=== PATIENT | female | born 1945 | race African-American/Black ===

== ENCOUNTER → 2024-11-23 12:04 | Outpatient (REF) | payer OTHER, SELFPAY | LOC: RAD 12:04 | PROVIDERS: ATTENDING PHYSICIAN Obstetrics & Gynecology Gynecologic Oncology; FAMILY PHYSICIAN Family Medicine | DX: R19.04 Left lower quadrant abdominal swelling, mass and lump (principal); R19.09 Other intra-abdominal and pelvic swelling, mass and lump; N82.3 Fistula of vagina to large intestine; Z12.9 Encounter for screening for malignant neoplasm, site unspecified | CPT/HCPCS: 71260; 74177; Q9967 ==

== ENCOUNTER 2024-12-02 06:05 | Inpatient (IN) | payer OTHER, SELFPAY ==
[2024-11-22 13:56] LABS: Hematocrit 28.9 % (37.0-47.0); Hemoglobin 9.1 g/dL (12.0-16.0); Mean Corp Hgb Conc. 31.5 g/dL (33.0-37.0); Mean Corpuscular Volume 86.0 fL (81.0-99.0); Platelet Count 355 10^3/uL (130-400); Red Cell Dist. Width 15.9 % (11.5-14.5)
[2024-11-22 13:58] LABS: INR 1.10; PT 14.5 Sec (11.4-14.6)
[2024-11-22 13:59] LABS: APTT 30.7 Sec (23.4-35.0)
[2024-11-22 14:11] LABS: ALT (SGPT) 24 U/L (0-35); AST (SGOT) 34 U/L (14-36); Albumin 3.8 g/dl (3.5-5.0); Alkaline Phosphatase 100 U/L (38-126); Blood Urea Nitrogen 36 mg/dl (7-17); Calcium 9.4 mg/dl (8.4-10.2); Carbon Dioxide 28 mmol/L (22-30); Chloride 101 mmol/L (98-107); Glucose 107 mg/dl (70-99); Potassium 5.0 mmol/L (3.5-5.1); Sodium 138 mmol/L (135-145); Total Protein 7.5 g/dl (6.3-8.2); eGFR 35.01
[2024-11-22 14:19] VITALS: BMI 26.1
[2024-11-22 14:43] LABS: Glycohemoglobin (HgbA1c) 6.3 % (4.0-5.6)
--- NOTE | 2024-11-23 13:38 | PTCARENOTE ---
Patients 11/22 Creat 1.5; GFR 35.01- Honey @ Dr. Salmeron office and Alley @ Dr. Tovar office notifed
[2024-12-02] VITALS (15 sets, daily range): BP systolic 116–164; BP diastolic 62–99; BMI 26.1
[2024-12-02 06:48] LABS: Glucose - Point of Care 186 mg/dl (70-99)
[2024-12-02] MEDS: HEPARIN 5000 UNITS SC (06:50)
[2024-12-02] MEDS: TYLENOL 1000 MG PO (06:50)
[2024-12-02] MEDS: NORMOSOL-R/PLASMALYTE-A 1000 IV (06:50)
[2024-12-02 09:20] LABS: B.E. - POC 1.2 mmol/L; Glucose - POC 137 mg/dl (70-99); HCO3 - POC 26 mmol/L (21-28); Hematocrit - POC 29 % PCV (37-47); Hemodilution- POC Yes; Hemoglobin Calculated - POC 9.8; Ionized Calcium - POC 1.13 mmol/L (1.15-1.33); Lactate - POC 0.70 mmol/L (0.36-0.75); O2 Saturation %Calculated-POC 99.8 % (94-98); PCO2 - POC 40 mmHg (35-48); PO2 - POC 211 mmHg (83-108); Potassium - POC 3.9 mmol/L (3.5-5.1); Sodium - POC 139 mmol/L (136-145); Specimen Type - POC Arterial; pH - POC 7.42 (7.35-7.45)
[2024-12-02 11:48] LABS: B.E. - POC -0.1 mmol/L; Glucose - POC 162 mg/dl (70-99); HCO3 - POC 25 mmol/L (21-28); Hematocrit - POC 27 % PCV (37-47); Hemodilution- POC Yes; Hemoglobin Calculated - POC 9.3; Ionized Calcium - POC 1.11 mmol/L (1.15-1.33); Lactate - POC 0.79 mmol/L (0.36-0.75); O2 Saturation %Calculated-POC 99.6 % (94-98); PCO2 - POC 41 mmHg (35-48); PO2 - POC 188 mmHg (83-108); Potassium - POC 4.1 mmol/L (3.5-5.1); Sodium - POC 138 mmol/L (136-145); Specimen Type - POC Arterial; pH - POC 7.39 (7.35-7.45)
[2024-12-02 14:44] LABS: B.E. - POC -1.3 mmol/L; Glucose - POC 172 mg/dl (70-99); HCO3 - POC 24 mmol/L (21-28); Hematocrit - POC 26 % PCV (37-47); Hemodilution- POC Yes; Hemoglobin Calculated - POC 8.8; Ionized Calcium - POC 1.05 mmol/L (1.15-1.33); Lactate - POC 1.02 mmol/L (0.36-0.75); O2 Saturation %Calculated-POC 99.7 % (94-98); PCO2 - POC 44 mmHg (35-48); PO2 - POC 203 mmHg (83-108); Potassium - POC 4.3 mmol/L (3.5-5.1); Sodium - POC 135 mmol/L (136-145); Specimen Type - POC Arterial; pH - POC 7.35 (7.35-7.45)
--- NOTE | 2024-12-02 15:06 | W.IMMPOSTOP ---
Surgical Immed Post Op Note
-
Primary Surgeon: Allen Cristobal MD
Film Archivist-Onc: Jesus Torres MD
Urologist: Roscoe Vazquez MD
Assistants: KURTIS Simon and STORM Roblero
Pre-op Diagnosis: Colovaginal fistula
Post-op Diagnosis: Same
Procedure Performed: Cystocscopy with insertion of bilateral ureteral stents, robotic low anterior resection with takedown of splenic flexure and
intracorporeal anastomosis, flexible sigmoidoscopy and robotic repair of vagina and bilateral oophorectomoy
Anesthesia Type: GET
Specimen / Cultures: Sigmoid colon (suture is proximal); bilateral ovaries
Estimated Blood Loss: 40cc
Complications: None
Operative Findings: Small absesss in the left hemipelvis with a colovaginal fistula
28mm EEA
Normal leak test
Omental pedicle between the colorectal anastomosis (7cm from anal verge)
19 Chandu drain in the pelvis
Patient's daughter updated.
--- NOTE | 2024-12-02 15:22 | CON.HOSP ---
Family Physician
-
Family Physician: Felipe Temple
Chief Complaint
-
Medicine consult for postop medical care
History of Present Illness
HPI: 78-year-old female, past medical history of hypertension, CKD stage III, CAD, presented for routine colorectal resection for pelvic abscess/colovaginal fistula from diverticulitis.
Medicine is consulted for postop medical management.
Patient seen in PACU, still drowsy/sedated from anesthesia.
Medical History
Past Medical History
Past Medical History: Reports Other
Additional Past Medical History:
hypertension,
CKD stage III,
CAD
Past Surgical History: Reports Other
Additional Past Surgical History:
12/02/2024 colorectal resection for pelvic abscess/colovaginal fistula from diverticulitis
Social History
Unable to obtain full social history at this time due to: Other (Sedated currently)
Family History
Family History: Reviewed & Not Pertinent
Allergies / Home Medications
Allergies reflects when Allergies were last updated in [facility].
Home Medications with original date entered in [facility]
Allergy/Medication List:
Allergies
Allergy/AdvReac Type Severity Reaction Status Date / Time
fluticasone (From Flovent Allergy Anaphylaxis Verified 12/02/24 06:22
HFA)
oxycodone (From Percocet) Allergy Vomiting Verified 12/02/24 06:22
tramadol Allergy Vomiting Verified 12/02/24 06:22
Home Medications
Centrum 1 dose PO DAILY 11/25/24
Fruit Vitamin 1 dose PO DAILY 11/25/24
Vege Vitamin 1 dose PO DAILY 11/25/24
acetaminophen 500 mg tablet 1,000 mg PO QID PRN pain 11/25/24
albuterol sulfate 90 mcg/actuation aerosol inhaler 1 puff inhalation DAILY PRN sob 11/25/24
allopurinol 100 mg tablet 100 mg PO DAILY 11/25/24
aspirin 81 mg tablet 81 mg PO DAILY 11/25/24
atorvastatin 80 mg tablet 80 mg PO DAILY 11/25/24
azelastine 137 mcg (0.1 %) nasal spray 2 spray intranasal BID 11/25/24
calcium 1 dose PO DAILY 11/25/24
calcium carbonate (Calcium 500) 500 mg PO DAILY PRN indigestion 11/25/24
carvedilol 12.5 mg tablet 12.5 mg PO BID 11/25/24
cetirizine 5 mg tablet 5 mg PO DAILY 11/25/24
duloxetine 30 mg capsule,delayed release 30 mg PO DAILY 11/25/24
ezetimibe 10 mg tablet 10 mg PO DAILY 11/25/24
fluticasone furoate 200 mcg-vilanterol 25 mcg/dose inhalation powder (Breo Ellipta) 1 inh inhalation DAILY PRN congestion 11/25/24
fluticasone propionate 50 mcg/actuation nasal spray,suspension 1 spray intranasal BID 11/25/24
furosemide 20 mg tablet 20 mg PO DAILY 11/25/24
gabapentin 300 mg capsule 300 mg PO BID 11/25/24
hydrocodone 5 mg-acetaminophen 325 mg tablet 1 tab PO HS PRN pain 11/25/24
memantine 7 mg capsule sprinkle,extended release 24hr (Namenda XR) 7 mg PO DAILY 11/25/24
omeprazole 40 mg capsule,delayed release 40 mg PO DAILY 11/25/24
pantoprazole 20 mg tablet,delayed release 20 mg PO HS 11/25/24
metronidazole 500 mg tablet 500 mg PO DIRECTED 11/30/24
neomycin 500 mg tablet 1,000 mg PO DIRECTED 11/30/24
peg 3350-electrolytes 236 gram-22.74 gram-6.74 gram-5.86 gram solution (Golytely) 236 ml PO DIRECTED 11/30/24
Review of Systems
-
Unable to obtain full review of systems at this time due to: Other (Sedated currently)
Physical Exam
Vital Signs
Vital Signs
Temp Pulse Resp BP Pulse Ox
37.6 C 91 18 116/62 97
12/02/24 06:33 12/02/24 06:33 12/02/24 06:33 12/02/24 06:33 12/02/24 06:33
Physical Exam
General: Well Developed, Well Nourished and Comfortable
HEENT: Normocephalic, Moist Mucous Membranes and Atraumatic
Respiratory: Clear and Non Labored Respirations; Negative Accessory Resp Muscle Use
Cardiac: S1/S2 and Regular Rhythm; Negative Murmur or Rub
GI: Soft, Non Tender, Non Distended, Normal Bowel Sounds and Other (Abdominal drain)
Rectal: Deferred by Provider
Musculoskeletal: No Clubbing, No Cyanosis and No Edema
Skin: Negative Rash
Neuro: Sedated
Laboratory Results
-
Laboratory Results
11/22/24 12:46
11/22/24 12:46
PT 14.5 Sec (11.4-14.6) 11/22/24 12:46
INR 1.10 11/22/24 12:46
APTT 30.7 Sec (23.4-35.0) 11/22/24 12:46
Total Bilirubin 0.5 mg/dl (0.2-1.3) 11/22/24 12:46
AST 34 U/L (14-36) 11/22/24 12:46
ALT 24 U/L (0-35) 11/22/24 12:46
Alkaline Phosphatase 100 U/L (38-126) 11/22/24 12:46
Data Reviewed
-
Lab Data: Labs Reviewed
Old Records: Reviewed
Impression / Plan
-
HPI: 78-year-old female, past medical history of hypertension, CKD stage III, CAD, presented for routine colorectal resection for pelvic abscess/colovaginal fistula from diverticulitis.
Medicine is consulted for postop medical management.
Patient seen in PACU, still drowsy/sedated from anesthesia.
A/P:
# Colorectal resection for pelvic abscess/colovaginal fistula from diverticulitis.
post op care per CRS
Continue ertapenem
Monitor abdominal drain
DVT ppx with SCD tonight, then per CRS
IV Protonix in place of prior to admission p.o. kimi-op
# hypertension
# CAD
Cont CHRISTMAS TREE [employer]OWER Coreg with holding parameter
Continue CHRISTMAS TREE GROWER aspirin, atorvastatin
# CKD stage III
last SCr from 10/2025 at 1.5
Monitor SCr post op
DVT ppx: per CRS, use SCD for now
FC
[2024-12-02 15:31] LABS: Glucose - Point of Care 203 mg/dl (70-99)
[2024-12-02 15:51] LABS: Hematocrit 26.7 % (37.0-47.0); Hemoglobin 8.4 g/dL (12.0-16.0); Mean Corp Hgb Conc. 31.5 g/dL (33.0-37.0); Mean Corpuscular Volume 87.3 fL (81.0-99.0); Nucleated Red Blood Cells % 0 %; Platelet Count 350 10^3/uL (130-400); Red Cell Dist. Width 17.7 % (11.5-14.5)
[2024-12-02 16:06] LABS: Blood Urea Nitrogen 27 mg/dl (7-17); Calcium 7.9 mg/dl (8.4-10.2); Carbon Dioxide 29 mmol/L (22-30); Chloride 98 mmol/L (98-107); Estimated Creatinine Clearance 27 ml/min; Glucose 183 mg/dl (70-99); Potassium 4.8 mmol/L (3.5-5.1); Sodium 134 mmol/L (135-145); eGFR 38.03
[2024-12-02] MEDS: NOVOLOG vial 1 UNITS SC (16:25)
--- NOTE | 2024-12-02 16:33 | OR.RPT ---
Operative Report
Operative Report
Date of procedure: December 02, 2024
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
Postoperative diagnosis the same
Surgeon:Jesus Torres
Procedure:
Robotic assisted laparoscopic closure of rectovaginal fistula defect
Robotic assisted laparoscopic bilateral salpingo-oophorectomy
Complications: None
Estimated blood loss: 10 cc
Procedure in detail: This patient is brought to the operating room today by Dr. Allen Cristobal for right sigmoid resection reanastomosis as well as resection of pelvic abscess. He performed robotic assisted low anterior resection with resection
of the abscess and the communication to the vagina was severed, according to his description there was a hole in the vagina. At this point I came in the operating room and note that the colorectal anastomosis had already been performed. I examined
the pelvis and noted bilateral ovaries are still intact and in place and specially the left ovary appears to be partially involved with the pelvic abscess that had been port removed. I placed a speculum in the vagina and did not note any obvious
evidence of large defect present. I examined the pelvis via the robotic approach and note that there is thinning of the left vaginal apex. I suspect the communication was microscopic through this area. We placed a rectal sizer in the vagina, to
delineate the outline of the left vaginal apex. I used a V-Loc suture to essentially reinforce the vaginal tissue in this area and a running 2 layer closure fashion. Once this was completed we insufflated air in the vagina and filled the pelvis
with fluid and there was no evidence of bubbles noted as a result of dissection.
There were bilateral ureteral stents in place. Each infundibulopelvic ligament was isolated and elevated there were sealed and divided I followed the IP ligament to the left ovary which was adherent to the pelvis sidewall as well as round ligament
and removed both of these together. I sealed and divided using the vessel sealer the remainder of the adhesions. Similarly on the right side the ovary appeared to be atrophic and might have been involved with the abscess, the ovary was more or
less adherent to the pelvic sidewall again. I carefully dissected the ovary off the pelvic sidewall while visualizing the course of the ureter and the stents that were in it. The ovary was from filmy tissues to the pelvis and it was
removed and each of the right and left ovaries were submitted separately to pathology. We irrigated the pelvis there was no injury or disruption of the colorectal anastomosis I turned the case over to Dr. Cristobal for a completion of the procedure.
Counts of laps instruments and needle was correct x 2. I was present and scrubbed for entire procedure as dictated above
--- NOTE | 2024-12-02 16:46 | PTCARENOTE ---
Right radial A-line D/C'ed, +radial pulse,-hematoma, pressure drsg applied.
[2024-12-02] MEDS: SUBLIMAZE 25 MCG IV (17:18)
[2024-12-02 18:00] LABS: Glucose - Point of Care 167 mg/dl (70-99)
[2024-12-02] MEDS: TYLENOL PO (18:19)
[2024-12-02] MEDS: D5LR 1000 IV (18:20)
--- NOTE | 2024-12-02 18:23 | PTCARENOTE ---
Patient admitted from pacu post repair of recto vaginal fistula with bilateral salpingectomy and urinary stents.The patient is drowsy but arousable.She denied having any pain.Vital signs are stable except b/p was 164/99.All 4 laparoscopic sites are
open to air without drainage.The briceno has only a small amount of urine in which I was told by the pacu nurse the doctors are aware of.Patient in a bed with the call linn in place.Will continue to monitor urine output and vital signs.
[2024-12-02] MEDS: COREG 12.5 MG PO (20:10)
[2024-12-02] MEDS: NEURONTIN 300 MG PO (20:10)
[2024-12-02] MEDS: TYLENOL 650 MG PO (20:11)
[2024-12-02] MEDS: NSS (PRESERVATIVE FREE) IV (21:17)
[2024-12-02] MEDS: PROTONIX IV IV (21:17)
[2024-12-02 21:37] LABS: Glucose - Point of Care 196 mg/dl (70-99)
--- NOTE | 2024-12-02 23:55 | PTCARENOTE ---
pt rec'vd 19:00, pt has right abd J-P drain that had 80cc of monica blood and j-p site drsg were changed had mod amount of drainage. Passed on report from on going nurse PACU aware of bleeding on dressingsof j-p site.
[2024-12-03] VITALS (10 sets, daily range): BP systolic 109–153; BP diastolic 59–86; PULSE 87; O2SAT 99; BMI 27.1; BMI 28.1
[2024-12-03] MEDS: DILAUDID 0.5 MG IV ×3 (00:11→19:02)
[2024-12-03] MEDS: TYLENOL 650 MG PO ×6 (00:11→19:27)
[2024-12-03] MEDS: D5LR 1000 IV ×2 (03:37→22:01)
[2024-12-03 06:47] LABS: Hematocrit 23.6 % (37.0-47.0); Hemoglobin 7.5 g/dL (12.0-16.0); Mean Corp Hgb Conc. 31.8 g/dL (33.0-37.0); Mean Corpuscular Volume 86.4 fL (81.0-99.0); Nucleated Red Blood Cells % 0 %; Platelet Count 347 10^3/uL (130-400); Red Cell Dist. Width 17.6 % (11.5-14.5)
[2024-12-03 07:12] LABS: Blood Urea Nitrogen 26 mg/dl (7-17); Calcium 8.1 mg/dl (8.4-10.2); Carbon Dioxide 28 mmol/L (22-30); Chloride 100 mmol/L (98-107); Estimated Creatinine Clearance 32 ml/min; Glucose 156 mg/dl (70-99); Potassium 4.8 mmol/L (3.5-5.1); Sodium 135 mmol/L (135-145); eGFR 41.57
[2024-12-03 08:31] LABS: Glucose - Point of Care 166 mg/dl (70-99)
[2024-12-03] MEDS: CYMBALTA DELAYED RELEASE 30 MG PO (08:36)
[2024-12-03] MEDS: LIPITOR 80 MG PO (08:38)
[2024-12-03] MEDS: COREG 12.5 MG PO ×2 (08:40→19:28)
[2024-12-03] MEDS: INVANZ 60 MG IV (08:40)
[2024-12-03] MEDS: NAMENDA 5 MG PO ×2 (08:41→19:27)
[2024-12-03] MEDS: LOW STRENGTH ASPIRIN 81 MG PO (08:41)
[2024-12-03] MEDS: NSS (PRESERVATIVE FREE) 10 ML IV (08:42)
[2024-12-03] MEDS: PROTONIX IV 40 MG IV (08:42)
[2024-12-03] MEDS: ZETIA 10 MG PO (08:42)
[2024-12-03] MEDS: NEURONTIN 300 MG PO ×2 (08:42→19:27)
[2024-12-03] MEDS: ZYRTEC 5 MG PO (08:43)
[2024-12-03] MEDS: ZYLOPRIM 100 MG PO (08:43)
--- NOTE | 2024-12-03 09:43 | CM ---
CM following re: discharge planning.
Reviewed pt's chart, met with pt.
Pt is an 78 year old female, admitted with primary dx of Sigmoid diverticulitis with rectovaginal fistula and chronic pelvic abscess, POD#1 s/p Robotic assisted laparoscopic closure of rectovaginal fistula defect. Robotic assisted laparoscopic
bilateral salpingo-oophorectomy.
Pt reports she lives with daughter 2SH, 8 steps to enter, has 5 supportive children. Pt reports she ambulates with a walker, has a wheelchair, shower chair, known to [facility] and was at [facility] in the past. pt reports that [facility] located just 2 blocks from her house and pt requested if she needs SNF level of care at discharge she prefers [facility].
PT and OT will evaluate the pt to determine a level of care at discharge.
PCP: Archana desouza
Pharmacy: [facility]
D/C plan: [facility] if recommended by PT/OT vs [facility]
CM will follow with discharge plan updates as hospitalization progresses
--- NOTE | 2024-12-03 09:47 | W.PN.CRS1 ---
Today's Communication / Plan
-
Will keep on clears for now.
Ureteral stents removed at bedside. Will keep Ang in until postoperative day 3.
Recheck hemoglobin this afternoon, may need to transfuse blood for acute postoperative blood loss anemia in the setting of chronic anemia.
Antibiotics x 3 days
Out of bed and ambulate as able.
Assessment/Plan
-
This is an 78-year-old female postoperative day 1 from a cystoscopy with insertion of bilateral ureteral stents, robotic low anterior resection with takedown of the splenic flexure and intracorporeal anastomosis, flexible sigmoidoscopy and robotic
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
Will keep on clears for now.
Ureteral stents removed at bedside. Will keep Ang in until postoperative day 3.
Recheck hemoglobin this afternoon, may need to transfuse blood for acute postoperative blood loss anemia in the setting of chronic anemia.
Antibiotics x 3 days
Out of bed and ambulate as able.
Subjective Data
Procedure
12/02/2024 cystoscopy with bilateral ureteral stents, robotic LAR with takedown of splenic flexure and intracorporeal anastomosis, drainage of an intra-abdominal abscess, flexible sigmoidoscopy, robotic repair for vaginal fistula with bilateral
oophorectomy
Subjective Data
Date of Service: December 03, 2024
Interval Events:
No acute events overnight. Slept okay. Pain Controlled. Denies Nausea/Vomiting, -bowel function. Hemoglobin drifting down
Objective Data
-
Vital Signs
Temp Pulse Resp BP Pulse Ox
97.8 F 96 16 132/82 99
12/03/24 07:20 12/03/24 08:40 12/03/24 07:20 12/03/24 08:40 12/03/24 07:20
Intake & Output
12/02/24 12/03/24 12/04/24
06:59 06:59 06:59
Intake Total 1300 / 1300
Output Total 870 / 870 40 / 40
Balance 430 / 430 -40 / -40
Intake:
Oral fluids 120 / 120
IV fluids (Total) 1180 / 1180
Amount instilled into Urinary 0 / 0
Drain (Total)
Ureteral stent 0 / 0
Output:
Drain Output (Total) 220 / 220 40 / 40
Right Tyrone-Noriega 220 / 220 40 / 40
Urinary Drain Output (Total) 100 / 100
Right Ureteral stent 50 / 50
Ureteral stent 50 / 50
Urine, Ang 550 / 550
Lab Results
12/03/24 05:49
Physical Exam
-
General: No Acute Distress
Abdomen: Soft, Distended, Tender and No Guarding
Incision: Clear, Dry, Intact
Data Reviewed
-
Total Time Spent with Patient (in minutes): 20
--- NOTE | 2024-12-03 10:00 | PTCARENOTE ---
Pt's creatinine is 1.3; Dr. Blanco instructed to hold Furosemide this am.
--- NOTE | 2024-12-03 12:03 | W.PN.HOSP.TC ---
Today's Communication/Plan
-
see A/P
Assessment / Plan
Assessment / Plan
HPI: 78-year-old female, past medical history of hypertension, CKD stage III, CAD, presented for routine colorectal resection for pelvic abscess/colovaginal fistula from diverticulitis.
Medicine is consulted for postop medical management.
Patient seen in PACU, still drowsy/sedated from anesthesia.
A/P:
# s/p Colorectal resection for pelvic abscess/colovaginal fistula from diverticulitis.
post op care per CRS
Continue ertapenem x3 days
Started clears per CRS
Ureteral stents removed at bedside by CRS. Keep Ang in until postoperative day 3.
Monitor abdominal drain
DVT ppx with SCD
IV Protonix in place of prior to admission PO
# Acute blood loss anemia post op
Recheck hemoglobin this afternoon,
agree with blood transfusion if Hgb remains low
consent obtained
# hypertension
# CAD
Cont EXCELLENCE COACH Coreg with holding parameter
Continue EXCELLENCE COACH aspirin, atorvastatin
# CKD stage III
SCr today 1.3
last SCr from 10/2025 at 1.5
Monitor SCr post op
DVT ppx: per CRS, use SCD for now
FC
DW daughters and granddaughter at bedside
Anticipated Discharge: 24 - 48 hours
Subjective/Interval History
-
Date of Service: December 03, 2024
Objective Data
-
Labs:
Laboratory Results
12/03/24 12/03/24
05:49 14:00
WBC 15.7 H
Hgb 7.5 L Pending
Hct 23.6 L Pending
Plt Count 347
Sodium 135
Potassium 4.8
Chloride 100
Carbon Dioxide 28
BUN 26 H
Creatinine 1.3 H
Glucose 156 H
Calcium 8.1 L
Vital Signs:
Vital Signs
Temp Pulse Resp BP Pulse Ox
37.0 C 87 18 115/61 97
12/03/24 11:35 12/03/24 11:35 12/03/24 11:35 12/03/24 11:35 12/03/24 11:35
I&O
12/02/24 12/03/24 12/04/24
06:59 06:59 06:59
Intake Total 1300 / 1300 60 / 60
Output Total 870 / 870 430 / 430
Balance 430 / 430 -370 / -370
Review of Systems
-
All other systems: Reviewed and negative
Constitutional: Reports No Symptoms
Physical Exam
-
General: Well Developed, Well Nourished, No Apparent Distress, Comfortable and Conversant; Negative Respiratory Distress
HEENT: Normocephalic, Atraumatic, Nose Appears Normal and Ears Appear Normal; Negative Oxygen
Respiratory: Clear to Auscultation and Non Labored Respirations; Negative Accessory Resp Muscle Use
Cardiac: Regular Rhythm and S1/S2
GI: Soft, Nontender, Nondistended, Normal Bowel Sounds and Other (abdominal drain )
Skin: Warm and Dry
Neuro: Awake, Alert, Oriented and AO x 3
Psych: Calm and Intact Judgement/Insight
Data Reviewed
-
Labs: Labs Reviewed by me
[2024-12-03 12:38] LABS: Glucose - Point of Care 223 mg/dl (70-99)
[2024-12-03] MEDS: NOVOLOG FLEXPEN-LOW RESISTANCE 2 UNITS SC (13:37)
[2024-12-03 14:14] LABS: Hematocrit 22.3 % (37.0-47.0); Hemoglobin 7.2 g/dL (12.0-16.0)
[2024-12-03] MEDS: NOVOLOG FLEXPEN-LOW RESISTANCE SC (16:50)
[2024-12-03 17:01] LABS: Glucose - Point of Care 133 mg/dl (70-99)
--- NOTE | 2024-12-03 18:39 | W.PN.GYNONC ---
Today's Communication
-
N?A
Impression / Plan
-
Postop day 1 status post robotic assisted low anterior resection with reanastomosis and excision of diverticulitis abscess, suture repair of colovaginal fistula, bilateral oophorectomy
She has chronic anemia and postop hemoglobin appears to be settling at 7.2 late afternoon now 24 hours postop, she is receiving 1 unit of blood transfusion
Diet will be advanced as per colorectal surgery recommendations
I reviewed the findings with the patient, she seems satisfied with the outcome and appreciative of the team's effort
Continue GI and DVT prophylaxis
Subjective / Interval History
-
POD1
Patient was seen and evaluated, procedures performed reviewed including unplanned bilateral oophorectomy
She has some abdominal soreness but overall looks well, tolerating clear liquids
She has been up and about with a walker
Objective Data
-
Lab Results:
12/03/24 14:05
12/03/24 05:49
Physical Exam
Vital Signs / I&O
Vitals
Temp Pulse Resp BP Pulse Ox
99.1 F 96 16 123/70 98
12/03/24 17:10 12/03/24 17:10 12/03/24 17:10 12/03/24 17:10 12/03/24 17:10
I&O
12/01/24 12/02/24 12/03/24 12/04/24
06:59 06:59 06:59 06:59
Intake Total 1300 / 1300 800 / 800
Output Total 870 / 870 490 / 490
Balance 430 / 430 310 / 310
Physical Exam
General: No Apparent Distress
Respiratory: Clear and Non Labored Respirations
Cardiac: S1/S2 and Regular Rhythm
GI: Soft, Non Tender and Non Distended
Neuro: Awake and Alert
Psych: Calm
--- NOTE | 2024-12-03 19:12 | PTCARENOTE ---
1 unit of PRBCs infused without incident. Start time 16:55, end time 19:09. Vital signs stable (see electronic documentation in [facility])
[2024-12-03 22:53] LABS: Glucose - Point of Care 115 mg/dl (70-99)
[2024-12-04] MEDS: DILAUDID 0.5 MG IV ×2 (00:24→09:10)
[2024-12-04] MEDS: TYLENOL 650 MG PO ×7 (00:39→23:52)
[2024-12-04 06:23] LABS: Hematocrit 23.4 % (37.0-47.0); Hemoglobin 7.5 g/dL (12.0-16.0); Mean Corp Hgb Conc. 32.1 g/dL (33.0-37.0); Mean Corpuscular Volume 86.0 fL (81.0-99.0); Platelet Count 260 10^3/uL (130-400); Red Cell Dist. Width 18.1 % (11.5-14.5)
[2024-12-04 06:39] LABS: Blood Urea Nitrogen 23 mg/dl (7-17); Calcium 8.0 mg/dl (8.4-10.2); Carbon Dioxide 31 mmol/L (22-30); Chloride 101 mmol/L (98-107); Estimated Creatinine Clearance 36 ml/min; Glucose 108 mg/dl (70-99); Potassium 4.9 mmol/L (3.5-5.1); Sodium 133 mmol/L (135-145); eGFR 45.76
[2024-12-04 07:25] VITALS: BP 136/79
[2024-12-04 08:16] LABS: Glucose - Point of Care 120 mg/dl (70-99)
[2024-12-04] MEDS: ZETIA 10 MG PO (08:48)
[2024-12-04] MEDS: CYMBALTA DELAYED RELEASE 30 MG PO (08:48)
[2024-12-04] MEDS: ZYRTEC 5 MG PO (08:49)
[2024-12-04] MEDS: LOW STRENGTH ASPIRIN 81 MG PO (08:49)
[2024-12-04] MEDS: LIPITOR 80 MG PO (08:49)
[2024-12-04] MEDS: COREG 12.5 MG PO ×2 (08:49→19:44)
[2024-12-04] MEDS: ZYLOPRIM 100 MG PO (08:50)
[2024-12-04] MEDS: NEURONTIN 300 MG PO ×2 (08:52→19:40)
[2024-12-04] MEDS: NAMENDA 5 MG PO ×2 (08:52→19:40)
[2024-12-04] MEDS: INVANZ 60 MG IV (08:53)
[2024-12-04] MEDS: NOVOLOG FLEXPEN-LOW RESISTANCE SC ×3 (08:53→17:04)
[2024-12-04] MEDS: NSS (PRESERVATIVE FREE) 10 ML IV (08:54)
[2024-12-04] MEDS: PROTONIX IV 40 MG IV (08:54)
--- NOTE | 2024-12-04 10:20 | W.PN.HOSP.TC ---
Today's Communication/Plan
-
see A/P
Assessment / Plan
Assessment / Plan
HPI: 78-year-old female, past medical history of hypertension, CKD stage III, CAD, presented for routine colorectal resection for pelvic abscess/colovaginal fistula from diverticulitis.
Medicine is consulted for postop medical management.
Patient seen in PACU, still drowsy/sedated from anesthesia.
A/P:
# s/p Colorectal resection for pelvic abscess/colovaginal fistula from diverticulitis.
post op care per CRS
Continue ertapenem x3 days
Started clears per CRS
Ureteral stents removed at bedside by CRS. Keep Ang in until postoperative day 3.
Monitor abdominal drain
DVT ppx with SCD
IV Protonix in place of prior to admission PO
# Acute blood loss anemia post op
transfuse second unit PRBC today 12/04
Monitor Hgb
# hypertension
# CAD
Cont CUSHION MAKER Coreg with holding parameter
Continue CUSHION MAKER aspirin, atorvastatin
# CKD stage III
SCr today 1.2
Monitor SCr post op
DVT ppx: per CRS, use SCD for now
FC
DW CRS team about pt's abd pain concern, her need for second unit PRBC. CRS team informed that they will cont to monitor, no current concern for intra-abd bleed, no CT scan for now.
total time 51 min
Anticipated Discharge: > 48 hours
Subjective/Interval History
-
Date of Service: December 04, 2024
Objective Data
-
Labs:
Laboratory Results
12/04/24
05:44
WBC 10.5
Hgb 7.5 L
Hct 23.4 L
Plt Count 260 D
Sodium 133 L
Potassium 4.9
Chloride 101
Carbon Dioxide 31 H
BUN 23 H
Creatinine 1.2 H
Glucose 108 H
Calcium 8.0 L
Vital Signs:
Vital Signs
Temp Pulse Resp BP Pulse Ox
37.0 C 88 16 136/79 98
12/04/24 07:25 12/04/24 08:49 12/04/24 07:25 12/04/24 08:49 12/04/24 07:25
I&O
12/03/24 12/04/24 12/05/24
06:59 06:59 06:59
Intake Total 1300 / 1300 2009 540 / 540
Output Total 870 / 870 1595 / 1595 505 / 505
Balance 430 / 430 415 / 415 35 / 35
Review of Systems
-
All other systems: Reviewed and negative
Abdomen/GI: Reports Abdominal Pain (diffuse but worse at lower quadrants)
Physical Exam
-
General: Well Developed, Well Nourished, No Apparent Distress and Conversant; Negative Respiratory Distress
HEENT: Normocephalic, Atraumatic, Nose Appears Normal and Ears Appear Normal; Negative Oxygen
Respiratory: Clear to Auscultation and Non Labored Respirations; Negative Accessory Resp Muscle Use
Cardiac: Regular Rhythm and S1/S2
GI: Soft, Tender (diffuse) and Other (R abdominal drain )
Skin: Warm and Dry
Neuro: Awake, Alert, Oriented and AO x 3
Psych: Calm and Intact Judgement/Insight
Data Reviewed
-
Labs: Labs Reviewed by me
--- NOTE | 2024-12-04 10:47 | W.PN.GS2 ---
Today's Communication / Plan
-
clear liquids
transfuse one unit of prbcs
Assessment / Plan
-
78 yo female presenting for management of colovesical fistula now POD #2 Cystocscopy with insertion of bilateral ureteral stents, robotic low anterior resection with takedown of splenic flexure with intracorporeal anastomosis, flexible sigmoidoscopy
and robotic repair of vagina and bilateral oophorectomy
AFVSS, now weaned off O2
Acute blood loss anemia present in setting of chronic anemia
S/P one unit of bloody yesterday without significant rise in h/h today
TANK with light SSF, no bloody stools. Do not suspect significant active bleeding
Passing flatus/loose stool but also belching with mild distention
Both stents have been removed
Plan
Continue Clear liquids
C/W TANK, follow character/quantity of outputs
Transfuse an additional unit of PRBC's
Labs in AM
C/W IVF until good PO intake, lasix is currently on hold
Appreciate medicine team following for medical management
OOB ambulate as able
C/W briceno
Hold chemical VTE ppx until h/h stable, SCDs while in bed
Subjective Data
-
Date of Service: December 04, 2024
Pt seen and examined at bedside with Dr. Blanco. Continues with abdominal discomfort, but does admit it is slightly better than yesterday. Denies n/v. Tolerating clears. Belching. Passing some flatus and a small loose stool. voiding.
Objective Data
-
Intake and Output
12/03/24 12/04/24 12/05/24
06:59 06:59 06:59
Intake Total 1300 / 1300 2009 540 / 540
Output Total 870 / 870 1595 / 1595 505 / 505
Balance 430 / 430 415 / 415 35 / 35
Intake:
Oral fluids 120 / 120 240 / 240 480 / 480
IV fluids (Total) 1180 / 1180 1460 / 1460
IV piggybacks 60 / 60 60 / 60
Amount instilled into Urinary 0 / 0
Drain (Total)
Ureteral stent 0 / 0
Blood Product Amount Infused ( 250 / 250
mL)
Packed Rbc Leukoreduced Unit 250 / 250
[id number]
Output:
Drain Output (Total) 220 / 220 270 / 270 80 / 80
Right Tyrone-Noriega 220 / 220 270 / 270 80 / 80
Urinary Drain Output (Total) 100 / 100
Right Ureteral stent 50 / 50
Ureteral stent 50 / 50
Urine, Briceno 550 / 550 1325 / 1325 425 / 425
Vital Signs
Temp Pulse Resp BP Pulse Ox
98.6 F 88 16 136/79 98
12/04/24 07:25 12/04/24 08:49 12/04/24 07:25 12/04/24 08:49 12/04/24 07:25
Lab Results
12/04/24 05:44
12/04/24 05:44
Calcium 8.0 mg/dl (8.4-10.2) L 12/04/24 05:44
Total Bilirubin 0.5 mg/dl (0.2-1.3) 11/22/24 12:46
AST 34 U/L (14-36) 11/22/24 12:46
ALT 24 U/L (0-35) 11/22/24 12:46
Alkaline Phosphatase 100 U/L (38-126) 11/22/24 12:46
Total Protein 7.5 g/dl (6.3-8.2) 11/22/24 12:46
Albumin 3.8 g/dl (3.5-5.0) 11/22/24 12:46
Physical Exam
-
NAD
ABD soft, mildly distended, expected tenderness
TANK with light SSF
Patient has a briceno catheter: No
Patient has a central line: No
[2024-12-04 11:46] VITALS: BP 136/79
[2024-12-04 11:56] LABS: Glucose - Point of Care 108 mg/dl (70-99)
[2024-12-04 12:03] VITALS: BP 119/67
[2024-12-04 14:07] VITALS: BP 121/71
--- NOTE | 2024-12-04 14:10 | PTCARENOTE ---
1 unit PRBC infused without incident, started @11:48, ended @14:07; VSS.
[2024-12-04 15:25] VITALS: BP 125/74
[2024-12-04] MEDS: D5LR 1000 IV (16:43)
[2024-12-04 16:57] LABS: Glucose - Point of Care 103 mg/dl (70-99)
[2024-12-04 21:58] LABS: Glucose - Point of Care 120 mg/dl (70-99)
[2024-12-04] MEDS: ROXICODONE 5 MG PO (22:13)
[2024-12-04 23:28] VITALS: BP 142/83
[2024-12-05] MEDS: DILAUDID 0.5 MG IV ×3 (01:30→17:31)
[2024-12-05] MEDS: TYLENOL 650 MG PO ×5 (04:37→19:57)
[2024-12-05 06:48] LABS: Hematocrit 28.8 % (37.0-47.0); Hemoglobin 9.5 g/dL (12.0-16.0); Mean Corp Hgb Conc. 33.0 g/dL (33.0-37.0); Mean Corpuscular Volume 86.5 fL (81.0-99.0); Platelet Count 284 10^3/uL (130-400); Red Cell Dist. Width 17.2 % (11.5-14.5)
[2024-12-05 06:57] LABS: Blood Urea Nitrogen 19 mg/dl (7-17); Calcium 8.4 mg/dl (8.4-10.2); Carbon Dioxide 31 mmol/L (22-30); Chloride 102 mmol/L (98-107); Estimated Creatinine Clearance 36 ml/min; Glucose 103 mg/dl (70-99); Magnesium 1.8 mg/dl (1.6-2.3); Potassium 5.1 mmol/L (3.5-5.1); Sodium 135 mmol/L (135-145); eGFR 45.76
[2024-12-05 07:20] VITALS: BP 148/85
[2024-12-05 08:25] LABS: Glucose - Point of Care 100 mg/dl (70-99)
[2024-12-05] MEDS: NOVOLOG FLEXPEN-LOW RESISTANCE SC ×3 (08:44→17:15)
[2024-12-05] MEDS: ZYRTEC 5 MG PO (08:46)
[2024-12-05] MEDS: LIPITOR 80 MG PO (08:46)
[2024-12-05] MEDS: ZETIA 10 MG PO (08:46)
[2024-12-05] MEDS: COREG 12.5 MG PO ×2 (08:47→19:57)
[2024-12-05] MEDS: ZYLOPRIM 100 MG PO (08:47)
[2024-12-05] MEDS: CYMBALTA DELAYED RELEASE 30 MG PO (08:47)
[2024-12-05] MEDS: NAMENDA 5 MG PO ×2 (08:47→19:57)
[2024-12-05] MEDS: LOW STRENGTH ASPIRIN 81 MG PO (08:47)
[2024-12-05] MEDS: NEURONTIN 300 MG PO ×2 (08:47→19:57)
[2024-12-05] MEDS: NSS (PRESERVATIVE FREE) 10 ML IV (08:48)
[2024-12-05] MEDS: PROTONIX IV 40 MG IV (08:48)
[2024-12-05] MEDS: INVANZ 60 MG IV (08:49)
[2024-12-05 10:34] VITALS: BMI 28.1
[2024-12-05 10:35] VITALS: BMI 28.1
--- NOTE | 2024-12-05 11:22 | W.PN.CRS1 ---
Today's Communication / Plan
-
dc briceno
fulls
recheck h/h at noon
Assessment/Plan
-
This is an 78-year-old female postoperative day 3 from a cystoscopy with insertion of bilateral ureteral stents, robotic low anterior resection with takedown of the splenic flexure and intracorporeal anastomosis, flexible sigmoidoscopy and robotic
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
-Advance to fulls
-DC briceno
- OOB as tolerated
- TEDS/SCDS in place. Will recheck h/h at noon and if stable, start lovenox.
-Antibiotics x 3 days
-OR pathology pending
-Maintain TANK drain until DC
-Appreciate hospitalist
Subjective Data
Procedure
12/02/2024 cystoscopy with bilateral ureteral stents, robotic LAR with takedown of splenic flexure and intracorporeal anastomosis, drainage of an intra-abdominal abscess, flexible sigmoidoscopy, robotic repair for vaginal fistula with bilateral
oophorectomy
Subjective Data
Date of Service: December 05, 2024
Patient states she has no nausea or vomiting. She has flatus. She is not that hungry. Pain is controlled.
Objective Data
-
Vital Signs
Temp Pulse Resp BP Pulse Ox
98.3 F 82 18 148/85 100
12/05/24 07:20 12/05/24 08:47 12/05/24 07:20 12/05/24 08:47 12/05/24 07:20
Intake & Output
12/04/24 12/05/24 12/06/24
06:59 06:59 06:59
Intake Total 2009 1690 / 1690
Output Total 1595 / 1595 2665 / 2665 785 / 785
Balance 415 / 415 -975 / -975 -785 / -785
Intake:
Oral fluids 240 / 240 720 / 720
IV fluids (Total) 1460 / 1460 660 / 660
IV piggybacks 60 / 60 60 / 60
Blood Product Amount Infused ( 250 / 250 250 / 250
mL)
Packed Rbc Leukoreduced Unit 250 / 250
[id number]
Packed Rbc Leukoreduced Unit 250 / 250
[id number]
Output:
Drain Output (Total) 270 / 270 440 / 440 85 / 85
Right [place] 270 / 270 440 / 440 85 / 85
Urine, Briceno 1325 / 1325 2225 / 2225 700 / 700
Lab Results
12/05/24 05:44
12/05/24 05:44
Physical Exam
-
General: No Acute Distress and AOx3
Abdomen: Soft, Non Distended, Non Tender and Other (TANK serosanginous)
Skin: Warm and Dry
--- NOTE | 2024-12-05 11:36 | W.PN.HOSP.TC ---
Today's Communication/Plan
-
see A/P
Assessment / Plan
Assessment / Plan
HPI: 78-year-old female, past medical history of hypertension, CKD stage III, CAD, presented for routine colorectal resection for pelvic abscess/colovaginal fistula from diverticulitis.
Medicine is consulted for postop medical management.
Patient seen in PACU, still drowsy/sedated from anesthesia.
A/P:
# s/p Colorectal resection for pelvic abscess/colovaginal fistula from diverticulitis.
post op care per CRS
s/p ertapenem x3 days
Ureteral stents removed at bedside by CRS. Keep Ang in until postoperative day 3.
Diet advanced to full liquid per CRS
Monitor abdominal drain
DVT ppx with SCD
IV Protonix in place of prior to admission PO
# Acute blood loss anemia post op
s/p 2 units PRBC transfusion
Monitor Hgb
Hgb today at 9.5
# hypertension
# CAD
Cont EMERGENCY DEPARTMENT MANAGER Coreg with holding parameter
Continue EMERGENCY DEPARTMENT MANAGER aspirin, atorvastatin
# CKD stage III
SCr today 1.2
Monitor SCr post op
DVT ppx: per CRS, use SCD for now
FC
Anticipated Discharge: 24 - 48 hours
Subjective/Interval History
-
Date of Service: December 05, 2024
Objective Data
-
Labs:
Laboratory Results
12/05/24 12/05/24
05:44 12:00
WBC 9.9
Hgb 9.5 L D Pending
Hct 28.8 L Pending
Plt Count 284
Sodium 135
Potassium 5.1
Chloride 102
Carbon Dioxide 31 H
BUN 19 H
Creatinine 1.2 H
Glucose 103 H
Calcium 8.4
Vital Signs:
Vital Signs
Temp Pulse Resp BP Pulse Ox
36.8 C 82 18 148/85 100
12/05/24 07:20 12/05/24 08:47 12/05/24 07:20 12/05/24 08:47 12/05/24 07:20
I&O
12/04/24 12/05/24 12/06/24
06:59 06:59 06:59
Intake Total 2009 1690 / 1690
Output Total 1595 / 1595 2665 / 2665 785 / 785
Balance 415 / 415 -975 / -975 -785 / -785
Review of Systems
-
All other systems: Reviewed and negative
Abdomen/GI: Reports Abdominal Pain (intermittent, improved )
Physical Exam
-
General: Well Developed, Well Nourished, No Apparent Distress and Conversant; Negative Respiratory Distress
HEENT: Normocephalic, Atraumatic, Nose Appears Normal and Ears Appear Normal; Negative Oxygen
Respiratory: Clear to Auscultation and Non Labored Respirations; Negative Accessory Resp Muscle Use
Cardiac: Regular Rhythm and S1/S2
GI: Soft, Tender (diffuse) and Other (R abdominal drain )
Skin: Warm and Dry
Neuro: Awake, Alert, Oriented and AO x 3
Psych: Calm and Intact Judgement/Insight
Data Reviewed
-
Labs: Labs Reviewed by me
[2024-12-05 12:08] LABS: Hematocrit 30.1 % (37.0-47.0); Hemoglobin 9.7 g/dL (12.0-16.0)
[2024-12-05 12:24] LABS: Glucose - Point of Care 106 mg/dl (70-99)
[2024-12-05 13:41] VITALS: BP 115/68; PULSE 87; O2SAT 99
--- NOTE | 2024-12-05 13:59 | CM ---
M following re: discharge planning.
Reviewed pt's chart, met with pt.
Pt lives with daughter 2SH, 8 steps to enter, has 5 supportive children. Pt reports she ambulates with a walker, has a wheelchair, shower chair, known to [facility] and was at [facility] in the past.
PT and OT evaluations noted - home PT/OT recommended. Pt is aware, expressed her agreement and pt requested [facility].
A referral to [facility] made.
D/C plan: home with [facility]AUD[facility] and family support. Son in law to transport at discharge.
CM will follow with discharge plan updates as hospitalization progresses
[2024-12-05 15:15] VITALS: BP 138/74
[2024-12-05 17:02] LABS: Glucose - Point of Care 87 mg/dl (70-99)
[2024-12-05] MEDS: LOVENOX 40 MG SC (17:32)
[2024-12-05 21:39] LABS: Glucose - Point of Care 110 mg/dl (70-99)
[2024-12-05 23:14] VITALS: BP 136/81
[2024-12-06] MEDS: TYLENOL 650 MG PO ×4 (00:18→12:10)
[2024-12-06] MEDS: DILAUDID 0.5 MG IV (01:09)
[2024-12-06 05:11] VITALS: BMI 28.1
[2024-12-06 06:44] LABS: Hematocrit 30.2 % (37.0-47.0); Hemoglobin 10.0 g/dL (12.0-16.0); Mean Corp Hgb Conc. 33.1 g/dL (33.0-37.0); Mean Corpuscular Volume 87.5 fL (81.0-99.0); Nucleated Red Blood Cells % 0 %; Platelet Count 317 10^3/uL (130-400); Red Cell Dist. Width 17.1 % (11.5-14.5)
[2024-12-06 07:30] VITALS: BP 117/69
[2024-12-06 08:02] LABS: Glucose - Point of Care 90 mg/dl (70-99)
[2024-12-06 08:04] LABS: Blood Urea Nitrogen 18 mg/dl (7-17); Calcium 8.3 mg/dl (8.4-10.2); Carbon Dioxide 30 mmol/L (22-30); Chloride 102 mmol/L (98-107); Estimated Creatinine Clearance 39 ml/min; Glucose 88 mg/dl (70-99); Potassium 4.9 mmol/L (3.5-5.1); Sodium 135 mmol/L (135-145); eGFR 50.80
--- NOTE | 2024-12-06 08:29 | W.PN.CRS1 ---
Today's Communication / Plan
-
low residue
anticipate d/c as soon as tomorrow
Assessment/Plan
-
This is an 78-year-old female POD#4 from a cystoscopy with insertion of bilateral ureteral stents, robotic low anterior resection with takedown of the splenic flexure and intracorporeal anastomosis, flexible sigmoidoscopy and robotic repair of a
colovaginal fistula with bilateral oophorectomy
WBC: 9.0, Hgb 10.0 (9.7), Creatinine 1.1 (1.2)
vitals normal
- Advance to low residue
- Voiding post briceno removal
- OOB as tolerated. PT/OT ordered.
- TEDS/SCDS in place. On lovenox.
- Antibiotics x 3 days
- OR pathology pending
- Maintain TANK drain until DC
- Appreciate hospitalist
- Dispo: home with VN, likely tomorrow
Subjective Data
Procedure
12/02/2024 cystoscopy with bilateral ureteral stents, robotic LAR with takedown of splenic flexure and intracorporeal anastomosis, drainage of an intra-abdominal abscess, flexible sigmoidoscopy, robotic repair for vaginal fistula with bilateral
oophorectomy
Subjective Data
Date of Service: December 06, 2024
Patient states she is feeling well. She has some pain but it is controlled. Denies nausea or vomiting. Passing flatus. No bowel movements yet.
Objective Data
-
Vital Signs
Temp Pulse Resp BP Pulse Ox
98.4 F 79 18 117/69 96
12/06/24 07:30 12/06/24 07:30 12/06/24 07:30 12/06/24 07:30 12/06/24 07:30
Intake & Output
12/05/24 12/06/24 12/07/24
06:59 06:59 06:59
Intake Total 1690 / 1690 960 / 960
Output Total 2665 / 2665 1515 / 1515
Balance -975 / -975 -555 / -555
Intake:
Oral fluids 720 / 720 960 / 960
IV fluids (Total) 660 / 660 0 / 0
IV piggybacks 60 / 60 0 / 0
Blood Product Amount Infused ( 250 / 250
mL)
Packed Rbc Leukoreduced Unit 250 / 250
[id number]
Output:
Drain Output (Total) 440 / 440 315 / 315
Right [place] 440 / 440 315 / 315
Urine, Briceno 2225 / 2225 700 / 700
Urine, Voided 500 / 500
Other:
Number of approximated MODERATE 3
amounts of urine
Lab Results
12/06/24 05:39
12/06/24 05:39
Physical Exam
-
General: No Acute Distress and AOx3
Abdomen: Soft, Non Distended, Non Tender and Other (TANK drain serosanguinous )
[2024-12-06] MEDS: ZYRTEC 5 MG PO (08:56)
[2024-12-06] MEDS: COREG 12.5 MG PO ×2 (08:56→20:46)
[2024-12-06] MEDS: ZETIA 10 MG PO (09:03)
[2024-12-06] MEDS: LIPITOR 80 MG PO (09:03)
[2024-12-06] MEDS: NAMENDA 5 MG PO ×2 (09:03→20:45)
[2024-12-06] MEDS: NEURONTIN 300 MG PO ×2 (09:03→20:46)
[2024-12-06] MEDS: ZYLOPRIM 100 MG PO (09:03)
[2024-12-06] MEDS: CYMBALTA DELAYED RELEASE 30 MG PO (09:03)
[2024-12-06] MEDS: ROXICODONE 5 MG PO (09:04)
[2024-12-06] MEDS: NOVOLOG FLEXPEN-LOW RESISTANCE SC ×3 (09:04→17:31)
[2024-12-06] MEDS: LOW STRENGTH ASPIRIN 81 MG PO (09:04)
[2024-12-06] MEDS: NSS (PRESERVATIVE FREE) 10 ML IV (09:05)
[2024-12-06] MEDS: PROTONIX IV 40 MG IV (09:05)
--- NOTE | 2024-12-06 10:36 | W.PN.GYNONC ---
Today's Communication
-
Discharge planning in progress
Advancing diet to low residue
Impression / Plan
-
Postop day 4 status post robotic assisted low anterior resection with reanastomosis and excision of diverticulitis abscess, suture repair of colovaginal fistula, bilateral oophorectomy
C: 9.0, Hgb 10.0 (9.7), Creatinine 1.1 (1.2)
vitals normal
Diet will be advanced as per colorectal surgery recommendations, now to low residue
I reviewed the findings with the patient, she seems satisfied with the outcome and appreciative of the team's effort
Continue GI and DVT prophylaxis
- OR pathology pending
- Maintain TANK drain until DC
- Appreciate hospitalist
- Dispo: home with VN, likely tomorrow
Subjective / Interval History
-
POD#4 from a cystoscopy with insertion of bilateral ureteral stents, robotic low anterior resection with takedown of the splenic flexure and intracorporeal anastomosis, flexible sigmoidoscopy and robotic repair of a colovaginal fistula with
bilateral oophorectomy
She has been tolerating her diet well, she is definitely passing flatus
She felt passage of some liquid stool this a.m. while sitting in chair, did not have too much control over it
She is still complaining of some abdominal discomfort
Objective Data
-
Lab Results:
12/06/24 05:39
12/06/24 05:39
Physical Exam
Vital Signs / I&O
Vitals
Temp Pulse Resp BP Pulse Ox
98.4 F 96 18 157/90 96
12/06/24 07:30 12/06/24 08:56 12/06/24 07:30 12/06/24 08:56 12/06/24 07:30
I&O
12/04/24 12/05/24 12/06/24 12/07/24
06:59 06:59 06:59 06:59
Intake Total 2009 1690 / 1690 960 / 960 240 / 240
Output Total 1595 / 1595 2665 / 2665 1515 / 1515 50 / 50
Balance 415 / 415 -975 / -975 -555 / -555 190 / 190
Physical Exam
General: No Apparent Distress and Comfortable
Respiratory: Clear
Cardiac: S1/S2 and Regular Rhythm
GI: Soft, Non Tender and Non Distended
--- NOTE | 2024-12-06 11:41 | W.PN.HOSP.TC ---
Today's Communication/Plan
-
see A/P
Assessment / Plan
Assessment / Plan
HPI: 78-year-old female, past medical history of hypertension, CKD stage III, CAD, presented for routine colorectal resection for pelvic abscess/colovaginal fistula from diverticulitis.
Medicine is consulted for postop medical management.
Patient seen in PACU, still drowsy/sedated from anesthesia.
A/P:
# s/p Colorectal resection for pelvic abscess/colovaginal fistula from diverticulitis.
post op care per CRS
s/p ertapenem x3 days
Ureteral stents removed at bedside by CRS. Keep Ang in until postoperative day 3.
Diet advanced to low residue today 12/06 per CRS
Monitor abdominal pain and abdominal drain outpt
DVT ppx with SCD
IV Protonix in place of prior to admission PO
# Acute blood loss anemia post op
s/p 2 units PRBC transfusion
Monitor Hgb
Hgb today at 10.0
# hypertension
# CAD
Cont ENTERPRISE ENGINEER Coreg with holding parameter
Continue ENTERPRISE ENGINEER aspirin, atorvastatin
# CKD stage III
SCr today 1.2
Monitor SCr post op
DVT ppx: per CRS, use SCD for now
FC
DW RN
Anticipated Discharge: 24 - 48 hours
Subjective/Interval History
-
Date of Service: December 06, 2024
Objective Data
-
Labs:
Laboratory Results
12/06/24
05:39
WBC 9.0
Hgb 10.0 L
Hct 30.2 L
Plt Count 317
Sodium 135
Potassium 4.9
Chloride 102
Carbon Dioxide 30
BUN 18 H
Creatinine 1.1 H
Glucose 88
Calcium 8.3 L
Vital Signs:
Vital Signs
Temp Pulse Resp BP Pulse Ox
36.9 C 96 18 157/90 96
12/06/24 07:30 12/06/24 08:56 12/06/24 07:30 12/06/24 08:56 12/06/24 07:30
I&O
12/05/24 12/06/24 12/07/24
06:59 06:59 06:59
Intake Total 1690 / 1690 960 / 960 240 / 240
Output Total 2665 / 2665 1515 / 1515 50 / 50
Balance -975 / -975 -555 / -555 190 / 190
Review of Systems
-
All other systems: Reviewed and negative
Abdomen/GI: Reports Abdominal Pain (when moving around )
Physical Exam
-
General: Well Developed, Well Nourished, No Apparent Distress and Conversant; Negative Respiratory Distress
HEENT: Normocephalic, Atraumatic, Nose Appears Normal and Ears Appear Normal; Negative Oxygen
Respiratory: Clear to Auscultation and Non Labored Respirations; Negative Accessory Resp Muscle Use
Cardiac: Regular Rhythm and S1/S2
GI: Soft, Tender (diffuse) and Other (R abdominal drain )
Skin: Warm and Dry
Neuro: Awake, Alert, Oriented and AO x 3
Psych: Calm and Intact Judgement/Insight
Data Reviewed
-
Labs: Labs Reviewed by me
[2024-12-06 12:43] LABS: Glucose - Point of Care 107 mg/dl (70-99)
[2024-12-06] MEDS: ROXICODONE 10 MG PO ×2 (14:12→20:44)
[2024-12-06 15:30] VITALS: BP 136/71
--- NOTE | 2024-12-06 15:31 | CM ---
Patient seen at bedside on . Patient with no new concerns at this time and plan remains home with [facility]. CM will continue to follow for discharge planning needs.
Plan; home with [facility]
[2024-12-06 16:45] VITALS: BP 127/73; PULSE 84; O2SAT 100
[2024-12-06 17:16] LABS: Glucose - Point of Care 119 mg/dl (70-99)
[2024-12-06] MEDS: LOVENOX 40 MG SC (17:32)
--- NOTE | 2024-12-06 20:42 | PTCARENOTE ---
D/t pt order for oxycodone I clarified with pt regarding allergy listed as oxycodone (from percocet), pt denies any allergy to oxycodone, states she vomited with percocet. denies any itchy, hives, swelling, sob
[2024-12-06 20:56] LABS: Glucose - Point of Care 122 mg/dl (70-99)
[2024-12-06 23:00] VITALS: BP 157/86
[2024-12-06 23:37] VITALS: BP 157/86
[2024-12-07 06:00] VITALS: BMI 28.0
[2024-12-07] MEDS: ROXICODONE 5 MG PO (06:13)
[2024-12-07 06:34] VITALS: BP 155/83
--- NOTE | 2024-12-07 06:40 | PTCARENOTE ---
pt c/o chest pain over lt chest. POST TRONIC MACHINE OPERATOR notified, VS stable see chart, EKG done, POST TRONIC MACHINE OPERATOR ordering troponin.
[2024-12-07 06:50] LABS: Blood Urea Nitrogen 18 mg/dl (7-17); Calcium 8.5 mg/dl (8.4-10.2); Carbon Dioxide 30 mmol/L (22-30); Chloride 101 mmol/L (98-107); Estimated Creatinine Clearance 39 ml/min; Glucose 115 mg/dl (70-99); Potassium 4.4 mmol/L (3.5-5.1); Sodium 136 mmol/L (135-145); eGFR 50.80
[2024-12-07 07:17] LABS: Hematocrit 34.3 % (37.0-47.0); Hemoglobin 11.1 g/dL (12.0-16.0); Mean Corp Hgb Conc. 32.4 g/dL (33.0-37.0); Mean Corpuscular Volume 87.5 fL (81.0-99.0); Nucleated Red Blood Cells % 0 %; Platelet Count 373 10^3/uL (130-400); Red Cell Dist. Width 17.3 % (11.5-14.5)
[2024-12-07 07:29] LABS: Troponin I 0.026 ng/ml
--- NOTE | 2024-12-07 07:41 | W.PN.CRS1 ---
Today's Communication / Plan
-
clears
ivfs
Assessment/Plan
-
This is an 78-year-old female POD#5 from a cystoscopy with insertion of bilateral ureteral stents, robotic low anterior resection with takedown of the splenic flexure and intracorporeal anastomosis, flexible sigmoidoscopy and robotic repair of a
colovaginal fistula with bilateral oophorectomy
WBC: 9.1, Hgb 11.1 (10.0), Creatinine 1.1 (1.1)
vitals normal
trops: 0.026
- Back down to clears. Add IVFs.
- Voiding post briceno removal
- OOB as tolerated. PT/OT ordered.
- TEDS/SCDS in place. On lovenox.
- Antibiotics x 3 days
- OR pathology pending
- Maintain TANK drain until DC
- Appreciate hospitalist
- Holding dispo for now
Subjective Data
Procedure
12/02/2024 cystoscopy with bilateral ureteral stents, robotic LAR with takedown of splenic flexure and intracorporeal anastomosis, drainage of an intra-abdominal abscess, flexible sigmoidoscopy, robotic repair for vaginal fistula with bilateral
oophorectomy
Subjective Data
Date of Service: December 07, 2024
Patient states she had some chest pain last night (radiating from belly pain). No nausea or vomiting. Having a lot of flatus. She is also having some belching.
Objective Data
-
Vital Signs
Temp Pulse Resp BP Pulse Ox
99.3 F 106 20 155/83 98
12/07/24 06:34 12/07/24 06:34 12/07/24 06:34 12/07/24 06:34 12/07/24 06:34
Intake & Output
12/06/24 12/07/24 12/08/24
06:59 06:59 06:59
Intake Total 960 / 960 240 / 240
Output Total 1515 / 1515 270 / 270
Balance -555 / -555 -30 / -30
Intake:
Oral fluids 960 / 960 240 / 240
IV fluids (Total) 0 / 0
IV piggybacks 0 / 0
Output:
Drain Output (Total) 315 / 315 270 / 270
Right [place] 315 / 315 270 / 270
Urine, Briceno 700 / 700
Urine, Voided 500 / 500
Other:
Number of approximated SMALL 1
amounts of urine
Number of approximated MODERATE 3 3
amounts of urine
Lab Results
12/07/24 05:38
12/07/24 05:38
Physical Exam
-
General: No Acute Distress and AOx3
Abdomen: Soft, Non Distended and Tender (mild)
Skin: Warm and Dry
[2024-12-07] MEDS: MAALOX 30 ML PO (07:43)
[2024-12-07] MEDS: PEPCID 20 MG IV (07:43)
[2024-12-07] MEDS: NAMENDA 5 MG PO ×2 (07:45→20:30)
[2024-12-07] MEDS: ZYLOPRIM 100 MG PO (07:46)
[2024-12-07] MEDS: PROTONIX 40 MG PO (07:46)
[2024-12-07] MEDS: COREG 12.5 MG PO ×2 (07:46→20:30)
[2024-12-07] MEDS: ZETIA 10 MG PO (07:46)
[2024-12-07] MEDS: ZYRTEC 5 MG PO (07:46)
[2024-12-07] MEDS: LIPITOR 80 MG PO (07:46)
[2024-12-07] MEDS: NORMOSOL-R/PLASMALYTE-A 1000 IV ×2 (07:47→20:28)
[2024-12-07] MEDS: CYMBALTA DELAYED RELEASE 30 MG PO (07:47)
[2024-12-07] MEDS: NEURONTIN 300 MG PO ×2 (07:47→20:29)
[2024-12-07] MEDS: LOW STRENGTH ASPIRIN 81 MG PO (07:47)
[2024-12-07 08:57] LABS: Glucose - Point of Care 124 mg/dl (70-99)
[2024-12-07] MEDS: NOVOLOG FLEXPEN-LOW RESISTANCE SC ×3 (08:58→17:52)
--- NOTE | 2024-12-07 11:45 | W.PN.HOSP.TC ---
Today's Communication/Plan
-
follow on clears and IVF
Assessment / Plan
Assessment / Plan
pt is an 78 year old female
s/p Colorectal resection for pelvic abscess/colovaginal fistula from diverticulitis--apprec colorectal and other consultants--s/p 3 days of ertapenem--diet was advanced but now back to clears with IVF--briceno out POD 3
Acute blood loss anemia post op--s/p 2 units PRBC transfusion --HGB 11.1
Essential hypertension/CAD--Cont PURCHASING DIRECTOR Coreg with holding parameter--Continue PURCHASING DIRECTOR aspirin, atorvastatin
CKD stage III--SCr today 1.1
DVT proph-- per CRS, use SCD for now
code status--FULL CODE
Anticipated Discharge: 24 - 48 hours
Subjective/Interval History
-
Date of Service: December 07, 2024
pt was having abdominal pain--downgraded to clears
Objective Data
-
Labs:
Laboratory Results
12/07/24
05:38
WBC 9.1
Hgb 11.1 L
Hct 34.3 L
Plt Count 373
Sodium 136
Potassium 4.4
Chloride 101
Carbon Dioxide 30
BUN 18 H
Creatinine 1.1 H
Glucose 115 H
Calcium 8.5
Vital Signs:
max temp for 24 hours
12/07/24
06:34
Temp 99.3 F
Vital Signs
Temp Pulse Resp BP Pulse Ox
99.3 F 105 20 158/94 98
12/07/24 06:34 12/07/24 07:46 12/07/24 06:34 12/07/24 07:46 12/07/24 06:34
I&O
12/06/24 12/07/24 12/08/24
06:59 06:59 06:59
Intake Total 960 / 960 240 / 240
Output Total 1515 / 1515 270 / 270 70 / 70
Balance -555 / -555 -30 / -30 -70 / -70
Review of Systems
-
All other systems: Reviewed and negative
Abdomen/GI: Reports Abdominal Pain
Physical Exam
-
General: Well Developed, Well Nourished and No Apparent Distress
HEENT: Normocephalic and Atraumatic
Respiratory: Clear to Auscultation; Negative Wheezes or Rhonchi
Cardiac: Regular Rhythm, S1/S2 and Murmur (? diastolic)
GI: Soft, Nontender, Nondistended and Normal Bowel Sounds
Musculoskeletal: No Clubbing, No Cyanosis and No Edema
Skin: Warm
Neuro: Awake
Psych: Calm
--- NOTE | 2024-12-07 11:47 | CM ---
Addendum entered by Caitie Umanzor 12/07/24 12:04:
updated [facility] liaison about patient discharge plan.
Original Note:
Patient seen at bedside on [address] with physician. Patient states she still plans for discharge home with [facility] to follow. Patient asked physician to call her daughter [phone] when able. Plan is to call patient daughter with physician
when possible. CM will continue to follow for discharge planning needs.
Plan; home with [facility] when medically appropriate.
[2024-12-07 12:35] VITALS: BP 123/84; PULSE 94; O2SAT 96
[2024-12-07 12:49] LABS: Glucose - Point of Care 124 mg/dl (70-99)
--- NOTE | 2024-12-07 14:44 | W.PN.UPDATE ---
Update Note
Progress Note Update
I spoke with the patient, her nurse, and Dr. Siegel. The patient has an ileus on the CT scan. Will keep n.p.o. for now as well as IV fluids. No need for NG tube at this point unless she continues to vomit. Discussed with the patient via phone.
[2024-12-07 15:31] VITALS: BP 137/78
[2024-12-07 17:37] LABS: Glucose - Point of Care 114 mg/dl (70-99)
[2024-12-07] MEDS: LOVENOX 40 MG SC (17:52)
[2024-12-07] MEDS: ROXICODONE 10 MG PO (20:32)
[2024-12-07 21:56] LABS: Glucose - Point of Care 114 mg/dl (70-99)
[2024-12-07 23:12] VITALS: BP 141/87
[2024-12-08] VITALS (11 sets, daily range): BP systolic 108–143; BP diastolic 46–89; BMI 28.3; BMI 29.7
[2024-12-08 07:40] LABS: Glucose - Point of Care 88 mg/dl (70-99)
[2024-12-08 08:02] LABS: Hematocrit 31.5 % (37.0-47.0); Hemoglobin 10.3 g/dL (12.0-16.0); Mean Corp Hgb Conc. 32.7 g/dL (33.0-37.0); Mean Corpuscular Volume 84.7 fL (81.0-99.0); Nucleated Red Blood Cells % 0 %; Platelet Count 209 10^3/uL (130-400); Red Cell Dist. Width 16.9 % (11.5-14.5)
[2024-12-08 08:21] LABS: Blood Urea Nitrogen 15 mg/dl (7-17); Calcium 8.1 mg/dl (8.4-10.2); Carbon Dioxide 25 mmol/L (22-30); Chloride 102 mmol/L (98-107); Estimated Creatinine Clearance 48 ml/min; Glucose 90 mg/dl (70-99); Magnesium 1.8 mg/dl (1.6-2.3); Potassium 4.7 mmol/L (3.5-5.1); Sodium 133 mmol/L (135-145); eGFR > 60.00
[2024-12-08] MEDS: ZETIA 10 MG PO (09:04)
[2024-12-08] MEDS: ZYLOPRIM 100 MG PO (09:04)
[2024-12-08] MEDS: CYMBALTA DELAYED RELEASE 30 MG PO (09:04)
[2024-12-08] MEDS: NAMENDA 5 MG PO (09:04)
[2024-12-08] MEDS: COREG 12.5 MG PO (09:05)
[2024-12-08] MEDS: PROTONIX 40 MG PO (09:05)
[2024-12-08] MEDS: NEURONTIN 300 MG PO (09:05)
[2024-12-08] MEDS: LIPITOR 80 MG PO (09:05)
[2024-12-08] MEDS: ZYRTEC 5 MG PO (09:05)
[2024-12-08] MEDS: LOW STRENGTH ASPIRIN 81 MG PO (09:05)
[2024-12-08] MEDS: NOVOLOG FLEXPEN-LOW RESISTANCE SC ×3 (09:06→20:09)
[2024-12-08] MEDS: OMNIPAQUE 50 ML PO (09:44)
--- NOTE | 2024-12-08 12:02 | W.PN.CRS1 ---
Today's Communication / Plan
-
CT abdomen and pelvis
N.p.o.
Assessment/Plan
-
This is an 78-year-old female POD#6 from a cystoscopy with insertion of bilateral ureteral stents, robotic low anterior resection with takedown of the splenic flexure and intracorporeal anastomosis, flexible sigmoidoscopy and robotic repair of a
colovaginal fistula with bilateral oophorectomy
WBC: 13.6 (9.1), Hgb 10.3 (11.1) (10.0), Creatinine 0.9 (1.1)
vitals normal. tmax 99.1
trops: 0.026
-Given persistent pain and rising WBC, will perform a CT abdomen and pelvis with p.o., IV, and rectal contrast. Remain n.p.o. until scan.
- Voiding post briceno removal
- OOB as tolerated. PT/OT ordered.
- TEDS/SCDS in place. On lovenox.
-Antibiotics have completed.
- OR pathology pending
- Maintain TANK drain until DC
- Appreciate hospitalist
- Holding dispo for now
Subjective Data
Procedure
12/02/2024 cystoscopy with bilateral ureteral stents, robotic LAR with takedown of splenic flexure and intracorporeal anastomosis, drainage of an intra-abdominal abscess, flexible sigmoidoscopy, robotic repair for vaginal fistula with bilateral
oophorectomy
Subjective Data
Date of Service: December 08, 2024
Patient states that she is still having some left-sided pain. She has been tolerating clear liquids. Having some bowel function.
Objective Data
-
Vital Signs
Temp Pulse Resp BP Pulse Ox
98.3 F 84 16 121/59 97
12/08/24 07:30 12/08/24 07:30 12/08/24 07:30 12/08/24 07:30 12/08/24 07:30
Intake & Output
12/07/24 12/08/24 12/09/24
06:59 06:59 06:59
Intake Total 240 / 240 960 / 960
Output Total 270 / 270 150 / 150
Balance -30 / -30 810 / 810
Intake:
Oral fluids 240 / 240
IV fluids (Total) 960 / 960
Output:
Drain Output (Total) 270 / 270 150 / 150
Right [place] 270 / 270 150 / 150
Other:
Number of approximated SMALL 1
amounts of urine
Number of approximated MODERATE 3 2
amounts of urine
Number of approximated LARGE 2
amounts of urine
Lab Results
12/08/24 07:23
12/08/24 07:23
Physical Exam
-
General: No Acute Distress and AOx3
Abdomen: Soft, Non Distended, Tender (Left-sided) and Other (TANK drain serosanguineous)
Skin: Warm and Dry
Incision: Clear, Dry, Intact
[2024-12-08 13:09] LABS: Glucose - Point of Care 80 mg/dl (70-99)
--- NOTE | 2024-12-08 13:51 | CM ---
Patient was seen at bedside with physician on . Patient s/p CT scan per physicians, awaiting report. CM will continue to follow for discharge planning needs.
Plan; [facility] for follow up pending medical treatment plan
--- NOTE | 2024-12-08 15:00 | WOUNDNOTE ---
[facility] RN NOTE: Patient visited for bilateral stoma siting and will be going to surgery this afternoon. Patient could not move or sit at a 90 degree angle due to pain and abdomen was distended. Assessed patient at 45 degree angle and was marked above
midline bilaterally as this area appeared to have less creases and folds. Explained to patient rationale for stoma marking and that Surgeon will make final determination of stoma placement if one is needed. TT Martha OGLESBY with update.
[2024-12-08] MEDS: NORMOSOL-R/PLASMALYTE-A 1000 IV ×2 (15:03→23:31)
--- NOTE | 2024-12-08 15:03 | W.PN.UPDATE ---
Update Note
Progress Note Update
CT scan reviewed recently with Dr. Vidal. Shows some possible extravasation of rectal contrast at pelvic anastomosis suspicious for anastomotic leak. On bedside exam she is fairly tender in the suprapubic region. Given these findings combined
with her new leukocytosis, recommend trip to OR for ex lap, possible repair of anastomosis, possible stoma creation. I discussed this with the patient at the bedside and later her daughter on the phone. Risks and benefits discussed. Risks covered
include but not limited to bleeding, infection, ongoing leak or infection, injury to nearby structures, hernia, and anesthetic risks. She agrees to proceed.
--- NOTE | 2024-12-08 15:20 | W.PN.HOSP.TC ---
Today's Communication/Plan
-
back to OR
Assessment / Plan
Assessment / Plan
pt is an 78 year old female
s/p Colorectal resection for pelvic abscess/colovaginal fistula from diverticulitis--apprec colorectal and other consultants--s/p 3 days of ertapenem--diet was advanced but now back to clears with IVF, WBC rising, CT scan today concern for
anastomotic leak--to OR per CRS
Acute blood loss anemia post op--s/p 2 units PRBC transfusion --HGB 11.1
Essential hypertension/CAD--Cont SANITATION ENGINEER Coreg with holding parameter--Continue SANITATION ENGINEER aspirin, atorvastatin--with new surgery...may need to transition meds to IV
CKD stage III--SCr today 1.1
DVT proph-- per CRS, use SCD for now
code status--FULL CODE
Anticipated Discharge: > 48 hours
Subjective/Interval History
-
Date of Service: December 08, 2024
pt still with some abdominal pain--WBC trending up
Objective Data
-
Labs:
Laboratory Results
12/08/24
07:23
WBC 13.6 H
Hgb 10.3 L
Hct 31.5 L
Plt Count 209 D
Sodium 133 L
Potassium 4.7
Chloride 102
Carbon Dioxide 25
BUN 15
Creatinine 0.9
Glucose 90
Calcium 8.1 L
Vital Signs:
max temp for 24 hours
12/07/24
06:34
Temp 99.3 F
Vital Signs
Temp Pulse Resp BP Pulse Ox
98.3 F 84 16 121/59 97
12/08/24 07:30 12/08/24 07:30 12/08/24 07:30 12/08/24 07:30 12/08/24 07:30
I&O
12/07/24 12/08/24 12/09/24
06:59 06:59 06:59
Intake Total 240 / 240 960 / 960
Output Total 270 / 270 150 / 150
Balance -30 / -30 810 / 810
Review of Systems
-
All other systems: Reviewed and negative
Physical Exam
-
General: Well Developed, Well Nourished and No Apparent Distress
HEENT: Normocephalic and Atraumatic
Respiratory: Clear to Auscultation; Negative Wheezes or Rhonchi
Cardiac: Regular Rhythm, S1/S2 and Murmur
GI: Soft, Nondistended, Normal Bowel Sounds and Tender (lower abdomen without guarding or rebound)
Musculoskeletal: No Clubbing, No Cyanosis and No Edema
[2024-12-08] MEDS: INVANZ 60 MG IV (16:46)
--- NOTE | 2024-12-08 19:19 | W.IMMPOSTOP ---
Addendum entered and electronically signed by George Cruz MD 12/08/24 19:51:
Patient's daughter, Leonarda, updated via phone conversation.
Original Note:
Surgical Immed Post Op Note
-
Primary Surgeon: Rosa Maria Cruz MD
Assisting Surgeon: VANNESA Tam
Pre-op Diagnosis: pelvic anastomotic leak
Post-op Diagnosis: same
Procedure Performed: 1) exploratory laparotomy 2) loop ileostomy creation 3) flexible sigmoidoscopy
Anesthesia Type: general plus local
Specimen / Cultures: pelvic fluid cultures
Estimated Blood Loss: 30 cc
Complications: no immediate
Operative Findings: 1) mildly murky pelvic fluid sent for culture 2) unable to identify the leak on flexible sigmoidoscopy--no air bubbles with insufflation; I did mobilize small bowel out of pelvis but did not attempt to 'dig out' anastomosis due
to it's distal location and for fear of injuring the area further
Left old R sided Chandu in place in pelvis. Additional L sided #19 Chandu placed into pelvis.
NGT confirmed in stomach intraoperatively.
Foely in bladder.
Patient kept intubated by anesthesia. Will send to ICU.
Started antibiotics which will continue.
--- NOTE | 2024-12-08 19:45 | PTCARENOTE ---
Patient received s/p op to ICU bed 3363. Patient is intubated on ventilator. Anesthesiologist at bedside with prn medications. Sedation orders requested and received from Ebenezer RAZA. See fee clerk charted on worklist flowsheet. Justina right radial
leveled and zeroed as needed. Correlates with cuff pressure. #7ETT 22 cm at the lip on the left. Vent settings verified. Moderate thick clear oral secretions, small thick white secretions via ETT. Oral care rendered. Right nare NGT 59cm at lip,
placed to LIS. Placement confirmed via auscultation. PCXR ordered and completed. ETT and NGT placement confirmed. Midline abdominal incision with aquacel dressing with moderate amount of sanguinous drainage. TANK drains right and left lower quadrants
to bulb suction with moderate amount of serosanguinous drainage. Ang catheter patent draining clear yellow urine. SCDs in place BLEs. Patient reaches for ETT when awake. Bilateral soft wrist restraints applied. Bed in low and locked position. Call
linn in reach. Granddaughter Jessica at bedside, updated primary contacts Leonarda and Ubaldo by speaker phone with patient clinical status. Labs and ABG drawn per order. Repositioned every 2 hours.
[2024-12-08] MEDS: DIPRIVAN 100 IV (19:55)
[2024-12-08] MEDS: LOVENOX SC (20:00)
[2024-12-08] MEDS: NAMENDA PO (20:15)
[2024-12-08] MEDS: COREG PO (20:15)
[2024-12-08] MEDS: NEURONTIN PO (20:15)
--- NOTE | 2024-12-08 20:22 | W.PN.UPDATE ---
Addendum entered and electronically signed by Mariia Navarro MD 12/08/24 20:43:
Patient seen in conjunction with RADIO INTERFERENCE EXPERT. I agree with the findings on the history and physical. I concur with the assessment and plan.
Briefly, this is a 78-year-old female with past medical history significant for COPD/asthma, hypertension, hyperlipidemia, GERD, who is being followed by medicine and is postop day 0 status post exploratory laparotomy with loop ileostomy creation
today, extensive procedure for a colovesicular fistula and currently on antibiotics. Postoperatively patient is stable but that has been maintained on ventilator and anesthesia for stability with plan to slowly wean over the next 12 to 24 hours
Patient appears stable on the vent satting 100% on vent settings of 12 500 40 5. She is off pressors. She is maintained on propofol for sedation.
Currently her blood pressure was 130/70 with a pulse of 78. She is satting 94%. Respiratory�12.
Exam shows well-appearing 78-year-old who looks appropriate age. Intubated and sedated. Abdomen postoperative but appears benign. She has clear lungs and no edema. Cardiac auscultation was unremarkable without any rales rubs or gallops.
Reviewed labs from earlier, reviewed operative notes and postop recommendations.
I agree with the RADIO INTERFERENCE EXPERT note as stated below
Patient maintained as n.p.o. for now, status post NG tube which is confirmed to be in the stomach.
Continue antibiotics, continue urinary bladder
- Supportive measures with pain control antiemetics, maintenance fluids
� Continue current vent settings, stable, as needed nebs, continue Breo, wean as tolerated
- dvt ppx with lovenox sq
- full code
- Market Investigator consult
Original Note:
Update Note
Progress Note Update
Physical exam
Patient currently intubated sedated with IV diprivan
- O2 saturation 100%
-S1-S2 no murmur gallop or rub
- Lungs CTA bilaterally
- Abdomen soft, loop ileostomy creation
- Ang draining clear yellow in color
- Skin no visible rash
- No peripheral edema
Upgrade to ICU hospitalist admit
Patient status post flex sig exploratory lap loop ileostomy creation
-NGT confirmed in stomach intraoperatively.
-Ang in bladder.
-Patient kept intubated by anesthesia.
-Started antibiotics which will continue Invanz
- N.p.o. stop p.o. meds
- Sedated with IV diprivan
-IV Dilaudid for pain, Phenergan, Zofran for nausea
- Current vent settings 12, 500, PEEP 5, 100%
-BP stable 137/89
-IV Tylenol if needed
- Monitor CBC, CMP
Operative Findings: 1) mildly murky pelvic fluid sent for culture 2) unable to identify the leak on flexible sigmoidoscopy--no air bubbles with insufflation;
I did mobilize small bowel out of pelvis but did not attempt to 'dig out' anastomosis due to it's distal location and for fear of injuring the area further
2. Left old R sided Chandu in place in pelvis. Additional L sided #19 Chandu placed into pelvis.
#Chronic asthma no acute exacerbation
- Continue albuterol and Breo Ellipta equivalent via ventilator
[2024-12-08] MEDS: OFIRMEV 100 IV (20:40)
[2024-12-08 21:10] LABS: B.E. -0.1 mmol/L; HCO3 22.0 mmol/L (21-28); O2 Saturation % 99.0 % (94-98); PCO2 27 mmHg (32-35); PO2 189 mmHg (83-108)
[2024-12-08 21:23] LABS: INR 3.34; PT 34.2 Sec (11.4-14.6)
[2024-12-08 21:23] LABS: Hematocrit 28.5 % (37.0-47.0); Hemoglobin 9.5 g/dL (12.0-16.0); Mean Corp Hgb Conc. 33.3 g/dL (33.0-37.0); Mean Corpuscular Volume 84.1 fL (81.0-99.0); Nucleated Red Blood Cells % 0 %; Platelet Count 312 10^3/uL (130-400); Red Cell Dist. Width 17.0 % (11.5-14.5)
[2024-12-08 21:24] LABS: APTT 63.9 Sec (23.4-35.0)
[2024-12-08 21:34] LABS: Blood Urea Nitrogen 14 mg/dl (7-17); Calcium 7.4 mg/dl (8.4-10.2); Carbon Dioxide 22 mmol/L (22-30); Chloride 100 mmol/L (98-107); Estimated Creatinine Clearance 44 ml/min; Glucose 96 mg/dl (70-99); Magnesium 1.8 mg/dl (1.6-2.3); Potassium 4.3 mmol/L (3.5-5.1); Sodium 129 mmol/L (135-145); Triglycerides 111 mg/dl (10-149); eGFR 56.95
[2024-12-08] MEDS: TORADOL 10 MG IV (21:44)
[2024-12-08 23:53] LABS: Glucose - Point of Care 82 mg/dl (70-99)
[2024-12-09] VITALS (26 sets, daily range): BP systolic 90–138; BP diastolic 48–89; BMI 29.5
--- NOTE | 2024-12-09 | PTCARENOTE ---
BBS with scattered coarseness, clears with suctioning. Abdominal dressing reinforced with ABD pad. UO fair. Ebenezer RAZA notified UO 20cc/hr. New orders received for NS 250cc bolus, given. Patient agitated with cares, emotional support and
encouragement given. BP stable via A line. TANK drains emptied. No other change in patient's physical assessment.
[2024-12-09] MEDS: NSS 250 IV ×3 (00:10→14:44)
[2024-12-09] MEDS: OFIRMEV 100 IV ×3 (02:33→14:24)
[2024-12-09] MEDS: SUBLIMAZE 50 MCG IV ×4 (02:58→09:18)
[2024-12-09] MEDS: TORADOL 10 MG IV (03:43)
--- NOTE | 2024-12-09 04:00 | PTCARENOTE ---
Addendum entered by Jessica Horner RN 12/09/24 05:58:
Fentanyl bolus given once for patient acknowledgement of pain. Given once before cares for patient comfort.
Original Note:
Complete cares given, CHG cloth bath. Partial linen change. Noted that patient has developed bleeding via ileostomy with moderate to large clot noted in bag. Midline abdominal incision is also oozing, clot noted, again reinforced with ABD pads.
Ang care. Oral care. Ebenezer RAZA notified of visualized bleeding. New orders received. Coags drawn with am labs via A line. Noted that UO has again slowed. Ebenezer RAZA notified.
[2024-12-09 04:47] LABS: Hematocrit 26.4 % (37.0-47.0); Hemoglobin 8.8 g/dL (12.0-16.0); Mean Corp Hgb Conc. 33.3 g/dL (33.0-37.0); Mean Corpuscular Volume 83.8 fL (81.0-99.0); Nucleated Red Blood Cells % 0.1 %; Platelet Count 304 10^3/uL (130-400); Red Cell Dist. Width 17.0 % (11.5-14.5)
[2024-12-09 04:57] LABS: INR 1.43; PT 18.0 Sec (11.4-14.6)
[2024-12-09 04:58] LABS: APTT 37.2 Sec (23.4-35.0)
--- NOTE | 2024-12-09 05:11 | PTCARENOTE ---
CBC reviewed. Ebenezer updated. New orders received for IVF bolus due to low UO. Given.
[2024-12-09] MEDS: DIPRIVAN 100 IV (05:14)
[2024-12-09 06:07] LABS: Blood Urea Nitrogen 19 mg/dl (7-17); Calcium 7.4 mg/dl (8.4-10.2); Carbon Dioxide 22 mmol/L (22-30); Chloride 100 mmol/L (98-107); Estimated Creatinine Clearance 36 ml/min; Glucose 96 mg/dl (70-99); Magnesium 1.8 mg/dl (1.6-2.3); Potassium 4.3 mmol/L (3.5-5.1); Sodium 131 mmol/L (135-145); eGFR 45.76
[2024-12-09] MEDS: NAMENDA PO ×2 (07:23→20:33)
[2024-12-09] MEDS: ZYLOPRIM PO (07:23)
--- NOTE | 2024-12-09 07:29 | PTCARENOTE ---
Report given verbally to oncoming shift, Maria Teresa Aldridge RN. Bedside rounds completed. Questions answered. Colorectal surgeon Dr Cruz and MENDEL Calix notified this am of Borderline UO and oozing from Midline incision and ileostomy site with clot,
updated with patient clinical status. Acknowledged by MENDEL Calix. Maria Teresa Aldridge aware.
[2024-12-09] MEDS: PROTONIX IV 40 MG IV ×2 (07:54→20:33)
[2024-12-09] MEDS: NOVOLOG FLEXPEN-LOW RESISTANCE SC (07:58)
--- NOTE | 2024-12-09 08:08 | PTCARENOTE ---
received patient from global sales executive. patient is intubated and sedated. on propofol with fent bolus. She has a number 7 ETT AC 12/450/5/40% saturating 100%. Patient is sinus rhythm on monitor with right radial felipe. all connections secured and
zero'ed at phlebostatic axis. Patient is NPO, right nare NGT to LIWS, brown drainage noted. PAtient has new ileostomy site, some blood noted in bag, bilateral carlos a TANK drains, serosanguineous. Patient has briceno catheter draining yellow urine.
Normosol infusing at 100ml/hr. Reviewed patient's orders, assessment as charted. daughter Leonarda, at bedside, updated on plan of care
--- NOTE | 2024-12-09 08:23 | W.PN.ANS.POP ---
Anesthesia Post Operative
- Anesthesia Post Op Note
Vital Signs Stable-See Nursing Note: Yes
Airway Patent: Yes (remains intubated)
Adequate Pain Control: Yes
Change in Mental Status: No (remains sedated on propofol gtt)
Current Postoperative Nausea & Vomiting: No
Anesthesia Complications: No
General Anesthetic Recall: No
Unplanned Admission: No
Post Op Hydration Adequate: Yes
--- NOTE | 2024-12-09 08:28 | CON.INTV ---
Consultation
Consultation Request
Date/Time Consultation Requested: 12/09/2024 - 115
Date/Time Consultation Performed: 12/09/2024 - 821
Requesting Provider: Dr. Case
Performing Provider: Dr. Jacob
Reason for Consultation: post-op management/intubated
Medical History
-
Chief Complaint: Elective low anterior resection
History of Present Illness:
78-year-old F with PMHx of colovaginal fistula, HTN, HLD, GERD, CAD and CKD who presented with elective low anterior resection. She is known to the Colorectal surgery team with last visit on 10/13/[address] Cristobal. Given her colovaginal fistula
and left-sided hydronephrosis with increased risk of infection/sepsis, she agreed to surgery. On 12/02/2024 she underwent bilateral ureteral stent insertion, robotic assisted low anterior resection with takedown of splenic flexure with intracorporeal
anastamosis, flex-sigmoidoscopy, and robotic repair of vaginal fistula and bilateral oopherectomy. She was managed on the floor on ABx. Her ureteral stents were then removed. She required 1 unit PRBC on 12/03 + 12/04. Her diet was advanced, however
she developed worsening leukocytosis beginning 12/08, and CT abd/pelvis on 12/08 showed s/p LAR with small focus of contrast in posterior pelvis/presacral space suspicious for a postoperative anastamotic leak. She was brought back to the OR on 12/08
for an ex-lap with loop ileostomy creation and flex-sigmoidoscopy. She remained intubated and was TRX to ICU for further care. Bench Worker service consulted for additional management/recommendations.
Patient was seen and evaluated this morning. Heart rate 84, BP 137/59 via A-line, 133/60 via NIBP, and saturating 100%. Currently intubated and on a CPAP trial on 08/01 at 40% with PIP 11 cmH2O, VTe 324mL and breathing at 19 breaths/min. She is
awake, alert, following commands. Able to lift head off off pillow. Daughter, Leonarda, at bedside and all questions were answered.
PMHx: Sigmoid diverticulitis with colovaginal fistula, HLD, HTN, GERD, CKD stage 3, CAD
PSHx: Diverticular abscess drainage, spinal stumulator, hysterectomy, coronary stent, cholecystectomy, cataract
Past Medical History
Past Medical History: Other (Above as per HPI)
Past Surgical History: Other (Above as per HPI)
Social History
Tobacco: Former Smoker
Alcohol: None
Drug: None
Family History
Family History: Hypertension (Mother) and Other (Father: stroke)
Allergies / Home Medications
Allergies
Allergy/AdvReac Type Severity Reaction Status Date / Time
fluticasone (From Flovent Allergy Anaphylaxis Verified 12/02/24 06:22
HFA)
oxycodone (From Percocet) Allergy Vomiting Verified 12/02/24 06:22
tramadol Allergy Vomiting Verified 12/02/24 06:22
Home Medications
�Medication �Instructions �Recorded �Confirmed �Last Taken �Type
Centrum 1 dose PO DAILY Supplement 11/25/24 12/02/24 1 Week Ago History
~11/25/24
Fruit Vitamin 1 dose PO DAILY Supplement 11/25/24 12/02/24 1 Week Ago History
~11/25/24
Vege Vitamin 1 dose PO DAILY Supplement 11/25/24 12/02/24 1 Week Ago History
~11/25/24
acetaminophen 500 mg tablet 1,000 mg PO QID PRN pain 11/25/24 12/02/24 Unknown History
albuterol sulfate 90 mcg/actuation 1 puff inhalation DAILY PRN sob 11/25/24 12/02/24 2 Days Ago History
aerosol inhaler ~11/30/24
allopurinol 100 mg tablet 100 mg PO DAILY Gout 11/25/24 12/02/24 12/02/24 04:35 History
aspirin 81 mg tablet 81 mg PO DAILY Blood Clot 11/25/24 12/02/24 12/02/24 04:35 History
Prevention/Tx
atorvastatin 80 mg tablet 80 mg PO DAILY High Cholesterol 11/25/24 12/02/24 12/02/24 04:35 History
azelastine 137 mcg (0.1 %) nasal 2 spray intranasal BID Congestion 11/25/24 12/02/24 Unknown History
spray
calcium 1 dose PO DAILY Supplement 11/25/24 12/02/24 1 Week Ago History
~11/25/24
calcium carbonate (Calcium 500) 500 mg PO DAILY PRN indigestion 11/25/24 12/02/24 1 Week Ago History
~11/25/24
carvedilol 12.5 mg tablet 12.5 mg PO BID Blood Pressure 11/25/24 12/02/24 12/02/24 04:35 History
cetirizine 5 mg tablet 5 mg PO DAILY Allergies 11/25/24 12/02/24 1 Week Ago History
~11/25/24
duloxetine 30 mg capsule,delayed 30 mg PO DAILY Mental 11/25/24 12/02/24 12/02/24 04:35 History
release Health/Anxiety
ezetimibe 10 mg tablet 10 mg PO DAILY High Cholesterol 11/25/24 12/02/24 12/02/24 04:35 History
fluticasone furoate 200 1 inh inhalation DAILY PRN 11/25/24 12/02/24 3 Months Ago History
mcg-vilanterol 25 mcg/dose congestion ~09/01/24
inhalation powder (Breo Ellipta)
fluticasone propionate 50 1 spray intranasal BID Allergies 11/25/24 12/02/24 12/01/24 History
mcg/actuation nasal
spray,suspension
furosemide 20 mg tablet 20 mg PO DAILY Fluid 11/25/24 12/02/24 12/02/24 04:35 History
Retention/Swelling
gabapentin 300 mg capsule 300 mg PO BID Pain 11/25/24 12/02/24 12/02/24 04:35 History
hydrocodone 5 mg-acetaminophen 325 1 tab PO HS PRN pain 11/25/24 12/02/24 2 Weeks Ago History
mg tablet ~11/18/24
memantine 7 mg capsule 7 mg PO DAILY Neurological 11/25/24 12/02/24 12/02/24 04:35 History
sprinkle,extended release 24hr Condition
(Namenda XR)
omeprazole 40 mg capsule,delayed 40 mg PO DAILY Gastrointestinal 11/25/24 12/02/24 12/02/24 04:35 History
release Issue
pantoprazole 20 mg tablet,delayed 20 mg PO HS Gastrointestinal Issue 11/25/24 12/02/24 12/01/24 22:00 History
release
metronidazole 500 mg tablet 500 mg PO DIRECTED Pre-op PPX 11/30/24 12/02/24 12/01/24 22:00 History
neomycin 500 mg tablet 1,000 mg PO DIRECTED Pre-op PPX 11/30/24 12/02/24 12/01/24 22:00 History
peg 3350-electrolytes 236 236 ml PO DIRECTED Pre-op prep 11/30/24 12/02/24 12/01/24 21:30 History
gram-22.74 gram-6.74 gram-5.86
gram solution (Golytely)
Review of Systems
-
Unable to Obtain full review of systems at this time due to: Patient Intubation
Vitals / Labs / Diagnostic Testing
Vital Signs
Temp Pulse Resp BP Pulse Ox
97.9 F 83 15 133/68 100
12/09/24 11:41 12/09/24 11:30 12/09/24 11:30 12/09/24 11:00 12/09/24 11:17
Lab Data
12/09/24 04:25
Laboratory Results
12/08/24 12/08/24 12/09/24
21:05 21:06 04:25
PT 34.2 H 18.0 H
INR 3.34 1.43
APTT 63.9 H 37.2 H
pH 7.52 H
pCO2 27 L
pO2 189 H
HCO3 22.0
O2 Delivery Level
12/09/24
11:26
PT
INR
APTT
pH 7.37
pCO2 39 H
pO2 179 H
HCO3 22.5
O2 Delivery Level
Microbiology
12/08/24 17:39 Abdomen Gram Stain - Preliminary
Diagnostic Testing:
Physical Exam
-
HEENT: Normocephalic, Anicteric and Other (ETT in place)
Cardiovascular: S1/S2 and Peripheral Edema (negative)
Respiratory: Wheeze (negative), Rales (negative), Rhonchi (negative), Non-Labored Respirations and Other (Mechanical breath sounds heard bilaterally)
GI: Soft, Non Distended, Tender (midline), Other (ileostomy in LLQ) and Other (hypoactive bowel sounds)
Neurology: Awake, Alert, Tremors (negative) and Other (following comamands)
Skin: Warm, Dry and Other (midline bandage with oozing dark blood around prior surgical site with gauze soaked with blood and clots seen)
General: Respiratory Distress (negative), Comfortable, Fever (negative) and Chills (negative)
Assessment
-
Assessment: 78-year-old F with PMHx of colovaginal fistula, HTN, HLD, GERD, CAD and CKD who presented with elective low anterior resection. She is known to the Colorectal surgery team with last visit on 10/13/[address] Cristobal. Given her
colovaginal fistula and left-sided hydronephrosis with increased risk of infection/sepsis, she agreed to surgery. On 12/02/2024 she underwent bilateral ureteral stent insertion, robotic assisted low anterior resection with takedown of splenic flexure
with intracorporeal anastamosis, flex-sigmoidoscopy, and robotic repair of vaginal fistula and bilateral oopherectomy. She was managed on the floor on ABx. Her ureteral stents were then removed. She required 1 unit PRBC on 12/03 + 12/04. Her diet was
advanced, however she developed worsening leukocytosis beginning 12/08, and CT abd/pelvis on 12/08 showed s/p LAR with small focus of contrast in posterior pelvis/presacral space suspicious for a postoperative anastamotic leak. She was brought back
to the OR on 12/08 for an ex-lap with loop ileostomy creation and flex-sigmoidoscopy. She remained intubated and was TRX to ICU for further care. Bench Worker service consulted for additional management/recommendations.
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
Impression:
#Pelvic anastomotic leak s/p ex lap with loop ileostomy creation + flexible sigmoidoscopy (POD #1)
#Postoperative mechanical ventilation
#Colovaginal fistula with left ureteral obstruction s/p cystoscopy with bilateral ureteral stent insertion, robotic assisted low anterior resection with takedown of splenic flexure with intracorporeal anastamosis, flexible sigmoidoscopy and robotic
repair of vaginal fistula and bilateral oopherectomy (OR date: 12/02/2024)
#Leukocytosis
#Hyponatremia
#CKD (baseline Cr: 1.1-1.2)
#Chronic anemia
Plan:
- Post-operative management per surgery
- Keep NGT to LCWS
- Continue IVF given she is NPO; defer starting diet to surgery
- Pain control
- Follow up pathology from OR on 12/02/2024
- Continue Invanz (started 12/03/2024)
- Continue with mechanical ventilation with daily SAT/SBT if clinically appropriate --> plan to extubate today
- Maintain plateau pressure <30 and titrate FiO2 + PEEP to keep SpO2 >90-94%
- Continue aspiration precautions; keep HOB >30-45�
- prn nebulized bronchodilators - not currently bronchospastic
- Oropharyngeal + deep ETT suctioning with subglottic as needed
- Daily CXR + blood gas
- Daily vent adjustments as needed based on blood gas and SaO2
- Low level of sedation with goal RASS as 0 to -2
- Maintain MAP>65
- Replete electrolytes with K>4, Mg>2
- Maintain euglycemia with goal BG 140-180; A1C: 6.3 (11/22/2024)
- Trend H/H and transfuse if needed to keep Hb>7g/dL; keep plt>20k, unless there is concern for bleeding then keep plt>50k
- Once extubated, then encourage incentive spirometer use 10x per hour for at least 4 hrs a day
- DVT ppx - hold off on chemical ppx as she had post op bleeding that required TXA this AM
(Patient was seen and evaluated on 12/09/2024) Critical care statement: A total of 40 minutes of critical care time was provided for this patient today. This includes management of unstable vital signs, evaluation of the patient at bedside, reviewing
the patient's pertinent medical records including radiographs, microbiology, laboratory evaluations, and discussion with primary team, consultants, pharmacy, nutrition, physical therapy, case management, charge nurse, critical care nursing, and
respiratory therapy.
--- NOTE | 2024-12-09 09:01 | PTCARENOTE ---
midline incision with slow continuous ooze. Dr. Rivas and Martha Calix at bedside, packing applied, pressure applied, will place 4x4 and tape. TXA ordered and will recheck hgb at 1200.
--- NOTE | 2024-12-09 09:06 | CM ---
Patient seen at bedside in ICU. Physicians working with patient, Patient daughter Leonarda here and updated by physicians. Patient daughter confirmed plan per patient that she wants to go home with [facility] and stated she understood patient may need
further supports depending upon her medical status closer to discharge. Patient daughter also states that supports her mother's wishes. CM will continue to follow for discharge planning needs.
Plan; home with [facility] vs SNF pending medical treatment plan
[2024-12-09] MEDS: TRANEXAMIC ACID 100 IV ×2 (09:25→18:22)
[2024-12-09] MEDS: DILAUDID 0.5 MG IV ×2 (10:45→20:45)
--- NOTE | 2024-12-09 11:06 | W.PN.HOSP.TC ---
Today's Communication/Plan
-
care as per CRS
IVF
replete calcium
Assessment / Plan
Assessment / Plan
pt is an 78 year old female
s/p Colorectal resection for pelvic abscess/colovaginal fistula from diverticulitis--apprec colorectal and other consultants--s/p 3 days of ertapenem--cont IVF, WBC rising, CT scan today concern for anastomotic leak--s/p OR with ostomy formation per
CRS--holding on nutrition/TPN for now per CRS
shock--likely septic post op--with VDRF--remains intubated--await pharmacy customer care specialist input--off pressors--possible SBT to extubation
hyponatremia--likely due to sepsis/infection/IVF
hypocalcemia--replete
Acute blood loss anemia post op--s/p 2 units PRBC transfusion --HGB 11.1--getting TXA since sjin site oozing--follow HGB--may need transfusion
Essential hypertension/CAD--Cont VEHICLE RETURN ASSOCIATE Coreg with holding parameter--Continue VEHICLE RETURN ASSOCIATE aspirin, atorvastatin--with new surgery...may need to transition meds to IV
MANINDER now on CKD stage III-creat bumped from 0.9 on 12/08/24 to 1.2 on 12/09/24
DVT proph-- per CRS, use SCD for now
code status--FULL CODE
Anticipated Discharge: > 48 hours
Subjective/Interval History
-
Date of Service: December 09, 2024
pt intubated
Objective Data
-
Labs:
Laboratory Results
12/09/24 12/09/24 12/09/24
04: 12:00 14:00
WBC 14.0 H
Hgb 8.8 L Cancelled Pending
Hct 26.4 L Cancelled Pending
Plt Count 304
PT 18.0 H
INR 1.43
APTT 37.2 H
Sodium 131 L
Potassium 4.3
Chloride 100
Carbon Dioxide 22
BUN 19 H
Creatinine 1.2 H
Glucose 96
Calcium 7.4 L
Vital Signs:
max temp for 24 hours
12/08/24
15:15
Temp 98.6 F
Vital Signs
Temp Pulse Resp BP Pulse Ox
97.6 F 77 30 128/87 10
12/09/24 08:32 12/09/24 10:53 12/09/24 10:44 12/09/24 10:00 12/09/24 10:53
I&O
12/08/24 12/09/24 12/10/24
06:59 06:59 06:59
Intake Total 960 / 960 2195 / 2303.6 434.4 / 434.4
Output Total 150 / 150 1196 / 1196 90 / 90
Balance 810 / 810 999 / 1107.6 344.4 / 344.4
Review of Systems
-
Unable to obtain full review of systems at this time due to: Patient Intubation
Physical Exam
-
General: Well Developed, Well Nourished, No Apparent Distress and Intubated
HEENT: Normocephalic and Atraumatic
Respiratory: Clear to Auscultation; Negative Wheezes, Rales or Rhonchi
Cardiac: Regular Rhythm and S1/S2; Negative Murmur
GI: Soft, Nontender, Nondistended, Ostomy and Other (drains--skin site oozing)
Musculoskeletal: No Clubbing, No Cyanosis and No Edema
Neuro: Awake
[2024-12-09 11:37] LABS: B.E. -2.5 mmol/L; HCO3 22.5 mmol/L (21-28); O2 Saturation % 100.0 % (94-98); PCO2 39 mmHg (32-35); PO2 179 mmHg (83-108)
[2024-12-09] MEDS: NORMOSOL-R/PLASMALYTE-A IV (11:38)
[2024-12-09] MEDS: CALCIUM GLUCONATE 280 MG IV (11:39)
[2024-12-09 13:20] LABS: Glucose - Point of Care 101 mg/dl (70-99)
--- NOTE | 2024-12-09 13:20 | PTCARENOTE ---
patient dressing saturated. notified colorectal surgery. redressed midline incision with pressure dressing, sent repeat Hgb.
[2024-12-09 14:00] LABS: Hematocrit 26.7 % (37.0-47.0); Hemoglobin 8.9 g/dL (12.0-16.0)
[2024-12-09] MEDS: NSS 1000 IV ×2 (14:24→22:25)
--- NOTE | 2024-12-09 14:29 | W.PN.CRS1 ---
Today's Communication / Plan
-
1 g TXA
extubate per primary team
recheck h/h later
Assessment/Plan
-
POD#7 from a cystoscopy with insertion of bilateral ureteral stents, robotic low anterior resection with takedown of the splenic flexure and intracorporeal anastomosis, flexible sigmoidoscopy and robotic repair of a colovaginal fistula with
bilateral oophorectomy
POD#1 1) exploratory laparotomy 2) loop ileostomy creation 3) flexible sigmoidoscopy
WBC: 14.0 (13.6), Hgb 8.9 (8.8, 9.4)
liquid stool: 226ml, drain: 390ml, NGT: 250ml, briceno: 420ml
levophed gtt
afebrile
-Extubate per primary team
-Given oozing, 1g TXA ordered. Asked nurse to reinforce dressing. Recheck h/h later today.
-Wound RN for ileostomy care
-Daughter updated at bedside
-Holding Toradol and Lovenox given oozing.
- OOB as tolerated when extubated. PT/OT ordered.
- TEDS/SCDS in place for DVT prophylaxis.
- Maintain Invanz IV daily
- OR pathology pending
- Maintain TANK drains until DC
- Appreciate hospitalist/school adjustment counselor
- Holding dispo for now
-Maintain NPO with NGT. No TPN yet.
Subjective Data
Procedure
12/02/2024 cystoscopy with bilateral ureteral stents, robotic LAR with takedown of splenic flexure and intracorporeal anastomosis, drainage of an intra-abdominal abscess, flexible sigmoidoscopy, robotic repair for vaginal fistula with bilateral
oophorectomy
12/08/2024- 1) exploratory laparotomy 2) loop ileostomy creation 3) flexible sigmoidoscopy
Subjective Data
Date of Service: December 09, 2024
Patient is intubated and remains sedated. No acute signs of distress.
Objective Data
-
Vital Signs
Temp Pulse Resp BP Pulse Ox
97.9 F 84 18 138/71 100
12/09/24 11:41 12/09/24 12:00 12/09/24 12:00 12/09/24 12:00 12/09/24 12:07
Intake & Output
12/08/24 12/09/24 12/10/24
06:59 06:59 06:59
Intake Total 960 / 960 2195 / 2303.6 634.4 / 634.4
Output Total 150 / 150 1196 / 1196 90 / 90
Balance 810 / 810 999 / 1107.6 544.4 / 544.4
Intake:
Oral fluids 480 / 480
IV fluids (Total) 960 / 960 925 / 1033.6 634.4 / 634.4
Normosol-R/Plasmalyte-A 1,000 925 / 1025 400 / 400
ml @ 100 mls/hr IV .Q10H ISAURA Rx
#:[id number]
Nss 1,000 ml @ 100 mls/hr IV . 200 / 200
Q10H ISAURA Rx#:[id number]
Prop 34.4 / 34.4
IV piggybacks 700 / 700
Amount instilled into GI Tube ( 90 /
Total)
[place] Sump 90 /
Output:
Liquid stool amount 226 / 226
Ileostomy 225 / 225
Rectum 1 / 1
Drain Output (Total) 150 / 150 300 / 300 90 / 90
Left Abdomen [place] 160 / 160 70 / 70
Right [place] 150 / 150 140 / 140 20 / 20
Gastrointestinal tube output ( 250 / 250
Total)
[place] Sump 250 / 250
Urine, Briceno 420 / 420
Other:
Number of approximated MODERATE 2 2
amounts of urine
Number of approximated LARGE 2
amounts of urine
Number of unmeasured liquid
stools
Rectum 1
Lab Results
12/09/24 13:54
12/09/24 04:25
Physical Exam
-
General: No Acute Distress
Abdomen: Soft, Non Distended, Non Tender and Other ([address], serosanguineous[address] ileostomy warm and pink with clot noted in Ileostomy.)
Skin: Warm and Dry
Incision: Other (Bleeding on the upper aspect. Some silvana removed due to large clots. Pressure held for about 15 minutes. Surgicel silvana placed in 3 oozing wound sites. Bleeding subsided.)
--- NOTE | 2024-12-09 14:38 | PTCARENOTE ---
Patient has only had 150ml out of urine. spoke with dr. landaverde, IV bolus ordered.
--- NOTE | 2024-12-09 16:45 | PTCARENOTE ---
third pressure dressing applied to midline incision. called colorectal surgery. Nataliia Nagy at bedside, evaluated dressing. pressure gauze and tape applied, additional dose of TXA administered.
[2024-12-09] MEDS: INVANZ 60 MG IV (17:15)
--- NOTE | 2024-12-09 17:27 | WOUNDNOTE ---
[facility] RN NOTE: Patient with new loop ostomy created on 12/08. Received TT this morning for pouch change due to bleeding at midline. Pouch changed with one piece appliance. Small amount of bloody drainage noted from colostomy site, aware and
was at bedside during assessment. Assisted RN Barb with pressure dressings to midline. Returned end of day to assess pouch. Pouch was not adhering due to bleeding. This time pouch changed with Convatec Esteem one piece pouch, and pouch was
positioned away from midline. Family at bedside and many appropriate questions were asked and answered. Daughter given Lisbeth booklet of information. Will follow up with patient for teaching and pouch change next week. Three one piece pouches
were left at bedside.
[2024-12-09 18:15] LABS: Glucose - Point of Care 105 mg/dl (70-99)
--- NOTE | 2024-12-09 19:00 | PTCARENOTE ---
Assumed care. Patient received lying in bed, awake, alert and oriented watching TV. She is without apparent signs of distress. See freight engineer charted on worklist flowsheet. She states her abdominal discomfort is 3/10 and is tolerable. Midline
abdominal incision is currently CDI. Right LQ ileostomy site with pink stoma budded, appliance intact with small amount of sanguinous drainage. TANK drain right lower abdomen with old sanguinous drainage to bulb suction. TANK drain left lower abdomen
with serosanguinous drainage to bulb suction. No bowel sounds audible in the lower quadrants. Very hypoactive bowel sounds in upper quadrants. NGT via right nare at 59cm to LIS with dark bile green drainage. S1S2 regular with positive murmur. SR
with 1st degree AVB on CM. BBS with UL clear, bilateral bases diminished with fine crackles in the left base. Positive pulses, no edema. BLE with knee high teds and SCDs in place. Right wrist radial [place] intact, leveled and zeroed as needed. Good
wave form, good square wave. IV sites right arm x 2 WDL. Ang catheter patent draining clear yellow urine, fair UO. Bed in low and locked position, bed alarm on, call linn within reach.
[2024-12-09] MEDS: NSS (PRESERVATIVE FREE) 10 ML IV (20:33)
[2024-12-09 20:49] LABS: Hematocrit 25.1 % (37.0-47.0); Hemoglobin 8.4 g/dL (12.0-16.0)
[2024-12-09 20:58] LABS: APTT 33.0 Sec (23.4-35.0); INR 1.29; PT 16.4 Sec (11.4-14.6)
[2024-12-09 23:15] LABS: Glucose - Point of Care 82 mg/dl (70-99)
--- NOTE | 2024-12-09 23:15 | PTCARENOTE ---
Large amount of serosanguinous drainage noted on midline abdominal dressing. Dressing removed. Most of midline incision with georges is approximated aside from surgicel packing noted on upper and lower incision. Small to moderate clot noted upper
incision. Dry sterile 4x4 gauze applied and covered with ABD dressing. Ileostomy appliance currently in place. Afebrile. Abdominal discomfort persists but is tolerable for now. No other change in physical assessment. Repositioned. Watching TV.
[2024-12-10] VITALS (13 sets, daily range): BP systolic 109–128; BP diastolic 58–72
[2024-12-10] MEDS: DILAUDID 0.5 MG IV ×6 (00:46→23:40)
--- NOTE | 2024-12-10 02:00 | PTCARENOTE ---
UO is poor, 30cc/hr over the last 2 hours. Ebenezer RAZA made aware, no new orders.
--- NOTE | 2024-12-10 04:00 | PTCARENOTE ---
Patient states that she has not slept well that she has been dozing off and on intermittently t/o night. VSS. No change on CM. Am labs drawn via Justina. BBS clear UL, diminished bilateral bases with fine crackles. No bleeding noted from midline
abdominal dressing. Rest of physical assessment unchanged.
[2024-12-10 04:39] LABS: Hematocrit 25.3 % (37.0-47.0); Hemoglobin 8.2 g/dL (12.0-16.0); Mean Corp Hgb Conc. 32.4 g/dL (33.0-37.0); Mean Corpuscular Volume 85.8 fL (81.0-99.0); Nucleated Red Blood Cells % 0.1 %; Platelet Count 358 10^3/uL (130-400); Red Cell Dist. Width 17.2 % (11.5-14.5)
[2024-12-10 05:00] LABS: Blood Urea Nitrogen 32 mg/dl (7-17); Calcium 7.8 mg/dl (8.4-10.2); Carbon Dioxide 23 mmol/L (22-30); Chloride 103 mmol/L (98-107); Estimated Creatinine Clearance 26 ml/min; Glucose 86 mg/dl (70-99); Magnesium 2.0 mg/dl (1.6-2.3); Potassium 4.7 mmol/L (3.5-5.1); Sodium 132 mmol/L (135-145); eGFR 30.13
--- NOTE | 2024-12-10 05:00 | PTCARENOTE ---
Patient continues to have very poor UO. Last 2 hours approx 15cc/hr. Ebenezer GODWINN notified. New orders received for 250cc NS bolus, given. CR bumped up to 1.7, Ebenezer GODWINN aware.
[2024-12-10] MEDS: NSS 250 IV (05:20)
--- NOTE | 2024-12-10 07:11 | PTCARENOTE ---
Report given verbally to oncoming shift, Ruben ALVARADO. Bedside rounds complete. Questions answered.
[2024-12-10 07:46] LABS: Glucose - Point of Care 96 mg/dl (70-99)
[2024-12-10] MEDS: PROTONIX IV 40 MG IV ×2 (07:49→19:14)
[2024-12-10] MEDS: ZYLOPRIM PO (07:49)
[2024-12-10] MEDS: NAMENDA PO (07:49)
[2024-12-10] MEDS: NSS (PRESERVATIVE FREE) 10 ML IV ×2 (07:49→19:14)
--- NOTE | 2024-12-10 08:00 | PTCARENOTE ---
Received report and assumed care at 0700. Nursing assessment and as documented. Patient Ox3, on RA sats 100%, NSR with PVC on monitor rates 70-80's, ileostomy in place with small amounts of dark/black liquid in bag, stoma budded, small-moderate
amount of blood/oozing at JANENE site. R TANK and L TANK drain in place. Ang catheter in place draining clear yellow urine, diminished urine output. R radial A line in place, zeroed and WNL. R hand PIV and R AC PIV patent and in place. NSS infusing at
100ml/hr via R AC PIV. Repositioned for comfort, VSS, call linn within reach, care ongoing. Update given to daughter via phone.
--- NOTE | 2024-12-10 08:10 | W.PN.HOSP.TC ---
Today's Communication/Plan
-
consider renal consult
consider blood transfusion
cont Invanz
cont supportive care
Assessment / Plan
Assessment / Plan
pt is an 78 year old female
s/p Colorectal resection for pelvic abscess/colovaginal fistula from diverticulitis--apprec colorectal and other consultants--s/p 3 days of ertapenem but was restarted after needing OR on 12/08/24 for anastomotic leak s/p OR with ostomy
formation--cont IVF--holding on nutrition/TPN for now per CRS
shock--likely septic post op--with VDRF--was intubated, extubated 12/09/24--[facility] sugar sampler input--off pressors
MANINDER on CKD stage 3--creat bumped to 1.7 from 1.2, 1.0--consider renal consult--will defer to primary service
hyponatremia--likely due to sepsis/infection/IVF--follow--again consider renal consult
hypocalcemia--replete
Acute blood loss anemia post op--s/p 2 units PRBC transfusion 12/04/24 --HGB drifting down to 8.2---s/p TXA since skin site oozing--follow HGB--may need another transfusion, will defer to primary service
Essential hypertension/CAD--Cont INVESTIGATION OFFICER Coreg with holding parameter--Continue INVESTIGATION OFFICER aspirin, atorvastatin--with new surgery...may need to transition meds to IV
DVT proph-- per CRS, use SCD for now
code status--FULL CODE
Anticipated Discharge: > 48 hours
Subjective/Interval History
-
Date of Service: December 10, 2024
pt extubated and doing well--some mild abdominal pain
Objective Data
-
Labs:
Laboratory Results
12/09/24 12/10/24
20:40 04:12
WBC 13.5 H
Hgb 8.4 L 8.2 L
Hct 25.1 L 25.3 L
Plt Count 358
PT 16.4 H
INR 1.29
APTT 33.0
Sodium 132 L
Potassium 4.7
Chloride 103
Carbon Dioxide 23
BUN 32 H
Creatinine 1.7 H
Glucose 86
Calcium 7.8 L
Vital Signs:
max temp for 24 hours
12/09/24
19:50
Temp 97.9 F
Vital Signs
Temp Pulse Resp BP Pulse Ox
97.7 F 81 15 109/58 100
12/10/24 07:25 12/10/24 07:00 12/10/24 07:00 12/10/24 04:00 12/10/24 07:58
I&O
12/09/24 12/10/24 12/11/24
06:59 06:59 06:59
Intake Total 2195 / 2303.6 2954.4 / 3054.4 200 / 200
Output Total 1196 / 1196 1270 / 1300 30 / 30
Balance 999 / 1107.6 1684.4 / 1754.4 170 / 170
Review of Systems
-
All other systems: Reviewed and negative
Physical Exam
-
General: Well Developed, Well Nourished and No Apparent Distress
HEENT: Normocephalic, Atraumatic and Other (NGT in place)
Respiratory: Clear to Auscultation; Negative Wheezes or Rhonchi
Cardiac: Regular Rhythm, S1/S2 and Murmur
GI: Soft, Nontender, Nondistended and Normal Bowel Sounds
Musculoskeletal: No Clubbing, No Cyanosis and No Edema
Skin: Warm
Neuro: Awake
Psych: Calm
--- NOTE | 2024-12-10 08:12 | W.PN.INTV ---
Addendum entered and electronically signed by Kyree Jacob MD 12/11/24 10:03:
Patient's post transfusion (of 1 U PRBC) Hb was 9.4, showing appropriate rise of Hb from 8.2. I instructed to the nighttime ICU DAIRY FARMWORKER to downgrade the patient. Poultry Raiser service will now sign off. Please call back with any questions or concerns.
Original Note:
Today's Communication / Plan
Recommendations
Pain control
NPO
IVF
Monitor postoperative site bleeding
Trend H&H s/p 1 unit PRBC transfusion this morning
Keep NGT to LIWS
Monitor NGT output
If Hb is stable after 1 unit PRBC transfusion, then patient will be downgraded to telemetry. This was reviewed with surgery who agrees. Once downgraded then Poultry Raiser/Pulmonary service will sign off. Please call back with any questions or
concerns.
Assessment
-
Assessment: 78-year-old F with PMHx of colovaginal fistula, HTN, HLD, GERD, CAD and CKD who presented with elective low anterior resection. She is known to the Colorectal surgery team with last visit on 10/13/[address] Cristobal. Given her
colovaginal fistula and left-sided hydronephrosis with increased risk of infection/sepsis, she agreed to surgery. On 12/02/2024 she underwent bilateral ureteral stent insertion, robotic assisted low anterior resection with takedown of splenic flexure
with intracorporeal anastamosis, flex-sigmoidoscopy, and robotic repair of vaginal fistula and bilateral oopherectomy. She was managed on the floor on ABx. Her ureteral stents were then removed. She required 1 unit PRBC on 12/03 + 12/04. Her diet was
advanced, however she developed worsening leukocytosis beginning 12/08, and CT abd/pelvis on 12/08 showed s/p LAR with small focus of contrast in posterior pelvis/presacral space suspicious for a postoperative anastamotic leak. She was brought back
to the OR on 12/08 for an ex-lap with loop ileostomy creation and flex-sigmoidoscopy. She remained intubated and was TRX to ICU for further care. Poultry Raiser service consulted for additional management/recommendations.
Chronic conditions INTERCEPTOR OPERATOR: Sigmoid diverticulitis with colovaginal fistula, HLD, HTN, GERD, CKD stage 3, CAD
Impression:
#Pelvic anastomotic leak s/p ex lap with loop ileostomy creation + flexible sigmoidoscopy (POD #2)
#Postoperative mechanical ventilation --> extubated on 12/09
#Acute post-operative anemia in setting of chronic anemia
#Colovaginal fistula with left ureteral obstruction s/p cystoscopy with bilateral ureteral stent insertion, robotic assisted low anterior resection with takedown of splenic flexure with intracorporeal anastamosis, flexible sigmoidoscopy and robotic
repair of vaginal fistula and bilateral oopherectomy (OR date: 12/02/2024)
#Leukocytosis
#Hyponatremia
#CKD (baseline Cr: 1.1-1.2)
Plan:
- Post-operative management per surgery
- Keep NGT to LIWS
- Continue IVF given she is NPO; defer starting diet to surgery
- Pain control
- Follow up pathology from OR on 12/02/2024
- Continue Invanz (started 12/03/2024)
- Pt extubated on 12/09 and is currently breathing comfortably on room air, saturating 100
- Keep SpO2 >90-94%
- Continue aspiration precautions; keep HOB >30-45�
- prn nebulized bronchodilators - not currently bronchospastic
- Maintain MAP>65
- Replete electrolytes with K>4, Mg>2
- Maintain euglycemia with goal BG 140-180; A1C: 6.3 (11/22/2024)
- Trend H/H and transfuse if needed to keep Hb>7-8g/dL; keep plt>50k
- Encourage incentive spirometer use 10x per hour for at least 4 hrs a day
- DVT ppx - hold off on chemical ppx as she had post op bleeding that required TXA yesterday AM, and general surgery opened up the incision today and put on silver nitrate which should also stop the bleeding
If Hb is stable after 1 unit PRBC transfusion, then patient will be downgraded to telemetry. This was reviewed with surgery who agrees. Once downgraded then Poultry Raiser/Pulmonary service will sign off. Please call back with any questions or
concerns.
Total time spent today was 57 minutes for this encounter. Time includes reviewing laboratory test/imaging results, reviewing pertinent medical records, obtaining and reviewing medical history, performing an appropriate exam, ordering medications,
tests and procedures. Time also includes documentation of this encounter, coordinating patient care and communicating with other healthcare professionals. Total time does not include separately billed tests performed on this date of service.
Subjective Dataa
Subjective Data
Date of Service:
Date of Service: December 10, 2024
Chief Complaint: Poultry Raiser Follow Up
Subjective:
Patient seen and evaluated today bedside. Resting in bed no acute distress, NGT on low intermittent wall suction. She currently denies SOB, chest pain, fevers or chills, although she does have abdominal discomfort. Current heart rate 81, BP via
A-line 142/65, BP via NIBP: 121/72 and saturating 100% on room air. Hb this morning is 8.2 from 8.4 yesterday evening � 1 unit PRBC being transfused by surgery.
Review of Systems
General: Other (Negative unless mentioned above)
Objective Data
Data Reviewed
Vital Signs / I&O / Oxygen:
Vital Signs
Temp Pulse Resp BP Pulse Ox
97.7 F 81 18 119/67 100
12/10/24 07:25 12/10/24 09:00 12/10/24 09:00 12/10/24 08:04 12/10/24 09:00
Intake and Output
12/09/24 12/10/24 12/11/24
06:59 06:59 06:59
Intake Total 2195 / 2303.6 2954.4 / 3054.4 200 / 200
Output Total 1196 / 1196 1270 / 1300 30
Balance 999 / 1107.6 1684.4 / 1754.4 170 / 170
SaO2 [A/C] 100
SaO2 100
Nasal Cannula flow liters per 2
minute
Physical Exam
General: Respiratory Distress (negative), Comfortable, Pain (mid-abdominal near surgical site), Chills (negative) and Sweats (negative)
HEENT: Normocephalic and Anicteric
Cardiovascular: S1-S2, Murmur (MARTIN heard across anterior precordium, grade III/) and Peripheral Edema (negative)
Respiratory: Wheeze (negative), Crackles (negative), Rhonchi (negative) and Non-Labored Respirations
GI: Soft, Non Distended, Tender (Periumbilical) and Other (hypoactive bowel sounds)
Neurology: Awake, Alert, Oriented and Tremors (negative)
Skin: Warm, Dry and Other (Midline bandage with dried blood seen on gauze)
Labs/Micro/Reports
Lab Data
12/10/24 04:12
12/10/24 04:12
Laboratory Results
12/09/24 12/09/24
11:26 20:40
PT 16.4 H
INR 1.29
APTT 33.0
pH 7.37
pCO2 39 H
pO2 179 H
HCO3 22.5
O2 Delivery Level
Microbiology
12/08/24 17:39 Abdomen Anaerobic Culture - Preliminary
Culture pending. Anaerobic cultures are examined after 3
days incubation. Additional information to follow.
12/08/24 17:39 Abdomen Wound Culture - Preliminary
No growth
12/08/24 17:39 Abdomen Gram Stain - Preliminary
[2024-12-10] MEDS: NSS 1000 IV ×2 (09:12→19:13)
[2024-12-10] MEDS: SILVER NITRATE APPLICATOR 3 EACH TOPICAL (10:24)
--- NOTE | 2024-12-10 10:30 | W.PN.GS2 ---
Today's Communication / Plan
-
`
Assessment / Plan
-
Assessment: 78-year-old female POD #8 status post RAL LAR and repair of colovaginal fistula with bilateral oophorectomy
POD #2 status post takeback laparotomy, creation of loop ileostomy
AFVSS
Off pressors
Skin oozing evaluated. Hector removed. Silver nitrate topically applied to skin edges.
Hemoglobin 8.2 from acute blood loss anemia secondary to surgery and skin bleeding/ooze
Mild bump in creatinine from baseline
Plan: continue NG tube decompression and bowel rest
Maintain IV fluids and monitor I/O's
1 unit transfusion PRBCs
Monitor incision site for oozing/bleeding but optimistic silver nitrate has improved control
Hospitalist assistance with care appreciated
Any of the patient's or her daughter's questions were confirmed to be addressed
Subjective Data
-
Date of Service: December 10, 2024
Patient seen and examined.
Daughter on speaker phone during evaluation. Nursing at bedside.
Overall patient does not offer any specific complaints or concerns.
States her postoperative pain is controlled
No nausea or vomiting
Objective Data
-
Intake and Output
12/09/24 12/10/24 12/11/24
06:59 06:59 06:59
Intake Total 2195 / 2303.6 2954.4 / 3054.4 400 / 400
Output Total 1196 / 1196 1270 / 1300 185 / 185
Balance 999 / 1107.6 1684.4 / 1754.4 215 / 215
Intake:
Oral fluids 480 / 480
IV fluids (Total) 925 / 1033.6 2294.4 / 2394.4 400 / 400
Normosol-R/Plasmalyte-A 1,000 925 / 1025 400 / 400
ml @ 100 mls/hr IV .Q10H [facility] Rx
#:[id number]
Nss 1,000 ml @ 100 mls/hr IV . 1860 / 1960 400 / 400
Q10H [place]A Rx#:[id number]
Prop 34.4 / 34.4
IV piggybacks 700 / 700 600 / 600
Amount instilled into GI Tube ( 90 / 90 60 / 60
Total)
[place] Sump 90 / 90 60 / 60
Output:
Liquid stool amount 226 / 226
Ileostomy 225 / 225
Rectum 1 / 1
Drain Output (Total) 300 / 300 300 / 300 30 / 30
Left Abdomen [place] 160 / 160 210 / 210 20 / 20
Right [place] 140 / 140 90 / 90 10 / 10
Gastrointestinal tube output ( 250 / 250 300 / 300
Total)
[place] Sump 250 / 250 300 / 300
Urine, Ang 420 / 420 670 / 700 155 / 155
Other:
Number of approximated MODERATE 2
amounts of urine
Number of unmeasured liquid
stools
Rectum 1 1
Vital Signs
Temp Pulse Resp BP Pulse Ox
97.7 F 81 18 119/67 100
12/10/24 07:25 12/10/24 09:00 12/10/24 09:00 12/10/24 08:04 12/10/24 09:00
Lab Results
12/10/24 04:12
12/10/24 04:12
Calcium 7.8 mg/dl (8.4-10.2) L 12/10/24 04:12
Magnesium 2.0 mg/dl (1.6-2.3) 12/10/24 04:12
Total Bilirubin 0.5 mg/dl (0.2-1.3) 11/22/24 12:46
AST 34 U/L (14-36) 11/22/24 12:46
ALT 24 U/L (0-35) 11/22/24 12:46
Alkaline Phosphatase 100 U/L (38-126) 11/22/24 12:46
Total Protein 7.5 g/dl (6.3-8.2) 11/22/24 12:46
Albumin 3.8 g/dl (3.5-5.0) 11/22/24 12:46
Physical Exam
-
NAD AAO x 3
ABD: soft, nondistended, mild incisional tenderness
Midline incision dressing still with some clot/blood.
Right sided ostomy mucosa pink with mild edema. Some output starting
[2024-12-10 11:54] LABS: Glucose - Point of Care 86 mg/dl (70-99)
--- NOTE | 2024-12-10 12:00 | PTCARENOTE ---
Dr. Hinds at bedside, removed georges from JANENE and applied silver nitrate to oozing part of incision, applied 4x4 with tape and ABD pad. 1 unit PRBC ordered, type and screen sent. Daughter updated via speakerphone with doctor. Patient with small
loose/liquid brown BM per rectum, hygiene care provided. VSS, call linn within reach, care ongoing.
[2024-12-10] MEDS: DILAUDID 0.25 MG IV ×2 (14:06→18:19)
[2024-12-10] MEDS: OFIRMEV 100 IV ×2 (15:38→23:40)
--- NOTE | 2024-12-10 15:40 | PTCARENOTE ---
Report given to RN.
[2024-12-10] MEDS: INVANZ 60 MG IV (15:42)
[2024-12-10] MEDS: DEXTROSE 50% SYRINGE 12.5 GRAMS IV (18:19)
[2024-12-10 18:22] LABS: Glucose - Point of Care 63 mg/dl (70-99)
[2024-12-10] MEDS: NSS IV (18:23)
[2024-12-10] MEDS: D5/0.9% SODIUM CHLORIDE 1000 IV (18:27)
[2024-12-10 18:53] LABS: Glucose - Point of Care 109 mg/dl (70-99)
--- NOTE | 2024-12-10 19:10 | PTCARENOTE ---
Assumed care. Patient received lying in bed, awake, alert and oriented watching TV. She is without apparent signs of distress. See manager assessment charted on worklist flowsheet. She c/o abdominal discomfort without relief from pain med given approx
one hour ago. Ebenezer RAZA notified and new orders received for one time dose of 0.5mg Dilaudid. Midline abdominal incision is currently CDI. Right LQ ileostomy site with pink stoma budded with bumper, appliance intact with small amount of old
sanguinous drainage. TANK drain right lower abdomen with old sanguinous drainage to bulb suction. TANK drain left lower abdomen with serosanguinous drainage to bulb suction. No bowel sounds audible in the lower quadrants. Very hypoactive bowel sounds in
upper quadrants. NGT via right nare at 59cm to LIS with minimal drainage. S1S2 regular with positive murmur. SR on CM. BBS with UL clear, bilateral bases diminished with fine crackles. Positive pulses, Mild generalized anasarca, trace pedal edema.
BLE with SCDs in place. Right wrist radial [place] intact, leveled and zeroed as needed. Good wave form, good square wave. IV sites right arm x 2 WDL. Ang catheter patent draining clear yellow urine, fair UO. Bed in low and locked position, bed
alarm on, call linn within reach.
--- NOTE | 2024-12-10 19:15 | PTCARENOTE ---
Patient received at 15:00 in bed. VSS at 18:00 blood sugar 63; patient asymptomatic. Dextrose 12.5 adm
[2024-12-10 20:25] LABS: Hematocrit 28.5 % (37.0-47.0); Hemoglobin 9.4 g/dL (12.0-16.0); Mean Corp Hgb Conc. 33.0 g/dL (33.0-37.0); Mean Corpuscular Volume 86.9 fL (81.0-99.0); Platelet Count 371 10^3/uL (130-400); Red Cell Dist. Width 16.8 % (11.5-14.5)
--- NOTE | 2024-12-10 20:43 | PTCARENOTE ---
Vitals pulled from [id number]. Unable to verify VS from [id number].
--- NOTE | 2024-12-10 23:45 | PTCARENOTE ---
Medicated with Dilaudid and IV Tylenol for pain. Patient states that she has not slept in 2 nights. Complete cares given, CHG cloth bath, briceno care with CHG wipes. Full upper dentures brushed and soaked, mouthwash rinse. Complete linen change.
Abdominal dressing with moderate serous and scant sanguinous drainage noted. Abdominal and TANK drain sites DSD changed. Ileostomy appliance emptied. Afebrile. Blood sugar 89. Positioned for comfort. Room darkened for sleep, door closed. Instructed to
call with any needs. No change noted in physical assessment.
[2024-12-10 23:58] LABS: Glucose - Point of Care 86 mg/dl (70-99)
[2024-12-11] VITALS (7 sets, daily range): BP systolic 132–167; BP diastolic 75–98; O2SAT 97; BMI 30.5
[2024-12-11] MEDS: NSS 1000 IV (04:01)
[2024-12-11] MEDS: DILAUDID 0.5 MG IV ×5 (04:04→19:40)
[2024-12-11 04:37] LABS: Hematocrit 29.7 % (37.0-47.0); Hemoglobin 9.7 g/dL (12.0-16.0); Mean Corp Hgb Conc. 32.7 g/dL (33.0-37.0); Mean Corpuscular Volume 86.6 fL (81.0-99.0); Platelet Count 374 10^3/uL (130-400); Red Cell Dist. Width 17.1 % (11.5-14.5)
[2024-12-11 04:58] LABS: Blood Urea Nitrogen 34 mg/dl (7-17); Calcium 7.8 mg/dl (8.4-10.2); Carbon Dioxide 21 mmol/L (22-30); Chloride 108 mmol/L (98-107); Estimated Creatinine Clearance 29 ml/min; Glucose 89 mg/dl (70-99); Magnesium 2.1 mg/dl (1.6-2.3); Potassium 4.4 mmol/L (3.5-5.1); Sodium 135 mmol/L (135-145); eGFR 35.01
--- NOTE | 2024-12-11 07:50 | W.PN.HOSP.TC ---
Today's Communication/Plan
-
transfer to [address] [place] [address]
d/c briceno
PT/OT
Assessment / Plan
Assessment / Plan
pt is an 78 year old female
s/p Colorectal resection for pelvic abscess/colovaginal fistula from diverticulitis--apprec colorectal and other consultants--s/p 3 days of ertapenem but was restarted after needing OR on 12/08/24 for anastomotic leak s/p OR with ostomy
formation--cont IVF including D5 as sugars drop at night--holding on nutrition/TPN for now per CRS
shock--likely septic post op--with VDRF--was intubated, extubated 12/09/24--apprec complaint inspector input--off pressors
MANINDER on CKD stage 3--creat bumped to 1.7 from 1.2, 1.0, down to 1.5 12/11/24--hold on renal consult for now as improving
hyponatremia--likely due to sepsis/infection/IVF--follow--improving
hypocalcemia--replete
Acute blood loss anemia post op--s/p 2 units PRBC transfusion 12/04/24 --HGB drifting down to 8.2---s/p TXA since skin site oozing--follow HGB--did receive 1 unit pRBC 12/10 so 3 units total to date
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
DVT proph-- per CRS, use SCD for now
code status--FULL CODE
agree with moving pt to [address] [place] [address]
Anticipated Discharge: > 48 hours
Subjective/Interval History
-
Date of Service: December 11, 2024
pt states that she can't sleep--says hasn't for 2 days
Objective Data
-
Labs:
Laboratory Results
12/10/24 12/11/24
18:16 04:14
WBC 12.2 H 11.7 H
Hgb 9.4 L 9.7 L
Hct 28.5 L 29.7 L
Plt Count 371 374
Sodium 135
Potassium 4.4
Chloride 108 H
Carbon Dioxide 21 L
BUN 34 H
Creatinine 1.5 H
Glucose 89
Calcium 7.8 L
Vital Signs:
max temp for 24 hours
12/11/24
04:00
Temp 98.3 F
Vital Signs
Temp Pulse Resp BP Pulse Ox
97.3 F 87 15 127/71 100
12/11/24 07:08 12/11/24 04:30 12/11/24 04:30 12/10/24 20:00 12/11/24 04:30
I&O
12/10/24 12/11/24 12/12/24
06:59 06:59 06:59
Intake Total 2954.4 / 3054.4 3620 / 3620
Output Total 1270 / 1300 1515 / 1515
Balance 1684.4 / 1754.4 2105 / 2105
Review of Systems
-
All other systems: Reviewed and negative
Abdomen/GI: Reports Abdominal Pain (sore)
Physical Exam
-
General: Well Developed, Well Nourished and No Apparent Distress
HEENT: Normocephalic, Atraumatic and Other (NGT)
Respiratory: Clear to Auscultation; Negative Wheezes or Rhonchi
Cardiac: Regular Rhythm, S1/S2 and Murmur
GI: Soft, Nontender, Nondistended, Normal Bowel Sounds, Ostomy and Other (drain)
Genito-urinary: Briceno
Musculoskeletal: No Clubbing, No Cyanosis and No Edema
Skin: Warm
Neuro: Awake
Psych: Calm
[2024-12-11] MEDS: OFIRMEV 100 IV (08:51)
[2024-12-11] MEDS: D5/0.9% SODIUM CHLORIDE 1000 IV ×2 (09:06→23:28)
[2024-12-11] MEDS: NSS (PRESERVATIVE FREE) 10 ML IV ×2 (09:09→19:39)
[2024-12-11] MEDS: PROTONIX IV 40 MG IV ×2 (09:09→19:39)
--- NOTE | 2024-12-11 09:48 | PTCARENOTE ---
0700 assumed care. Patient in bed sleeping
08:30 patient woke up with severe abdominal pain 10/10 pain scale level, through abdomen. throat pain. RT Ileostomy small dark brown liquid drainage, RT J/P bloody drainage, Left J/P serosanguineous drainage; NG in place draining dark brown
Indwelling Ang clear yellow urine
--- NOTE | 2024-12-11 11:11 | W.PN.GS2 ---
Addendum entered and electronically signed by Ebenezer Hinds MD 12/11/24 11:34:
Patient seen and examined. Daughter at bedside. Discussed with nursing.
Patient had an acute bout of abdominal pain this a.m. that was fairly severe but has since improved
No nausea, no vomiting
Diverting loop ileostomy with liquid stool and air; NG tube output is diminishing
AFVSS
ABD: Soft, not significantly distended. Midline incision without any bleeding. Mild tenderness but no rebound rigidity or guarding. Right sided loop ileostomy some edema, active liquid stool and air in appliance.
Right sided TANK feculent appearing fluid in bulb
Left-sided TANK serous
WBC improved to 11.7.
A/P: 78-year-old female POD #3 status post takeback laparotomy creation of diverting loop ileostomy
NG tube removed; clear liquids
Continue IV fluids for adequate hydration as just starting to resume p.o. intake
Invanz
Maintain JPs and follow outputs
Okay to downgrade to telemetry
Given the pelvis anastomosis with leak at this point recommend maintain Briceno catheter as high risk for retention until TANK outputs clearing and patient more mobile
Original Note:
Today's Communication / Plan
-
d/c ngt, start clear liquids
tx to tele
Assessment / Plan
-
Assessment: 78-year-old female POD #8 status post RAL LAR and repair of colovaginal fistula with bilateral oophorectomy
POD #2 status post takeback laparotomy, creation of loop ileostomy
AFVSS
No further oozing from skin at incision s/p silver nitrate application
H/H stable s/p one unit of blood
Leukocytosis improving
Renal function improving
Hyponatremia resolved
Stoma productive of stool/minimal NGT outputs
Plan:
D/C NGT
IVF @100ml/hr
Trial of clear liquids
c/w invanz
c/w briceno
c/w TANK
Continue abx
transfer to /tele
hospitalist assistance with care appreciated
Any of the patient's or her daughter's questions were addressed
Subjective Data
-
Date of Service: December 11, 2024
Pt seen and examined at bedside with Dr. Hinds. Denies n/v. Passing some flatus now. Woke up with severe abdominal pain but improved now s/p analgesics. C/O dry mouth
Objective Data
-
Intake and Output
12/10/24 12/11/24 12/12/24
06:59 06:59 06:59
Intake Total 2954.4 / 3054.4 3620 / 3790 780 / 780
Output Total 1270 / 1300 1515 / 1590 310 / 310
Balance 1684.4 / 1754.4 2105 / 2200 470 / 470
Intake:
IV fluids (Total) 2294.4 / 2394.4 3310 / 3480 680 / 680
D5/0.9% Sodium Chloride 1,000 720 / 780 240 / 240
ml @ 60 mls/hr IV .[id number] ISAURA
Rx#:[id number]
Normosol-R/Plasmalyte-A 1,000 400 / 400
ml @ 100 mls/hr IV .Q10H ISAURA Rx
#:[id number]
Nss 1,000 ml @ 110 mls/hr IV . 1860 / 1960 2590 / 2700 440 / 440
Q9H6M ISAURA Rx#:[id number]
Prop 34.4 / 34.4
IV piggybacks 600 / 600 100 / 100
Amount instilled into GI Tube ( 60 / 60 60 / 60
Total)
[place] Sump 60 / 60 60 / 60
Blood Product Amount Infused ( 250 / 250
mL)
Packed Rbc Leukoreduced Unit 250 / 250
[id number]
Output:
Liquid stool amount 75 / 75
Ileostomy 75 / 75
Drain Output (Total) 300 / 300 305 / 305 60 / 60
Left Abdomen Tyrone-Noriega 210 / 210 230 / 230 60 / 60
Right [place]-Noriega 90 / 90 75 / 75 0 / 0
Gastrointestinal tube output ( 300 / 300 130 / 130 100 / 100
Total)
[place] Sump 300 / 300 130 / 130 100 / 100
Urine, Briceno 670 / 700 1005 / 1080 150 / 150
Other:
Number of unmeasured liquid
stools
Rectum 1 1
Vital Signs
Temp Pulse Resp BP Pulse Ox
97.3 F 87 23 127/71 100
12/11/24 07:08 12/11/24 09:00 12/11/24 09:00 12/10/24 20:00 12/11/24 08:30
Lab Results
12/11/24 04:14
12/11/24 04:14
Calcium 7.8 mg/dl (8.4-10.2) L 12/11/24 04:14
Magnesium 2.1 mg/dl (1.6-2.3) 12/11/24 04:14
Total Bilirubin 0.5 mg/dl (0.2-1.3) 11/22/24 12:46
AST 34 U/L (14-36) 11/22/24 12:46
ALT 24 U/L (0-35) 11/22/24 12:46
Alkaline Phosphatase 100 U/L (38-126) 11/22/24 12:46
Total Protein 7.5 g/dl (6.3-8.2) 11/22/24 12:46
Albumin 3.8 g/dl (3.5-5.0) 11/22/24 12:46
Physical Exam
-
NAD AAO x 3
ABD: soft, nondistended, mild incisional tenderness
Midline incision without further bleeding, georges intact
Lower right TANK drain with dk outputs, left upper TANK with light SSF
Right sided ostomy mucosa pink with mild edema. Liquid stool/flatus in appliance
Patient has a briceno catheter: Yes
[2024-12-11 12:27] LABS: Glucose - Point of Care 72 mg/dl (70-99)
[2024-12-11] MEDS: TYLENOL 650 MG PO ×4 (12:47→23:37)
--- NOTE | 2024-12-11 15:39 | PTCARENOTE ---
15:00 Transfer to room 2101 via bed, daughter at a bedside
pt AAO x 3;
Normal Sinus Rhythm 63. BP via left upper arm : SBP 130's
Lungs clear through, 95% on RA No SOB
Abdomen pain 6 out 10 pain scale level; Right TANK scan amount of sanguinous ; RT TANK serosanguineous drainage 130 cc; RT Ileostomy draining dark output. Lower Right abdominal incision : stables every other one, in between packed, covered by ABD.
Ang draining clear yellow urine. per surgery recommendations , Ang was not removed.
Peripheral lines: Rt hand and Rt AC.
[2024-12-11] MEDS: INVANZ 60 MG IV (16:35)
[2024-12-11 17:53] LABS: Glucose - Point of Care 93 mg/dl (70-99)
[2024-12-11 23:33] LABS: Glucose - Point of Care 112 mg/dl (70-99)
[2024-12-12] VITALS (8 sets, daily range): BP systolic 159–177; BP diastolic 78–103; BMI 31.4
[2024-12-12 02:51] LABS: Glucose - Point of Care 101 mg/dl (70-99)
--- NOTE | 2024-12-12 02:51 | W.PN.UPDATE ---
Update Note
Progress Note Update
~ 3 am Patient with c/o chest pain, rates at 6 out of 10. States it feels like pressure, points to left side, upper/middle chest area. Denies palpitations, SOB, lightheadedness, nausea. Patient states it may be indigestion, she is frequently burping.
Vital signs: 166/97, HR 100, 96% on room air, resp 18, afebrile 97.8. Blood glucose 101.
Obtained EKG, preliminary read shows Sinus tachycardia, left axis deviation, anterior infarct, age undetermined, HR 102.
Ordered CBC, BMP, Troponin, Mag. Labs significant for WBC elevated 17.4, Iv antibiotic coverage w/Ertapenem. Patient afebrile.
Patient given Dilaudid 0.5 mg IV, Zofran 4 mg IV and Simethicone 80 mg PO x 1.
~ 6 am Reported that patient states chest pressure is gone and her abdominal pain is better.
[2024-12-12] MEDS: DILAUDID 0.5 MG IV ×4 (03:04→21:57)
[2024-12-12] MEDS: ZOFRAN 4 MG IV (03:04)
[2024-12-12] MEDS: MYLICON 80 MG PO (03:18)
--- NOTE | 2024-12-12 03:51 | PTCARENOTE ---
12/12 At 0245 patient complained of chest pain/pressure. CONCESSION SUPERVISOR notified. EKG and vital signs obtained. CONCESSION SUPERVISOR evaluated patient. New orders noted. Meds given as documented. Pt reports relief of chest pain. Assessment ongoing.
[2024-12-12 03:52] LABS: Hematocrit 33.8 % (37.0-47.0); Hemoglobin 11.1 g/dL (12.0-16.0); Mean Corp Hgb Conc. 32.8 g/dL (33.0-37.0); Mean Corpuscular Volume 88.0 fL (81.0-99.0); Platelet Count 385 10^3/uL (130-400); Red Cell Dist. Width 17.0 % (11.5-14.5)
--- NOTE | 2024-12-12 03:55 | PTCARENOTE ---
Pt's ileostomy leaked out of seal - appliance/left and right TANK drain sponges and midline incisions all redressed.
[2024-12-12 04:12] LABS: ALT (SGPT) 14 U/L (0-35); AST (SGOT) 22 U/L (14-36); Albumin 2.3 g/dl (3.5-5.0); Alkaline Phosphatase 76 U/L (38-126); Blood Urea Nitrogen 22 mg/dl (7-17); Calcium 7.8 mg/dl (8.4-10.2); Carbon Dioxide 23 mmol/L (22-30); Chloride 110 mmol/L (98-107); Estimated Creatinine Clearance 40 ml/min; Glucose 113 mg/dl (70-99); Magnesium 1.9 mg/dl (1.6-2.3); Potassium 4.2 mmol/L (3.5-5.1); Sodium 135 mmol/L (135-145); Total Protein 4.9 g/dl (6.3-8.2); eGFR 50.80
[2024-12-12 04:25] LABS: Troponin I 0.034 ng/ml
[2024-12-12] MEDS: DILAUDID 0.25 MG IV (04:50)
[2024-12-12] MEDS: TYLENOL PO (05:00)
[2024-12-12 06:27] LABS: Glucose - Point of Care 115 mg/dl (70-99)
[2024-12-12] MEDS: NSS (PRESERVATIVE FREE) 10 ML IV ×2 (07:59→19:29)
[2024-12-12] MEDS: TYLENOL 650 MG PO ×4 (07:59→19:29)
[2024-12-12] MEDS: PROTONIX IV 40 MG IV ×2 (07:59→19:28)
[2024-12-12 08:27] LABS: Hematocrit 35.7 % (37.0-47.0); Hemoglobin 11.7 g/dL (12.0-16.0); Mean Corp Hgb Conc. 32.8 g/dL (33.0-37.0); Mean Corpuscular Volume 88.4 fL (81.0-99.0); Nucleated Red Blood Cells % 0.1 %; Platelet Count 374 10^3/uL (130-400); Red Cell Dist. Width 17.2 % (11.5-14.5)
[2024-12-12] MEDS: SYMBICORT 160/4.5 MCG INHALER 2 PUFF INH (08:31)
[2024-12-12 08:40] LABS: Blood Urea Nitrogen 21 mg/dl (7-17); Calcium 7.9 mg/dl (8.4-10.2); Carbon Dioxide 23 mmol/L (22-30); Chloride 109 mmol/L (98-107); Estimated Creatinine Clearance 41 ml/min; Glucose 118 mg/dl (70-99); Potassium 4.1 mmol/L (3.5-5.1); Sodium 136 mmol/L (135-145); eGFR 50.80
--- NOTE | 2024-12-12 09:16 | W.PN.CRS1 ---
Today's Communication / Plan
-
CT chest, abdomen, pelvis
N.p.o.
Assessment/Plan
-
POD#10 from a cystoscopy with insertion of bilateral ureteral stents, robotic low anterior resection with takedown of the splenic flexure and intracorporeal anastomosis, flexible sigmoidoscopy and robotic repair of a colovaginal fistula with
bilateral oophorectomy
POD#4 1) exploratory laparotomy 2) loop ileostomy creation 3) flexible sigmoidoscopy
WBC: 17.4 (11.7), hemoglobin 11.1 (9.7), creatinine 1.1 (1.5)
liquid stool: 315 ml, drain x 2: 495 ml, briceno: 1400 mL
HR: 99-102
afebrile
- Due to abdominal pain as well as increase in WBC, will order CT chest abdomen and pelvis
- Remain n.p.o. until CAT scan has been completed
-Wound RN for ileostomy care
-Daughter updated at bedside
-Holding Toradol and Lovenox given oozing.
- OOB as tolerated when extubated. PT/OT ordered.
- TEDS/SCDS in place for DVT prophylaxis.
- Maintain Invanz IV daily
- OR pathology pending
- Maintain TANK drains until DC
- Appreciate hospitalist
- Holding dispo for now
-Daily dressing changes
Subjective Data
Procedure
12/02/2024 cystoscopy with bilateral ureteral stents, robotic LAR with takedown of splenic flexure and intracorporeal anastomosis, drainage of an intra-abdominal abscess, flexible sigmoidoscopy, robotic repair for vaginal fistula with bilateral
oophorectomy
12/08/2024- 1) exploratory laparotomy 2) loop ileostomy creation 3) flexible sigmoidoscopy
Subjective Data
Date of Service: December 12, 2024
Patient states she is a lot of abdominal pain. Around 3 AM she had chest pain that felt like her acid reflux. She had an EKG and troponins drawn which were not indicative of WI. She has not slept much overnight and her daughter at bedside says
she has been waxing and waning in pain. Her NG tube was removed over the weekend. She feels intermittently nauseous but she attributes this to the acid reflux.
Objective Data
-
Vital Signs
Temp Pulse Resp BP Pulse Ox
98.2 F 102 16 166/96 96
12/12/24 07:20 12/12/24 08:35 12/12/24 08:35 12/12/24 07:20 12/12/24 07:20
Intake & Output
12/11/24 12/12/24 12/13/24
06:59 06:59 06:59
Intake Total 3620 / 3790 2940 / 2940
Output Total 1515 / 1590 1105 / 1105 1280 / 1280
Balance 2105 / 2200 1835 / 1835 -1280 / -1280
Intake:
Oral fluids 240 / 240
IV fluids (Total) 3310 / 3480 2600 / 2600
D5/0.9% Sodium Chloride 1,000 720 / 780 300 / 300
ml @ 100 mls/hr IV .Q10H ISAURA Rx
#:[id number]
Nss 1,000 ml @ 110 mls/hr IV . 2590 / 2700 550 / 550
Q9H6M ISAURA Rx#:[id number]
IV piggybacks 100 / 100
Amount instilled into GI Tube ( 60 / 60
Total)
[place] Sump 60 / 60
Blood Product Amount Infused ( 250 / 250
mL)
Packed Rbc Leukoreduced Unit 250 / 250
[id number]
Output:
Liquid stool amount 75 / 75 60 / 60 255 / 255
Ileostomy 75 / 75 60 / 60 255 / 255
Drain Output (Total) 305 / 305 345 / 345 150 / 150
Left Abdomen Tyrone-Noriega 230 / 230 335 / 335 80 / 80
Right Tyrone-Noriega 75 / 75 10 70 / 70
Gastrointestinal tube output ( 130 / 130 100 / 100
Total)
[place] Sump 130 / 130 100 / 100
Urine, Briceno 1005 / 1080 600 / 600 875 / 875
Other:
Number of unmeasured liquid
stools
Rectum 1
Lab Results
12/12/24 08:19
12/12/24 08:19
Physical Exam
-
General: No Acute Distress and AOx3
Abdomen: Soft, Non Distended, Tender (Around midline incision) and Other (Colostomy warm and pink. Some thin output. Right drain is bloody, left drain is serosanguineous.)
Wound: Other (Wound opened up anteriorly by removing several georges. Packed with gauze. Some oozing but no active bleeding. Hull midline to posterior area.)
[2024-12-12] MEDS: OMNIPAQUE 50 ML PO (09:49)
[2024-12-12] MEDS: D5/0.9% SODIUM CHLORIDE 1000 IV (09:50)
--- NOTE | 2024-12-12 11:22 | CM ---
CM following re: discharge planning.
Reviewed pt's chart met with pt. Pt's daughter Leonarda at bedside and spoke to pt's daughter Janey over the phone to update on discharge plan progress.
PT and OT evaluations noted = SNF level of care recommended.
Both pt and her daughters are aware, expressed their agreement. A list of SNFs in [facility] provided to pt and her daughters. Following SNFs preferred: [facility], [facility], [facility], [facility] and
[facility]. A referral to above SNFs made. Awaiting for determination.
D/C plan: preferred SNF.
CM will follow to assist pt with discharge to a preferred SNF.
--- NOTE | 2024-12-12 11:33 | W.PN.HOSP.TC ---
Today's Communication/Plan
-
see A/P
Assessment / Plan
Assessment / Plan
A/P:
# s/p Colorectal resection for pelvic abscess/colovaginal fistula from diverticulitis
repeat OR 12/08/24 for anastomotic leak, s/p ostomy formation
back on clears and ADAT per CRS
cont IVF with DW5 NSS
Resumed Ertapenem
Monitor WBC
For repeat CT AP today 12/12
# Acute blood loss anemia post op
s/p 3 units PRBC transfusion so far
s/p TXA since skin site oozing
follow Hgb
# Likely septic shock post op
was intubated, extubated 12/09/24
off pressors
apprec overhead distribution engineer input
# MANINDER on CKD stage 3
Cr increased to 1.7 from 1.2, today down to 1.1
Cont IVF
Monitor SCr
With improved SCr, no need for renal consult at this point
# Hyponatremia, resolved
# Hypocalcemia
monitor
# Essential hypertension/CAD
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
Continue HIGH SCHOOL AUTO REPAIR TEACHER aspirin, atorvastatin
DVT proph, per CRS, use SCD for now
code status, FULL CODE
DW daughter at bedside
Anticipated Discharge: > 48 hours
Subjective/Interval History
-
Date of Service: December 12, 2024
Objective Data
-
Labs:
Laboratory Results
12/12/24 12/12/24
03:28 08:19
WBC 17.4 H 17.3 H
Hgb 11.1 L 11.7 L
Hct 33.8 L 35.7 L
Plt Count 385 374
Sodium 135 136
Potassium 4.2 4.1
Chloride 110 H 109 H
Carbon Dioxide 23 23
BUN 22 H 21 H
Creatinine 1.1 H 1.1 H
Glucose 113 H 118 H
Calcium 7.8 L 7.9 L
Total Bilirubin 0.6
AST 22
ALT 14
Alkaline Phosphatase 76
Vital Signs:
Vital Signs
Temp Pulse Resp BP Pulse Ox
36.8 C 102 16 166/96 96
12/12/24 07:20 12/12/24 08:35 12/12/24 08:35 12/12/24 07:20 12/12/24 07:56
I&O
12/11/24 12/12/24 12/13/24
06:59 06:59 06:59
Intake Total 3620 / 3790 2940 / 2940
Output Total 1515 / 1590 1105 / 1105 1280 / 1280
Balance 2105 / 2200 1835 / 1835 -1280 / -1280
Review of Systems
-
All other systems: Reviewed and negative
Physical Exam
-
General: Well Developed, Well Nourished, No Apparent Distress, Comfortable and Conversant
HEENT: Normocephalic and Atraumatic
Respiratory: Clear to Auscultation and Non Labored Respirations; Negative Accessory Resp Muscle Use
Cardiac: Regular Rhythm and S1/S2
GI: Soft, Nondistended, Ostomy and Other (Abd drain )
Genito-urinary: Ang
Musculoskeletal: No Clubbing, No Cyanosis and No Edema
Skin: Warm
Neuro: Awake and Alert
Psych: Calm and Intact Judgement/Insight
Data Reviewed
-
CT Scan: Report Reviewed by me
Labs: Labs Reviewed by me
[2024-12-12 12:27] LABS: Glucose - Point of Care 136 mg/dl (70-99)
--- NOTE | 2024-12-12 14:28 | W.PN.UPDATE ---
Update Note
Progress Note Update
I spoke with her daughter regarding CT results. NO acute findings. Persistent collection by anastomosis, resolving RLQ collection. Okay for clear liquids.
[2024-12-12] MEDS: INVANZ 60 MG IV (15:44)
--- NOTE | 2024-12-12 17:11 | PTCARENOTE ---
Per the family patient has been complaining of right shoulder for the last 2 days.I will be sure to let the incoming nurse know.
[2024-12-12 17:27] LABS: Glucose - Point of Care 140 mg/dl (70-99)
[2024-12-12 21:33] LABS: Glucose - Point of Care 108 mg/dl (70-99)
[2024-12-12] MEDS: COREG 12.5 MG PO (21:57)
[2024-12-13] VITALS (8 sets, daily range): BP systolic 120–168; BP diastolic 75–101; BMI 31.2
[2024-12-13] MEDS: TYLENOL 650 MG PO ×6 (00:25→23:27)
[2024-12-13 05:45] LABS: Glucose - Point of Care 138 mg/dl (70-99)
[2024-12-13 07:40] LABS: Hematocrit 35.0 % (37.0-47.0); Hemoglobin 11.1 g/dL (12.0-16.0); Mean Corp Hgb Conc. 31.7 g/dL (33.0-37.0); Mean Corpuscular Volume 88.8 fL (81.0-99.0); Platelet Count 421 10^3/uL (130-400); Red Cell Dist. Width 17.3 % (11.5-14.5)
[2024-12-13 08:11] LABS: Blood Urea Nitrogen 14 mg/dl (7-17); Calcium 7.8 mg/dl (8.4-10.2); Carbon Dioxide 25 mmol/L (22-30); Chloride 109 mmol/L (98-107); Estimated Creatinine Clearance 45 ml/min; Glucose 127 mg/dl (70-99); Magnesium 1.7 mg/dl (1.6-2.3); Potassium 4.2 mmol/L (3.5-5.1); Sodium 137 mmol/L (135-145); eGFR 56.95
[2024-12-13] MEDS: NSS (PRESERVATIVE FREE) 10 ML IV ×2 (08:49→19:22)
[2024-12-13] MEDS: PROTONIX IV 40 MG IV ×2 (08:49→19:22)
[2024-12-13] MEDS: COREG 12.5 MG PO ×2 (08:50→19:21)
--- NOTE | 2024-12-13 09:26 | W.PN.CRS1 ---
Today's Communication / Plan
-
clears with ensure
UA/dopplers
consult ID
Assessment/Plan
-
POD#11 from a cystoscopy with insertion of bilateral ureteral stents, robotic low anterior resection with takedown of the splenic flexure and intracorporeal anastomosis, flexible sigmoidoscopy and robotic repair of a colovaginal fistula with
bilateral oophorectomy
POD#5 1) exploratory laparotomy 2) loop ileostomy creation 3) flexible sigmoidoscopy
WBC: 19.1 (17.4), hemoglobin 11.1 (11.1), creatinine 1.0 (1.1)
liquid stool: 675 ml, drain x 2: 390 ml, briceno: 3075ml
HR: 95-102
afebrile
- Advance diet to clears with Ensure
- Given increase in WBC, will order: UA, LE dopplers, consult ID.
- Wound cultures pending
- Wound RN for ileostomy care
- OOB as tolerated. PT/OT ordered.
- Start lovenox today. TEDS/SCDS in place for DVT prophylaxis.
- Maintain Invanz IV daily
- OR pathology pending
- Maintain TANK drains until DC
- Appreciate hospitalist
- Holding dispo for now
- Daily dressing changes
Subjective Data
Procedure
12/02/2024 cystoscopy with bilateral ureteral stents, robotic LAR with takedown of splenic flexure and intracorporeal anastomosis, drainage of an intra-abdominal abscess, flexible sigmoidoscopy, robotic repair for vaginal fistula with bilateral
oophorectomy
12/08/2024- 1) exploratory laparotomy 2) loop ileostomy creation 3) flexible sigmoidoscopy
Subjective Data
Date of Service: December 13, 2024
Patient states she is hungry. She has ostomy output. Denies nausea or vomiting. Pain is controlled.
Objective Data
-
Vital Signs
Temp Pulse Resp BP Pulse Ox
97.5 F 93 18 155/92 99
12/13/24 07:05 12/13/24 08:50 12/13/24 07:05 12/13/24 08:50 12/13/24 07:05
Intake & Output
12/12/24 12/13/24 12/14/24
06:59 06:59 06:59
Intake Total 2940 / 2940 4040 / 4040
Output Total 1105 / 1105 5420 / 5420 40 / 40
Balance 1835 / 1835 -1380 / -1380 -40 / -40
Intake:
Oral fluids 240 / 240 1520 / 1520
IV fluids (Total) 2600 / 2600 2400 / 2400
D5/0.9% Sodium Chloride 1,000 300 / 300
ml @ 100 mls/hr IV .Q10H ISAURA Rx
#:[id number]
Nss 1,000 ml @ 110 mls/hr IV . 550 / 550
Q9H6M ISAURA Rx#:[id number]
IV piggybacks 100 / 100 120 / 120
Output:
Liquid stool amount 60 / 60 930 / 930
Ileostomy 60 / 60 930 / 930
Drain Output (Total) 345 / 345 540 / 540 40 / 40
Left Abdomen Tyrone-Noriega 335 / 335 365 / 365 40 / 40
Right Tyrone-Noriega 10 / 10 175 / 175
Gastrointestinal tube output ( 100 / 100
Total)
[place] Sump 100 / 100
Urine, Briceno 600 / 600 3950 / 3950
Lab Results
12/13/24 07:08
12/13/24 07:08
Physical Exam
-
General: No Acute Distress and AOx3
Abdomen: Soft, Non Distended, Non Tender and Other (colostomy warm and pink)
Wound: Dressing in Place
[2024-12-13] MEDS: CYMBALTA DELAYED RELEASE 30 MG PO (09:59)
[2024-12-13] MEDS: NAMENDA 10 MG PO (09:59)
[2024-12-13 10:29] LABS: Urine Character Clear (Clear)
--- NOTE | 2024-12-13 11:26 | CM ---
CM following re: discharge planning.
Reviewed pt's chart met with pt and spoke to pt's daughter Leonarda over the phone to discuss on discharge plan progress.
PT and OT continue recommending SNF level of care.
Both pt and her daughters are aware that [facility] and [facility] offered a bed. [place] at [facility], [facility] and [facility] denied a referral. Pt stated she was before at [facility], lives across the
[address] from [facility] and she feels she would prefer [facility]. Pt's daughter stated she knows [facility] and she will tour [facility] to make a final decision.
D/C plan: preferred SNF: [facility] or [facility].
CM will follow to assist pt with discharge to a preferred SNF.
--- NOTE | 2024-12-13 12:44 | CON.ID ---
Consultation
-
Date/Time Consultation Requested: 12/13/2024 0944
Date/Time Consultation Performed: 12/13/2024 1240
Requesting Provider: Martha Calix
Performing Provider: Dr. Florence
Reason for Consultation: Leukocytosis
Chief Complaint / Past History
History of Present Illness
Jayna Hall is an 78-year-old female with a significant past medical history of CAD, CKD stage III and colovaginal fistula being evaluated at the request of Martha Calix in regards to leukocytosis. History is obtained from chart review, along
with patient interview.
The patient has a history of acute sigmoid diverticulitis in May 2024 at which time she was hospitalized at [facility]. During that hospitalization she was found to have an abdominal collection and a percutaneous drain
was placed. Following her hospitalization she was discharged to a rehab facility with a drain in place. In August 2024 she developed fecal drainage through the vaginal area and in second opinion she saw Dr. Cristobal.
She was admitted to [facility] on 12/02/2024, at which time she underwent robotic low anterior sigmoid resection with vaginal repair and bilateral oophorectomy. She was placed on ertapenem in the postop period. Reviewed records indicate that
she was stable through postop day 3, with normalization of her white count but developed some increasing abdominal discomfort on postop day 5. On 12/08/2024, she was found to have an increasing white count and she was taken back to the OR for
exploratory laparotomy & loop ileostomy creation. Intraoperatively, mild murky pelvic fluid was found, but no anastomotic leak was seen. In the immediate postop period she was briefly intubated. She continued on ertapenem, but despite antibiotic
therapy her white count has trended up over the past 3 days. Infectious Diseases asked to comment upon further antibiotic management.
At this time, she continues to have lower abdominal discomfort. She has been afebrile.
Past History
Additional Past Medical History:
HTN
CKD stage III
CAD
Sigmoid diverticulitis with colovaginal fistula
HLD
GERD
Gout
Additional Past Surgical History:
Spinal stimulator
Hysterectomy
PCI with stenting
Cholecystectomy
Cataract surgery
(R) TKA
(R) fem stent
(R) Renal artery stent
Allergy History:
fluticasone (From Flovent HFA) Allergy (Verified 12/02/24 06:22)
Anaphylaxis
oxycodone (From Percocet) Allergy (Verified 12/02/24 06:22)
Vomiting
tramadol Allergy (Verified 12/02/24 06:22)
Vomiting
Medications Reviewed: Yes
Current Antibiotics:
Ertapenem 1 gm IV q.24 hours
Social History
Tobacco: Non-Smoker
Alcohol: None
Drug: None
Living: With Family
Employment: Retired
Family History
Family History: Not Pertinent
Review of Systems
Vital Signs
Temp Pulse Resp BP Pulse Ox
97.4 F 90 18 134/76 96
12/13/24 11:05 12/13/24 11:05 12/13/24 11:05 12/13/24 11:05 12/13/24 11:21
Physical Exam
Physical Exam
Constitutional: No Acute Distress, Comfortable and Non-toxic
Head: Normocephalic
Eyes: Pupils Equal, Pupils Round, No Conjunctival Hemorrhage and Sclera Anicteric
Oral: No Thrush and No Ulcers
Lymph Nodes: Negative Lymphadenopathy
Cardiovascular: Regular Rate and S1/S2; Negative S3/S4
Pulmonary: Clear and Non Labored; Negative Wheezes, Rales or Rhonchi
Gastrointestinal: Soft, Tender, Non Distended, Decreased Bowel Sounds, No Rebound and Other (Left TANK with serous drainage. Right-sided TANK with bloody drainage.)
Extremities: Negative Edema, Cyanosis or Erythema
Wound: Other (Midline abdominal wound with packing in place.)
Neurological: Awake and Alert
Psychological: Calm
Lab / Diagnostic Study Results
12/13/24 07:08
12/13/24 07:08
Abs Immat Gran (auto) 0.1 10^3/uL (0-0.05) H 12/12/24 08:19
Absolute Neuts (auto) 13.6 10^3/uL (1.4-6.5) H 12/12/24 08:19
Absolute Lymphs (auto) 1.4 10^3/uL (1.2-3.4) 12/12/24 08:19
Absolute Monos (auto) 1.6 10^3/uL (0.1-0.6) H 12/12/24 08:19
Absolute Basos (auto) 0.1 10^3/uL (0-0.2) 12/12/24 08:19
Immature Gran % 0.8 % (0-0.5) H 12/12/24 08:19
Neutrophils % 78.4 % (42.2-75.2) H 12/12/24 08:19
Lymphocytes % 7.8 % (20.5-51.1) L 12/12/24 08:19
Monocytes % 9.2 % (1.7-9.3) 12/12/24 08:19
Eosinophils % 3.5 % (0-6) 12/12/24 08:19
Basophils % 0.3 % (0-2) 12/12/24 08:19
PT 16.4 Sec (11.4-14.6) H 12/09/24 20:40
INR 1.29 12/09/24 20:40
Urine WBC 6-10 /HPF (0-5) A 12/13/24 10:11
Ur Squamous Epith Cells 6-10 /LPF (Few) 12/13/24 10:11
Microbiology Results
Micro:
12/08/24 17:39 Wound Culture - Final
Abdomen No growth
Gram Stain - Final
09/11/25 17:39 Anaerobic Culture - Final
Abdomen NO ANAEROBES ISOLATED
Imaging:
12/12/2024 CT chest abdomen pelvis with IV contrast: mild to moderate bilateral pleural effusions with adjacent atelectasis. Additional scattered ground glass opacities are noted, which are nonspecific. Postoperative changes with a persistent
collection in the presacral space which extends from the posterior aspect of the colonic anastomotic staple line. There is gas contrast within this collection suspicious for persistent anastomotic leak, although retained extravasated contrast from
prior examination is possible. There is percutaneous surgical drain tip adjacent to the collection. There is decreased size of the mild heterogeneous lesion within the right hemipelvis which likely represents a resolving postoperative hematoma.
Please see full dictation for additional detail.
Assessment / Plan
POD #11 s/p robotic low anterior sigmoid resection; repair of colovaginal fistula
POD #5 s/p ex lap, loop ileostomy creation
Rising leukocytosis
Thrombocytosis
HTN
CKD stage III
CAD
Sigmoid diverticulitis with colovaginal fistula
HLD
GERD
Gout
Recommendations:
Given rising white count, discontinue further ertapenem.
Broaden to meropenem 500 mg IV q.6 hours
Add vancomycin (dosing per pharmacy)
Follow white count and temperature curve.
Without fever, low likelihood that blood cultures would be positive at this time, but follow for the development of any fever at which point blood cultures x 2 should be performed.
Trend platelet count.
Increasing white count may prompt additional imaging.
--- NOTE | 2024-12-13 13:29 | W.PN.HOSP.TC ---
Today's Communication/Plan
-
see A/P
Assessment / Plan
Assessment / Plan
A/P:
# s/p Colorectal resection for pelvic abscess/colovaginal fistula from diverticulitis
repeat OR 12/08/24 for anastomotic leak, s/p ostomy formation
Follow up CT AP 12/12 showed NO acute findings. Persistent collection by anastomosis, resolving RLQ collection.
cont IVF with DW5 NSS , decrease rate to 60 cc/hr
Cont Ertapenem
Monitor WBC, remain elevated, ID consulted
DVT ruled out from [facility] 12/13
# Acute blood loss anemia post op
s/p 3 units PRBC transfusion so far
s/p TXA since skin site oozing
follow Hgb
# Likely septic shock post op
was intubated, extubated 12/09/24
off pressors
apprec truck rental clerk input
# MANINDER , resolved
ruled out CKD
Cr at 1.0 today
Monitor SCr
# Hyponatremia, resolved
# Hypocalcemia
monitor
# Essential hypertension/CAD
ELECTRICAL AND ELECTRONIC ASSEMBLER Coreg with holding parameter
Continue ELECTRICAL AND ELECTRONIC ASSEMBLER aspirin, atorvastatin
DVT proph, Lovenox SQ
code status, FULL CODE
DW RN
Anticipated Discharge: > 48 hours
Subjective/Interval History
-
Date of Service: December 13, 2024
Objective Data
-
Labs:
Laboratory Results
12/13/24
07:08
WBC 19.1 H
Hgb 11.1 L
Hct 35.0 L
Plt Count 421 H
Sodium 137
Potassium 4.2
Chloride 109 H
Carbon Dioxide 25
BUN 14
Creatinine 1.0
Glucose 127 H
Calcium 7.8 L
Vital Signs:
Vital Signs
Temp Pulse Resp BP Pulse Ox
36.3 C 90 18 134/76 96
12/13/24 11:05 12/13/24 11:05 12/13/24 11:05 12/13/24 11:05 12/13/24 11:21
I&O
12/12/24 12/13/24 12/14/24
06:59 06:59 06:59
Intake Total 2940 / 2940 4040 / 4040
Output Total 1105 / 1105 5420 / 5420 560 / 560
Balance 1835 / 1835 -1380 / -1380 -560 / -560
Review of Systems
-
History Source: Patient
Abdomen/GI: Reports Abdominal Pain
Physical Exam
-
General: Well Developed, Well Nourished, No Apparent Distress, Comfortable and Conversant
HEENT: Normocephalic and Atraumatic
Respiratory: Clear to Auscultation and Non Labored Respirations; Negative Accessory Resp Muscle Use
Cardiac: Regular Rhythm and S1/S2
GI: Soft, Nondistended, Ostomy and Other (Abd drain )
Genito-urinary: Ang
Musculoskeletal: No Clubbing, No Cyanosis and No Edema
Skin: Warm
Neuro: Awake and Alert
Psych: Calm and Intact Judgement/Insight
Data Reviewed
-
CT Scan: Report Reviewed by me
Labs: Labs Reviewed by me
[2024-12-13] MEDS: DILAUDID 0.25 MG IV (13:44)
[2024-12-13 13:55] LABS: Glucose - Point of Care 125 mg/dl (70-99)
--- NOTE | 2024-12-13 14:13 | PHA.VAN.IN ---
Assessment
- Assessment
Renal Function: Appears similar to baseline (Scr trending down)
Concomitant Antimicrobials: meropenem
AUC Dosing Plan
- Dosing Variables
Dosing Weight (kg): 79.9
Dosing CrCl (ml/min): 45
Vd coefficient (L/kg): 0.7
- Empiric Dosing
Initial / Loading Dose: Vancomycin 2000mg x 1- administration pending
Maintenance Regimen: Vancomycin 1000mg IV Q24h- start 12/14 at 0600
Estimated AUC (mcg*h/mL): 442
Estimated Peak (mcg*h/mL): 28.3
Estimated Trough (mcg/ml): 11
Estimated Half Life (H): 16.6
- Monitoring
No levels ordered at this time: Consider levels in next few days.
Pharmacokinetics Vancomycin I
- -
Patient Age: 78
Patient Sex: Female
Vancomycin Day #: 1
Indication: Gi / Intra-Abdominal
Requesting Provider: Dr. Florence
Pertinent Antimicrobial Allergies:
no pertinent antibiotic allergies
Height / Weight:
Height 5 ft 3 in
Actual Weight 79.968 kg
Pertinent Past Medical History: CKD Stage III
- Vital Signs / Lab Results
Temp Pulse Resp BP Pulse Ox
97.4 F 90 18 134/76 96
12/13/24 11:05 12/13/24 11:05 12/13/24 11:05 12/13/24 11:05 12/13/24 11:21
Lab Results - Hematology
12/10/24 12/11/24 12/12/24
18:16 04:14 03:28
WBC 12.2 H 11.7 H 17.4 H
12/12/24 12/13/24
08:19 07:08
WBC 17.3 H 19.1 H
Lab Results - Chemistry
12/11/24 12/12/24 12/12/24
04:14 03:28 08:19
BUN 34 H 22 H 21 H
Creatinine 1.5 H 1.1 H 1.1 H
Estimated Creat Clear 29 40 41
Albumin 2.3 L
12/13/24
07:08
BUN 14
Creatinine 1.0
Estimated Creat Clear 45
Albumin
Lab Results - Urine
12/13/24
10:11
Urine Nitrite Negative
Ur Leukocyte Esterase 1+ A
Urine WBC 6-10 A
Ur Squamous Epith Cells 6-10
Urine Bacteria Few A
Microbiology Results
12/08/24 17:39 Wound Culture - Final
Abdomen No growth
Gram Stain - Final
12/08/24 17:39 Anaerobic Culture - Final
Abdomen NO ANAEROBES ISOLATED
[2024-12-13] MEDS: VANCOCIN 540 MG IV (14:24)
[2024-12-13] MEDS: STERILE WATER FOR INJECTION 10 ML IV ×2 (14:27→22:06)
[2024-12-13] MEDS: MERREM 500 MG IV ×2 (14:27→22:05)
--- NOTE | 2024-12-13 15:34 | WOUNDNOTE ---
MARIO RN NOTE: Appliance changed on 12/12 with Esteem one piece convex pouch, additional supply brought to including Camila paste. Teaching done with patient and nurse on how to use, additional one piece pouch can be obtained from wound ostomy nurse.
Stoma pink with bridge intact and budded, no leakage noted. Had patient stand from recliner chair, sacrum/buttocks non blanchable darker skin, difficult to determine if chronic vs stage 1 PI. Air cushion in use and patient is on an air mattress.
Pressure ulcer prevention measures reviewed with patient. Legs elevated with pillow under calves, heels are intact. Answered all questions and supplies at bedside, aware to take upon discharge.
[2024-12-13 17:01] LABS: Glucose - Point of Care 119 mg/dl (70-99)
[2024-12-13] MEDS: TYLENOL PO (17:34)
[2024-12-13] MEDS: LOVENOX 40 MG SC (17:34)
--- NOTE | 2024-12-13 18:05 | PTCARENOTE ---
1545 Pt complained of being extremely cold. Afebrile 98.2. At that time HR elevated in 120s. ST on monitor. BP 160/110 manually. Pt complaining of SOB. O2 sat on RA was 94%. O2 placed on patient for comfort. O2 sat 97% on [address] Zayas and
Dr. Cristobal made aware of all findings. Cxray ordered. HR on tele monitor maintaining low 100's. Patient no longer c/o feeling cold.
[2024-12-13] MEDS: LASIX 20 MG IV (19:22)
[2024-12-13] MEDS: D5/0.9% SODIUM CHLORIDE IV (20:41)
[2024-12-13 21:26] LABS: Glucose - Point of Care 135 mg/dl (70-99)
[2024-12-14] VITALS (9 sets, daily range): BP systolic 124–171; BP diastolic 62–103; BMI 30.2
[2024-12-14 00:27] LABS: Glucose - Point of Care 120 mg/dl (70-99)
--- NOTE | 2024-12-14 02:47 | DOWNTIME ---
There was a [employer] Medical Pathology Teacher Downtime on 12/14/2024 from 0100 to 12/14/2024 at 0215. Downtime documentation of patient's care, including medication administrations, has been reconciled in the electronic record per guidelines. Refer to the
patient's paper chart under the miscellaneous tab to see printed paper medication records and downtime forms.
[2024-12-14] MEDS: TYLENOL 650 MG PO ×5 (04:03→20:32)
[2024-12-14] MEDS: MERREM 500 MG IV ×3 (05:06→22:54)
[2024-12-14] MEDS: STERILE WATER FOR INJECTION 10 ML IV ×3 (05:06→22:54)
[2024-12-14] MEDS: VANCOCIN 200 IV (05:19)
[2024-12-14 05:32] LABS: Glucose - Point of Care 132 mg/dl (70-99)
[2024-12-14] MEDS: LASIX 40 MG IV (08:01)
[2024-12-14] MEDS: CYMBALTA DELAYED RELEASE 30 MG PO (08:01)
[2024-12-14] MEDS: COREG 12.5 MG PO ×2 (08:01→20:33)
[2024-12-14] MEDS: NAMENDA 10 MG PO (08:01)
[2024-12-14] MEDS: NSS (PRESERVATIVE FREE) 10 ML IV ×2 (08:02→20:33)
[2024-12-14] MEDS: PROTONIX IV 40 MG IV ×2 (08:02→20:33)
[2024-12-14 08:05] LABS: Hematocrit 33.3 % (37.0-47.0); Hemoglobin 11.0 g/dL (12.0-16.0); Mean Corp Hgb Conc. 33.0 g/dL (33.0-37.0); Mean Corpuscular Volume 87.4 fL (81.0-99.0); Platelet Count 446 10^3/uL (130-400); Red Cell Dist. Width 17.4 % (11.5-14.5)
[2024-12-14] MEDS: ZOFRAN 4 MG IV (08:13)
[2024-12-14 08:21] LABS: Blood Urea Nitrogen 12 mg/dl (7-17); Calcium 8.3 mg/dl (8.4-10.2); Carbon Dioxide 24 mmol/L (22-30); Chloride 110 mmol/L (98-107); Estimated Creatinine Clearance 44 ml/min; Glucose 119 mg/dl (70-99); Potassium 4.3 mmol/L (3.5-5.1); Sodium 136 mmol/L (135-145); eGFR 56.95
--- NOTE | 2024-12-14 08:28 | PHA.VAN.FU ---
Vancomycin Assessment / Plan
- Assessment
Renal Function: Stable
WBC's are: Trending Up
In the past 24 hrs, patient has been: Afebrile
Concomitant Antimicrobials: Meropenem
- Dosing Plan
Continue: Vancomycin 1gm Q24H
- Monitoring Plan
No level(s) ordered at this time: Consider levels in next few days
- Follow Up
Pharmacy will continue to follow.
Vancomycin Follow UP
- -
Patient Age: 78
Patient Sex: Female
Vancomycin Day #: 2
Indication: Gi / Intra-Abdominal
Requesting Provider: Dr. Florence
Pertinent Antimicrobial Allergies:
no pertinent antibiotic allergies
Height / Weight:
Height 5 ft 3 in
Actual Weight 77.383 kg
Pertinent Past Medical History: CKD Stage III
- Vital Signs / Lab Results
Temp Pulse Resp BP Pulse Ox
98.0 F 118 18 171/103 98
12/14/24 03:30 12/14/24 08:01 12/14/24 07:49 12/14/24 08:01 12/14/24 07:49
Lab Results - Hematology
12/12/24 12/12/24 12/13/24
03:28 08:19 07:08
WBC 17.4 H 17.3 H 19.1 H
12/14/24
07:38
WBC 18.9 H
Lab Results - Chemistry
12/12/24 12/12/24 12/13/24
03:28 08:19 07:08
BUN 22 H 21 H 14
Creatinine 1.1 H 1.1 H 1.0
Estimated Creat Clear 40 41 45
Albumin 2.3 L
12/14/24
07:38
BUN 12
Creatinine 1.0
Estimated Creat Clear 44
Albumin
Lab Results - Urine
12/13/24
10:11
Urine Nitrite Negative
Ur Leukocyte Esterase 1+ A
Urine WBC 6-10 A
Ur Squamous Epith Cells 6-10
Urine Bacteria Few A
Microbiology Results
12/08/24 17:39 Wound Culture - Final
Abdomen No growth
Gram Stain - Final
12/08/24 17:39 Anaerobic Culture - Final
Abdomen NO ANAEROBES ISOLATED
--- NOTE | 2024-12-14 09:14 | W.PN.HOSP.TC ---
Today's Communication/Plan
-
see A/P
Upgrade to IMU
Assessment / Plan
Assessment / Plan
A/P:
# s/p Colorectal resection for pelvic abscess/colovaginal fistula from diverticulitis
s/p repeat OR 12/08/24 for anastomotic leak, with ostomy formation
Follow up CT AP 12/12 showed NO acute findings. Persistent collection by anastomosis, resolving RLQ collection.
Ertapenem -> Merrem and vancomycin
ID on board
DVT ruled out from [facility] 12/13
# SOB with wheezing
# Acute hypoxic resp insufficiency
Placed on 2L NC for comfort
IV lasix 40 mg x1
Start Duoneb ATC and PRN
Decadron 2 mg IV x1
Check d dimer and VQ scan (d/w pulm, recc VQ instead of CT PE due to pt having received several contrasted studies recently),
noted DVT ruled out from [facility] 12/13
Check repeat CXR
Check echo
Pulm CS
Upgrade to IMU with increase work of breathing, SOB and wheezing
# Acute blood loss anemia post op
s/p 3 units PRBC transfusion so far
s/p TXA since skin site oozing
follow Hgb
# Likely septic shock post op
was intubated, extubated 12/09/24
off pressors
apprec child care input
# MANINDER , resolved
ruled out CKD
Cr at 1.0 today
Monitor SCr
# Hyponatremia, resolved
# Hypocalcemia
monitor
# Essential hypertension/CAD
TECHNICAL PHOTOGRAPHER Coreg with holding parameter
Continue TECHNICAL PHOTOGRAPHER aspirin, atorvastatin
DVT proph, Lovenox SQ
code status, FULL CODE
DW RN
DW sister and brother at bedside, sister on the phone
DW Pulm, CRS
CC mx for acute hypoxic resp insufficiency with SOB/wheezing and increased work of breathing
CC time 40 min
Anticipated Discharge: > 48 hours
Subjective/Interval History
-
Date of Service: December 14, 2024
Objective Data
-
Labs:
Laboratory Results
12/14/24
07:38
WBC 18.9 H
Hgb 11.0 L
Hct 33.3 L
Plt Count 446 H
Sodium 136
Potassium 4.3
Chloride 110 H
Carbon Dioxide 24
BUN 12
Creatinine 1.0
Glucose 119 H
Calcium 8.3 L
Vital Signs:
Vital Signs
Temp Pulse Resp BP Pulse Ox
36.7 C 118 18 171/103 98
12/14/24 03:30 12/14/24 08:01 12/14/24 07:49 12/14/24 08:01 12/14/24 07:49
I&O
12/13/24 12/14/24 12/15/24
06:59 06:59 06:59
Intake Total 4040 / 4040 1540 / 1540
Output Total 5420 / 5420 2318 / 2318
Balance -1380 / -1380 -778 / -778
Review of Systems
-
History Source: Patient
Respiratory: Reports Trouble Breathing and Wheezing
Physical Exam
-
General: Well Developed, Well Nourished, Conversant and Appears Chronically Ill
HEENT: Normocephalic, Atraumatic and Oxygen (2L NC)
Respiratory: Clear to Auscultation and Non Labored Respirations; Negative Accessory Resp Muscle Use
Cardiac: Regular Rhythm, S1/S2 and Tachycardic (occasional tachy)
GI: Soft, Nondistended, Ostomy and Other (Abd drain )
Genito-urinary: Ang
Musculoskeletal: No Clubbing and No Cyanosis
Skin: Warm
Neuro: Awake and Alert
Psych: Calm and Intact Judgement/Insight
Data Reviewed
-
CT Scan: Report Reviewed by me
Labs: Labs Reviewed by me
[2024-12-14] MEDS: DUONEB 3 ML INH ×3 (09:30→10:49)
[2024-12-14] MEDS: DECADRON 2 MG IV (09:46)
--- NOTE | 2024-12-14 09:56 | W.PN.ID1 ---
Date of Service
Date of Service: December 14, 2024
Today's Communication
Continue antibiotics. See below�
Assessment / Plan
POD #12 s/p robotic low anterior sigmoid resection; repair of colovaginal fistula
POD #6 s/p ex lap, loop ileostomy creation
Rising leukocytosis
- ?infection ?reactive.
Thrombocytosis
HTN
CKD stage III
CAD
Sigmoid diverticulitis with colovaginal fistula
HLD
GERD
Gout
Recommendations:
Leukocytosis stable today.
Continue meropenem 500 mg IV q.6 hours (d#2) / vancomycin (dosing per pharmacy) (d#2)
Follow white count and temperature curve. Monitor Vanco levels to prevent nephrotoxicity.
Without fever, low likelihood that blood cultures would be positive at this time, but follow for the development of any fever at which point blood cultures x 2 should be performed.
Trend platelet count.
Patient for transfer to IMU for higher level of care.
����������������������������������������������������������
Chief Complaint
-: Leukocytosis
Subjective / Review of Systems
Patient seen and examined. Notes ongoing abdominal discomfort in the lower abdomen area. No fevers or chills.
Vital Signs / Physical Exam
Vital Signs
Vital Signs
Temp Pulse Resp BP Pulse Ox
97.6 F 102 18 166/101 98
12/14/24 07:45 12/14/24 09:25 12/14/24 07:49 12/14/24 09:25 12/14/24 09:33
Physical Exam
Constitutional: No Acute Distress, Comfortable, Chronically Ill and Non-toxic
Eyes: Sclera Anicteric
Cardiovascular: Regular Rate and S1/S2; Negative S3/S4
Pulmonary: Clear and Non Labored; Negative Wheezes or Rales
Gastrointestinal: Soft, Tender and Other (Ostomy in place. TANK x 2; right TANK with bloody drainage. Left TANK with serous drainage.)
Genito-Urinary: Ang and Clear Urine; Negative Turbid Urine or Hematuria
Extremities: Edema (Trace); Negative Cyanosis or Erythema
Skin: Warm and Dry
Neurological: Awake and Alert
Psychological: Calm
Objective Data
Lab Data
Lab Results
12/14/24 07:38
12/14/24 07:38
PT 16.4 Sec (11.4-14.6) H 12/09/24 20:40
INR 1.29 12/09/24 20:40
APTT 33.0 Sec (23.4-35.0) 12/09/24 20:40
Estimated Creat Clear 44 ml/min 12/14/24 07:38
Total Bilirubin 0.6 mg/dl (0.2-1.3) 12/12/24 03:28
AST 22 U/L (14-36) 12/12/24 03:28
ALT 14 U/L (0-35) 12/12/24 03:28
Alkaline Phosphatase 76 U/L (38-126) 12/12/24 03:28
Most recent labs reviewed.
Micro Results:
12/08/24 17:39 Wound Culture - Final
Abdomen No growth
Gram Stain - Final
12/08/24 17:39 Anaerobic Culture - Final
Abdomen NO ANAEROBES ISOLATED
Imaging:
12/12/2024 CT chest abdomen pelvis with IV contrast: mild to moderate bilateral pleural effusions with adjacent atelectasis. Additional scattered ground glass opacities are noted, which are nonspecific. Postoperative changes with a persistent
collection in the presacral space which extends from the posterior aspect of the colonic anastomotic staple line. There is gas contrast within this collection suspicious for persistent anastomotic leak, although retained extravasated contrast from
prior examination is possible. There is percutaneous surgical drain tip adjacent to the collection. There is decreased size of the mild heterogeneous lesion within the right hemipelvis which likely represents a resolving postoperative hematoma.
Please see full dictation for additional detail.
CT Scan: Image Reviewed and Report Reviewed
Care Review
Plan reviewed with: Physician (Hospitalist)
--- NOTE | 2024-12-14 10:02 | W.PN.CRS1 ---
Today's Communication / Plan
-
hospitalist for respiratory wheezing
maintain clears
IV antibiotics
Assessment/Plan
-
POD#12 from a cystoscopy with insertion of bilateral ureteral stents, robotic low anterior resection with takedown of the splenic flexure and intracorporeal anastomosis, flexible sigmoidoscopy and robotic repair of a colovaginal fistula with
bilateral oophorectomy
POD#6 1) exploratory laparotomy 2) loop ileostomy creation 3) flexible sigmoidoscopy
WBC: 18.9 (19.1)), hemoglobin 11.1 (11.0), creatinine 1.0 (1.1)
liquid stool: 675 ml, drain x 2: 390 ml, briceno: 3075ml
HR: 90-118
afebrile
- Continue Clears with ensure
- Appreciate ID consult - vanco/merrem
- Notified hospitalist re: wheezing
- Wound cultures pending
- Wound RN for ileostomy care
- OOB as tolerated. PT/OT ordered.
- On lovenox. TEDS/SCDS in place for DVT prophylaxis.
- Maintain Invanz IV daily
- OR pathology pending
- Maintain TANK drains until DC
- Daily dressing changes
- Family present at bedside
Subjective Data
Procedure
12/02/2024 cystoscopy with bilateral ureteral stents, robotic LAR with takedown of splenic flexure and intracorporeal anastomosis, drainage of an intra-abdominal abscess, flexible sigmoidoscopy, robotic repair for vaginal fistula with bilateral
oophorectomy
12/08/2024- 1) exploratory laparotomy 2) loop ileostomy creation 3) flexible sigmoidoscopy
Subjective Data
Date of Service: December 14, 2024
Patient states she feels wheezy. She has some trouble breathing. She has mild abdominal pain.
Objective Data
-
Vital Signs
Temp Pulse Resp BP Pulse Ox
97.6 F 102 18 166/101 98
12/14/24 07:45 12/14/24 09:25 12/14/24 07:49 12/14/24 09:25 12/14/24 09:33
Intake & Output
12/13/24 12/14/24 12/15/24
06:59 06:59 06:59
Intake Total 4040 / 4040 1540 / 1540
Output Total 5420 / 5420 2318 / 2318 860 / 860
Balance -1380 / -1380 -778 / -778 -860 / -860
Intake:
Oral fluids 1520 / 1520 240 / 240
IV fluids (Total) 2400 / 2400 600 / 600
IV piggybacks 120 / 120 700 / 700
Output:
Liquid stool amount 930 / 930
Ileostomy 930 / 930
Drain Output (Total) 540 / 540 368 / 368 35 / 35
Left Abdomen [place] 365 / 365 355 / 355
Right [place] 175 / 175 13 35 / 35
Urine, Briceno 3950 / 3950 1925 / 1925 800 / 800
Lab Results
12/14/24 07:38
12/14/24 07:38
Physical Exam
-
General: Other (wheezing)
Abdomen: Soft, Non Distended, Tender (mild around incision) and Other (Left and right TANK drain in place, serosanguinous )
Skin: Warm and Dry
Incision: Clear, Dry, Intact (gauze in place, dressing changed, no active bleeding)
[2024-12-14 10:09] LABS: D-Dimer 5.14 ug/mlFEU (0.00-0.50)
--- NOTE | 2024-12-14 11:17 | PTCARENOTE ---
0800 Pt complaining of SOB and wheezing shortly after vanco infusion. Pt HR 101, BP 173/103, 98% on 2L. Respiratory notified to come give PRN inhaler. Hospitalist also notified and ordered stat dose of lasix. Pts SOB and wheezing not resolving.
hospitalist ordered ECHO, DDIMER, PROBNP VQ scan, and stat dose of dexamethasone. After turning the Pt blood was found to be actively oozing from Pts rectum. Hospitalist and colorectal again notified. ordered to be transferred to IMU.
[2024-12-14 12:13] LABS: Hematocrit 33.5 % (37.0-47.0); Hemoglobin 10.9 g/dL (12.0-16.0)
[2024-12-14] MEDS: DILAUDID 0.25 MG IV ×2 (12:53→20:38)
--- NOTE | 2024-12-14 13:03 | W.PN.PUL3 ---
Today's Communication / Plan
-
Asked for re-eval for wheezing
Likely asthma exacerbation, will change Symbicort to scheduled
Pleural effusions are noted on prior imaging, check proBNP
Check d-dimer, can obtain VQ scan if positive
Further postop care per team
Will likely need outpatient pulmonary FU on discharge
Assessment
-
78-year-old F with PMHx of colovaginal fistula, HTN, HLD, GERD, CAD and CKD who presented with elective low anterior resection. She is known to the Colorectal surgery team with last visit on 10/13/[address] Cristobal. Given her colovaginal fistula
and left-sided hydronephrosis with increased risk of infection/sepsis, she agreed to surgery. On 12/02/2024 she underwent bilateral ureteral stent insertion, robotic assisted low anterior resection with takedown of splenic flexure with intracorporeal
anastomosis, flex-sigmoidoscopy, and robotic repair of vaginal fistula and bilateral oophorectomy. She was managed on the floor on ABx. Her ureteral stents were then removed. She required 1 unit PRBC on 12/03 + 12/04. Her diet was advanced, however
she developed worsening leukocytosis beginning 12/08, and CT abd/pelvis on 12/08 showed s/p LAR with small focus of contrast in posterior pelvis/presacral space suspicious for a postoperative anastomotic leak. She was brought back to the OR on 12/08
for an ex-lap with loop ileostomy creation and flex-sigmoidoscopy. She remained intubated and was TRX to ICU for further care. Service Desk Specialist service consulted for additional management/recommendations. Extubated 12/09/24 and transferred to floors.
We are asked for re-eval on 12/14/24 for wheezing.
Wheezing
AE asthma
Volume overload, pleural effusions
Pelvic anastomotic leak s/p ex lap with loop ileostomy creation + flexible sigmoidoscopy 12/08/24
Postoperative mechanical ventilation --> extubated on 12/09
Acute post-operative anemia in setting of chronic anemia
Colovaginal fistula with left ureteral obstruction s/p cystoscopy with bilateral ureteral stent insertion, robotic assisted low anterior resection with takedown of splenic flexure with intracorporeal anastomosis, flexible sigmoidoscopy and robotic
repair of vaginal fistula and bilateral oophorectomy (OR date: 12/02/2024)
Leukocytosis
Hyponatremia
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
sigmoid diverticulitis with colovaginal fistula
hyperlipidemia
hypertension
GERD
CKD stage 3 (baseline Cr: 1.1-1.2)
coronary artery disease s/p stent
percutaneous drainage diverticular abscess 05/2024
spinal stimulator
hysterectomy
cholecystectomy
cataract
ER visit-Divert. flare 05/2024
ER visit- Low BP 07/2024
Plan
No oxygen was needed on admission, currently saturating >90% on RA
Intubated for procedure, extubated 12/09/24
Prior history of lung disease is noted including asthma (lifelong), former smoker
Has not had PFTs in years, does not follow with pulmonary as OP
Has run out of Breo several months prior
Symbicort added PRN, will change this to scheduled
Suspect patient has AE asthma, already improved with neb treatment
Repeat CXR showing basilar pleural effusion, which was also noted on CT imaging
Can r/o CHF as a contributor
Check proBNP
No prior ECHO for review, obtain new study
Smoking history noted-- 25 PY noted, quit in her 40s
Could contribute to lung disease
Check d-dimer
VTE less likely but can obtain VQ scan if needed
We will follow
Diagnostic Data
Chest X-Ray: 12/14/24- Mild to moderate diffuse interstitial prominence may reflect pulmonary interstitial edema and/or pneumonitis, progressed.
12/13/24- Small bilateral pleural effusions, left greater than right. Slightly prominent pulmonary interstitial markings, findings could represent interstitial edema or pneumonitis. No pneumothorax.
CT Scan: CHEST 12/12/24- 1. Mild/moderate bilateral pleural effusions with adjacent atelectasis. There are additional scattered groundglass opacities which are nonspecific although may represent mild edema or less likely pneumonia.
2. Postoperative changes with a persistent collection in the presacral space which extends from the posterior aspect of the colonic anastomotic staple line. There is gas and contrast within the collection suspicious for persistent anastomotic leak
although retained extravasated contrast from prior examination is possible. There is percutaneous surgical drain with tip adjacent to the collection.
3. Decreased size of the mild heterogeneous lesion within the right hemipelvis which likely represents a resolving postoperative hematoma.
CHEST 11/23/24- 1. Severe sigmoid diverticulosis with small amount of gas seen within the uterine fundus which abuts and is inseparable from the inferior margin of the distal sigmoid colon. Findings suggestive of a colouterine fistula. No findings
suggestive of acute diverticulitis. No fluid within the pelvis.
2. Nonspecific mildly enlarged precarinal lymph node within the chest.
3. Focal calcified dissection flap within the distal abdominal aorta which appear to be non- flow-limiting.
Echo:
PFT's:
Reports and relevant images were personally reviewed.
Total time spent on this consultation __51__ minutes which includes review of history, physical exam, medications, laboratory data, personal review of imaging, extensive review of outpatient records, discussion with care team and respiratory therapy.
Subjective Data
-
Date of Service:
Date of Service: December 14, 2024
Chief Complaint: Pulmonary Follow Up
Subjective:
Asked for re-eval 12/14
ICU admit 12/08-12/09/24 and downgraded
Now with wheezing in past 24 hours
On room air otherwise
Objective Data
Data Reviewed
Vital Signs / I&O / Oxygen:
Vital Signs
Temp Pulse Resp BP Pulse Ox
97.6 F 94 18 166/101 98
12/14/24 07:45 12/14/24 10:46 12/14/24 10:46 12/14/24 09:25 12/14/24 10:46
Intake and Output
12/13/24 12/14/24 12/15/24
06:59 06:59 06:59
Intake Total 4040 / 4040 1540 / 1540
Output Total 5420 / 5420 2318 / 2318 860 / 860
Balance -1380 / -1380 -778 / -778 -860 / -860
SaO2 [A/C] 100
SaO2 98
Nasal Cannula flow liters per 2
minute
Labs/Micro/Reports
Lab Data
12/14/24 11:54
12/14/24 07:38
Microbiology
12/08/24 17:39 Abdomen Wound Culture - Final
No growth
12/08/24 17:39 Abdomen Gram Stain - Final
12/08/24 17:39 Abdomen Anaerobic Culture - Final
NO ANAEROBES ISOLATED
--- NOTE | 2024-12-14 13:08 | PTCARENOTE ---
Received from [address] [place] [id number], IMU monitors placed- NSR 87 BP 138/77 RR18 100% on 2L NC. AAOx3, LC at this time, denies shortness of breath as well. C/o pain low abdomen - PO Tylenol and IV Dilaudid administered. Right TANK intact draining burgandy
liquid, Left TANK with dark serous liquid. Ileostomy with dk brown thick liquid. Midline dressing CDI. Ang in place clear urine. Small amt of blood noted on covidean pad on arrival per rectum. Cleansed. SCD intact. Going for Lung scan.
[2024-12-14 13:13] LABS: Glucose - Point of Care 122 mg/dl (70-99)
--- NOTE | 2024-12-14 13:18 | CM ---
CM following re: discharge planning.
Reviewed pt's chart met with pt.
Pt is POD#12 from a cystoscopy with insertion of bilateral ureteral stents and POD#6 1) exploratory laparotomy 2) loop ileostomy creation 3) flexible sigmoidoscopy. Pt is transferred to IMU today. Continue supportive care.
PT and OT continue recommending SNF level of care.
Both pt and her daughters are aware that [facility] and [facility] offered a bed. Pt stated she was before at [facility], lives across the [address] from [facility] and she feels she would prefer [facility].
Pt's daughter stated she knows [facility] and she will tour [facility] to make a final decision. Pt's daughter expressed her concerns regarding whether or not either [facility] or [facility] will be able to provide
appropriate care. Pt's daughter assured that both [facility] and [facility] have pt's clinical.
D/C plan: preferred SNF: [facility] or [facility].
CM will follow to assist pt with discharge to a preferred SNF
--- NOTE | 2024-12-14 13:20 | W.PN.UPDATE ---
Update Note
Progress Note Update
Patient seen by me earlier this afternoon due to passage of rectal blood (dark). By the time I arrived she had been cleaned up and no blood external to anus noted. CHANO deferred at this point. Patient stable and conversant with sister at bedside.
Repeat Hg 10.9 from 11.0 which is essentially unchanged. Nothing further to do at this point. I suspect it was old blood that passed.
[2024-12-14] MEDS: SYMBICORT 160/4.5 MCG INHALER INH (13:39)
[2024-12-14 17:11] LABS: Glucose - Point of Care 118 mg/dl (70-99)
[2024-12-14] MEDS: SYMBICORT 160/4.5 MCG INHALER 2 PUFF INH (19:13)
[2024-12-14] MEDS: NAMENDA 5 MG PO (20:32)
[2024-12-14 23:13] LABS: Glucose - Point of Care 147 mg/dl (70-99)
[2024-12-14] MEDS: TYLENOL PO (23:52)
[2024-12-15] VITALS (15 sets, daily range): BP systolic 104–157; BP diastolic 64–96; PULSE 83; O2SAT 100; BMI 29.6
[2024-12-15] MEDS: TYLENOL PO ×2 (05:16→17:01)
[2024-12-15] MEDS: STERILE WATER FOR INJECTION 10 ML IV ×3 (05:46→21:56)
[2024-12-15] MEDS: MERREM 500 MG IV ×3 (05:47→21:56)
[2024-12-15] MEDS: VANCOCIN 200 IV (05:47)
[2024-12-15 06:17] LABS: Hematocrit 30.1 % (37.0-47.0); Hemoglobin 9.8 g/dL (12.0-16.0); Mean Corp Hgb Conc. 32.6 g/dL (33.0-37.0); Mean Corpuscular Volume 86.7 fL (81.0-99.0); Platelet Count 475 10^3/uL (130-400); Red Cell Dist. Width 17.4 % (11.5-14.5)
[2024-12-15 06:39] LABS: Blood Urea Nitrogen 16 mg/dl (7-17); Calcium 8.1 mg/dl (8.4-10.2); Carbon Dioxide 24 mmol/L (22-30); Chloride 110 mmol/L (98-107); Estimated Creatinine Clearance 40 ml/min; Glucose 108 mg/dl (70-99); Potassium 4.6 mmol/L (3.5-5.1); Sodium 136 mmol/L (135-145); eGFR 50.80
[2024-12-15] MEDS: SYMBICORT 160/4.5 MCG INHALER INH (08:03)
--- NOTE | 2024-12-15 08:22 | W.PN.HOSP.TC ---
Today's Communication/Plan
-
see A/P
Assessment / Plan
Assessment / Plan
A/P:
# s/p Colorectal resection for pelvic abscess/colovaginal fistula from diverticulitis
s/p repeat OR 12/08/24 for anastomotic leak, with ostomy formation
Follow up CT AP 12/12 showed NO acute findings. Persistent collection by anastomosis, resolving RLQ collection.
Ertapenem -> Merrem and vancomycin per ID
# Likely septic shock following repeat OR 12/08
was intubated, extubated 12/09/24
off pressors, out of ICU
# Acute blood loss anemia post op
s/p 3 units PRBC transfusion so far
s/p TXA since skin site oozing
noted rectal bleeding again 12/14, Monitor Hgb closely
# SOB with wheezing, resolved
# Acute hypoxic resp insufficiency, resolved
# Likely acute new diagnosis systolic heart failure
Placed on 2L NC for comfort, weaned back to RA
CXR 12/14 showed progressed mild to moderate diffuse interstitial prominence may reflect pulmonary interstitial edema and/or pneumonitis
Echo 12/14 showed moderately reduced systolic function and global hypokinesis, LVEF 34%. Low-flow low gradient aortic stenosis, Moderate mitral regurgitation.
Cont IV lasix 40 mg daily
Cont Duoneb ATC and PRN
s/p Decadron 2 mg IV x1
d dimer high but VQ scan showed low probability and BL US neg for DVT
Card CS
Pulm on board
# MANINDER , resolved
ruled out CKD
Cr at 1.1 today
Monitor SCr
# Hyponatremia, resolved
# Hypocalcemia
monitor
# Essential hypertension/CAD
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
Continue MACHINE CLOTHING MAN aspirin, atorvastatin
DVT proph, Lovenox SQ
code status, FULL CODE
DW RN
DW daughter at bedside
DW CRS
total time 51 min
Anticipated Discharge: > 48 hours
Subjective/Interval History
-
Date of Service: December 15, 2024
Objective Data
-
Labs:
Laboratory Results
12/15/24
06:00
WBC 16.2 H
Hgb 9.8 L
Hct 30.1 L
Plt Count 475 H
Sodium 136
Potassium 4.6
Chloride 110 H
Carbon Dioxide 24
BUN 16
Creatinine 1.1 H
Glucose 108 H
Calcium 8.1 L
Vital Signs:
Vital Signs
Temp Pulse Resp BP Pulse Ox
37.1 C 93 17 124/62 98
12/15/24 07:00 12/14/24 22:00 12/14/24 22:00 12/14/24 22:00 12/15/24 02:19
I&O
12/14/24 12/15/24 12/16/24
06:59 06:59 06:59
Intake Total 1540 / 1540 180 / 180
Output Total 2318 / 2318 2069
Balance -778 / -778 -1890 / -1890
Review of Systems
-
History Source: Patient
All other systems: Reviewed and negative
Respiratory: Denies Trouble Breathing or Wheezing
Physical Exam
-
General: Well Developed, Well Nourished, No Apparent Distress, Comfortable, Conversant and Appears Chronically Ill
HEENT: Normocephalic and Atraumatic; Negative Oxygen
Respiratory: Clear to Auscultation and Non Labored Respirations; Negative Wheezes or Accessory Resp Muscle Use
Cardiac: Regular Rhythm and S1/S2
GI: Soft, Nondistended, Ostomy and Other (Abd drain )
Genito-urinary: Ang
Musculoskeletal: No Clubbing and No Cyanosis
Skin: Warm
Neuro: Awake and Alert
Psych: Calm and Intact Judgement/Insight
Data Reviewed
-
Diagnostic Radiology: Report Reviewed by me
CT Scan: Report Reviewed by me
Medical Tests (Nuc Med, Echo etc): Report Reviewed by me (echo), Discussed with Patient and Discussed with Family
Labs: Labs Reviewed by me
[2024-12-15 08:27] LABS: Glucose - Point of Care 135 mg/dl (70-99)
--- NOTE | 2024-12-15 08:28 | CON.CAR ---
Addendum entered and electronically signed by Kenny Escobar MD 12/15/24 10:46:
I saw and examined the patient.
The CAD DEVELOPER's note was reviewed and I agree with the note.
Primary solar tech Dr. Salmon -[facility]
.
78-year-old woman history of coronary artery disease, LAD stenting 2020, CHF, diabetes who had colovaginal fistula and underwent procedure on 12/02/2024 including low anterior resection, repair of vagina and bilateral nephrectomy, cystoscopy and
bilateral ureteral stents,, reop 12/08/2024 for management of an anastomotic leak. Patient also with suspected septic shock patient had issues with respiratory insufficiency. Pulmonary has been consulted. Suspected component of heart failure.
Chest x-ray raising question of pulmonary edema and elevated proBNP. Patient has received IV Lasix currently breathing comfortably on room air with stable oxygenation and no complaints of shortness of breath. Lungs are clear patient does have
edema in buttock and thighs cardiac exam regular with systolic murmur. Review of telemetry with short bursts of asymptomatic SVT. Echocardiogram this admission showed reduced left ventricular function with estimated ejection fraction 34% peak
gradient 21 mmHg and mean gradient 10 MHG. Dimensionless index 0.37. On my review of the images overall left ventricular function appears moderately reduced.. Although report shows low-flow low gradient . The gradients are in the mild range,
dimensionless index is in the mild to moderate range. Also on my review of the aortic valve calculations CARLOS using VTI is a 1.2 cm� which is in the moderate range.. Appearance of valve and mobility of leaflets is not consistent with severe aortic
stenosis. Left ventricular dysfunction makes grading of a bit more challenging, but Overall that suspected at the patient has moderate versus mild to moderate aortic stenosis.
-.
CHF. Patient with moderately reduced left ventricular function by echo -nd aortic stenosis as noted above
-Respiratory status stable but patient has edema on exam and weight is up at least 8 pounds
-Continue diuresis with Lasix and monitor renal function and blood pressure.
-Continue Coreg
-Add low-dose ARB as blood pressure tolerates
- ontain prior echo
.
CAD/history of coronary stenting including LAD stenting 2020.
- Currently without symptoms to suggest angina
- Resume aspirin
- Continue beta-zachery
.
SVT. Brief asymptomatic episodes on telemetry
- Continue Coreg. If increased frequency or increase duration of episodes then increase Coreg to 25 mg twice daily
.
aortic stenosis - as moted above
Original Note:
Consultation
Consultation Request
Date/Time Consultation Requested: 12/15/24 0733
Date/Time Consultation Performed: 12/15/24 0810
Requesting Provider: Dr. Zayas
Performing Provider: Tammy SAMUELS for Dr. Escobar
Reason for Consultation: Echo with cardiomyopathy and aortic stenosis
Medical History
-
Chief Complaint: colovaginal fistula
History of Present Illness:
78 y/o female (cardiology patient of [facility], Dr. Light) with CAD with hx mid LAD stent 2020, DMII, CHF (diastolic per chart, but also looks like hx cardiomyopathy), CKDIII, and hypertension who presented on 12/02/24 for management of colovaginal
fistula s/p cystoscopy with insertion of bilateral ureteral stents, robotic low anterior resection with takedown of splenic flexure and intracorporeal anastomosis, flexible sigmoidoscopy and robotic repair of vagina and bilateral oophorectomy,
12/02/24. Post-op, she required PRBC's for anemia. On 12/08/24, she went back to the OR for management of an anastomotic leak and is s/p ex-lap, loop ileostomy creation, and flex sig. She was briefly intubated and ventilated and in ICU. She was treated
for suspected septic shock with IV abx and IVF. More recently, she developed SOB. Pulmonary thought it could be related to asthma and inhaler therapy added. D-Dimer was elevated, but VQ scan and peripheral u/s negative. CXR suspicious for excess
fluid and BNP elevated. Patient received IV lasix and had echo. Echo 12/14/24 showed left ventricle is normal in size with moderately reduced systolic function and global hypokinesis. LVEF 34%. Moderate concentric left ventricular hypertrophy.
Biatrial enlargement. Low-flow low gradient aortic stenosis (peak/mean 21/10 mmHg, CARLOS 0.95 cm², DVI 0.37). Moderate mitral regurgitation. Mild to moderate tricuspid regurgitation. PASP 29 mmHg. Pleural effusion present. Therefore, we are
consulted. She is feeling better today from an SOB standpoint, but weight is up and BLE edema noted. She also reports some intermittent chest discomfort this admit. None currently. Trop and EKG okay. Also worse to palpation, so atypical.
Past Medical History
Past Medical History: CAD, CHF, HTN, Hypercholesterolemia and NIDDM
Social History
Tobacco: Former Smoker
Family History
Family History: Reviewed & Not Pertinent
Allergies / Home Medications
Allergy/AdvReac Type Severity Reaction Status Date / Time
fluticasone (From Flovent Allergy Anaphylaxis Verified 12/02/24 06:22
HFA)
oxycodone (From Percocet) Allergy Vomiting Verified 12/02/24 06:22
tramadol Allergy Vomiting Verified 12/02/24 06:22
�Medication �Instructions �Recorded �Confirmed �Type
Centrum 1 dose PO DAILY Supplement 11/25/24 12/02/24 History
Fruit Vitamin 1 dose PO DAILY Supplement 11/25/24 12/02/24 History
Vege Vitamin 1 dose PO DAILY Supplement 11/25/24 12/02/24 History
acetaminophen 500 mg tablet 1,000 mg PO QID PRN pain 11/25/24 12/02/24 History
albuterol sulfate 90 mcg/actuation 1 puff inhalation DAILY PRN sob 11/25/24 12/02/24 History
aerosol inhaler
allopurinol 100 mg tablet 100 mg PO DAILY Gout 11/25/24 12/02/24 History
aspirin 81 mg tablet 81 mg PO DAILY Blood Clot 11/25/24 12/02/24 History
Prevention/Tx
atorvastatin 80 mg tablet 80 mg PO DAILY High Cholesterol 11/25/24 12/02/24 History
azelastine 137 mcg (0.1 %) nasal 2 spray intranasal BID Congestion 11/25/24 12/02/24 History
spray
calcium 1 dose PO DAILY Supplement 11/25/24 12/02/24 History
calcium carbonate (Calcium 500) 500 mg PO DAILY PRN indigestion 11/25/24 12/02/24 History
carvedilol 12.5 mg tablet 12.5 mg PO BID Blood Pressure 11/25/24 12/02/24 History
cetirizine 5 mg tablet 5 mg PO DAILY Allergies 11/25/24 12/02/24 History
duloxetine 30 mg capsule,delayed 30 mg PO DAILY Mental 11/25/24 12/02/24 History
release Health/Anxiety
ezetimibe 10 mg tablet 10 mg PO DAILY High Cholesterol 11/25/24 12/02/24 History
fluticasone furoate 200 1 inh inhalation DAILY PRN 11/25/24 12/02/24 History
mcg-vilanterol 25 mcg/dose congestion
inhalation powder (Breo Ellipta)
fluticasone propionate 50 1 spray intranasal BID Allergies 11/25/24 12/02/24 History
mcg/actuation nasal
spray,suspension
furosemide 20 mg tablet 20 mg PO DAILY Fluid 11/25/24 12/02/24 History
Retention/Swelling
gabapentin 300 mg capsule 300 mg PO BID Pain 11/25/24 12/02/24 History
hydrocodone 5 mg-acetaminophen 325 1 tab PO HS PRN pain 11/25/24 12/02/24 History
mg tablet
memantine 7 mg capsule 7 mg PO DAILY Neurological 11/25/24 12/02/24 History
sprinkle,extended release 24hr Condition
(Namenda XR)
omeprazole 40 mg capsule,delayed 40 mg PO DAILY Gastrointestinal 11/25/24 12/02/24 History
release Issue
pantoprazole 20 mg tablet,delayed 20 mg PO HS Gastrointestinal Issue 11/25/24 12/02/24 History
release
metronidazole 500 mg tablet 500 mg PO DIRECTED Pre-op PPX 11/30/24 12/02/24 History
neomycin 500 mg tablet 1,000 mg PO DIRECTED Pre-op PPX 11/30/24 12/02/24 History
peg 3350-electrolytes 236 236 ml PO DIRECTED Pre-op prep 11/30/24 12/02/24 History
gram-22.74 gram-6.74 gram-5.86
gram solution (Golytely)
Review of Systems
-
History Source: Patient and Other (and chart)
Constitutional: Weight Gain
Respiratory: Trouble Breathing
Cardiac: Chest Pain
Abdomen/GI: Abdominal Pain
Physical Exam
Vital Signs
Temp Pulse Resp BP Pulse Ox
98.7 F 93 17 124/62 98
12/15/24 07:00 12/14/24 22:00 12/14/24 22:00 12/14/24 22:00 12/15/24 02:19
Lab Results
12/15/24 06:00
12/15/24 06:00
Troponin I 0.034 ng/ml 12/12/24 03:28
Lpr-R-Bazwueswnbg Pept > 17108 pg/ml 12/14/24 07:38
Physical Exam
General: Well Developed, Well Nourished and No Apparent Distress
HEENT: Normocephalic and Anicteric
Respiratory: Other (diminished lung sounds)
Cardiac: Regular Rhythm and Murmur (II/ systolic murmur)
Musculoskeletal: Edema (BLE edema)
Skin: Warm and Dry
Neuro: AO x 3
Psych: Calm
Impression / Plan
-
Colovaginal fistula:
-s/p cystoscopy with insertion of bilateral ureteral stents, robotic low anterior resection with takedown of splenic flexure and intracorporeal anastomosis, flexible sigmoidoscopy and robotic repair of vagina and bilateral oophorectomy, 12/02/24
-on IV ABX, ID on the case
-management per surgery teams
Duugb-cd-ewekmxe HFrEF:
-weight up, BLE edema (thighs feel heavy, edema is noted)
-in setting of held lasix, and multiple liters of IVF and units of PRBC's given (due to sepsis and anemia), and also post-op status
-Echo 12/14/24 showed left ventricle is normal in size with moderately reduced systolic function and global hypokinesis. LVEF 34%. Moderate concentric left ventricular hypertrophy. Biatrial enlargement. Low-flow low gradient aortic stenosis
(peak/mean 21/10 mmHg, CARLOS 0.95 cm², DVI 0.37). Moderate mitral regurgitation. Mild to moderate tricuspid regurgitation. PASP 29 mmHg. Pleural effusion present.
-agree with IV lasix, which requires intensive monitoring
-obtain previous echo
CM:
-type unknown
-in setting of acute illness
-obtain previous echo- which I personally called and requested
-continue Coreg. Will add low dose ARB. No SGLT2I with active infection at this time. GDMT as able and appropriate post-op.
Aortic stenosis:
-volume plan as above
-obtain previous echo
-OP management with primary solar tech
CAD with hx mid LAD stent 2020:
-has been off aspirin since 12/08/24- need to resume
-continue BB. Resume statin.
-her CP is atypical in that it is worse with palpation
pSVT:
-brief, asymptomatic
-continue Coreg
-follow telemetry
Data Reviewed
-
EKG: Tracing Personally Visualized and interpreted
Medical Tests (Nuc Med, Echo etc): Other (echo as noted)
Labs: Labs Reviewed by me
--- NOTE | 2024-12-15 08:59 | W.PN.CRS1 ---
Today's Communication / Plan
-
Advance to low residue with Ensure
Antibiotics per ID
Resume Lovenox
Assessment/Plan
-
POD# 13 from a cystoscopy with insertion of bilateral ureteral stents, robotic low anterior resection with takedown of the splenic flexure and intracorporeal anastomosis, flexible sigmoidoscopy and robotic repair of a colovaginal fistula with
bilateral oophorectomy
POD# 7 1) exploratory laparotomy 2) loop ileostomy creation 3) flexible sigmoidoscopy
WBC: 16.2 (18.9,19.1), hemoglobin 9.8 (11.1, 11.0), creatinine 1.1 (1.0, 1.1)
liquid stool: 125 ml, drain x 2: 245 ml, briceno: 1045 ml
HR: 93-118
afebrile
-Advance diet to low residue with Ensure
- Appreciate ID consult - vanco/merrem
-Appreciate senior architect/design manager/hospitalist
- Wound RN for ileostomy care
- OOB as tolerated. PT/OT ordered.
-Resume lovenox. TEDS/SCDS in place for DVT prophylaxis.
-IV antibiotics per ID
- OR pathology pending
- Maintain TANK drains until DC
- Daily dressing changes
Subjective Data
Procedure
12/02/2024 cystoscopy with bilateral ureteral stents, robotic LAR with takedown of splenic flexure and intracorporeal anastomosis, drainage of an intra-abdominal abscess, flexible sigmoidoscopy, robotic repair for vaginal fistula with bilateral
oophorectomy
12/08/2024- 1) exploratory laparotomy 2) loop ileostomy creation 3) flexible sigmoidoscopy
Subjective Data
Date of Service: December 15, 2024
Patient states she feels much better today. She no longer has any labored breathing. Her pain is controlled. She states she 'does not feel that bad'. Denies nausea or vomiting.
Objective Data
-
Vital Signs
Temp Pulse Resp BP Pulse Ox
98.7 F 93 17 124/62 98
12/15/24 07:00 12/14/24 22:00 12/14/24 22:00 12/14/24 22:00 12/15/24 02:19
Intake & Output
12/14/24 12/15/24 12/16/24
06:59 06:59 06:59
Intake Total 1540 / 1540 180 / 180
Output Total 2318 / 2318 2069 / 2069
Balance -778 / -778 -1890 / -1890
Intake:
Oral fluids 240 / 240 180 / 180
IV fluids (Total) 600 / 600
IV piggybacks 700 / 700
Output:
Liquid stool amount 125 / 125
Ileostomy 125 / 125
Drain Output (Total) 368 / 368 245 / 245
Left Abdomen Tyrone-Noriega 355 / 355 210 / 210
Right Tyrone-Noriega 13 / 13 35 / 35
Urine, Briceno 1925 / 1925 1450 / 1450
Urine, Voided 250 / 250
Lab Results
12/15/24 06:00
12/15/24 06:00
Physical Exam
-
General: No Acute Distress and AOx3
Abdomen: Soft, Non Distended, Non Tender and Other (Colostomy warm and pink with function. Left TANK drain is serosanguineous. Right TANK drain is old blood.)
Wound: Dressing Changed
Incision: Clear, Dry, Intact
--- NOTE | 2024-12-15 09:11 | W.PN.PUL3 ---
Today's Communication / Plan
-
She is doing well in terms of asthma treatment, wheezing seems to have resolved
Continue inhalers at discharge, we will arrange OP FU
ECHO reviewed, reduced EF--continue diuresis per team, cards consult obtained for further management
PT/OT evals ongoing
Continue further postop care per team
Assessment
-
78-year-old F with PMHx of colovaginal fistula, HTN, HLD, GERD, CAD and CKD who presented with elective low anterior resection. She is known to the Colorectal surgery team with last visit on 10/13/[address] Cristobal. Given her colovaginal fistula
and left-sided hydronephrosis with increased risk of infection/sepsis, she agreed to surgery. On 12/02/2024 she underwent bilateral ureteral stent insertion, robotic assisted low anterior resection with takedown of splenic flexure with intracorporeal
anastomosis, flex-sigmoidoscopy, and robotic repair of vaginal fistula and bilateral oophorectomy. She was managed on the floor on ABx. Her ureteral stents were then removed. She required 1 unit PRBC on 12/03 + 12/04. Her diet was advanced, however
she developed worsening leukocytosis beginning 12/08, and CT abd/pelvis on 12/08 showed s/p LAR with small focus of contrast in posterior pelvis/presacral space suspicious for a postoperative anastomotic leak. She was brought back to the OR on 12/08
for an ex-lap with loop ileostomy creation and flex-sigmoidoscopy. She remained intubated and was TRX to ICU for further care. Middle School Football Coach service consulted for additional management/recommendations. Extubated 12/09/24 and transferred to floors.
We are asked for re-eval on 12/14/24 for wheezing.
Wheezing
AE asthma
Volume overload, pleural effusions
Pelvic anastomotic leak s/p ex lap with loop ileostomy creation + flexible sigmoidoscopy 12/08/24
Postoperative mechanical ventilation --> extubated on 12/09
Acute post-operative anemia in setting of chronic anemia
Colovaginal fistula with left ureteral obstruction s/p cystoscopy with bilateral ureteral stent insertion, robotic assisted low anterior resection with takedown of splenic flexure with intracorporeal anastomosis, flexible sigmoidoscopy and robotic
repair of vaginal fistula and bilateral oophorectomy (OR date: 12/02/2024)
Leukocytosis
Hyponatremia
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
sigmoid diverticulitis with colovaginal fistula
hyperlipidemia
hypertension
GERD
CKD stage 3 (baseline Cr: 1.1-1.2)
coronary artery disease s/p stent
percutaneous drainage diverticular abscess 05/2024
spinal stimulator
hysterectomy
cholecystectomy
cataract
ER visit-Divert. flare 05/2024
ER visit- Low BP 07/2024
Plan
No oxygen was needed on admission, currently saturating >90% on RA
Intubated for procedure, extubated 12/09/24
Prior history of lung disease is noted including asthma (lifelong), former smoker
Has not had PFTs in years, does not follow with pulmonary as OP
Has run out of Breo several months prior
Symbicort added PRN, will change this to scheduled--should be continued as OP
She is doing well with this, we will arrange OP FU
Suspect patient has AE asthma, already improved with neb treatment
Repeat CXR showing basilar pleural effusion, which was also noted on CT imaging
Can r/o CHF as a contributor
Check proBNP-- >24788
ECHO showing new reduced EF, unknown prior EF
Cards eval noted
Smoking history noted-- 25 PY noted, quit in her 40s
Could contribute to lung disease
Check d-dimer--elevated
VQ scan 12/14 negative
PT/OT evals ongoing
Eventual plan for discharge per team
Diagnostic Data
Chest X-Ray: 12/14/24- Mild to moderate diffuse interstitial prominence may reflect pulmonary interstitial edema and/or pneumonitis, progressed.
12/13/24- Small bilateral pleural effusions, left greater than right. Slightly prominent pulmonary interstitial markings, findings could represent interstitial edema or pneumonitis. No pneumothorax.
CT Scan: CHEST 12/12/24. Mild/moderate bilateral pleural effusions with adjacent atelectasis. There are additional scattered groundglass opacities which are nonspecific although may represent mild edema or less likely pneumonia.
2. Postoperative changes with a persistent collection in the presacral space which extends from the posterior aspect of the colonic anastomotic staple line. There is gas and contrast within the collection suspicious for persistent anastomotic leak
although retained extravasated contrast from prior examination is possible. There is percutaneous surgical drain with tip adjacent to the collection.
3. Decreased size of the mild heterogeneous lesion within the right hemipelvis which likely represents a resolving postoperative hematoma.
CHEST 11/23/24. Severe sigmoid diverticulosis with small amount of gas seen within the uterine fundus which abuts and is inseparable from the inferior margin of the distal sigmoid colon. Findings suggestive of a colouterine fistula. No findings
suggestive of acute diverticulitis. No fluid within the pelvis.
2. Nonspecific mildly enlarged precarinal lymph node within the chest.
3. Focal calcified dissection flap within the distal abdominal aorta which appear to be non- flow-limiting.
Echo: 12/14/24. Left ventricle is normal in size with moderately reduced systolic function and global hypokinesis. LVEF 34%.
2. Moderate concentric left ventricular hypertrophy.
3. Biatrial enlargement.
4. Low-flow low gradient aortic stenosis (peak/mean 21/10 mmHg, CARLOS 0.95 cm², DVI 0.37).
5. Moderate mitral regurgitation.
6. Mild to moderate tricuspid regurgitation. PASP 29 mmHg.
7. Pleural effusion present
8. No prior study available for comparison.
PFT's:
Reports and relevant images were personally reviewed.
Total time spent on this consultation __51__ minutes which includes review of history, physical exam, medications, laboratory data, personal review of imaging, extensive review of outpatient records, discussion with care team and respiratory therapy.
Subjective Data
-
Date of Service:
Date of Service: December 15, 2024
Chief Complaint: Pulmonary Follow Up
Subjective:
Feeling better, stable on RA
No new complaints
Family at bedside
Objective Data
Data Reviewed
Vital Signs / I&O / Oxygen:
Vital Signs
Temp Pulse Resp BP Pulse Ox
98.7 F 93 17 124/62 98
12/15/24 07:00 12/14/24 22:00 12/14/24 22:00 12/14/24 22:00 12/15/24 02:19
Intake and Output
12/14/24 12/15/24 12/16/24
06:59 06:59 06:59
Intake Total 1540 / 1540 180 / 180
Output Total 2318 / 2318 2069 / 2069
Balance -778 / -778 -1890 / -1890
SaO2 [A/C] 100
SaO2 98
Nasal Cannula flow liters per 2
minute
Physical Exam
General: Comfortable and Other (NAD)
HEENT: Normocephalic, Anicteric and Moist Mucous Membranes
Cardiovascular: S1-S2 and Regular Rhythm
Respiratory: Clear and Non-Labored Respirations
GI: Soft, Non Distended, Tender (around incisions) and Other (TANK drain, ostomy, incision noted)
Neurology: Awake, Alert, Oriented and No Motor Deficits
Skin: Warm, Dry and Good Color
Labs/Micro/Reports
Lab Data
12/15/24 06:00
12/15/24 06:00
Microbiology
12/08/24 17:39 Abdomen Wound Culture - Final
No growth
12/08/24 17:39 Abdomen Gram Stain - Final
12/08/24 17:39 Abdomen Anaerobic Culture - Final
NO ANAEROBES ISOLATED
[2024-12-15] MEDS: NOVOLOG FLEXPEN-LOW RESISTANCE SC ×2 (09:15→17:57)
[2024-12-15] MEDS: CYMBALTA DELAYED RELEASE 30 MG PO (09:20)
[2024-12-15] MEDS: COREG 12.5 MG PO ×2 (09:20→20:09)
[2024-12-15] MEDS: TYLENOL 650 MG PO ×3 (09:20→20:10)
[2024-12-15] MEDS: LASIX 40 MG IV (09:21)
[2024-12-15] MEDS: ZYLOPRIM 100 MG PO (09:21)
[2024-12-15] MEDS: NSS (PRESERVATIVE FREE) 10 ML IV (09:21)
[2024-12-15] MEDS: NAMENDA 10 MG PO (09:22)
[2024-12-15] MEDS: PROTONIX IV 40 MG IV (09:22)
[2024-12-15] MEDS: NAMENDA 5 MG PO ×2 (09:22→20:09)
--- NOTE | 2024-12-15 09:54 | W.PN.ID1 ---
Date of Service
Date of Service: December 15, 2024
Today's Communication
Continue current antibiotics.
Assessment / Plan
POD #12 s/p robotic low anterior sigmoid resection; repair of colovaginal fistula
POD #6 s/p ex lap, loop ileostomy creation
Rising leukocytosis
- ?infection ?reactive.
Thrombocytosis
HTN
CKD stage III
CAD
Sigmoid diverticulitis with colovaginal fistula
HLD
GERD
Gout
Recommendations:
Pelvic fluid culture from 12/08 without growth.
Leukocytosis slightly improved today.
Continue meropenem 500 mg IV q.6 hours (d#3) / vancomycin (dosing per pharmacy) (d#3)
Follow white count and temperature curve. Monitor Vanco levels to prevent nephrotoxicity.
Trend platelet count.
����������������������������������������������������������
Chief Complaint
-: Leukocytosis
Subjective / Review of Systems
Patient seen and examined. Reports feeling well today. Denies specific complaints. Denies abdominal pain.
Review of Systems: No Fever and No Chills
Vital Signs / Physical Exam
Vital Signs
Vital Signs
Temp Pulse Resp BP Pulse Ox
98.7 F 93 17 124/62 98
12/15/24 07:00 12/14/24 22:00 12/14/24 22:00 12/14/24 22:00 12/15/24 02:19
Physical Exam
Constitutional: No Acute Distress, Comfortable, Chronically Ill and Non-toxic
Eyes: Sclera Anicteric
Cardiovascular: Regular Rate and S1/S2; Negative S3/S4
Pulmonary: Clear and Non Labored; Negative Wheezes or Rales
Gastrointestinal: Soft and Tender
Extremities: Edema (Trace); Negative Cyanosis or Erythema
Skin: Warm and Dry
Neurological: Awake and Alert
Psychological: Calm
Objective Data
Lab Data
Lab Results
12/15/24 06:00
12/15/24 06:00
PT 16.4 Sec (11.4-14.6) H 12/09/24 20:40
INR 1.29 12/09/24 20:40
APTT 33.0 Sec (23.4-35.0) 12/09/24 20:40
Estimated Creat Clear 40 ml/min 12/15/24 06:00
Total Bilirubin 0.6 mg/dl (0.2-1.3) 12/12/24 03:28
AST 22 U/L (14-36) 12/12/24 03:28
ALT 14 U/L (0-35) 12/12/24 03:28
Alkaline Phosphatase 76 U/L (38-126) 12/12/24 03:28
Most recent labs reviewed.
Micro Results:
12/08/24 17:39 Wound Culture - Final
Abdomen No growth
Gram Stain - Final
12/08/24 17:39 Anaerobic Culture - Final
Abdomen NO ANAEROBES ISOLATED
Imaging:
12/12/2024 CT chest abdomen pelvis with IV contrast: mild to moderate bilateral pleural effusions with adjacent atelectasis. Additional scattered ground glass opacities are noted, which are nonspecific. Postoperative changes with a persistent
collection in the presacral space which extends from the posterior aspect of the colonic anastomotic staple line. There is gas contrast within this collection suspicious for persistent anastomotic leak, although retained extravasated contrast from
prior examination is possible. There is percutaneous surgical drain tip adjacent to the collection. There is decreased size of the mild heterogeneous lesion within the right hemipelvis which likely represents a resolving postoperative hematoma.
Please see full dictation for additional detail.
--- NOTE | 2024-12-15 10:28 | W.PN.CD ---
Today's Communication / Plan
-
titrate diovan for BP and eventually can change to Entresto
repeat echo today
Impression / Plan
-
Colovaginal fistula:
-s/p cystoscopy with insertion of bilateral ureteral stents, robotic low anterior resection with takedown of splenic flexure and intracorporeal anastomosis, flexible sigmoidoscopy and robotic repair of vagina and bilateral oophorectomy, 12/02/24
-on IV ABX, ID on the case
-management per surgery teams
Vsbbn-ol-duwcavw HFrEF:
-weight up, BLE edema (thighs feel heavy, edema is noted)
-in setting of held lasix, and multiple liters of IVF and units of PRBC's given (due to sepsis and anemia), and also post-op status
-Echo 12/14/24 showed left ventricle is normal in size with moderately reduced systolic function and global hypokinesis. LVEF 34%. Moderate concentric left ventricular hypertrophy. Biatrial enlargement. Low-flow low gradient aortic stenosis
(peak/mean 21/10 mmHg, CARLOS 0.95 cm², DVI 0.37). Moderate mitral regurgitation. Mild to moderate tricuspid regurgitation. PASP 29 mmHg. Pleural effusion present.
-agree with IV lasix, which requires intensive monitoring
-obtain previous echo
CM:
-type unknown
-in setting of acute illness
-obtain previous echo- which I personally called and requested
-continue Coreg. Will add low dose ARB. No SGLT2I with active infection at this time. GDMT as able and appropriate post-op.
Aortic stenosis:
-volume plan as above
-obtain previous echo
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
CAD with hx mid LAD stent 2020:
-has been off aspirin since 12/08/24- need to resume
-continue BB. Resume statin.
-her CP is atypical in that it is worse with palpation
pSVT:
-brief, asymptomatic
-continue Coreg
-follow telemetry
Physical Exam
Vital Signs/Labs
Vital Signs
Temp Pulse Resp BP Pulse Ox
98.7 F 93 17 124/62 98
12/15/24 07:00 12/14/24 22:00 12/14/24 22:00 12/14/24 22:00 12/15/24 02:19
12/14/24 12/15/24 12/16/24
06:59 06:59 06:59
Actual Weight 77.383 kg 75.8 kg
12/15/24 06:00
12/15/24 06:00
PT 16.4 Sec (11.4-14.6) H 12/09/24 20:40
INR 1.29 12/09/24 20:40
APTT 33.0 Sec (23.4-35.0) 12/09/24 20:40
Magnesium 1.7 mg/dl (1.6-2.3) 12/13/24 07:08
Triglycerides 111 mg/dl (10-149) 12/08/24 20:53
12/14/24
07:38
Nka-M-Fermassbuwg Pept > 20780
Physical Exam
Constitutional: No acute distress
Cardiovascular: Rhythm & rate is regular
Respiratory: Wheeze Absent and Rhonchi Absent
GI: Soft and Other (post op)
Neuro/Psych: Alert
Data Reviewed
-
Date of Service: December 15, 2024
Medical Decision Making: Reviewed Test Results
EKG: Report Reviewed by me
X-Ray/CT/US/MRI/NUC/PET: Report Reviewed by me
Medical Tests (PFT, Pathology etc): Report Reviewed by me
Labs: Labs Reviewed by me
--- NOTE | 2024-12-15 11:36 | PHA.VAN.FU ---
Vancomycin Assessment / Plan
- Assessment
Renal Function: SCR Increasing (Scr 1-->1.1)
WBC's are: Trending Down
In the past 24 hrs, patient has been: Afebrile
Concomitant Antimicrobials: Meropenem
- Dosing Plan
Continue: Vancomycin 1000mg IV Q24h
- Monitoring Plan
Peak Level: 12/16 0900- after 3rd dose of vanc 1g Q24h
Trough Level: 12/17 0530- prior to 4th dose
- Follow Up
Pharmacy will continue to follow.
Vancomycin Follow UP
- -
Patient Age: 78
Patient Sex: Female
Vancomycin Day #: 3
Indication: Gi / Intra-Abdominal
Requesting Provider: Dr. Florence
Pertinent Antimicrobial Allergies:
no pertinent antibiotic allergies
Height / Weight:
Height 5 ft 3 in
Actual Weight 75.8 kg
Pertinent Past Medical History: CKD Stage III
- Vital Signs / Lab Results
Temp Pulse Resp BP Pulse Ox
98.2 F 93 17 124/62 98
12/15/24 11:14 12/14/24 22:00 12/14/24 22:00 12/14/24 22:00 12/15/24 02:19
Lab Results - Hematology
12/13/24 12/14/24 12/15/24
07:08 07:38 06:00
WBC 19.1 H 18.9 H 16.2 H
Lab Results - Chemistry
12/13/24 12/14/24 12/15/24
07:08 07:38 06:00
BUN 14 12 16
Creatinine 1.0 1.0 1.1 H
Estimated Creat Clear 45 44 40
Microbiology Results
12/08/24 17:39 Wound Culture - Final
Abdomen No growth
Gram Stain - Final
12/08/24 17:39 Anaerobic Culture - Final
Abdomen NO ANAEROBES ISOLATED
[2024-12-15 11:43] LABS: Glucose - Point of Care 174 mg/dl (70-99)
--- NOTE | 2024-12-15 12:17 | WOUNDNOTE ---
[facility]
Call supply company (list in folder provided) for monthly Ostomy supplies after discharge (ask VN to order supplies while on service).
Follow up with surgeon.
Call [facility] RN nurse for ostomy pouching concerns or leakage problems [phone] or [phone] or [phone].
[2024-12-15] MEDS: LOW STRENGTH ASPIRIN 81 MG PO (12:19)
[2024-12-15] MEDS: NOVOLOG FLEXPEN-LOW RESISTANCE 1 UNITS SC (12:19)
--- NOTE | 2024-12-15 14:52 | WOUNDNOTE ---
[facility] RN NOTE: Patient visited for ostomy care and teaching. Eldest daughter would like to be present for appliance change and she is not available until tomorrow, 12/16. Pouch was emptied for daughter who is present today. Appropriate questions were
asked and answered by both daughter and patient. Appliance is currently dry and and intact, last changed 12/12. No leaking noted. All ostomy supplies at bedside. Will continue to follow with patient and family for ostomy teaching. Plan is for SNF.
--- NOTE | 2024-12-15 16:57 | PTCARENOTE ---
Patient reports feeling better today and well rested after getting more sleep last night. Tolerating low res diet. VSS. On RA. Patient with no complaints. Had 1 rectal discharge with blood clots when transferring from chair to bed. Ileostomy CDI, TANK
drains CDI, see documentation. Patient making needs known, will continue to closely monitor.
[2024-12-15 17:21] LABS: Glucose - Point of Care 115 mg/dl (70-99)
[2024-12-15] MEDS: LIPITOR 80 MG PO (18:26)
[2024-12-15] MEDS: SYMBICORT 160/4.5 MCG INHALER 2 PUFF INH (19:47)
[2024-12-15] MEDS: DIOVAN 40 MG PO (20:09)
[2024-12-15] MEDS: PROTONIX 40 MG PO (20:10)
[2024-12-15] MEDS: DILAUDID 0.25 MG IV (21:57)
[2024-12-15 23:12] LABS: Glucose - Point of Care 121 mg/dl (70-99)
[2024-12-16] VITALS (9 sets, daily range): BP systolic 112–143; BP diastolic 63–113; BMI 29.3
[2024-12-16] MEDS: TYLENOL PO (00:04)
[2024-12-16] MEDS: TYLENOL 650 MG PO ×5 (03:46→20:07)
[2024-12-16 04:01] LABS: Hematocrit 29.6 % (37.0-47.0); Hemoglobin 9.6 g/dL (12.0-16.0); Mean Corp Hgb Conc. 32.4 g/dL (33.0-37.0); Mean Corpuscular Volume 87.6 fL (81.0-99.0); Platelet Count 432 10^3/uL (130-400); Red Cell Dist. Width 17.4 % (11.5-14.5)
[2024-12-16 04:50] LABS: Blood Urea Nitrogen 17 mg/dl (7-17); Calcium 7.9 mg/dl (8.4-10.2); Carbon Dioxide 24 mmol/L (22-30); Chloride 108 mmol/L (98-107); Estimated Creatinine Clearance 44 ml/min; Glucose 105 mg/dl (70-99); Potassium 4.0 mmol/L (3.5-5.1); Sodium 134 mmol/L (135-145); eGFR 56.95
[2024-12-16] MEDS: VANCOCIN 200 IV (05:45)
[2024-12-16] MEDS: MERREM 500 MG IV ×3 (05:46→21:39)
[2024-12-16] MEDS: STERILE WATER FOR INJECTION 10 ML IV ×3 (05:46→21:36)
--- NOTE | 2024-12-16 07:50 | W.PN.HOSP.TC ---
Today's Communication/Plan
-
see A/P
Assessment / Plan
Assessment / Plan
A/P:
# s/p Colorectal resection for pelvic abscess/colovaginal fistula from diverticulitis
s/p repeat OR 12/08/24 for anastomotic leak, with ostomy formation
Follow up CT AP 12/12 showed no acute findings. Persistent collection by anastomosis, resolving RLQ collection.
Ertapenem -> Merrem and vancomycin per ID
# Likely septic shock following repeat OR 12/08
was intubated, extubated 12/09/24
off pressors, out of ICU
# Acute blood loss anemia post op
s/p 3 units PRBC transfusion so far
s/p TXA since skin site oozing
noted rectal bleeding again 12/14, Monitor Hgb closely
considering adding back Lovenox SQ soon for DVT ppx if rectal bleeding resolves
# SOB with wheezing due to acute on chronic systolic heart failure, resolved
# Acute hypoxic resp insufficiency, resolved
Placed on 2L NC for comfort, weaned back to RA
CXR 12/14 showed progressed mild to moderate diffuse interstitial prominence may reflect pulmonary interstitial edema and/or pneumonitis
Echo 12/14 showed moderately reduced systolic function and global hypokinesis, LVEF 34%. Low-flow low gradient aortic stenosis, Moderate mitral regurgitation.
Cont IV Lasix now 40 mg daily
Cont Duoneb ATC and PRN
Check CXR today 12/16
s/p Decadron 2 mg IV x1
d dimer high but VQ scan showed low probability and BL US neg for DVT
Card on board
Pulm on board
# MANINDER , resolved
ruled out CKD
Cr at 1.0 today
Monitor SCr
# Hyponatremia,
Mild, monitor
# Hypocalcemia
monitor
# Essential hypertension/CAD
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
Continue INSPECTOR AND SORTER aspirin, atorvastatin
DVT proph: SCD, considering adding back Lovenox SQ soon if rectal bleeding resolves
code status, FULL CODE
DW daughter on the phone
Anticipated Discharge: > 48 hours
Subjective/Interval History
-
Date of Service: December 16, 2024
Objective Data
-
Labs:
Laboratory Results
12/16/24
03:51
WBC 13.2 H
Hgb 9.6 L
Hct 29.6 L
Plt Count 432 H
Sodium 134 L
Potassium 4.0
Chloride 108 H
Carbon Dioxide 24
BUN 17
Creatinine 1.0
Glucose 105 H
Calcium 7.9 L
Vital Signs:
Vital Signs
Temp Pulse Resp BP Pulse Ox
37.0 C 78 14 127/113 99
12/16/24 03:00 12/16/24 06:00 12/16/24 06:00 12/16/24 06:00 12/16/24 06:00
I&O
12/15/24 12/16/24 12/17/24
06:59 06:59 06:59
Intake Total 180 / 180 480 / 480
Output Total 2069 2402 / 2402
Balance -1889 / -1889 -1921 / -1921
Review of Systems
-
History Source: Patient
All other systems: Reviewed and negative
Respiratory: Denies Trouble Breathing or Wheezing
Physical Exam
-
General: Well Developed, Well Nourished, No Apparent Distress, Comfortable, Conversant and Appears Chronically Ill
HEENT: Normocephalic and Atraumatic; Negative Oxygen
Respiratory: Clear to Auscultation and Non Labored Respirations; Negative Wheezes or Accessory Resp Muscle Use
Cardiac: Regular Rhythm and S1/S2
GI: Soft, Nondistended, Ostomy and Other (Abd drain )
Genito-urinary: Ang
Musculoskeletal: No Clubbing and No Cyanosis
Skin: Warm
Neuro: Awake and Alert
Psych: Calm and Intact Judgement/Insight
Data Reviewed
-
Diagnostic Radiology: Report Reviewed by me
CT Scan: Report Reviewed by me
Medical Tests (Nuc Med, Echo etc): Report Reviewed by me (echo), Discussed with Patient and Discussed with Family
Labs: Labs Reviewed by me
[2024-12-16] MEDS: SYMBICORT 160/4.5 MCG INHALER 2 PUFF INH ×2 (07:57→19:35)
[2024-12-16 08:02] LABS: Glucose - Point of Care 148 mg/dl (70-99)
[2024-12-16] MEDS: NOVOLOG FLEXPEN-LOW RESISTANCE SC ×3 (08:13→17:38)
[2024-12-16] MEDS: PROTONIX 40 MG PO ×2 (08:14→20:08)
[2024-12-16] MEDS: NAMENDA 5 MG PO ×2 (08:14→20:08)
[2024-12-16] MEDS: CYMBALTA DELAYED RELEASE 30 MG PO (08:14)
[2024-12-16] MEDS: LASIX IV (08:15)
[2024-12-16] MEDS: NAMENDA PO ×2 (08:15)
[2024-12-16] MEDS: ZYLOPRIM 100 MG PO (08:15)
[2024-12-16] MEDS: COREG 12.5 MG PO ×2 (08:16→20:08)
[2024-12-16] MEDS: DIOVAN 40 MG PO (08:16)
[2024-12-16] MEDS: LOW STRENGTH ASPIRIN 81 MG PO (08:16)
[2024-12-16] MEDS: LASIX 40 MG IV (08:49)
--- NOTE | 2024-12-16 08:58 | W.PN.CD ---
Today's Communication / Plan
-
-Continue Lasix 40 IV Daily, which requires intensive monitoring.
-Continue Coreg to 12.5 BID.
-Will decrease Valsartan to 40 mg daily (to avoid hypotension) and to allow room for spironolactone.
-Will start spironolactone 12.5 daily.
Impression / Plan
-
Colovaginal fistula:
-s/p cystoscopy with insertion of bilateral ureteral stents, robotic low anterior resection with takedown of splenic flexure and intracorporeal anastomosis, flexible sigmoidoscopy and robotic repair of vagina and bilateral oophorectomy, 12/02/24
-Continue IV ABX, ID following.
-Continue management as per surgery teams.
Cvttn-fs-wvgdiay HFrEF (EF 30-35%):
-weight up, BLE edema (thighs feel heavy, edema is noted)
-in setting of held lasix, and multiple liters of IVF and units of PRBC's given (due to sepsis and anemia), and also post-op status
-Echo 12/14/24 showed left ventricle is normal in size with moderately reduced systolic function and global hypokinesis. LVEF 34%. Moderate concentric left ventricular hypertrophy. Biatrial enlargement. Low-flow low gradient aortic stenosis
(peak/mean 21/10 mmHg, CARLOS 0.95 cm², DVI 0.37). Moderate mitral regurgitation. Mild to moderate tricuspid regurgitation. PASP 29 mmHg. Pleural effusion present.
-Continue Lasix 40 IV Daily, which requires intensive monitoring.
-Continue Coreg to 12.5 BID.
-Will decrease Valsartan to 40 mg daily (to avoid hypotension) and to allow room for spironolactone.
-Will start spironolactone 12.5 daily.
-No SGLT2I with active infection at this time (colovaginal fistula).
-No ARNI secondary to BP limitations.
Aortic stenosis:
-Moderate; stable.
-obtain previous echo
-OP management with primary Flat Breakdown Processor
CAD with hx mid LAD stent 2020:
-has been off aspirin since 12/08/24; aspirin resumed
-continue BB.
-Atorvastatin esumed.
pSVT:
-brief, asymptomatic
-continue Coreg
-follow telemetry
Physical Exam
Vital Signs/Labs
Vital Signs
Temp Pulse Resp BP Pulse Ox
98.4 F 82 18 127/113 98
12/16/24 07:25 12/16/24 08:01 12/16/24 08:01 12/16/24 06:00 12/16/24 08:01
12/15/24 12/16/24 12/17/24
06:59 06:59 06:59
Actual Weight 75.8 kg 75 kg
12/16/24 03:51
12/16/24 03:51
PT 16.4 Sec (11.4-14.6) H 12/09/24 20:40
INR 1.29 12/09/24 20:40
APTT 33.0 Sec (23.4-35.0) 12/09/24 20:40
Magnesium 1.7 mg/dl (1.6-2.3) 12/13/24 07:08
Triglycerides 111 mg/dl (10-149) 12/08/24 20:53
12/14/24
07:38
Zhu-E-Tqkmsnzvqox Pept > [id number]
Physical Exam
Constitutional: No acute distress and Comfortable
EENT: Anicteric
Cardiovascular: Rhythm & rate is regular, Pedal edema present (trace), Systolic murmur present (2-3/6) and S1S2 is normal
Respiratory: Respiratory effort normal and Lungs clear to auscul.
GI: Soft
Neuro/Psych: AO x 3
Other: Skin (warm, dry)
Data Reviewed
-
Date of Service: December 16, 2024
EKG: Tracing Personally Visualized and interpreted (Telemetry: Sinus rhythm)
Echo: Report Reviewed by me (EF 30-35%)
Medical Tests (PFT, Pathology etc): Discussed with Nurse
Labs: Labs Reviewed by me
--- NOTE | 2024-12-16 09:04 | W.PN.PUL3 ---
Today's Communication / Plan
-
Doing well on inhalers, to continue at discharge
Outpatient FU recommended and placed in chart
Further postop care per team
We will sign off at this time, please call with questions
Assessment
-
78-year-old F with PMHx of colovaginal fistula, HTN, HLD, GERD, CAD and CKD who presented with elective low anterior resection. She is known to the Colorectal surgery team with last visit on 10/13/[address] Cristobal. Given her colovaginal fistula
and left-sided hydronephrosis with increased risk of infection/sepsis, she agreed to surgery. On 12/02/2024 she underwent bilateral ureteral stent insertion, robotic assisted low anterior resection with takedown of splenic flexure with intracorporeal
anastomosis, flex-sigmoidoscopy, and robotic repair of vaginal fistula and bilateral oophorectomy. She was managed on the floor on ABx. Her ureteral stents were then removed. She required 1 unit PRBC on 12/03 + 12/04. Her diet was advanced, however
she developed worsening leukocytosis beginning 12/08, and CT abd/pelvis on 12/08 showed s/p LAR with small focus of contrast in posterior pelvis/presacral space suspicious for a postoperative anastomotic leak. She was brought back to the OR on 12/08
for an ex-lap with loop ileostomy creation and flex-sigmoidoscopy. She remained intubated and was TRX to ICU for further care. Machinist Outside service consulted for additional management/recommendations. Extubated 12/09/24 and transferred to floors.
We are asked for re-eval on 12/14/24 for wheezing.
Wheezing
AE asthma
Volume overload, pleural effusions
Pelvic anastomotic leak s/p ex lap with loop ileostomy creation + flexible sigmoidoscopy 12/08/24
Postoperative mechanical ventilation --> extubated on 12/09
Acute post-operative anemia in setting of chronic anemia
Colovaginal fistula with left ureteral obstruction s/p cystoscopy with bilateral ureteral stent insertion, robotic assisted low anterior resection with takedown of splenic flexure with intracorporeal anastomosis, flexible sigmoidoscopy and robotic
repair of vaginal fistula and bilateral oophorectomy (OR date: 12/02/2024)
Leukocytosis
Hyponatremia
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
sigmoid diverticulitis with colovaginal fistula
hyperlipidemia
hypertension
GERD
CKD stage 3 (baseline Cr: 1.1-1.2)
coronary artery disease s/p stent
percutaneous drainage diverticular abscess 05/2024
spinal stimulator
hysterectomy
cholecystectomy
cataract
ER visit-Divert. flare 05/2024
ER visit- Low BP 07/2024
Plan
No oxygen was needed on admission, currently saturating >90% on RA
Intubated for procedure, extubated 12/09/24
Prior history of lung disease is noted including asthma (lifelong), former smoker
Has not had PFTs in years, does not follow with pulmonary as OP
Has run out of Breo several months prior
Symbicort added PRN, will change this to scheduled--should be continued as OP
She is doing well with this, we will arrange OP FU
Suspect patient has AE asthma, already improved with neb treatment
Repeat CXR showing basilar pleural effusion, which was also noted on CT imaging
Can r/o CHF as a contributor
Check proBNP-- >18114
ECHO showing new reduced EF, unknown prior EF
Cards eval noted
Smoking history noted-- 25 PY noted, quit in her 40s
Could contribute to lung disease
Check d-dimer--elevated
VQ scan 12/14 negative
PT/OT evals ongoing
Eventual plan for discharge per team
Diagnostic Data
Chest X-Ray: 12/14/24- Mild to moderate diffuse interstitial prominence may reflect pulmonary interstitial edema and/or pneumonitis, progressed.
12/13/24- Small bilateral pleural effusions, left greater than right. Slightly prominent pulmonary interstitial markings, findings could represent interstitial edema or pneumonitis. No pneumothorax.
CT Scan: CHEST 12/12/24. Mild/moderate bilateral pleural effusions with adjacent atelectasis. There are additional scattered groundglass opacities which are nonspecific although may represent mild edema or less likely pneumonia.
2. Postoperative changes with a persistent collection in the presacral space which extends from the posterior aspect of the colonic anastomotic staple line. There is gas and contrast within the collection suspicious for persistent anastomotic leak
although retained extravasated contrast from prior examination is possible. There is percutaneous surgical drain with tip adjacent to the collection.
3. Decreased size of the mild heterogeneous lesion within the right hemipelvis which likely represents a resolving postoperative hematoma.
CHEST 11/23/24. Severe sigmoid diverticulosis with small amount of gas seen within the uterine fundus which abuts and is inseparable from the inferior margin of the distal sigmoid colon. Findings suggestive of a colouterine fistula. No findings
suggestive of acute diverticulitis. No fluid within the pelvis.
2. Nonspecific mildly enlarged precarinal lymph node within the chest.
3. Focal calcified dissection flap within the distal abdominal aorta which appear to be non- flow-limiting.
Echo: 12/14/24. Left ventricle is normal in size with moderately reduced systolic function and global hypokinesis. LVEF 34%.
2. Moderate concentric left ventricular hypertrophy.
3. Biatrial enlargement.
4. Low-flow low gradient aortic stenosis (peak/mean 21/10 mmHg, CARLOS 0.95 cm², DVI 0.37).
5. Moderate mitral regurgitation.
6. Mild to moderate tricuspid regurgitation. PASP 29 mmHg.
7. Pleural effusion present
8. No prior study available for comparison.
PFT's:
Reports and relevant images were personally reviewed.
Total time spent on this consultation __45__ minutes which includes review of history, physical exam, medications, laboratory data, personal review of imaging, extensive review of outpatient records, discussion with care team and respiratory therapy.
Subjective Data
-
Date of Service:
Date of Service: December 16, 2024
Chief Complaint: Pulmonary Follow Up
Subjective:
No new complaints, stable on RA
Pain on her abd ongoing
Objective Data
Data Reviewed
Vital Signs / I&O / Oxygen:
Vital Signs
Temp Pulse Resp BP Pulse Ox
98.4 F 82 18 127/113 98
12/16/24 07:25 12/16/24 08:01 12/16/24 08:01 12/16/24 06:00 12/16/24 08:01
Intake and Output
12/15/24 12/16/24 12/17/24
06:59 06:59 06:59
Intake Total 180 / 180 480 / 480
Output Total 2069 / 2069 2402 / 240
Balance -1889 / -1889 -1921 / -1921
SaO2 [A/C] 100
SaO2 98
Nasal Cannula flow liters per 2
minute
Physical Exam
General: Comfortable and Other (NAD)
HEENT: Normocephalic, Anicteric and Moist Mucous Membranes
Cardiovascular: S1-S2 and Regular Rhythm
Respiratory: Clear and Non-Labored Respirations
GI: Soft, Non Distended, Tender (around incisions) and Other (TANK drain, ostomy, incision noted)
Neurology: Awake, Alert, Oriented and No Motor Deficits
Skin: Warm, Dry and Good Color
Labs/Micro/Reports
Lab Data
12/16/24 03:51
12/16/24 03:51
Microbiology
12/08/24 17:39 Abdomen Wound Culture - Final
No growth
12/08/24 17:39 Abdomen Gram Stain - Final
12/08/24 17:39 Abdomen Anaerobic Culture - Final
NO ANAEROBES ISOLATED
--- NOTE | 2024-12-16 09:38 | W.PN.CRS1 ---
Addendum entered and electronically signed by Pepe Guan MD 12/16/24 09:49:
Will also DC Briceno today, monitor for void
Original Note:
Today's Communication / Plan
-
As below
Assessment/Plan
-
POD# 14 from a cystoscopy with insertion of bilateral ureteral stents, robotic low anterior resection with takedown of the splenic flexure and intracorporeal anastomosis, flexible sigmoidoscopy and robotic repair of a colovaginal fistula with
bilateral oophorectomy
POD# 8 1) exploratory laparotomy 2) loop ileostomy creation 3) flexible sigmoidoscopy
AFVSS, UOP 1.9 L
WBC 13.2 from 16.2, Hb stable, CR 1.0
-Continue to low residue with Ensure
�Continue pain control; will transition to tramadol as needed; Tylenol ATC
-Lovenox for DVT PPx
- Appreciate WOCN for ostomy care and education; daily packing change
�Maintain TANK drains until DC
- OOB as tolerated. PT/OT ordered.
�Will need SNF on DC
- Appreciate ID consult - vanco/merrem
-Appreciate dairy inspector -continue asthma treatment
�Appreciate cardiology�continue Lasix, changes to antihypertensives
�Appreciate hospitalist
Dispo�hopefully ready for DC to rehab soon once medically clear
Subjective Data
Subjective Data
Date of Service: December 16, 2024
No overnight events.
Pain controlled.
Denies nausea/vomiting. Tolerating diet.
+ Ostomy function +briceno
Objective Data
-
Vital Signs
Temp Pulse Resp BP Pulse Ox
98.4 F 82 18 127/113 98
12/16/24 07:25 12/16/24 08:01 12/16/24 08:01 12/16/24 06:00 12/16/24 08:01
Intake & Output
09/12/16/24 12/17/24
06:59 06:59 06:59
Intake Total 180 / 180 480 / 480
Output Total 2069 / 2401
Balance -1889 / -1889 -1921 /
Intake:
Oral fluids 180 / 180 480 / 480
Output:
Liquid stool amount 125 / 125 250 / 250
Ileostomy 125 / 125 250 / 250
Drain Output (Total) 245 / 245 252 / 252
Left Abdomen Tyrone-Noriega 210 / 210 235 / 235
Right Tyrone-Noriega 35 / 35 17 / 17
Urine, Briceno 1450 / 1450 1900 / 1900
Urine, Voided 250 / 250
Lab Results
12/16/24 03:51
12/16/24 03:51
Physical Exam
-
General: No Acute Distress and AOx3
HEENT: Grossly Normal
Abdomen: Soft, Non Distended, Non Tender, No Guarding, No Rebound and Other (ostomy pink and productive of stool; right TANK-17 mL dark fluid, left TANK 235 mL serous)
Neurological: Other (No gross deficits)
Skin: Warm and Dry
Wound: No Signs of Infection, No Skin Erythema and Other (Midline incision with 4 cm superior aspect open, clean with serous drainage, packing changed)
--- NOTE | 2024-12-16 10:30 | PHA.VAN.FU ---
Vancomycin Assessment / Plan
- Assessment
Renal Function: Stable
WBC's are: Trending Down
In the past 24 hrs, patient has been: Afebrile
Concomitant Antimicrobials: MEROPENEM
- Dosing Plan
Continue: VANCO 1G Q24H
- Monitoring Plan
Peak Level: 12/16 @0934 - 24.6
Trough Level: 12/17 @0530 - PENDING
- Follow Up
Pharmacy will continue to follow.
Vancomycin Follow UP
- -
Patient Age: 78
Patient Sex: Female
Vancomycin Day #: 4
Indication: Gi / Intra-Abdominal
Requesting Provider: Dr. Florence
Pertinent Antimicrobial Allergies:
no pertinent antibiotic allergies
Height / Weight:
Height 5 ft 3 in
Actual Weight 75 kg
Pertinent Past Medical History: CKD Stage III
- Vital Signs / Lab Results
Temp Pulse Resp BP Pulse Ox
98.4 F 82 18 127/113 98
12/16/24 07:25 12/16/24 08:01 12/16/24 08:01 12/16/24 06:00 12/16/24 08:01
Lab Results - Hematology
12/14/24 12/15/24 12/16/24
07:38 06:00 03:51
WBC 18.9 H 16.2 H 13.2 H
Lab Results - Chemistry
12/14/24 12/15/24 12/16/24
07:38 06:00 03:51
BUN 12 16 17
Creatinine 1.0 1.1 H 1.0
Estimated Creat Clear 44 40 44
Therapeutic Drug Monitoring
Vancomycin Peak 24.6 ug/ml (-) 12/16/24 09:34
--- NOTE | 2024-12-16 10:44 | W.PN.ID1 ---
Date of Service
Date of Service: December 16, 2024
Today's Communication
Continue antibiotics.
Assessment / Plan
POD #12 s/p robotic low anterior sigmoid resection; repair of colovaginal fistula
POD #6 s/p ex lap, loop ileostomy creation
Rising leukocytosis
- ?infection ?reactive.
Thrombocytosis
HTN
CKD stage III
CAD
Sigmoid diverticulitis with colovaginal fistula
HLD
GERD
Gout
Recommendations:
Pelvic fluid culture from 12/08 without growth.
Leukocytosis with continued improvement
Continue meropenem 500 mg IV q.6 hours (d#4) / vancomycin (dosing per pharmacy) (d#4)
Follow white count and temperature curve. Monitor Vanco levels to prevent nephrotoxicity.
Trend platelet count.
����������������������������������������������������������
Chief Complaint
-: Leukocytosis
Subjective / Review of Systems
Review of Systems: No Fever and No Chills
Vital Signs / Physical Exam
Vital Signs
Vital Signs
Temp Pulse Resp BP Pulse Ox
98.4 F 82 18 127/113 98
12/16/24 07:25 12/16/24 08:01 12/16/24 08:01 12/16/24 06:00 12/16/24 08:01
Physical Exam
Constitutional: No Acute Distress, Comfortable, Chronically Ill and Non-toxic
Eyes: Sclera Anicteric
Cardiovascular: Regular Rate and S1/S2; Negative S3/S4
Pulmonary: Clear and Non Labored; Negative Wheezes or Rales
Gastrointestinal: Soft, Tender and Other (Left TANK with serous drainage. Right TANK with scant bloody drainage.)
Extremities: Edema (Trace); Negative Cyanosis or Erythema
Skin: Warm and Dry
Neurological: Awake and Alert
Psychological: Calm
Objective Data
Lab Data
Lab Results
12/16/24 03:51
12/16/24 03:51
PT 16.4 Sec (11.4-14.6) H 12/09/24 20:40
INR 1.29 12/09/24 20:40
APTT 33.0 Sec (23.4-35.0) 12/09/24 20:40
Estimated Creat Clear 44 ml/min 12/16/24 03:51
Total Bilirubin 0.6 mg/dl (0.2-1.3) 12/12/24 03:28
AST 22 U/L (14-36) 12/12/24 03:28
ALT 14 U/L (0-35) 12/12/24 03:28
Alkaline Phosphatase 76 U/L (38-126) 12/12/24 03:28
Most recent labs reviewed.
Micro Results:
12/08/24 17:39 Wound Culture - Final
Abdomen No growth
Gram Stain - Final
12/08/24 17:39 Anaerobic Culture - Final
Abdomen NO ANAEROBES ISOLATED
Imaging:
12/12/2024 CT chest abdomen pelvis with IV contrast: mild to moderate bilateral pleural effusions with adjacent atelectasis. Additional scattered ground glass opacities are noted, which are nonspecific. Postoperative changes with a persistent
collection in the presacral space which extends from the posterior aspect of the colonic anastomotic staple line. There is gas contrast within this collection suspicious for persistent anastomotic leak, although retained extravasated contrast from
prior examination is possible. There is percutaneous surgical drain tip adjacent to the collection. There is decreased size of the mild heterogeneous lesion within the right hemipelvis which likely represents a resolving postoperative hematoma.
Please see full dictation for additional detail.
[2024-12-16 12:06] LABS: Glucose - Point of Care 142 mg/dl (70-99)
[2024-12-16] MEDS: ULTRAM 50 MG PO (13:57)
--- NOTE | 2024-12-16 16:13 | CM ---
Following up on Patient. RN stated that patient is out of bed today and may downgrade so not ready.
PT/OT recommended SNF and [facility] is following for Home Care.
PLAN: Home Care vs. SNF
--- NOTE | 2024-12-16 16:31 | WOUNDNOTE ---
WO RN NOTE: Met with patient and daughter for ostomy teaching. This food writer demonstrated pouch emptying. Stoma pink and budded with loop intact. Peristomal skin intact. Pouch changed with Convatec 1 piece (several at bedside). Staff can also use 2
piece system (also at bedside). Midline dressing clean and intact. Patient visiting with several family members, encouraged frequent turning and repositioning while in bed and in chair. Patient tolerating low residue diet. Plan is for SNF. Will
continue to follow for ostomy care and teaching.
[2024-12-16 17:34] LABS: Glucose - Point of Care 78 mg/dl (70-99)
[2024-12-16] MEDS: LIPITOR 80 MG PO (17:37)
[2024-12-16] MEDS: LOVENOX 40 MG SC (17:38)
--- NOTE | 2024-12-16 18:38 | PTCARENOTE ---
Ang removed 1215 today, voiding small amts on bsc. TANK drains x2 emptied twice today see output. Ileostomy with brown liquid- appliance changed by WOC today. OOB x6 hours assist x1 with RW. Midline dressing changed by provider this am , changed
out again this pm. Pleasant, c/o lower abdominal pain 5-8/10 Tylenol atc provided- Ultram given x1 not much relief after 1 hour but better improvement after 1 1/2 hours. Family present this pm. Appreciative of care.
--- NOTE | 2024-12-16 19:07 | PTCARENOTE ---
Has expelled small amt bloody secretions per rectum when getting up today (3x).
[2024-12-16] MEDS: PEPCID 20 MG PO (20:09)
[2024-12-16 22:15] LABS: Glucose - Point of Care 121 mg/dl (70-99)
[2024-12-17] VITALS (14 sets, daily range): BP systolic 110–159; BP diastolic 65–89; BMI 28.6
[2024-12-17] MEDS: TYLENOL 650 MG PO ×7 (00:40→23:49)
--- NOTE | 2024-12-17 01:44 | PTCARENOTE ---
Pt having complaints of indigestion with burping. Pt says she has had this before during this admit. TRACTOR OPERATOR BATTERY made aware, Pepcid ordered. Pt having positive results. Pt has no complaints at this time. Vitals stable at this time. Call linn within reach.
bed in lowest position. Assessment care and vitals as charted.
[2024-12-17] MEDS: VANCOCIN 200 IV (06:23)
[2024-12-17] MEDS: STERILE WATER FOR INJECTION 10 ML IV ×3 (06:24→21:00)
[2024-12-17] MEDS: MERREM 500 MG IV ×3 (06:24→21:00)
[2024-12-17 06:25] LABS: Hematocrit 29.8 % (37.0-47.0); Hemoglobin 9.9 g/dL (12.0-16.0); Mean Corp Hgb Conc. 33.2 g/dL (33.0-37.0); Mean Corpuscular Volume 86.6 fL (81.0-99.0); Platelet Count 456 10^3/uL (130-400); Red Cell Dist. Width 17.6 % (11.5-14.5)
[2024-12-17 06:31] LABS: Blood Urea Nitrogen 17 mg/dl (7-17); Calcium 8.4 mg/dl (8.4-10.2); Carbon Dioxide 27 mmol/L (22-30); Chloride 105 mmol/L (98-107); Estimated Creatinine Clearance 43 ml/min; Glucose 94 mg/dl (70-99); Potassium 4.1 mmol/L (3.5-5.1); Sodium 134 mmol/L (135-145); eGFR 56.95
--- NOTE | 2024-12-17 07:27 | W.PN.CD ---
Today's Communication / Plan
-
Stable tolerating current medical therapy
Respiratory status stable.
Weights trending down
Yunior appears reasonable to transition to oral diuretic tomorrow and then continue to monitor weights
Additional after additional recovery can work to titrate GDMT
And then after discharge with plan for follow-up echo in 3 months . And will also consider outpatient evaluation for CAD/Lexiscan
Impression / Plan
-
Colovaginal fistula:
-s/p cystoscopy with insertion of bilateral ureteral stents, robotic low anterior resection with takedown of splenic flexure and intracorporeal anastomosis, flexible sigmoidoscopy and robotic repair of vagina and bilateral oophorectomy, 12/02/24
-Continue IV ABX, ID following.
-Continue management as per surgery teams.
Wgfnl-co-hvmiuzr HFrEF (EF 30-35%):
-weight up, BLE edema (thighs feel heavy, edema is noted)
-in setting of held lasix, and multiple liters of IVF and units of PRBC's given (due to sepsis and anemia), and also post-op status
-Echo 12/14/24 showed left ventricle is normal in size with moderately reduced systolic function and global hypokinesis. LVEF 34%. Moderate concentric left ventricular hypertrophy. Biatrial enlargement. Low-flow low gradient aortic stenosis
(peak/mean 21/10 mmHg, CARLOS 0.95 cm², DVI 0.37). Moderate mitral regurgitation. Mild to moderate tricuspid regurgitation. PASP 29 mmHg. Pleural effusion present.
-Continue Lasix 40 IV Daily, which requires intensive monitoring.
-Continue Coreg to 12.5 BID.
-Will decrease Valsartan to 40 mg daily (to avoid hypotension) and to allow room for spironolactone.
-Will start spironolactone 12.5 daily.
-No SGLT2I with active infection at this time (colovaginal fistula).
-No ARNI secondary to BP limitations.
Aortic stenosis:
-Moderate; stable.
-obtain previous echo
-OP management with primary Java Solutions Architect
CAD with hx mid LAD stent 2020:
-has been off aspirin since 12/08/24; aspirin resumed
-continue BB.
-Atorvastatin esumed.
pSVT:
-brief, asymptomatic
-continue Coreg
-follow telemetry
Physical Exam
Vital Signs/Labs
Vital Signs
Temp Pulse Resp BP Pulse Ox
98.6 F 82 12 158/84 97
12/17/24 03:47 12/17/24 06:00 12/17/24 06:00 12/17/24 06:00 12/16/24 21:10
12/16/24 12/17/24 12/18/24
06:59 06:59 06:59
Actual Weight 75 kg 73.2 kg
12/17/24 05:47
12/17/24 05:47
PT 16.4 Sec (11.4-14.6) H 12/09/24 20:40
INR 1.29 12/09/24 20:40
APTT 33.0 Sec (23.4-35.0) 12/09/24 20:40
Magnesium 1.7 mg/dl (1.6-2.3) 12/13/24 07:08
Triglycerides 111 mg/dl (10-149) 12/08/24 20:53
12/14/24
07:38
Igx-E-Ererumrvwfn Pept > 70632
Physical Exam
Constitutional: No acute distress
Cardiovascular: Rhythm & rate is regular
Respiratory: Wheeze Absent and Rhonchi Absent
GI: Other (post op)
Neuro/Psych: Alert
Data Reviewed
-
Date of Service: December 17, 2024
Medical Decision Making: Reviewed Test Results
X-Ray/CT/US/MRI/NUC/PET: Report Reviewed by me
Medical Tests (PFT, Pathology etc): Report Reviewed by me
Labs: Labs Reviewed by me
[2024-12-17] MEDS: SYMBICORT 160/4.5 MCG INHALER 2 PUFF INH ×2 (07:51→20:00)
[2024-12-17] MEDS: LOW STRENGTH ASPIRIN 81 MG PO (07:57)
[2024-12-17] MEDS: CYMBALTA DELAYED RELEASE 30 MG PO (07:58)
[2024-12-17] MEDS: ZYLOPRIM 100 MG PO (07:58)
[2024-12-17] MEDS: NAMENDA 5 MG PO ×2 (07:58→19:38)
[2024-12-17] MEDS: PROTONIX 40 MG PO ×2 (07:58→19:38)
[2024-12-17] MEDS: COREG 12.5 MG PO ×2 (07:59→19:38)
[2024-12-17] MEDS: DIOVAN 40 MG PO (07:59)
[2024-12-17] MEDS: ALDACTONE 12.5 MG PO (07:59)
[2024-12-17] MEDS: LASIX 40 MG IV (08:00)
--- NOTE | 2024-12-17 08:09 | PHA.VAN.FU ---
Vancomycin Assessment / Plan
- Assessment
Renal Function: Stable
WBC's are: Trending Down
In the past 24 hrs, patient has been: Afebrile
Concomitant Antimicrobials: MEROPENEM
- Assessment - Therapeutic Drug Monitoring
Extrapolated Cmax (mcg/mL): 25.5
Peak level was drawn: Appropriately
Extrapolated Cmin (mcg/mL): 16.6
Trough Drawn: Appropriately
Levels were drawn: At steady state
Calculated AUC (mcg*h/mL): 498
Calculated ke: 0.0195
Calculated half life (H): 35.6
Calculated Vd (L): 103.15
Calculated Vanc CL (ml/min): 33.45
- Dosing Plan
Adjust Regimen to: DOSE BY LEVEL CONSIDERING PROLONGED T1/2
- Monitoring Plan
Random Level: 12/18 @0600
- Follow Up
Pharmacy will continue to follow.
Vancomycin Follow UP
- -
Patient Age: 78
Patient Sex: Female
Vancomycin Day #: 5
Indication: Gi / Intra-Abdominal
Requesting Provider: Dr. Florence
Pertinent Antimicrobial Allergies:
no pertinent antibiotic allergies
Height / Weight:
Height 5 ft 3 in
Actual Weight 73.2 kg
Pertinent Past Medical History: CKD Stage III
- Vital Signs / Lab Results
Temp Pulse Resp BP Pulse Ox
98.6 F 81 16 153/89 96
12/17/24 03:47 12/17/24 08:00 12/17/24 07:51 12/17/24 08:00 12/17/24 07:51
Lab Results - Hematology
12/15/24 12/16/24 12/17/24
06:00 03:51 05:47
WBC 16.2 H 13.2 H 10.3
Lab Results - Chemistry
12/14/24 12/15/24 12/16/24
07:38 06:00 03:51
BUN 12 16 17
Creatinine 1.0 1.1 H 1.0
Estimated Creat Clear 44 40 44
12/17/24
05:47
BUN 17
Creatinine 1.0
Estimated Creat Clear 43
Therapeutic Drug Monitoring
Vancomycin Peak 24.6 ug/ml (18-26) 12/16/24 09:34
Vancomycin Trough 16.6 ug/ml (5-20) 12/17/24 05:47
[2024-12-17] MEDS: NOVOLOG FLEXPEN-LOW RESISTANCE SC ×3 (08:20→17:18)
[2024-12-17 08:30] LABS: Glucose - Point of Care 115 mg/dl (70-99)
--- NOTE | 2024-12-17 08:58 | W.PN.ID1 ---
Date of Service
Date of Service: December 17, 2024
Today's Communication
Continue antibiotics for today.
Assessment / Plan
POD #12 s/p robotic low anterior sigmoid resection; repair of colovaginal fistula
POD #6 s/p ex lap, loop ileostomy creation
Rising leukocytosis
- ?infection ?reactive.
Thrombocytosis
HTN
CKD stage III
CAD
Sigmoid diverticulitis with colovaginal fistula
HLD
GERD
Gout
Recommendations:
Pelvic fluid culture from 12/08/24 without growth.
Leukocytosis has normalized today.
Continue meropenem 500 mg IV q.6 hours (d#5) / vancomycin (dosing per pharmacy) (d#5)
Follow white count and temperature curve. Monitor Vanco levels to prevent nephrotoxicity.
Trend platelet count.
����������������������������������������������������������
Chief Complaint
-: Leukocytosis
Subjective / Review of Systems
Review of Systems: No Fever, No Chills and No Abdominal Pain
Vital Signs / Physical Exam
Vital Signs
Vital Signs
Temp Pulse Resp BP Pulse Ox
98.6 F 81 16 153/89 96
12/17/24 03:47 12/17/24 08:00 12/17/24 07:51 12/17/24 08:00 12/17/24 07:51
Physical Exam
Constitutional: No Acute Distress, Comfortable, Chronically Ill and Non-toxic
Eyes: Sclera Anicteric
Cardiovascular: Regular Rate and S1/S2; Negative S3/S4
Pulmonary: Clear and Non Labored; Negative Wheezes or Rales
Gastrointestinal: Soft, Tender and Other (Left TANK with serous drainage. Right TANK with scant bloody drainage.)
Extremities: Edema (Trace); Negative Cyanosis or Erythema
Skin: Warm and Dry
Neurological: Awake and Alert
Psychological: Calm
Objective Data
Lab Data
Lab Results
12/17/24 05:47
12/17/24 05:47
PT 16.4 Sec (11.4-14.6) H 12/09/24 20:40
INR 1.29 12/09/24 20:40
APTT 33.0 Sec (23.4-35.0) 12/09/24 20:40
Estimated Creat Clear 43 ml/min 12/17/24 05:47
Total Bilirubin 0.6 mg/dl (0.2-1.3) 12/12/24 03:28
AST 22 U/L (14-36) 12/12/24 03:28
ALT 14 U/L (0-35) 12/12/24 03:28
Alkaline Phosphatase 76 U/L (38-126) 12/12/24 03:28
Most recent labs reviewed.
Micro Results:
12/08/24 17:39 Wound Culture - Final
Abdomen No growth
Gram Stain - Final
12/08/24 17:39 Anaerobic Culture - Final
Abdomen NO ANAEROBES ISOLATED
Imaging:
12/12/2024 CT chest abdomen pelvis with IV contrast: mild to moderate bilateral pleural effusions with adjacent atelectasis. Additional scattered ground glass opacities are noted, which are nonspecific. Postoperative changes with a persistent
collection in the presacral space which extends from the posterior aspect of the colonic anastomotic staple line. There is gas contrast within this collection suspicious for persistent anastomotic leak, although retained extravasated contrast from
prior examination is possible. There is percutaneous surgical drain tip adjacent to the collection. There is decreased size of the mild heterogeneous lesion within the right hemipelvis which likely represents a resolving postoperative hematoma.
Please see full dictation for additional detail.
Care Review
Plan reviewed with: Physician (DANYEL)
[2024-12-17] MEDS: ULTRAM 50 MG PO (10:51)
[2024-12-17 11:12] LABS: Glucose - Point of Care 140 mg/dl (70-99)
--- NOTE | 2024-12-17 12:05 | W.PN.CRS1 ---
Today's Communication / Plan
-
As below
Assessment/Plan
-
POD# 15 from a cystoscopy with insertion of bilateral ureteral stents, robotic low anterior resection with takedown of the splenic flexure and intracorporeal anastomosis, flexible sigmoidoscopy and robotic repair of a colovaginal fistula with
bilateral oophorectomy
POD# 9 1) exploratory laparotomy 2) loop ileostomy creation 3) flexible sigmoidoscopy
AFVSS, UOP 3.5 L (negative balance the last several days)
WBC 10.3 from 13.2, Hb stable, CR 1.0
-Continue to low residue with Ensure
�Continue pain control with tramadol as needed (she was on oxycodone on admission); Tylenol ATC
-Lovenox for DVT PPx
- Appreciate WOCN for ostomy care and education; daily packing change
�Maintain TANK drains until DC
- OOB as tolerated. PT/OT ordered.
�Will need SNF on DC
- Appreciate ID consult - vanco/merrem
-Appreciate casual shoe inspector -continue asthma treatment
�Appreciate cardiology�continue Lasix, changes to antihypertensives
�Appreciate hospitalist
Dispo�hopefully ready for DC to rehab soon once medically clear
Subjective Data
Procedure
12/02/2024 cystoscopy with bilateral ureteral stents, robotic LAR with takedown of splenic flexure and intracorporeal anastomosis, drainage of an intra-abdominal abscess, flexible sigmoidoscopy, robotic repair for vaginal fistula with bilateral
oophorectomy
12/08/2024- 1) exploratory laparotomy 2) loop ileostomy creation 3) flexible sigmoidoscopy
Subjective Data
Date of Service: December 17, 2024
No overnight events.
Pain controlled.
Denies nausea/vomiting. Tolerating low residue diet.
+ Ostomy function
Ang out
Objective Data
-
Vital Signs
Temp Pulse Resp BP Pulse Ox
97.9 F 80 19 125/71 96
12/17/24 11:00 12/17/24 10:00 12/17/24 10:00 12/17/24 10:00 12/17/24 11:08
Intake & Output
12/16/24 12/17/24 12/18/24
06:59 06:59 06:59
Intake Total 480 / 480 1420 / 1420 480 / 480
Output Total 2402 / 2402 3017 / 3017 1070 / 1070
Balance -1922 / -1922 -1597 / -1597 -590 / -590
Intake:
Oral fluids 480 / 480 1020 / 1020 480 / 480
IV piggybacks 400 / 400
Output:
Liquid stool amount 250 / 250 300 / 300
Ileostomy 250 / 250 300 / 300
Drain Output (Total) 252 / 252 217 / 217 70 / 70
Left Abdomen Tyrone-Noriega 235 / 235 215 / 215 70 / 70
Right Tyrone-Noriega 17 / 17 2 / 2
Urine, Ang 1900 / 1900 2000 / 2000
Urine, Voided 500 / 500 1000 / 1000
Other:
How many times incontinent 1
SMALL amount urine
How many times incontinent 1
MODERATE amount urine
Lab Results
12/17/24 05:47
12/17/24 05:47
Physical Exam
-
General: No Acute Distress
Abdomen: Soft, Non Distended, Non Tender and Other (ostomy is pink and functioning. Right drain with no output (dark) and left drain with 90 cc SS)
Extremities: No Calf Tenderness
--- NOTE | 2024-12-17 14:04 | W.PN.HOSP.TC ---
Today's Communication/Plan
-
continue antibiotics and diuresis
Assessment / Plan
Assessment / Plan
Medical consult
Initial presentation:
78-year-old female, past medical history of hypertension, CKD stage III, CAD, presented for routine colorectal resection for pelvic abscess/colovaginal fistula from diverticulitis.
Medicine is consulted for postop medical management.
Diagnosis present prior to admission:
Colovaginal fistula
Hydronephrosis due to obstruction of ureter
Vaginal fistula
hypertension,
CKD stage III,
CAD
12/02/2024 colorectal resection for pelvic abscess/colovaginal fistula from diverticulitis
Hospital course by problem and A/P:
1. Medical consult for medical management s/p Colorectal resection for pelvic abscess/colovaginal fistula from diverticulitis. Co-management by ID and cardiology.
s/p repeat OR 12/08/24 for anastomotic leak, with ostomy formation
Follow up CT AP 12/12 showed no acute findings. Persistent collection by anastomosis, resolving RLQ collection.
Ertapenem -> Merrem and vancomycin per ID
Today's plan by ID:
Pelvic fluid culture from 12/08/24 without growth.
Leukocytosis has normalized today.
Continue meropenem 500 mg IV q.6 hours (d#5) / vancomycin (dosing per pharmacy) (d#5)
Follow white count and temperature curve.
Monitor Vanco levels to prevent nephrotoxicity.
Trend platelet count.
Today's plan by cardiology:
Stable tolerating current medical therapy
Respiratory status stable.
Weights trending down
Yunior appears reasonable to transition to oral diuretic tomorrow and then continue to monitor weights
Additional after additional recovery can work to titrate GDMT
And then after discharge with plan for follow-up echo in 3 months
And will also consider outpatient evaluation for CAD/Lexiscan
2. Likely septic shock following repeat OR 12/08
was intubated, extubated 12/09/24
off pressors, out of ICU
3. Acute blood loss anemia post op
s/p 3 units PRBC transfusion so far
s/p TXA since skin site oozing
noted rectal bleeding again 12/14, Monitor Hgb closely
considering adding back Lovenox SQ soon for DVT ppx if rectal bleeding resolves
4. SOB with wheezing due to acute on chronic systolic heart failure, resolved
5. Acute hypoxic resp insufficiency, resolved
Placed on 2L NC for comfort, weaned back to RA
CXR 12/14 showed progressed mild to moderate diffuse interstitial prominence may reflect pulmonary interstitial edema and/or pneumonitis
Echo 12/14 showed moderately reduced systolic function and global hypokinesis, LVEF 34%.
Low-flow low gradient aortic stenosis, Moderate mitral regurgitation.
Cont diuresis, coordinate with cardiology
Cont Duoneb ATC and PRN
Check CXR periodically
s/p Decadron 2 mg IV x1
d dimer high but VQ scan showed low probability and BL US neg for DVT
Card on board
Pulm on board
6. MANINDER , resolved
ruled out CKD
Cr at 1.0 today
Monitor SCr
7. Hyponatremia, resolved
initially Mild, monitor
8. Hypocalcemia
monitor periodically
9. Essential hypertension/CAD
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
Continue GRATING MACHINE OPERATOR aspirin, atorvastatin
DVT proph: SCD, considering adding back Lovenox SQ soon if rectal bleeding resolves
code status, FULL CODE
Anticipated Discharge: > 48 hours
Subjective/Interval History
-
Date of Service: December 17, 2024
No new complaints
Objective Data
-
Labs:
Laboratory Results
12/17/24
05:47
WBC 10.3
Hgb 9.9 L
Hct 29.8 L
Plt Count 456 H
Sodium 134 L
Potassium 4.1
Chloride 105
Carbon Dioxide 27
BUN 17
Creatinine 1.0
Glucose 94
Calcium 8.4
Vital Signs:
Vital Signs
Temp Pulse Resp BP Pulse Ox
97.9 F 80 19 110/70 96
12/17/24 11:00 12/17/24 13:02 12/17/24 13:02 12/17/24 13:02 12/17/24 11:08
I&O
12/16/24 12/17/24 12/18/24
06:59 06:59 06:59
Intake Total 480 / 480 1420 / 1420 480 / 480
Output Total 2402 / 2402 3017 / 3017 2009
Balance -1922 / -1922 -1597 / -1597 -1530 / -1530
Review of Systems
-
History Source: Patient
All other systems: Reviewed and negative
Physical Exam
-
General: Well Developed, Well Nourished, No Apparent Distress and Comfortable
Respiratory: Clear to Auscultation
Cardiac: Regular Rhythm, S1/S2 and Murmur
GI: Soft and Tender
Musculoskeletal: No Clubbing, No Cyanosis, Edema, Right Lower Extrem and Edema, Left Lower Extrem
Skin: Warm and Dry
Neuro: Awake and Alert
Psych: Calm
Data Reviewed
-
Labs: Labs Reviewed by me
[2024-12-17 16:48] LABS: Glucose - Point of Care 95 mg/dl (70-99)
[2024-12-17] MEDS: LIPITOR 80 MG PO (17:21)
[2024-12-17] MEDS: LOVENOX 40 MG SC (17:21)
--- NOTE | 2024-12-17 17:27 | PTCARENOTE ---
Patient AOx2 (self and place). Unable to state what year it is. Bed and chair alarm on and audible. On RA with SpO2 greater than 92%. NSR with PVC's on monitor. BP stable. R ileostomy draining liquid brown stool. B/L TANK drains. See 'intake and
output' for TANK output. Midline dressing. Purewick draining yellow urine. Assist x2 when OOB. Call linn within reach, bed in lowest position, and bed of wheels locked.
[2024-12-17 21:58] LABS: Glucose - Point of Care 132 mg/dl (70-99)
[2024-12-18] VITALS (13 sets, daily range): BP systolic 111–159; BP diastolic 63–99; BMI 28.0
[2024-12-18] MEDS: TYLENOL 650 MG PO ×5 (05:01→23:44)
[2024-12-18] MEDS: VANCOCIN 200 IV (05:10)
[2024-12-18] MEDS: STERILE WATER FOR INJECTION 10 ML IV ×3 (05:11→23:44)
[2024-12-18] MEDS: MERREM 500 MG IV ×3 (05:11→23:44)
[2024-12-18 05:31] LABS: Hematocrit 30.8 % (37.0-47.0); Hemoglobin 10.3 g/dL (12.0-16.0); Mean Corp Hgb Conc. 33.4 g/dL (33.0-37.0); Mean Corpuscular Volume 85.8 fL (81.0-99.0); Nucleated Red Blood Cells % 0 %; Platelet Count 429 10^3/uL (130-400); Red Cell Dist. Width 17.2 % (11.5-14.5)
--- NOTE | 2024-12-18 05:58 | PTCARENOTE ---
Pt able to make needs known, forgetful at times. Pt wounds assessed. Pt midline incision dressing off, packing loose hanging out. Midline wound cleansed packing replaced Alginate and gauze placed for moderate/ large amount of drainage, bottom of
midline incision georges intact moderate purulent/serosanguineous drainage noted. B/L TANK sites clean and intact. Pt has no complaints at this time. Bed in lowest position and alarm on. Call linn within reach.
[2024-12-18 06:29] LABS: ALT (SGPT) 11 U/L (0-35); AST (SGOT) 17 U/L (14-36); Albumin 2.4 g/dl (3.5-5.0); Alkaline Phosphatase 86 U/L (38-126); Blood Urea Nitrogen 15 mg/dl (7-17); Calcium 8.4 mg/dl (8.4-10.2); Carbon Dioxide 28 mmol/L (22-30); Chloride 103 mmol/L (98-107); Estimated Creatinine Clearance 43 ml/min; Glucose 97 mg/dl (70-99); Potassium 4.0 mmol/L (3.5-5.1); Sodium 133 mmol/L (135-145); Total Protein 5.2 g/dl (6.3-8.2); eGFR 56.95
[2024-12-18] MEDS: SYMBICORT 160/4.5 MCG INHALER 2 PUFF INH ×2 (07:07→20:18)
--- NOTE | 2024-12-18 07:40 | W.PN.CD ---
Today's Communication / Plan
-
CHF has improved
trasntioned to oral lasix
- It appears that patient's preoperative weight was 69.4 kg and then immediately postop 71.9 kg. Weight went as high as 80 kg this admission and is now back to 71
-Continue Coreg to 12.5 BID.
- Continue valsartan and spironolactone
- ttrate diovan for BP control. Can consider change to Entresto in future.
- Follow-up echo 12/18/2024
Impression / Plan
-
Colovaginal fistula:
-s/p cystoscopy with insertion of bilateral ureteral stents, robotic low anterior resection with takedown of splenic flexure and intracorporeal anastomosis, flexible sigmoidoscopy and robotic repair of vagina and bilateral oophorectomy, 12/02/24
-Continue IV ABX, ID following.
-Continue management as per surgery teams.
Ncgnh-te-xwhnmyn HFrEF (EF 30-35%):
-weight up, BLE edema (thighs feel heavy, edema is noted)
-in setting of held lasix, and multiple liters of IVF and units of PRBC's given (due to sepsis and anemia), and also post-op status
-Echo 12/14/24 showed left ventricle is normal in size with moderately reduced systolic function and global hypokinesis. LVEF 34%. Moderate concentric left ventricular hypertrophy. Biatrial enlargement. Low-flow low gradient aortic stenosis
(peak/mean 21/10 mmHg, CARLOS 0.95 cm², DVI 0.37). Moderate mitral regurgitation. Mild to moderate tricuspid regurgitation. PASP 29 mmHg. Pleural effusion present.
- Transitioned to outpatient dose of Lasix 20 mg a day. It appears that patient's preoperative weight was 69.4 kg and then immediately postop 71.9 kg. Weight went as high as 80 kg this admission and is now back to 71.8
-Continue Coreg to 12.5 BID.
- Continue valsartan and spironolactone
-No SGLT2I with active infection at this time (colovaginal fistula).
-No ARNI secondary to BP limitations.
Aortic stenosis:
-Moderate; stable.
-obtain previous echo
-OP management with primary Business Office Technology Instructor
CAD with hx mid LAD stent 2020:
-has been off aspirin since 12/08/24; aspirin resumed
-continue BB.
-Atorvastatin esumed.
pSVT:
-brief, asymptomatic
-continue Coreg
-follow telemetry
Physical Exam
Vital Signs/Labs
Vital Signs
Temp Pulse Resp BP Pulse Ox
98.2 F 66 18 128/85 97
12/18/24 03:20 12/18/24 07:10 12/18/24 07:10 12/18/24 04:00 12/18/24 07:10
12/17/24 12/18/24 12/19/24
06:59 06:59 06:59
Actual Weight 73.2 kg 71.8 kg
12/18/24 05:10
12/18/24 05:10
PT 16.4 Sec (11.4-14.6) H 12/09/24 20:40
INR 1.29 12/09/24 20:40
APTT 33.0 Sec (23.4-35.0) 12/09/24 20:40
Magnesium 1.7 mg/dl (1.6-2.3) 12/13/24 07:08
Triglycerides 111 mg/dl (10-149) 12/08/24 20:53
12/14/24
07:38
Uky-Q-Ggceqhtbrnv Pept > [id number]
Physical Exam
Constitutional: No acute distress
Cardiovascular: Rhythm & rate is regular
Respiratory: Wheeze Absent and Rhonchi Absent
GI: Soft
Neuro/Psych: Alert
Data Reviewed
-
Date of Service: December 18, 2024
Medical Decision Making: Reviewed Test Results
Echo: Report Reviewed by me
Medical Tests (PFT, Pathology etc): Report Reviewed by me
Labs: Labs Reviewed by me
--- NOTE | 2024-12-18 07:57 | PHA.VAN.FU ---
Vancomycin Assessment / Plan
- Assessment
Renal Function: Stable
WBC's are: WNL
In the past 24 hrs, patient has been: Afebrile
Concomitant Antimicrobials: MEROPENEM
- Assessment - Therapeutic Drug Monitoring
Random Level: 18.1 DRAWN ~23 HRS AFTER PREVIOUS DOSE
- Dosing Plan
Adjust Regimen to: DOSE BY LEVEL
- Monitoring Plan
Random Level: 12/19 @0600
- Follow Up
Pharmacy will continue to follow.
Vancomycin Follow UP
- -
Patient Age: 78
Patient Sex: Female
Vancomycin Day #: 6
Indication: Gi / Intra-Abdominal
Requesting Provider: Dr. Florence
Pertinent Antimicrobial Allergies:
no pertinent antibiotic allergies
Height / Weight:
Height 5 ft 3 in
Actual Weight 71.8 kg
Pertinent Past Medical History: CKD Stage III
- Vital Signs / Lab Results
Temp Pulse Resp BP Pulse Ox
98.2 F 66 18 128/85 97
12/18/24 03:20 12/18/24 07:10 12/18/24 07:10 12/18/24 04:00 12/18/24 07:10
Lab Results - Hematology
12/16/24 12/17/24 12/18/24
03:51 05:47 05:10
WBC 13.2 H 10.3 10.1
Lab Results - Chemistry
12/16/24 12/17/24 12/18/24
03:51 05:47 05:10
BUN 17 17 15
Creatinine 1.0 1.0 1.0
Estimated Creat Clear 44 43 43
Albumin 2.4 L
Therapeutic Drug Monitoring
Vancomycin Peak 24.6 ug/ml (18-26) 12/16/24 09:34
Vancomycin Trough 16.6 ug/ml (5-20) 12/17/24 05:47
Random Vancomycin 18.1 ug/ml 12/18/24 05:10
[2024-12-18] MEDS: CYMBALTA DELAYED RELEASE 30 MG PO (08:01)
[2024-12-18] MEDS: LASIX 20 MG PO (08:01)
[2024-12-18] MEDS: PROTONIX 40 MG PO ×2 (08:01→19:50)
[2024-12-18] MEDS: NAMENDA 5 MG PO ×2 (08:01→19:50)
[2024-12-18] MEDS: NOVOLOG FLEXPEN-LOW RESISTANCE SC ×3 (08:02→17:03)
[2024-12-18] MEDS: ALDACTONE 12.5 MG PO (08:02)
[2024-12-18] MEDS: COREG 12.5 MG PO ×2 (08:02→19:50)
[2024-12-18] MEDS: DIOVAN 40 MG PO ×2 (08:02→19:50)
[2024-12-18] MEDS: LOW STRENGTH ASPIRIN 81 MG PO (08:02)
[2024-12-18] MEDS: ZYLOPRIM 100 MG PO (08:03)
[2024-12-18 08:13] LABS: Glucose - Point of Care 103 mg/dl (70-99)
--- NOTE | 2024-12-18 08:32 | W.PN.CD ---
Today's Communication / Plan
-
Lasix 40 IV Daily, will be transition to outpatient dose of Lasix 20 mg a day. It appears that patient's preoperative weight was 69.4 kg and then immediately postop 71.9 kg. Weight went as high as 80 kg this admission and is now back to 71.8
Will change Diovan to 40 mg twice daily
Follow-up echocardiogram tomorrow
Impression / Plan
-
Colovaginal fistula:
-s/p cystoscopy with insertion of bilateral ureteral stents, robotic low anterior resection with takedown of splenic flexure and intracorporeal anastomosis, flexible sigmoidoscopy and robotic repair of vagina and bilateral oophorectomy, 12/02/24
-Continue IV ABX, ID following.
-Continue management as per surgery teams.
Xavxf-ow-rultnte HFrEF (EF 30-35%):
-weight up, BLE edema (thighs feel heavy, edema is noted)
-in setting of held lasix, and multiple liters of IVF and units of PRBC's given (due to sepsis and anemia), and also post-op status
-Echo 12/14/24 showed left ventricle is normal in size with moderately reduced systolic function and global hypokinesis. LVEF 34%. Moderate concentric left ventricular hypertrophy. Biatrial enlargement. Low-flow low gradient aortic stenosis
(peak/mean 21/10 mmHg, CARLOS 0.95 cm², DVI 0.37). Moderate mitral regurgitation. Mild to moderate tricuspid regurgitation. PASP 29 mmHg. Pleural effusion present.
- Lasix 40 IV Daily, will be transition to outpatient dose of Lasix 20 mg a day. It appears that patient's preoperative weight was 69.4 kg and then immediately postop 71.9 kg. Weight went as high as 80 kg this admission and is now back to 71.8
-Continue Coreg to 12.5 BID.
- Continue valsartan and spironolactone
-No SGLT2I with active infection at this time (colovaginal fistula).
-No ARNI secondary to BP limitations.
Aortic stenosis:
-Moderate; stable.
-obtain previous echo
-OP management with primary Learning Support Assistant
CAD with hx mid LAD stent 2020:
-has been off aspirin since 12/08/24; aspirin resumed
-continue BB.
-Atorvastatin esumed.
pSVT:
-brief, asymptomatic
-continue Coreg
-follow telemetry
Physical Exam
Vital Signs/Labs
Vital Signs
Temp Pulse Resp BP Pulse Ox
98.2 F 90 18 159/90 97
12/18/24 03:20 12/18/24 08:02 12/18/24 07:10 12/18/24 08:02 12/18/24 07:10
12/17/24 12/18/24 12/19/24
06:59 06:59 06:59
Actual Weight 73.2 kg 71.8 kg
12/18/24 05:10
12/18/24 05:10
PT 16.4 Sec (11.4-14.6) H 12/09/24 20:40
INR 1.29 12/09/24 20:40
APTT 33.0 Sec (23.4-35.0) 12/09/24 20:40
Magnesium 1.7 mg/dl (1.6-2.3) 12/13/24 07:08
Triglycerides 111 mg/dl (10-149) 12/08/24 20:53
12/14/24
07:38
Keh-A-Xleywmvtsve Pept > [id number]
Physical Exam
Constitutional: No acute distress
Cardiovascular: Pedal edema is absent
Respiratory: Lungs clear to auscul.
GI: Soft and Other (Postop)
Neuro/Psych: Alert
Data Reviewed
-
Date of Service: December 18, 2024
Medical Decision Making: Reviewed Test Results
Echo: Report Reviewed by me and Ordered by me
Medical Tests (PFT, Pathology etc): Report Reviewed by me
Labs: Labs Reviewed by me
--- NOTE | 2024-12-18 09:18 | W.PN.ID1 ---
Date of Service
Date of Service: December 18, 2024
Today's Communication
Continue antibiotics for today
Assessment / Plan
S/p robotic low anterior sigmoid resection; repair of colovaginal fistula (12/02/2024)
S/p ex lap, loop ileostomy creation (12/08/24)
Leukocytosis
Thrombocytosis
HTN
CKD stage III
CAD
Sigmoid diverticulitis with colovaginal fistula
HLD
GERD
Gout
Recommendations:
Pelvic fluid culture from 12/08/24 without growth.
Leukocytosis remains normal today.
Continue meropenem 500 mg IV q.6 hours (d#6) / vancomycin (dosing per pharmacy) (d#6)
Follow white count and temperature curve. Monitor Vanco levels to prevent nephrotoxicity.
Trend platelet count.
����������������������������������������������������������
Chief Complaint
-: Leukocytosis
Subjective / Review of Systems
Review of Systems: No Fever and No Chills
Vital Signs / Physical Exam
Vital Signs
Vital Signs
Temp Pulse Resp BP Pulse Ox
98.4 F 90 20 159/90 97
12/18/24 07:00 12/18/24 08:02 12/18/24 08:00 12/18/24 08:02 12/18/24 08:00
Physical Exam
Constitutional: No Acute Distress, Comfortable, Chronically Ill and Non-toxic
Eyes: Sclera Anicteric
Cardiovascular: Regular Rate and S1/S2; Negative S3/S4
Pulmonary: Clear and Non Labored; Negative Wheezes or Rales
Gastrointestinal: Soft, Tender and Other (Left TANK with serous drainage. Right TANK with scant bloody drainage.)
Extremities: Edema (Trace); Negative Cyanosis or Erythema
Skin: Warm and Dry
Neurological: Awake and Alert
Psychological: Calm
Objective Data
Lab Data
Lab Results
12/18/24 05:10
12/18/24 05:10
PT 16.4 Sec (11.4-14.6) H 12/09/24 20:40
INR 1.29 12/09/24 20:40
APTT 33.0 Sec (23.4-35.0) 12/09/24 20:40
Estimated Creat Clear 43 ml/min 12/18/24 05:10
Total Bilirubin 0.4 mg/dl (0.2-1.3) 12/18/24 05:10
AST 17 U/L (14-36) 12/18/24 05:10
ALT 11 U/L (0-35) 12/18/24 05:10
Alkaline Phosphatase 86 U/L (38-126) 12/18/24 05:10
Most recent labs reviewed.
Micro Results:
12/08/24 17:39 Wound Culture - Final
Abdomen No growth
Gram Stain - Final
12/08/24 17:39 Anaerobic Culture - Final
Abdomen NO ANAEROBES ISOLATED
Imaging:
12/12/2024 CT chest abdomen pelvis with IV contrast: mild to moderate bilateral pleural effusions with adjacent atelectasis. Additional scattered ground glass opacities are noted, which are nonspecific. Postoperative changes with a persistent
collection in the presacral space which extends from the posterior aspect of the colonic anastomotic staple line. There is gas contrast within this collection suspicious for persistent anastomotic leak, although retained extravasated contrast from
prior examination is possible. There is percutaneous surgical drain tip adjacent to the collection. There is decreased size of the mild heterogeneous lesion within the right hemipelvis which likely represents a resolving postoperative hematoma.
Please see full dictation for additional detail.
--- NOTE | 2024-12-18 10:34 | W.PN.CRS1 ---
Today's Communication / Plan
-
continue current care
d/c planning for snf in the next coming days
Assessment/Plan
-
POD# 16 from a cystoscopy with insertion of bilateral ureteral stents, robotic low anterior resection with takedown of the splenic flexure and intracorporeal anastomosis, flexible sigmoidoscopy and robotic repair of a colovaginal fistula with
bilateral oophorectomy
POD# 10 1) exploratory laparotomy 2) loop ileostomy creation 3) flexible sigmoidoscopy
AFVSS
WBC 10.1, Hgb 10.3
-Continue to low residue with Ensure vaniela
�Continue pain control with tramadol as needed (she was on oxycodone on admission); Tylenol ATC
-Lovenox for DVT PPx
- Appreciate WOCN for ostomy care and education; daily packing change
�Maintain TANK drains until DC - will likely pull tomorrow
- OOB as tolerated. PT/OT ordered.
�Will need SNF on DC
- Appreciate ID consult - vanco/merrem
-Appreciate re recording mixer -continue asthma treatment
�Appreciate cardiology�continue Lasix, changes to antihypertensives
�Appreciate hospitalist
-Dispo�hopefully ready for DC to rehab soon once medically clear, anticipate sometime early this week
Subjective Data
Procedure
12/02/2024 cystoscopy with bilateral ureteral stents, robotic LAR with takedown of splenic flexure and intracorporeal anastomosis, drainage of an intra-abdominal abscess, flexible sigmoidoscopy, robotic repair for vaginal fistula with bilateral
oophorectomy
12/08/2024- 1) exploratory laparotomy 2) loop ileostomy creation 3) flexible sigmoidoscopy
Subjective Data
Date of Service: December 18, 2024
Patient states she has a little bit of heartburn. She has no pain, denies nausea or vomiting. Not much of an appetite. Overall she feels much better.
Objective Data
-
Vital Signs
Temp Pulse Resp BP Pulse Ox
98.4 F 90 20 159/90 97
12/18/24 07:00 12/18/24 08:02 12/18/24 08:00 12/18/24 08:02 12/18/24 08:00
Intake & Output
12/17/24 12/18/24 12/19/24
06:59 06:59 06:59
Intake Total 1420 / 1420 1800 / 1800 480 / 480
Output Total 3017 / 3017 3380 / 3380 80 / 80
Balance -1597 / -1597 -1580 / -1580 400 / 400
Intake:
Oral fluids 1020 / 1020 1580 / 1580 480 / 480
IV piggybacks 400 / 400 220 / 220
Output:
Liquid stool amount 300 / 300 150 / 150
Ileostomy 300 / 300 150 / 150
Drain Output (Total) 217 / 217 180 / 180 80 / 80
Left Abdomen Tyrone-Noreiga 215 / 215 175 / 175 80 / 80
Right Tyrone-Noriega 2 / 2 5 / 5
Urine, Ang 1999 / 1999
Urine, Voided 500 / 500 3050 / 3050
Other:
How many times incontinent 1
SMALL amount urine
How many times incontinent 1
MODERATE amount urine
Lab Results
12/18/24 05:10
12/18/24 05:10
Physical Exam
-
General: No Acute Distress and AOx3
Abdomen: Non Distended, Non Tender and Other (colostomy warm and pink with function)
Skin: Warm and Dry
Wound: Dressing in Place
Incision: Clear, Dry, Intact
[2024-12-18] MEDS: TUMS CHEWABLE TABLET 400 MG PO ×2 (10:37→15:25)
[2024-12-18 11:29] LABS: Glucose - Point of Care 136 mg/dl (70-99)
--- NOTE | 2024-12-18 13:49 | W.PN.HOSP.TC ---
Today's Communication/Plan
-
Doing well. Continue current care.
Assessment / Plan
Assessment / Plan
Medical consult
Initial presentation:
78-year-old female, past medical history of hypertension, CKD stage III, CAD, presented for routine colorectal resection for pelvic abscess/colovaginal fistula from diverticulitis.
Medicine is consulted for postop medical management.
Diagnosis present prior to admission:
Colovaginal fistula
Hydronephrosis due to obstruction of ureter
Vaginal fistula
hypertension,
CKD stage III,
CAD
12/02/2024 colorectal resection for pelvic abscess/colovaginal fistula from diverticulitis
Hospital course by problem and A/P:
1. Medical consult for medical management s/p Colorectal resection for pelvic abscess/colovaginal fistula from diverticulitis. Co-management by ID and cardiology.
s/p repeat OR 12/08/24 for anastomotic leak, with ostomy formation
Follow up CT AP 12/12 showed no acute findings. Persistent collection by anastomosis, resolving RLQ collection.
Ertapenem -> Merrem and vancomycin per ID
Today's plan by ID:
continue antibiotics.
Today's plan by cardiology:
Lasix dosing reduced
Echo tomorrow
2. Likely septic shock following repeat OR 12/08
was intubated, extubated 12/09/24
off pressors, out of ICU
3. Acute blood loss anemia post op
s/p 3 units PRBC transfusion so far
s/p TXA since skin site oozing
noted rectal bleeding again 12/14, Monitor Hgb closely
consider adding back Lovenox SQ soon for DVT ppx
4. SOB with wheezing due to acute on chronic systolic heart failure, resolved
5. Acute hypoxic resp insufficiency, resolved
Placed on 2L NC for comfort, weaned back to RA
CXR 12/14 showed progressed mild to moderate diffuse interstitial prominence may reflect pulmonary interstitial edema and/or pneumonitis
Echo 12/14 showed moderately reduced systolic function and global hypokinesis, LVEF 34%.
Low-flow low gradient aortic stenosis, Moderate mitral regurgitation.
Cont diuresis, coordinate with cardiology
Cont Duoneb ATC and PRN
Check CXR periodically
s/p Decadron 2 mg IV x1
d dimer high but VQ scan showed low probability and BL US neg for DVT
Card on board
Pulm on board
6. MANINDER , resolved
ruled out CKD
Cr at ~1.0
Monitor SCr
7. Hyponatremia, resolved
initially Mild, monitor
8. Hypocalcemia
monitor periodically
9. Essential hypertension/CAD
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
Continue WOOD CUT ENGRAVER aspirin, atorvastatin
DVT proph: SCD, considering adding back Lovenox SQ soon
code status, FULL CODE
Anticipated Discharge: > 48 hours
Subjective/Interval History
-
Date of Service: December 18, 2024
Had some dyspepsia, tums ordered.
Objective Data
-
Labs:
Laboratory Results
12/18/24
05:10
WBC 10.1
Hgb 10.3 L
Hct 30.8 L
Plt Count 429 H
Sodium 133 L
Potassium 4.0
Chloride 103
Carbon Dioxide 28
BUN 15
Creatinine 1.0
Glucose 97
Calcium 8.4
Total Bilirubin 0.4
AST 17
ALT 11
Alkaline Phosphatase 86
Vital Signs:
Vital Signs
Temp Pulse Resp BP Pulse Ox
98.4 F 82 24 115/77 94
12/18/24 07:00 12/18/24 12:00 12/18/24 10:43 12/18/24 12:00 12/18/24 12:00
I&O
09/12/18/24 12/19/24
06:59 06:59 06:59
Intake Total 1420 / 1420 1800 / 1800 480 / 480
Output Total 3017 / 3017 3380 / 3380 510 / 510
Balance -1597 / -1597 -1580 / -1580 -30 / -30
Review of Systems
-
History Source: Patient
All other systems: Reviewed and negative
Abdomen/GI: Reports Abdominal Pain
Physical Exam
-
General: Well Developed, Well Nourished, No Apparent Distress, Comfortable and Conversant
HEENT: Normocephalic, Atraumatic and Moist Mucous Membranes
Respiratory: Clear to Auscultation
Cardiac: Regular Rhythm and S1/S2
GI: Soft and Tender
Musculoskeletal: No Clubbing and No Cyanosis
Skin: Warm and Dry
Neuro: Awake, Alert and Oriented
Psych: Calm
Data Reviewed
-
Labs: Labs Reviewed by me
[2024-12-18] MEDS: TYLENOL PO (13:53)
--- NOTE | 2024-12-18 16:31 | PTCARENOTE ---
Patient AOx3. Forgetful at times. Bed and chair alarm on and audible. On RA with SpO2 greater than 92%. NSR with PVC's on monitor. BP stable. R ileostomy draining loose brown stool. B/L TANK drains. See 'intake and output' for TANK output. Midline
dressing. Purewick draining yellow urine. Assist x1 when OOB. Call linn within reach, bed in lowest position, and bed of wheels locked. Family at bedside throughout shift.
[2024-12-18] MEDS: ULTRAM 100 MG PO (17:01)
[2024-12-18] MEDS: LOVENOX 40 MG SC (17:01)
[2024-12-18] MEDS: LIPITOR 80 MG PO (17:01)
[2024-12-18 17:14] LABS: Glucose - Point of Care 71 mg/dl (70-99)
--- NOTE | 2024-12-18 17:45 | PTCARENOTE ---
Blood sugar is 71. Patient asymptomatic. Does not want to eat dinner. Provided patient with 4 oz of apple juice to prevent blood sugar from dropping. Care ongoing.
[2024-12-18] MEDS: DILAUDID 0.25 MG IV (19:55)
[2024-12-18 22:42] LABS: Glucose - Point of Care 117 mg/dl (70-99)
[2024-12-19] VITALS (13 sets, daily range): BP systolic 121–162; BP diastolic 68–112; BMI 27.7
[2024-12-19] MEDS: STERILE WATER FOR INJECTION 10 ML IV ×3 (05:17→21:57)
[2024-12-19] MEDS: TYLENOL 650 MG PO ×5 (05:17→20:36)
[2024-12-19] MEDS: MERREM 500 MG IV ×3 (05:17→21:57)
[2024-12-19 06:18] LABS: Hematocrit 30.9 % (37.0-47.0); Hemoglobin 10.3 g/dL (12.0-16.0); Mean Corp Hgb Conc. 33.3 g/dL (33.0-37.0); Mean Corpuscular Volume 86.6 fL (81.0-99.0); Platelet Count 463 10^3/uL (130-400); Red Cell Dist. Width 17.3 % (11.5-14.5)
[2024-12-19 06:49] LABS: Blood Urea Nitrogen 14 mg/dl (7-17); Calcium 8.6 mg/dl (8.4-10.2); Carbon Dioxide 29 mmol/L (22-30); Chloride 103 mmol/L (98-107); Estimated Creatinine Clearance 46 ml/min; Glucose 85 mg/dl (70-99); Potassium 4.1 mmol/L (3.5-5.1); Sodium 133 mmol/L (135-145); eGFR > 60.00
[2024-12-19] MEDS: SYMBICORT 160/4.5 MCG INHALER 2 PUFF INH ×2 (07:38→19:26)
[2024-12-19 07:53] LABS: Glucose - Point of Care 102 mg/dl (70-99)
--- NOTE | 2024-12-19 08:45 | PHA.VAN.FU ---
Vancomycin Assessment / Plan
- Assessment
Renal Function: Stable
WBC's are: WNL
In the past 24 hrs, patient has been: Afebrile
Concomitant Antimicrobials: Meropenem
- Assessment - Therapeutic Drug Monitoring
Random Level: 17.9 drawn ~24 hours after vancomycin 1000mg dose.
- Dosing Plan
Continue: dose by level
Dosing by Level: Re-dose today (Vancomycin 750mg)
- Monitoring Plan
Random Level: 12/20 06
- Follow Up
Pharmacy will continue to follow.
Vancomycin Follow UP
- -
Patient Age: 78
Patient Sex: Female
Vancomycin Day #: 7
Indication: Gi / Intra-Abdominal
Requesting Provider: Dr. Florence
Pertinent Antimicrobial Allergies:
no pertinent antibiotic allergies
Height / Weight:
Height 5 ft 3 in
Actual Weight 71 kg
Pertinent Past Medical History: CKD Stage III
- Vital Signs / Lab Results
Temp Pulse Resp BP Pulse Ox
98 F 67 18 162/83 98
12/19/24 07:51 12/19/24 07:50 12/19/24 07:50 12/19/24 06:22 12/19/24 08:04
Lab Results - Hematology
12/17/24 12/18/24 12/19/24
05:47 05:10 05:55
WBC 10.3 10.1 10.4
Lab Results - Chemistry
12/17/24 12/18/24 12/19/24
05:47 05:10 05:55
BUN 17 15 14
Creatinine 1.0 1.0 0.9
Estimated Creat Clear 43 43 46
Albumin 2.4 L
Therapeutic Drug Monitoring
Vancomycin Peak 24.6 ug/ml (18-26) 12/16/24 09:34
Vancomycin Trough 16.6 ug/ml (5-20) 12/17/24 05:47
Random Vancomycin 17.9 ug/ml 12/19/24 05:55
--- NOTE | 2024-12-19 09:00 | PTCARENOTE ---
Bilateral TANK drains removed by surgery this AM.
[2024-12-19] MEDS: VANCOCIN 150 IV (09:06)
[2024-12-19] MEDS: NOVOLOG FLEXPEN-LOW RESISTANCE SC ×3 (09:06→18:09)
[2024-12-19] MEDS: ZYLOPRIM 100 MG PO (09:11)
[2024-12-19] MEDS: CYMBALTA DELAYED RELEASE 30 MG PO (09:11)
[2024-12-19] MEDS: LASIX 20 MG PO (09:11)
[2024-12-19] MEDS: ALDACTONE 12.5 MG PO (09:11)
[2024-12-19] MEDS: NAMENDA 5 MG PO ×2 (09:11→20:35)
[2024-12-19] MEDS: COREG 12.5 MG PO ×2 (09:11→20:35)
[2024-12-19] MEDS: DIOVAN 40 MG PO ×2 (09:13→20:36)
[2024-12-19] MEDS: PROTONIX 40 MG PO ×2 (09:13→20:36)
[2024-12-19] MEDS: LOW STRENGTH ASPIRIN 81 MG PO (09:13)
[2024-12-19] MEDS: ULTRAM 50 MG PO (09:26)
--- NOTE | 2024-12-19 09:53 | W.PN.HOSP.TC ---
Today's Communication/Plan
-
d/c planning as per CRS
Assessment / Plan
Assessment / Plan
Medical consult
Initial presentation:
78-year-old female, past medical history of hypertension, CKD stage III, CAD, presented for routine colorectal resection for pelvic abscess/colovaginal fistula from diverticulitis.
Medicine is consulted for postop medical management.
Diagnosis present prior to admission:
Colovaginal fistula
Hydronephrosis due to obstruction of ureter
Vaginal fistula
hypertension,
CKD stage III,
CAD
12/02/2024 colorectal resection for pelvic abscess/colovaginal fistula from diverticulitis
Hospital course by problem and A/P:
1. Medical consult for medical management s/p Colorectal resection for pelvic abscess/colovaginal fistula from diverticulitis. Co-management by ID and cardiology.
s/p repeat OR 12/08/24 for anastomotic leak, with ostomy formation
Follow up CT AP 12/12 showed no acute findings. Persistent collection by anastomosis, resolving RLQ collection.
Ertapenem -> Merrem and vancomycin per ID
Lasix dosing reduced
Echo shows EF 35% and no change from echo 12/14/24
2. Likely septic shock following repeat OR 12/08
was intubated, extubated 12/09/24
off pressors, out of ICU
3. Acute blood loss anemia post op
s/p 3 units PRBC transfusion so far
s/p TXA since skin site oozing
noted rectal bleeding again 12/14, Monitor Hgb closely
consider adding back Lovenox SQ soon for DVT ppx
4. SOB with wheezing due to acute on chronic systolic heart failure, resolved
5. Acute hypoxic resp insufficiency, resolved
Placed on 2L NC for comfort, weaned back to RA
CXR 12/14 showed progressed mild to moderate diffuse interstitial prominence may reflect pulmonary interstitial edema and/or pneumonitis
Echo 9/17 showed moderately reduced systolic function and global hypokinesis, LVEF 34%.
Low-flow low gradient aortic stenosis, Moderate mitral regurgitation.
Cont diuresis, coordinate with cardiology
Cont Duoneb PRN
s/p Decadron 2 mg IV x1
d dimer high but VQ scan showed low probability and BL US neg for DVT
Card on board
Pulm on board
6. MANINDER , resolved
ruled out CKD
Cr at ~1.0
Monitor SCr
7. Hyponatremia, resolved
initially Mild, monitor
8. Hypocalcemia
monitor periodically
9. Essential hypertension/CAD
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
Continue GLOVE MACHINE OPERATOR aspirin, atorvastatin
DVT proph: SCD
code status, FULL CODE
discharge planning in place--pt on oral meds--tolerating diet--will sign off--please call with questions
Anticipated Discharge: Within 24 hours
Subjective/Interval History
-
Date of Service: December 19, 2024
pt's birthday is today--doing well, tolerating diet
Objective Data
-
Labs:
Laboratory Results
12/19/24
05:55
WBC 10.4
Hgb 10.3 L
Hct 30.9 L
Plt Count 463 H
Sodium 133 L
Potassium 4.1
Chloride 103
Carbon Dioxide 29
BUN 14
Creatinine 0.9
Glucose 85
Calcium 8.6
Vital Signs:
max temp for 24 hours
12/18/24
15:00
Temp 98.3 F
Vital Signs
Temp Pulse Resp BP Pulse Ox
98 F 87 17 154/112 98
12/19/24 07:51 12/19/24 08:03 12/19/24 08:03 12/19/24 08:03 12/19/24 08:04
I&O
12/18/24 12/19/24 12/20/24
06:59 06:59 06:59
Intake Total 1800 / 1800 1560 / 1560
Output Total 3380 / 3380 1880 / 1880
Balance -1580 / -1580 -320 / -320
Review of Systems
-
All other systems: Reviewed and negative
Physical Exam
-
General: Well Developed, Well Nourished and No Apparent Distress
HEENT: Normocephalic and Atraumatic
Respiratory: Clear to Auscultation; Negative Wheezes or Rhonchi
Cardiac: Regular Rhythm and S1/S2; Negative Murmur
GI: Soft, Nontender, Nondistended, Normal Bowel Sounds and Other (drains removed)
Musculoskeletal: No Clubbing, No Cyanosis and No Edema
Neuro: Awake
Psych: Calm
[2024-12-19] MEDS: TUMS CHEWABLE TABLET 400 MG PO (10:29)
--- NOTE | 2024-12-19 11:00 | W.PN.ID1 ---
Date of Service
Date of Service: December 19, 2024
Today's Communication
Continue antibiotics for today.
Assessment / Plan
S/p robotic low anterior sigmoid resection; repair of colovaginal fistula (12/02/2024)
S/p ex lap, loop ileostomy creation (12/08/24)
Leukocytosis
Thrombocytosis
HTN
CKD stage III
CAD
Sigmoid diverticulitis with colovaginal fistula
HLD
GERD
Gout
Recommendations:
Pelvic fluid culture from 12/08/24 without growth.
Leukocytosis remains normal today.
Continue meropenem 500 mg IV q.6 hours (d#7) / vancomycin (dosing per pharmacy) (d#7) for an additional 24 to 48 hours, but if white count remains normal and patient otherwise clinically stable, will discontinue.
Follow white count and temperature curve. Monitor Vanco levels to prevent nephrotoxicity.
Trend platelet count.
����������������������������������������������������������
Chief Complaint
-: Leukocytosis
Subjective / Review of Systems
Patient seen and examined. Reports feeling well. Drains removed today. Denies fevers or chills.
Vital Signs / Physical Exam
Vital Signs
Vital Signs
Temp Pulse Resp BP Pulse Ox
98 F 87 17 154/112 98
12/19/24 07:51 12/19/24 08:03 12/19/24 08:03 12/19/24 08:03 12/19/24 08:04
Physical Exam
Constitutional: No Acute Distress, Comfortable, Chronically Ill and Non-toxic
Eyes: Sclera Anicteric
Cardiovascular: Regular Rate and S1/S2; Negative S3/S4
Pulmonary: Clear and Non Labored; Negative Wheezes or Rales
Gastrointestinal: Soft and Tender
Extremities: Edema (Trace); Negative Cyanosis or Erythema
Skin: Warm and Dry
Neurological: Awake and Alert
Psychological: Calm
Objective Data
Lab Data
Lab Results
12/19/24 05:55
12/19/24 05:55
PT 16.4 Sec (11.4-14.6) H 12/09/24 20:40
INR 1.29 12/09/24 20:40
APTT 33.0 Sec (23.4-35.0) 12/09/24 20:40
Estimated Creat Clear 46 ml/min 12/19/24 05:55
Total Bilirubin 0.4 mg/dl (0.2-1.3) 12/18/24 05:10
AST 17 U/L (14-36) 12/18/24 05:10
ALT 11 U/L (0-35) 12/18/24 05:10
Alkaline Phosphatase 86 U/L (38-126) 12/18/24 05:10
Most recent labs reviewed.
Micro Results:
12/08/24 17:39 Wound Culture - Final
Abdomen No growth
Gram Stain - Final
12/08/24 17:39 Anaerobic Culture - Final
Abdomen NO ANAEROBES ISOLATED
Imaging:
12/12/2024 CT chest abdomen pelvis with IV contrast: mild to moderate bilateral pleural effusions with adjacent atelectasis. Additional scattered ground glass opacities are noted, which are nonspecific. Postoperative changes with a persistent
collection in the presacral space which extends from the posterior aspect of the colonic anastomotic staple line. There is gas contrast within this collection suspicious for persistent anastomotic leak, although retained extravasated contrast from
prior examination is possible. There is percutaneous surgical drain tip adjacent to the collection. There is decreased size of the mild heterogeneous lesion within the right hemipelvis which likely represents a resolving postoperative hematoma.
Please see full dictation for additional detail.
[2024-12-19 11:36] LABS: Glucose - Point of Care 91 mg/dl (70-99)
--- NOTE | 2024-12-19 11:57 | W.PN.CRS1 ---
Today's Communication / Plan
-
radha drains removed
snf planning
Assessment/Plan
-
POD# 17 from a cystoscopy with insertion of bilateral ureteral stents, robotic low anterior resection with takedown of the splenic flexure and intracorporeal anastomosis, flexible sigmoidoscopy and robotic repair of a colovaginal fistula with
bilateral oophorectomy
POD# 11 1) exploratory laparotomy 2) loop ileostomy creation 3) flexible sigmoidoscopy
AFVSS
WBC 10.4, Hgb 10.3
-Continue to low residue with Ensure vanilla
�Continue pain control with tramadol as needed (she was on oxycodone on admission); Tylenol ATC
-Lovenox for DVT PPx
- Appreciate WOCN for ostomy care and education; daily packing change
�RADHA drains removed
- OOB as tolerated. PT/OT ordered.
�Will need SNF on DC
- Appreciate ID consult - vanco/merrem
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
�Appreciate cardiology�continue Lasix, changes to antihypertensives
�Appreciate hospitalist
-Dispo�hopefully ready for DC to rehab soon once medically clear, anticipate sometime early this week
Subjective Data
Procedure
12/02/2024 cystoscopy with bilateral ureteral stents, robotic LAR with takedown of splenic flexure and intracorporeal anastomosis, drainage of an intra-abdominal abscess, flexible sigmoidoscopy, robotic repair for vaginal fistula with bilateral
oophorectomy
12/08/2024- 1) exploratory laparotomy 2) loop ileostomy creation 3) flexible sigmoidoscopy
Subjective Data
Date of Service: December 19, 2024
Patient states she feels well. Today is her birthday and she is happy. She denies pain. Denies nausea or vomiting. Her stoma has function. Denies pain.
Objective Data
-
Vital Signs
Temp Pulse Resp BP Pulse Ox
98.1 F 87 17 154/112 98
12/19/24 11:24 12/19/24 08:03 12/19/24 08:03 12/19/24 08:03 12/19/24 08:04
Intake & Output
12/18/24 12/19/24 12/20/24
06:59 06:59 06:59
Intake Total 1800 / 1800 1560 / 1560
Output Total 3380 / 3380 1880 / 1880
Balance -1580 / -1580 -320 / -320
Intake:
Oral fluids 1580 / 1580 1560 / 1560
IV piggybacks 220 / 220
Output:
Liquid stool amount 150 / 150 275 / 275
Ileostomy 150 / 150 275 / 275
Drain Output (Total) 180 / 180 275 / 275
Left Abdomen Tyrone-Noriega 175 / 175 265 / 265
Right Tyrone-Noriega 5 / 5 10 / 10
Urine, Voided 3050 / 3050 1330 / 1330
Lab Results
12/19/24 05:55
12/19/24 05:55
Physical Exam
-
General: No Acute Distress and AOx3
Abdomen: Soft, Non Distended, Non Tender and Other (Colostomy warm and pink with function, RADHA drain serous)
Skin: Warm and Dry
[2024-12-19] MEDS: FLUSH (NSS) 1 FLUSH IV ×2 (13:12→14:43)
[2024-12-19] MEDS: DILAUDID 0.25 MG IV ×2 (13:12→18:07)
--- NOTE | 2024-12-19 15:56 | WOUNDNOTE ---
WOC RN NOTE: Patient visited for pouch change and ostomy teaching. This public relations writer demonstrated pouch emptying for patient . Stoma pink and budded with bridge intact. Peristomal skin intact. Pouch changed with Convatec 1 piece (several at bedside).
Staff can also use 2 piece system (also at bedside). Midline dressing clean and intact. Patient visiting with several family members and sitting in chair with air cushion. Patient tolerating low residue diet. Plan is for SNF. Will continue to follow
for ostomy care and teaching.
--- NOTE | 2024-12-19 16:14 | CM ---
Following up on Patient.
JONNY Shay met with daughters in the room as well as patient. Explained the role of Case Management again and recieved another facility to add to the list, [facility].
JONNY will touch base with the Medical Team tomorrow because authorization with the insurance company for SNF will be needed, can take 24-48.
PLAN: SNF when ready
[2024-12-19] MEDS: ULTRAM 100 MG PO (16:17)
[2024-12-19 17:01] LABS: Glucose - Point of Care 115 mg/dl (70-99)
[2024-12-19] MEDS: LOVENOX 40 MG SC (18:08)
[2024-12-19] MEDS: LIPITOR 80 MG PO (18:09)
[2024-12-19 22:14] LABS: Glucose - Point of Care 134 mg/dl (70-99)
[2024-12-20] VITALS (15 sets, daily range): BP systolic 93–138; BP diastolic 30–123; BMI 26.4
[2024-12-20] MEDS: TYLENOL 650 MG PO ×5 (00:12→20:10)
[2024-12-20] MEDS: ULTRAM 50 MG PO ×2 (00:15→18:02)
[2024-12-20] MEDS: MERREM 500 MG IV ×3 (05:05→21:32)
[2024-12-20] MEDS: STERILE WATER FOR INJECTION 10 ML IV ×3 (05:05→21:32)
[2024-12-20 05:26] LABS: Hematocrit 30.4 % (37.0-47.0); Hemoglobin 10.1 g/dL (12.0-16.0); Mean Corp Hgb Conc. 33.2 g/dL (33.0-37.0); Mean Corpuscular Volume 86.1 fL (81.0-99.0); Platelet Count 464 10^3/uL (130-400); Red Cell Dist. Width 17.2 % (11.5-14.5)
[2024-12-20 05:48] LABS: Blood Urea Nitrogen 13 mg/dl (7-17); Calcium 8.3 mg/dl (8.4-10.2); Carbon Dioxide 28 mmol/L (22-30); Chloride 102 mmol/L (98-107); Estimated Creatinine Clearance 41 ml/min; Glucose 90 mg/dl (70-99); Potassium 4.0 mmol/L (3.5-5.1); Sodium 132 mmol/L (135-145); eGFR > 60.00
--- NOTE | 2024-12-20 08:14 | PHA.VAN.FU ---
Vancomycin Assessment / Plan
- Assessment
Renal Function: Stable
WBC's are: WNL
In the past 24 hrs, patient has been: Afebrile
Concomitant Antimicrobials: Meropenem
- Assessment - Therapeutic Drug Monitoring
Random Level: 17.5 mcg/mL (drawn 20 hours post-750 mg dose)
- Dosing Plan
Dosing by Level: Hold off on dosing today
- Monitoring Plan
Random Level: 12/21/24 with AM labs
- Follow Up
Pharmacy will continue to follow.
Vancomycin Follow UP
- -
Patient Age: 78
Patient Sex: Female
Vancomycin Day #: 8
Indication: Gi / Intra-Abdominal
Requesting Provider: Dr. Florence
Pertinent Antimicrobial Allergies:
no pertinent antibiotic allergies
Height / Weight:
Height 5 ft 3 in
Actual Weight 67.6 kg
Pertinent Past Medical History: CKD Stage III
- Vital Signs / Lab Results
Temp Pulse Resp BP Pulse Ox
98 F 78 12 121/107 94
12/20/24 07:25 12/20/24 06:00 12/20/24 06:00 12/20/24 06:00 12/19/24 21:28
Lab Results - Hematology
12/18/24 12/19/24 12/20/24
05:10 05:55 05:16
WBC 10.1 10.4 10.6
Lab Results - Chemistry
12/18/24 12/19/24 12/20/24
05:10 05:55 05:16
BUN 15 14 13
Creatinine 1.0 0.9 0.9
Estimated Creat Clear 43 46 41
Albumin 2.4 L
Therapeutic Drug Monitoring
Vancomycin Peak 24.6 ug/ml (18-26) 12/16/24 09:34
Vancomycin Trough 16.6 ug/ml (5-20) 12/17/24 05:47
Random Vancomycin 17.5 ug/ml 12/20/24 05:16
[2024-12-20 08:39] LABS: Glucose - Point of Care 81 mg/dl (70-99)
--- NOTE | 2024-12-20 08:40 | W.PN.CD ---
Today's Communication / Plan
-
-Volume status improved; continue Lasix 20 mg daily.
-Continue current doses of Coreg, valsartan, spironolactone, and Lasix.
-No further recommendations at this time; outpatient follow-up with primary Yarn Dumper (outside institution).
Impression / Plan
-
Colovaginal fistula:
-s/p cystoscopy with insertion of bilateral ureteral stents, robotic low anterior resection with takedown of splenic flexure and intracorporeal anastomosis, flexible sigmoidoscopy and robotic repair of vagina and bilateral oophorectomy, 12/02/24
-on IV ABX, ID on the case
- Continue management per surgery teams
[id number] HFrEF (EF 35%):
-Echo 12/14/24 showed left ventricle is normal in size with moderately reduced systolic function and global hypokinesis. LVEF 34%. Moderate concentric left ventricular hypertrophy. Biatrial enlargement. Low-flow low gradient aortic stenosis
(peak/mean 21/10 mmHg, CARLOS 0.95 cm², DVI 0.37). Moderate mitral regurgitation. Mild to moderate tricuspid regurgitation. PASP 29 mmHg. Pleural effusion present.
- Volume status improved; continue Lasix 20 mg daily.
-Type unknown
-Possibly in setting of acute illness
-Continue current doses of Coreg, valsartan, spironolactone, and Lasix.
-No SGLT2I with active infection at this time.
Aortic stenosis:
- Currently stable; continue to follow with primary Yarn Dumper as an outpatient.
CAD with hx mid LAD stent 2020:
- Stable.
- Continue aspirin, carvedilol, and atorvastatin.
pSVT:
-brief, asymptomatic
- Continue current dose of Coreg.
Physical Exam
Vital Signs/Labs
Vital Signs
Temp Pulse Resp BP Pulse Ox
98 F 78 12 121/107 94
12/20/24 07:25 12/20/24 06:00 12/20/24 06:00 12/20/24 06:00 12/19/24 21:28
12/19/24 12/20/24 12/21/24
06:59 06:59 06:59
Actual Weight 71 kg 67.6 kg
12/20/24 05:16
12/20/24 05:16
PT 16.4 Sec (11.4-14.6) H 12/09/24 20:40
INR 1.29 12/09/24 20:40
APTT 33.0 Sec (23.4-35.0) 12/09/24 20:40
Magnesium 1.7 mg/dl (1.6-2.3) 12/13/24 07:08
Triglycerides 111 mg/dl (10-149) 12/08/24 20:53
12/14/24
07:38
Bud-[id number]-Rgmmkytximg Pept > 29868
Physical Exam
Constitutional: No acute distress and Comfortable
EENT: Anicteric
Cardiovascular: Rhythm & rate is regular, Pedal edema is absent, Systolic murmur present (2/6) and S1S2 is normal
Respiratory: Respiratory effort normal and Lungs clear to auscul.
GI: Soft
Neuro/Psych: AO x 3
Other: Skin (Warm, dry)
Data Reviewed
-
Date of Service: December 20, 2024
EKG: Tracing Personally Visualized and interpreted (Telemetry: Sinus rhythm with frequent PACs)
Echo: Report Reviewed by me (EF 35%)
Medical Tests (PFT, Pathology etc): Discussed with Nurse and Discussed with Patient
Labs: Labs Reviewed by me
[2024-12-20] MEDS: SYMBICORT 160/4.5 MCG INHALER 2 PUFF INH ×2 (08:45→20:16)
[2024-12-20] MEDS: NOVOLOG FLEXPEN-LOW RESISTANCE SC ×3 (08:55→17:58)
[2024-12-20] MEDS: LOW STRENGTH ASPIRIN 81 MG PO (08:57)
[2024-12-20] MEDS: ZYLOPRIM 100 MG PO (08:58)
[2024-12-20] MEDS: PROTONIX 40 MG PO ×2 (08:58→20:10)
[2024-12-20] MEDS: ALDACTONE 12.5 MG PO (08:59)
[2024-12-20] MEDS: NAMENDA 5 MG PO ×2 (08:59→20:09)
[2024-12-20] MEDS: DIOVAN 40 MG PO ×2 (08:59→20:09)
[2024-12-20] MEDS: CYMBALTA DELAYED RELEASE 30 MG PO (08:59)
[2024-12-20] MEDS: LASIX 20 MG PO (09:01)
[2024-12-20] MEDS: COREG 12.5 MG PO ×2 (09:02→20:09)
--- NOTE | 2024-12-20 09:08 | W.PN.CRS1 ---
Today's Communication / Plan
-
planning
Assessment/Plan
-
POD# 18 from a cystoscopy with insertion of bilateral ureteral stents, robotic low anterior resection with takedown of the splenic flexure and intracorporeal anastomosis, flexible sigmoidoscopy and robotic repair of a colovaginal fistula with
bilateral oophorectomy
POD# 12 1) exploratory laparotomy 2) loop ileostomy creation 3) flexible sigmoidoscopy
AFVSS
WBC 10.6, Hgb 10.1
-Continue to low residue with Ensure vanilla
�Continue pain control with tramadol as needed (she was on oxycodone on admission); Tylenol ATC
-Lovenox for DVT PPx
- Appreciate WOCN for ostomy care and education; daily packing change
�TANK drains removed
- OOB as tolerated. PT/OT ordered.
�Will need SNF on DC
- Appreciate ID consult - vanco/merrem
-Appreciate spring winder -continue asthma treatment
�Appreciate cardiology�continue Lasix, changes to antihypertensives
�Appreciate hospitalist
-Dispo�hopefully ready for DC to rehab soon once medically clear, anticipate sometime early this week
Subjective Data
Procedure
12/02/2024 cystoscopy with bilateral ureteral stents, robotic LAR with takedown of splenic flexure and intracorporeal anastomosis, drainage of an intra-abdominal abscess, flexible sigmoidoscopy, robotic repair for vaginal fistula with bilateral
oophorectomy
12/08/2024- 1) exploratory laparotomy 2) loop ileostomy creation 3) flexible sigmoidoscopy
Subjective Data
Date of Service: December 20, 2024
She has no complaints other than feeling tired. She is tolerating a low residue diet.
Objective Data
-
Vital Signs
Temp Pulse Resp BP Pulse Ox
98 F 90 12 130/70 94
12/20/24 07:25 12/20/24 09:02 12/20/24 06:00 12/20/24 09:02 12/19/24 21:28
Intake & Output
12/19/24 12/20/24 12/21/24
06:59 06:59 06:59
Intake Total 1560 / 1560 920 / 920
Output Total 1880 / 1880 1855 / 1855
Balance -320 / -320 -935 / -935
Intake:
Oral fluids 1560 / 1560 920 / 920
Output:
Liquid stool amount 275 / 275 300 / 300
Ileostomy 275 / 275 300 / 300
Drain Output (Total) 275 / 275
Left Abdomen Tyrone-Noriega 265 / 265
Right Tyrone-Noriega 10 / 10
Urine, Voided 1330 / 1330 1555 / 1555
Lab Results
12/20/24 05:16
12/20/24 05:16
Physical Exam
-
General: No Acute Distress
Abdomen: Soft, Non Distended, Non Tender and Other (The ostomy has semisolid output)
Extremities: No Calf Tenderness
Wound: No Signs of Infection
--- NOTE | 2024-12-20 09:58 | W.PN.ID1 ---
Date of Service
Date of Service: December 20, 2024
Today's Communication
Continue antibiotics. See below�
Assessment / Plan
S/p robotic low anterior sigmoid resection; repair of colovaginal fistula (12/02/2024)
S/p ex lap, loop ileostomy creation (12/08/24)
Leukocytosis
Thrombocytosis
HTN
CKD stage III
CAD
Sigmoid diverticulitis with colovaginal fistula
HLD
GERD
Gout
Recommendations:
Pelvic fluid culture from 12/08/24 without growth.
Leukocytosis remains normal today.
Continue meropenem 500 mg IV q.6 hours (d#8) / vancomycin (dosing per pharmacy) (d#8) for an additional 24 hours, but if white count remains normal and patient otherwise clinically stable, will discontinue.
Follow white count and temperature curve. Monitor Vanco levels to prevent nephrotoxicity.
Trend platelet count.
����������������������������������������������������������
Chief Complaint
-: Leukocytosis
Subjective / Review of Systems
Review of Systems: No Fever and No Chills
Vital Signs / Physical Exam
Vital Signs
Vital Signs
Temp Pulse Resp BP Pulse Ox
98 F 90 16 130/70 94
12/20/24 07:25 12/20/24 09:02 12/20/24 08:48 12/20/24 09:02 12/19/24 21:28
Physical Exam
Constitutional: No Acute Distress, Comfortable and Non-toxic
Eyes: No Conjunctival Hemorrhage and Erythema
Cardiovascular: S1/S2; Negative S3/S4
Pulmonary: Clear and Non Labored; Negative Wheezes or Rales
Gastrointestinal: Soft, Tender and Other (Ostomy in place. Midline incision dressed.)
Extremities: Edema (Trace); Negative Cyanosis or Erythema
Skin: Warm and Dry
Neurological: Awake and Alert
Psychological: Calm
Objective Data
Lab Data
Lab Results
12/20/24 05:16
12/20/24 05:16
PT 16.4 Sec (11.4-14.6) H 12/09/24 20:40
INR 1.29 12/09/24 20:40
APTT 33.0 Sec (23.4-35.0) 12/09/24 20:40
Estimated Creat Clear 41 ml/min 12/20/24 05:16
Total Bilirubin 0.4 mg/dl (0.2-1.3) 12/18/24 05:10
AST 17 U/L (14-36) 12/18/24 05:10
ALT 11 U/L (0-35) 12/18/24 05:10
Alkaline Phosphatase 86 U/L (38-126) 12/18/24 05:10
Most recent labs reviewed.
Micro Results:
12/08/24 17:39 Wound Culture - Final
Abdomen No growth
Gram Stain - Final
12/08/24 17:39 Anaerobic Culture - Final
Abdomen NO ANAEROBES ISOLATED
Imaging:
12/12/2024 CT chest abdomen pelvis with IV contrast: mild to moderate bilateral pleural effusions with adjacent atelectasis. Additional scattered ground glass opacities are noted, which are nonspecific. Postoperative changes with a persistent
collection in the presacral space which extends from the posterior aspect of the colonic anastomotic staple line. There is gas contrast within this collection suspicious for persistent anastomotic leak, although retained extravasated contrast from
prior examination is possible. There is percutaneous surgical drain tip adjacent to the collection. There is decreased size of the mild heterogeneous lesion within the right hemipelvis which likely represents a resolving postoperative hematoma.
Please see full dictation for additional detail.
[2024-12-20 12:05] LABS: Glucose - Point of Care 116 mg/dl (70-99)
[2024-12-20] MEDS: FLUSH (NSS) 2 FLUSH IV (14:30)
--- NOTE | 2024-12-20 16:20 | CM ---
Following up on Patient. Medical Attending stated that patient is ready.
JONNY Day checked referral list then spoke to [facility] who will accept patient and thus far provide a single room. Daughter Leonarda is agreeable, receive a call from the Attending, and now asking for substation operator chief who did also call her,
thus dtr is satisfied with their information.
Authorization is submitted and now waiting for approval, which will likely be tomorrow.
PLANS: Anticipate SNF at [facility].
--- NOTE | 2024-12-20 17:12 | PTCARENOTE ---
Assumed care of pt, alert and oriented x 3. Pleasant and cooperative. Motivated to participate in self care. Pt appetite improved today and felt hungry. Ileostomy patent for loose brown stool. Large amount of flatus today, educated pt on burping
appliance. Pt OOB x 2 hours and then feeling fatigued and requested BTB. She is weak to get from sit to stand but able to do so with standby assist. Pt reports pain is tolerable and scheduled Tylenol effective. Discharge plan in process.
[2024-12-20 17:17] LABS: Glucose - Point of Care 95 mg/dl (70-99)
[2024-12-20] MEDS: TYLENOL PO (17:59)
[2024-12-20] MEDS: LIPITOR 80 MG PO (17:59)
[2024-12-20] MEDS: LOVENOX 40 MG SC (17:59)
[2024-12-20] MEDS: TUMS CHEWABLE TABLET 400 MG PO (21:32)
[2024-12-21] VITALS: BP 130/82
[2024-12-21] MEDS: TYLENOL 650 MG PO ×4 (00:27→13:14)
--- NOTE | 2024-12-21 01:01 | PTCARENOTE ---
patient complaining of heart burn with frequent belching. PRN medication given, see mar.
[2024-12-21 02:00] VITALS: BP 131/103
[2024-12-21 04:00] VITALS: BP 113/53
[2024-12-21] MEDS: STERILE WATER FOR INJECTION 10 ML IV (05:04)
[2024-12-21] MEDS: MERREM 500 MG IV (05:04)
[2024-12-21 05:22] LABS: Hematocrit 30.7 % (37.0-47.0); Hemoglobin 10.2 g/dL (12.0-16.0); Mean Corp Hgb Conc. 33.2 g/dL (33.0-37.0); Mean Corpuscular Volume 86.2 fL (81.0-99.0); Platelet Count 477 10^3/uL (130-400); Red Cell Dist. Width 17.2 % (11.5-14.5)
[2024-12-21 05:44] LABS: Blood Urea Nitrogen 14 mg/dl (7-17); Calcium 8.8 mg/dl (8.4-10.2); Carbon Dioxide 27 mmol/L (22-30); Chloride 103 mmol/L (98-107); Estimated Creatinine Clearance 41 ml/min; Glucose 89 mg/dl (70-99); Potassium 4.5 mmol/L (3.5-5.1); Sodium 133 mmol/L (135-145); eGFR > 60.00
[2024-12-21 05:58] VITALS: BMI 27.0
[2024-12-21 06:00] VITALS: BP 125/110
[2024-12-21] MEDS: SYMBICORT 160/4.5 MCG INHALER 2 PUFF INH (08:00)
--- NOTE | 2024-12-21 08:16 | PHA.VAN.FU ---
Vancomycin Assessment / Plan
- Assessment
Renal Function: Stable
WBC's are: WNL
In the past 24 hrs, patient has been: Afebrile
Concomitant Antimicrobials: Meropenem
- Assessment - Therapeutic Drug Monitoring
Random Level: 13.3 mcg/mL (taken approximately 44 hours post-750 mg dose)
Calculated half life (H): 59.9 hours
- Dosing Plan
Dosing by Level: Re-dose today (Give 750 mg x1)
- Monitoring Plan
No level(s) ordered at this time: Given half life of 60 hours, will not schedule random level until 12/23
- Follow Up
Pharmacy will continue to follow.
Vancomycin Follow UP
- -
Patient Age: 78
Patient Sex: Female
Vancomycin Day #: 9
Indication: Gi / Intra-Abdominal
Requesting Provider: Dr. Florence
Pertinent Antimicrobial Allergies:
no pertinent antibiotic allergies
Height / Weight:
Height 5 ft 3 in
Actual Weight 69.201 kg
Pertinent Past Medical History: CKD Stage III
- Vital Signs / Lab Results
Temp Pulse Resp BP Pulse Ox
98.0 F 84 16 125/110 100
12/21/24 07:43 12/21/24 08:01 12/21/24 08:01 12/21/24 06:00 12/21/24 08:01
Lab Results - Hematology
12/19/24 12/20/24 12/21/24
05:55 05:16 04:59
WBC 10.4 10.6 9.5
Lab Results - Chemistry
12/19/24 12/20/24 12/21/24
05:55 05:16 04:59
BUN 14 13 14
Creatinine 0.9 0.9 0.9
Estimated Creat Clear 46 41 41
Therapeutic Drug Monitoring
Vancomycin Peak 24.6 ug/ml () 12/16/24 09:34
Vancomycin Trough 16.6 ug/ml (5-20) 12/17/24 05:47
Random Vancomycin 13.3 ug/ml 12/21/24 04:59
[2024-12-21] MEDS: NOVOLOG FLEXPEN-LOW RESISTANCE SC ×2 (08:37→13:14)
[2024-12-21] MEDS: PROTONIX 40 MG PO (08:38)
[2024-12-21] MEDS: CYMBALTA DELAYED RELEASE 30 MG PO (08:38)
[2024-12-21] MEDS: ULTRAM 100 MG PO (08:40)
[2024-12-21] MEDS: NAMENDA 5 MG PO (08:41)
[2024-12-21] MEDS: COREG 12.5 MG PO (08:42)
[2024-12-21] MEDS: ZYLOPRIM 100 MG PO (08:42)
[2024-12-21] MEDS: DIOVAN 40 MG PO (08:42)
[2024-12-21] MEDS: LASIX 20 MG PO (08:43)
[2024-12-21] MEDS: ALDACTONE 12.5 MG PO (08:43)
[2024-12-21] MEDS: LOW STRENGTH ASPIRIN 81 MG PO (08:43)
[2024-12-21 08:48] LABS: Glucose - Point of Care 89 mg/dl (70-99)
[2024-12-21] MEDS: VANCOCIN 150 IV (10:06)
[2024-12-21 10:37] VITALS: BP 125/74; PULSE 87
--- NOTE | 2024-12-21 10:37 | W.PN.ID1 ---
Date of Service
Date of Service: December 21, 2024
Today's Communication
Discontinue antibiotics.
Assessment / Plan
S/p robotic low anterior sigmoid resection; repair of colovaginal fistula (12/02/2024)
S/p ex lap, loop ileostomy creation (12/08/24)
Leukocytosis
Thrombocytosis
HTN
CKD stage III
CAD
Sigmoid diverticulitis with colovaginal fistula
HLD
GERD
Gout
Recommendations:
Pelvic fluid culture from 12/08/24 without growth.
Leukocytosis remains normal today.
Currently meropenem 500 mg IV q.6 hours (d#9) / vancomycin (dosing per pharmacy) (d#9)
White count remains stable.
Patient for tentative discharge today.
Overall clinically stable. Will discontinue further antibiotics.
Follow white count and temperature curve. Monitor Vanco levels to prevent nephrotoxicity.
Trend platelet count.
����������������������������������������������������������
Chief Complaint
-: Leukocytosis
Subjective / Review of Systems
Patient seen and examined. Reports overall feeling well. Denies abdominal pain.
Review of Systems: No Fever and No Chills
Vital Signs / Physical Exam
Vital Signs
Vital Signs
Temp Pulse Resp BP Pulse Ox
98.0 F 84 16 125/110 100
12/21/24 07:43 12/21/24 08:01 12/21/24 08:01 12/21/24 06:00 12/21/24 08:01
Physical Exam
Constitutional: No Acute Distress, Comfortable and Non-toxic
Eyes: No Conjunctival Hemorrhage and Erythema
Cardiovascular: S1/S2; Negative S3/S4
Pulmonary: Clear and Non Labored; Negative Wheezes or Rales
Gastrointestinal: Soft, Tender and Other (Ostomy in place. Midline incision dressed. No periwound erythema. Wound packed; no purulence)
Extremities: Edema (Trace); Negative Cyanosis or Erythema
Skin: Warm and Dry
Neurological: Awake and Alert
Psychological: Calm
Objective Data
Lab Data
Lab Results
12/21/24 04:59
12/21/24 04:59
PT 16.4 Sec (11.4-14.6) H 12/09/24 20:40
INR 1.29 12/09/24 20:40
APTT 33.0 Sec (23.4-35.0) 12/09/24 20:40
Estimated Creat Clear 41 ml/min 12/21/24 04:59
Total Bilirubin 0.4 mg/dl (0.2-1.3) 12/18/24 05:10
AST 17 U/L (14-36) 12/18/24 05:10
ALT 11 U/L (0-35) 12/18/24 05:10
Alkaline Phosphatase 86 U/L (38-126) 12/18/24 05:10
Most recent labs reviewed.
Micro Results:
12/08/24 17:39 Wound Culture - Final
Abdomen No growth
Gram Stain - Final
12/08/24 17:39 Anaerobic Culture - Final
Abdomen NO ANAEROBES ISOLATED
Imaging:
12/12/2024 CT chest abdomen pelvis with IV contrast: mild to moderate bilateral pleural effusions with adjacent atelectasis. Additional scattered ground glass opacities are noted, which are nonspecific. Postoperative changes with a persistent
collection in the presacral space which extends from the posterior aspect of the colonic anastomotic staple line. There is gas contrast within this collection suspicious for persistent anastomotic leak, although retained extravasated contrast from
prior examination is possible. There is percutaneous surgical drain tip adjacent to the collection. There is decreased size of the mild heterogeneous lesion within the right hemipelvis which likely represents a resolving postoperative hematoma.
Please see full dictation for additional detail.
Care Review
Plan reviewed with: Physician (Hospitalist)
[2024-12-21 10:44] VITALS: BP 125/74; PULSE 85
--- NOTE | 2024-12-21 11:40 | W.PN.CRS1 ---
Today's Communication / Plan
-
discharge
Assessment/Plan
-
POD# 19 from a cystoscopy with insertion of bilateral ureteral stents, robotic low anterior resection with takedown of the splenic flexure and intracorporeal anastomosis, flexible sigmoidoscopy and robotic repair of a colovaginal fistula with
bilateral oophorectomy
POD# 13 1) exploratory laparotomy 2) loop ileostomy creation 3) flexible sigmoidoscopy
AFVSS
WBC 9.5, Hgb 10.2
-Continue to low residue with Ensure vanilla
�Continue pain control with tramadol as needed (she was on oxycodone on admission); Tylenol ATC
-Lovenox for DVT PPx
- Appreciate WOCN for ostomy care and education; daily packing change
�TANK drains removed
- OOB as tolerated. PT/OT ordered.
�Will need SNF on DC
- Appreciate ID consult - discontinuing abx today
-Appreciate music teacher -continue asthma treatment
�Appreciate cardiology�continue Lasix, changes to antihypertensives
�Appreciate hospitalist
-Dispo�today to SNF
Subjective Data
Procedure
12/02/2024 cystoscopy with bilateral ureteral stents, robotic LAR with takedown of splenic flexure and intracorporeal anastomosis, drainage of an intra-abdominal abscess, flexible sigmoidoscopy, robotic repair for vaginal fistula with bilateral
oophorectomy
12/08/2024- 1) exploratory laparotomy 2) loop ileostomy creation 3) flexible sigmoidoscopy
Subjective Data
Date of Service: December 21, 2024
Patient is doing well. no complaints. Tolerating a diet.
Objective Data
-
Vital Signs
Temp Pulse Resp BP Pulse Ox
98.0 F 84 16 125/110 100
12/21/24 07:43 12/21/24 08:01 12/21/24 08:01 12/21/24 06:00 12/21/24 08:01
Intake & Output
12/20/24 12/21/24 12/22/24
06:59 06:59 06:59
Intake Total 920 / 920 720 / 720
Output Total 1855 / 1855 2300 / 2300
Balance -935 / -935 -1580 / -1580
Intake:
Oral fluids 920 / 920 720 / 720
Output:
Liquid stool amount 300 / 300 550 / 550
Ileostomy 300 / 300 550 / 550
Urine, Voided 1555 / 1555 1750 / 1750
Lab Results
12/21/24 04:59
12/21/24 04:59
Physical Exam
-
General: No Acute Distress and AOx3
Abdomen: Soft, Non Distended, Non Tender and Other (colostomy warm and pink with function. TANK drain sites x 2 c/d/i, midline incision changed, wound c/d/i, repacked in anterior portion. )
Skin: Warm and Dry
--- NOTE | 2024-12-21 13:25 | CM ---
Following up on Patient. Medical Team stated that patient is still ready. JONNY Day spoke to Bethany at [facility], faxing her additional information, then she called back to say that patient can come today.
Auth: #[id number]
Patient going to [facility] and Admissions said that she could get a private room.
Report: #[phone]
Fax: #[phone]
Patient does not qualify for an ambulance so [facility] is taking the patient. RN and [facility] aware metal pickling equipment operator is btw 13:30/ 14:00.
PLAN: SNF at [facility]
--- NOTE | 2024-12-21 14:48 | PTCARENOTE ---
Pt with discharge orders. Daughter picking up to transport to [facility]. Iv site removed. Illeostomy care reviewed with patient, patient's daughter, and patient's granddaughter at bedside. Supplies sent with patient. Report attempted to
[facility]. No answer on number provided. Number for motel front desk attendant of [facility] found and contacted. Transferred to number without answer. lead front desk agent again called, and again transferred to number without answer. Daughter informed of
discharge instructions. Told to inform facility to call with questions.
== END 2024-12-21 15:29 | DRG 329 ==
LOC: IMU 06:05
PROVIDERS: Internal Medicine; Nurse Practitioner Family; Nurse Practitioner Primary Care; Physician Assistant; Registered Nurse; Specialist; Surgery; ADMITTING PHYSICIAN Obstetrics & Gynecology Gynecologic Oncology; ATTENDING PHYSICIAN Surgery; CONSULT PHYSICIAN Internal Medicine Cardiovascular Disease; CONSULT PHYSICIAN Internal Medicine Critical Care Medicine; FAMILY PHYSICIAN Family Medicine; OTHER PHYSICIAN Internal Medicine; OTHER PHYSICIAN Internal Medicine Infectious Disease; REFERRING PHYSICIAN Obstetrics & Gynecology
PROC: 0DBN4ZZ Excision of Sigmoid Colon, Percutaneous Endoscopic Approach (ICD-10-PCS; 2024-12-02)
PROC: 0DJD8ZZ Inspection of Lower Intestinal Tract, Via Natural or Artificial Opening Endoscopic (ICD-10-PCS; 2024-12-02)
PROC: 0T9880Z Drainage of Bilateral Ureters with Drainage Device, Via Natural or Artificial Opening Endoscopic (ICD-10-PCS; 2024-12-02)
PROC: 0UT74ZZ Resection of Bilateral Fallopian Tubes, Percutaneous Endoscopic Approach (ICD-10-PCS; 2024-12-02)
PROC: 0UT24ZZ Resection of Bilateral Ovaries, Percutaneous Endoscopic Approach (ICD-10-PCS; 2024-12-02)
PROC: 8E0W4CZ Robotic Assisted Procedure of Trunk Region, Percutaneous Endoscopic Approach (ICD-10-PCS; 2024-12-02)
PROC: 0D9670Z Drainage of Stomach with Drainage Device, Via Natural or Artificial Opening (ICD-10-PCS; 2024-12-02)
PROC: 3E0K8KZ Introduction of Other Diagnostic Substance into Genitourinary Tract, Via Natural or Artificial Opening Endoscopic (ICD-10-PCS; 2024-12-02)
PROC: 0DBP4ZZ Excision of Rectum, Percutaneous Endoscopic Approach (ICD-10-PCS; 2024-12-02)
PROC: 0UQG4ZZ Repair Vagina, Percutaneous Endoscopic Approach (ICD-10-PCS; 2024-12-02)
PROC: 30233N1 Transfusion of Nonautologous Red Blood Cells into Peripheral Vein, Percutaneous Approach (ICD-10-PCS; 2024-12-03)
PROC: 3E0M05Z Introduction of Adhesion Barrier into Peritoneal Cavity, Open Approach (ICD-10-PCS; 2024-12-08)
PROC: 0D1B0Z4 Bypass Ileum to Cutaneous, Open Approach (ICD-10-PCS; 2024-12-08)
PROC: 5A1935Z Respiratory Ventilation, Less than 24 Consecutive Hours (ICD-10-PCS; 2024-12-08)
PROC: 0BH17EZ Insertion of Endotracheal Airway into Trachea, Via Natural or Artificial Opening (ICD-10-PCS; 2024-12-08)
DX: K57.20 Diverticulitis of large intestine with perforation and abscess without bleeding (principal); A41.9 Sepsis, unspecified organism; K65.1 Peritoneal abscess; R65.21 Severe sepsis with septic shock; I50.23 Acute on chronic systolic (congestive) heart failure; N82.3 Fistula of vagina to large intestine; D62 Acute posthemorrhagic anemia; N13.1 Hydronephrosis with ureteral stricture, not elsewhere classified; K91.89 Other postprocedural complications and disorders of digestive system; E87.1 Hypo-osmolality and hyponatremia; N17.9 Acute kidney failure, unspecified; J98.11 Atelectasis; J45.901 Unspecified asthma with (acute) exacerbation; I47.19 Other supraventricular tachycardia; I11.0 Hypertensive heart disease with heart failure; E83.51 Hypocalcemia; K66.0 Peritoneal adhesions (postprocedural) (postinfection); N73.6 Female pelvic peritoneal adhesions (postinfective); K21.9 Gastro-esophageal reflux disease without esophagitis; R09.02 Hypoxemia; R06.89 Other abnormalities of breathing; D63.8 Anemia in other chronic diseases classified elsewhere; M10.9 Gout, unspecified; D75.839 Thrombocytosis, unspecified; I25.10 Atherosclerotic heart disease of native coronary artery without angina pectoris; I07.1 Rheumatic tricuspid insufficiency; E78.00 Pure hypercholesterolemia, unspecified; E11.36 Type 2 diabetes mellitus with diabetic cataract; I34.0 Nonrheumatic mitral (valve) insufficiency; I35.0 Nonrheumatic aortic (valve) stenosis; Y83.2 Surgical operation with anastomosis, bypass or graft as the cause of abnormal reaction of the patient, or of later complication, without mention of misadventure at the time of the procedure; Y92.239 Unspecified place in hospital as the place of occurrence of the external cause; Z96.651 Presence of right artificial knee joint; Z88.5 Allergy status to narcotic agent; Z88.8 Allergy status to other drugs, medicaments and biological substances; Z79.82 Long term (current) use of aspirin; Z79.899 Other long term (current) drug therapy; Z78.1 Physical restraint status; Z87.891 Personal history of nicotine dependence; Z82.3 Family history of stroke; Z82.49 Family history of ischemic heart disease and other diseases of the circulatory system; Z95.5 Presence of coronary angioplasty implant and graft; Z90.49 Acquired absence of other specified parts of digestive tract; Z90.710 Acquired absence of both cervix and uterus; Z96.82 Presence of neurostimulator
CPT/HCPCS: 36415; 71045; 71260; 74177; 78582; 80048; 80053; 80202; 81003; 81015; 82805; 82962; 83036; 83735; 83880; 84478; 84484; 85014; 85018; 85025; 85027; 85379; 85610; 85730; 86850; 86900; 86901; 86920; 87070; 87075; 87205; 88305; 88307; 88313; 93005; 93306; 93308; 93970; 94002; 94003; 94640; 97116; 97162; 97164; 97167; 97530; 97535; A9540; A9567; C1776; J1335; P9016; Q9967

== ENCOUNTER 2025-01-13 03:18 | Inpatient (IN) | payer OTHER, SELFPAY ==
[2025-01-13] VITALS (7 sets, daily range): BP systolic 110–171; BP diastolic 70–100; PULSE 91–94; O2SAT 100; BMI 22.9
--- NOTE | 2025-01-13 04:09 | HPS.HSE ---
Family Physician
-
Family Physician: NO INTERVIEW UNKNOWN
Chief Complaint
-
abdominal pain, headache
History of Present Illness
Patient is an 79y F with PMH significant for hypertension, ASCVD, CKD and dementia who presents to as transfer from [facility] where she presented 01/12 with complaints of abdominal pain and headaches. Patient was transferred
from [place] with these complaints which she states have been present for the past 4-5 days. History obtained from patient and ED records from [facility]. Patient reportedly had labs done as an outpatient which were abnormal and was sent to the ED for
evaluation. Evaluation at [facility] confirmed presence of hyperkalemia and MANINDER. CT scan was done which showed post-surgical changes from recent LAR and mild, bilateral hydronephrosis with no evidence of stone or obvious obstruction. Patient and family
requested that patient be transferred to for admission and further evaluation.
Patient was admitted to 12/02 - 12/21 for persistent colovaginal fistula.
She underwent robotic repair at that time. 6 days later she returned to the OR with evidence of an anastomotic leak. No leak could be visualized but a loop ileostomy was created and intra-abdominal drains placed at that time. Patient was treated
with IV abx and drainage and her clinical course improved. She was discharged on 12/21 having completed abx course and with drains removed.
Patient was noted to have L hydronephrosis during that hospitalization - suspected due to retroperitoneal abscess / collection.
She had bilateral ureteral stents placed prior to her robotic surgery - which have since been removed.
Medical History
Past Medical History
Past Medical History: Reports Other
Additional Past Medical History:
Colovaginal Fistula
Diverticular Disease
ASCVD
Hypertension
CKD III
GERD
Dementia
Essential Tremor
Anxiety / Depression
Past Surgical History: Reports Other
Additional Past Surgical History:
12/02/24: Cysto with Bilateral Ureteral Stents, Robotic LAR, Repair of Colovaginal Fistula, Bilateral Oophorectomy
12/08/24: Ex Lap with Loop Ileostomy Formation, Flex Sig
Spinal Stimulator
Hysterectomy
PTCA with Stent
Cholecystectomy
Cataracts
Social History
Tobacco: Former Smoker
Alcohol: None
Drug: None
Living: Snf
Family History
Family History: Not pertinent
Allergies / Home Medications
Allergies reflects when Allergies were last updated in [facility].
Home Medications with original date entered in [facility]
Allergy/Medication List:
Allergies
Allergy/AdvReac Type Severity Reaction Status Date / Time
fluticasone (From Flovent Allergy Anaphylaxis Verified 12/02/24 06:22
HFA)
oxycodone (From Percocet) Allergy Vomiting Verified 12/02/24 06:22
tramadol Allergy Vomiting Verified 12/02/24 06:22
Home Medications
Centrum 1 dose PO DAILY Supplement 11/25/24
acetaminophen 500 mg tablet 1,000 mg PO QID PRN pain 11/25/24
albuterol sulfate 90 mcg/actuation aerosol inhaler 1 puff inhalation DAILY PRN sob 11/25/24
allopurinol 100 mg tablet 100 mg PO DAILY Gout 11/25/24
atorvastatin 80 mg tablet 80 mg PO DAILY High Cholesterol 11/25/24
azelastine 137 mcg (0.1 %) nasal spray 2 spray intranasal BID Congestion 11/25/24
carvedilol 12.5 mg tablet 12.5 mg PO BID Blood Pressure 11/25/24
cetirizine 5 mg tablet 5 mg PO DAILY PRN Allergies 11/25/24
duloxetine 30 mg capsule,delayed release 30 mg PO DAILY Mental Health/Anxiety 11/25/24
furosemide 20 mg tablet 20 mg PO DAILY Fluid Retention/Swelling 11/25/24
gabapentin 300 mg capsule 300 mg PO BID Pain 11/25/24
memantine 7 mg capsule sprinkle,extended release 24hr (Namenda XR) 7 mg PO DAILY Neurological Condition 11/25/24
omeprazole 40 mg capsule,delayed release 40 mg PO DAILY Gastrointestinal Issue 11/25/24
aspirin 81 mg chewable tablet 81 mg PO DAILY #0 tabs 12/21/24
calcium carbonate (Calcium Antacid) 400 mg (2 x 200 mg calcium (500 mg)) PO Q4HPRN PRN dyspepsia #30 tabs 12/21/24
spironolactone 25 mg tablet 12.5 mg (1/2 x 25 mg) PO DAILY 30 days #15 tabs 12/21/24
tramadol 50 mg tablet 50 mg PO Q6HPRN PRN moderate pain #20 tabs 12/21/24
losartan 25 mg tablet 25 mg PO BID 01/13/25
Review of Systems
-
History Source: Patient
A 12 point ROS was completed and negative except as noted: Yes
Constitutional: Reports Fatigue; Denies Fever or Chills
Respiratory: Denies Cough or Trouble Breathing
Cardiac: Denies Chest Pain or Palpitations
Abdomen/GI: Reports Abdominal Pain; Denies Nausea, Vomiting, Bloody Stools or Black Stools
: Denies Dysuria, Frequency or Flank Pain
Musculoskeletal: Denies Joint Pain or Edema
Neurological: Reports Headache; Denies Dizzy
Psych: Denies Depression or Anxiety
Physical Exam
Vital Signs
Vital Signs
Temp Pulse Resp BP Pulse Ox
98.3 F 110 18 161/100 97
01/13/25 03:29 01/13/25 03:29 01/13/25 03:29 01/13/25 03:29 01/13/25 03:29
Physical Exam
General: Other (79y F in no acute distress.)
HEENT: Other (Dry MM. Neck supple.)
Respiratory: Clear; No Wheezes, Rales or Rhonchi
Cardiac: S1/S2, Regular Rhythm and Murmur (III/ MARTIN)
GI: Other (Abdomen is soft. No focal tenderness. R sided ostomy with profuse soft stool in device. Some excoriation of skin surrounding ostomy site. Midline incision with superficial areas of incomplete healing. No bleeding / discharge.)
Musculoskeletal: No Clubbing, No Cyanosis and No Edema
Neuro: Awake, Alert and Nonfocal/grossly intact
Impression/Plan
-
A/P: Patient is an 79y F with PMH significant for HTN, CKD and recent colovaginal fistula repair / loop ileostomy formation who presents to from [facility] for MANINDER and hyperkalemia.
MANINDER on CKD III
Hyperkalemia
- Admit for further evaluation and treatment.
- SCr at [place] = 2.3 / at [facility] = 2.17. Baseline around 1.0.
- K at [place] = 6.4 / at [facility] = 5.5. Baseline normal.
- Seems most likely that MANINDER / hyperkalemia are a result of new volume losses from ostomy as well as continued medications including diuretics, Aldactone, ARB, etc.
- CT report reviewed and shows mild bilateral hydro with no clear stone / obstruction. Unclear significance.
- For now will give IVFs and hold Lasix, Aldactone, losartan, etc.
- Follow for improvement in renal function, potassium, etc.
- Monitor urine output. Bladder scan protocol.
Ileostomy Status
s/p Colovaginal Fistula Repair
Intra-Abdominal Abscess / Anastomotic Leak s/p Treatment
- Wound Care eval for ostomy care given local excoriation appreciated at site.
- Will ask Colorectal Surgery to evaluate - though ostomy appears to be functioning well.
- Follow ostomy output and may need to permanently adjust diuretic / med regimen to maintain euvolemia.
- No evidence on CT of recurrent collection or other significant intra-abdominal findings.
ASCVD
- Stable. s/p prior LAD stenting.
- Continue ASA uninterrupted.
Chronic HFrEF
Aortic Stenosis
- Stable. Patient appears hypovolemic if anything as discussed above.
- Hold Lasix and Aldactone acutely.
- Follow I/Os, daily weights and resume some meds if necessary.
Benign Hypertension
- As noted above - holding Aldactone and ARB acutely.
- Continue carvedilol.
Anxiety / Depression
Senile Dementia
- Stable. Continue duloxetine. Continue Namenda ER.
- Follow for acute delirium / agitation during hospital stay.
DVT Prophylaxis: Subcut Heparin
Code Status: Full
[2025-01-13] MEDS: ULTRAM 50 MG PO (05:03)
[2025-01-13] MEDS: NSS 1000 IV ×2 (05:04→17:50)
[2025-01-13] MEDS: CYMBALTA DELAYED RELEASE 30 MG PO (08:19)
[2025-01-13] MEDS: COREG 12.5 MG PO ×2 (08:19→20:45)
[2025-01-13] MEDS: ZYLOPRIM 100 MG PO (08:19)
[2025-01-13] MEDS: NAMENDA 5 MG PO ×2 (08:20→20:38)
[2025-01-13] MEDS: NEURONTIN 300 MG PO ×2 (08:23→20:38)
[2025-01-13] MEDS: HEPARIN 5000 UNITS SC ×2 (08:23→20:37)
[2025-01-13] MEDS: TYLENOL 650 MG PO (08:29)
[2025-01-13 09:35] LABS: Hematocrit 38.0 % (37.0-47.0); Hemoglobin 12.7 g/dL (12.0-16.0); Mean Corp Hgb Conc. 33.4 g/dL (33.0-37.0); Mean Corpuscular Volume 85.4 fL (81.0-99.0); Platelet Count 441 10^3/uL (130-400); Red Cell Dist. Width 17.7 % (11.5-14.5)
--- NOTE | 2025-01-13 09:44 | WOUNDNOTE ---
[facility] RN NOTE: Patient visited for ileostomy leakage. Patient known from prior admission. Upon assessment, os is pointed down and now presents with a fold under stoma. Peristomal skin with some open areas. Patient is a poor historian of ostomy care
and changes/week at [place]. Ostomy appeared to be leaking from medial area, but adhesive was not fully in place. Per Fanta ALVARADO, pouch was changed 3x overnight. Peristomal skin and stoma were cleaned and stoma powder was blotted with no-sting barrier
wipe. Pouch changed with barrier # [id number] and pouch #[id number] and Eakins seal. CHRISTIANO Jewell given update. Heels and sacrum intact. Will recommend static air overlay and mineral oil for heels. CHRISTIANO Jewell given update. All ostomy supplies at bedside. Will
follow as needed.
[2025-01-13 10:03] LABS: Blood Urea Nitrogen 63 mg/dl (7-17); Calcium 10.3 mg/dl (8.4-10.2); Carbon Dioxide 15 mmol/L (22-30); Chloride 108 mmol/L (98-107); Estimated Creatinine Clearance 21 ml/min; Glucose 99 mg/dl (70-99); Potassium 5.3 mmol/L (3.5-5.1); Sodium 135 mmol/L (135-145); eGFR 27.96
[2025-01-13] MEDS: HYDROPHOR 1 APPLIC TOPICAL (10:38)
[2025-01-13] MEDS: SODIUM BICARBONATE 50 MEQ IV (11:46)
[2025-01-13 11:49] LABS: B.E. -8.8 mmol/L; HCO3 16.7 mmol/L (21-28); O2 Saturation % 99.0 % (94-98); PCO2 34 mmHg (32-35); PO2 107 mmHg (83-108)
[2025-01-13 12:18] LABS: Venous Blood Gas B.E. -11.2 mmol/L (-4 to +4); Venous Blood Gas O2 Sat % 99.3 %
--- NOTE | 2025-01-13 12:41 | W.PN.HOSP.TC ---
Today's Communication/Plan
-
Acidosis noted, check ABG, check LA
Lokelma for hyperkalemia
Monitor BMP
IV fluid for MANINDER
Appreciate CRS
Assessment / Plan
Assessment / Plan
79F w/HTN, CKD and recent colovaginal fistula repair / loop ileostomy formation p/w MANINDER, hypokalemia.
MANINDER on CKD III
Hyperkalemia
Non anion gap metabolic acidosis
- SCr at NH = 2.3 / at [facility] = 2.17. Baseline around 1.0.
- K at NH = 6.4 / at [facility] = 5.5. Baseline normal.
- Seems most likely that MANINDER / hyperkalemia are a result of diarrhea/new volume losses from ostomy as well as continued medications including diuretics, Aldactone, ARB, etc.
- CT report reviewed and shows mild bilateral hydro with no clear stone / obstruction. Unclear significance.
- For now will give IVFs and hold Lasix, Aldactone, losartan.
- checked ABG, pH 7.3, LA is wnl. 1 amp bicarb given. Lokelma given.
for MANINDER Check UA
recheck BMP
Dysuria
Check UA, UCx
Ileostomy Status
s/p Colovaginal Fistula Repair
Intra-Abdominal Abscess / Anastomotic Leak s/p Treatment
- Wound Care eval for ostomy care given local excoriation appreciated at site.
- Colorectal Surgery to evaluate - though ostomy appears to be functioning well. Dr. Ford is aware.
- Follow ostomy output and may need to permanently adjust diuretic / med regimen to maintain euvolemia.
- No evidence on CT of recurrent collection or other significant intra-abdominal findings.
ASCVD
- Stable. s/p prior LAD stenting.
- Continue ASA uninterrupted.
Chronic HFrEF
Aortic Stenosis
- Stable. Patient appears hypovolemic if anything as discussed above.
- Hold Lasix and Aldactone acutely. BP is controlled and can likley d/c these meds entirely.
- Follow I/Os, daily weights and resume some meds if necessary.
Benign Hypertension
- As noted above - holding Aldactone and ARB
- Continue carvedilol.
Anxiety / Depression
Senile Dementia
- Stable. Continue duloxetine. Continue Namenda ER.
- Follow for acute delirium / agitation during hospital stay.
DVT Prophylaxis: Subcut Heparin
Code Status: Full
Anticipated Discharge: > 48 hours
Subjective/Interval History
-
Date of Service: January 13, 2025
Patient states she is feeling better, she notes she earlier had a headache, and abdominal pain and some mild shortness of breath. She denies chest pain or palpitations.
Called daughter and updated her on plan of care. She notes pt c/o dysuria and gets frequent UTIs.
Objective Data
-
Labs:
Laboratory Results
01/13/25 01/13/25
08:53 11:40
WBC 10.0
Hgb 12.7
Hct 38.0
Plt Count 441 H
HCO3 16.7 L
Sodium 135
Potassium 5.3 H
Chloride 108 H
Carbon Dioxide 15 L
BUN 63 H
Creatinine 1.8 H
Glucose 99
Calcium 10.3 H
Vital Signs:
Vital Signs
Temp Pulse Resp BP Pulse Ox
97.3 F 90 16 115/78 99
01/13/25 11:03 01/13/25 11:03 01/13/25 11:03 01/13/25 11:03 01/13/25 11:03
Review of Systems
-
All other systems: Reviewed and negative
Physical Exam
-
General: No Apparent Distress
HEENT: Moist Mucous Membranes, Anicteric and PERRLA
Respiratory: Clear to Auscultation; Negative Wheezes, Rales or Rhonchi
Cardiac: Regular Rhythm and S1/S2; Negative Murmur, Rub or Gallop
GI: Soft, Nontender, Nondistended, Normal Bowel Sounds and Ostomy (brown stool)
Musculoskeletal: No Edema
Skin: Warm and Dry; Negative Rash, Ulcers or Lesions
Neuro: Awake and AO x 3
Hematologic / Lymphatic: No Lymphadenopathy
Psych: Calm
Data Reviewed
-
Labs: Labs Reviewed by me, Discussed with Patient and Discussed with Family
[2025-01-13] MEDS: LOKELMA 10 GRAM PO ×2 (13:26→17:50)
--- NOTE | 2025-01-13 15:09 | CON.CRS ---
Consultation
-
Date/Time Consultation Requested: 01/13/2025, 04:05
Date/Time Consultation Performed: 01/13/2025, 15:00
Requesting Provider: Bryson Franks DO
Performing Provider: George Cruz MD
Reason for Consultation: ileostomy leakage
Medical History
-
Chief Complaint: headaches and abdominal pain
History of Present Illness:
79-year-old female, with a significant past medical history of a robotic low anterior resection due to a colovaginal fistula complicated by a pelvic anastomotic leak status post exploratory laparotomy and loop ileostomy creation, discharged on
12/21/2024, presents today as a transfer from [facility] due to abdominal pain and headaches. She had presented there yesterday initially from her intermediate due to these complaints for about 4 to 5 days. When asked, the
patient is not quite sure why she was sent here. Currently she has no complaints other than her ileostomy was leaking this morning. Her WBC was 10.0. Her vitals have remained stable and her temperature is afebrile. She did not have any imaging
on this admission. He was noted that her ileostomy was leaking and the accounting system expert has since changed her appliance and she has had no leakage since. Her labs were found with hyperkalemia as well as mild hydro on the outside hospital CAT scan.
Apparently this showed postsurgical changes of LAR and mild bilateral hydronephrosis with no evidence of stone or obstruction. We have been consulted for surgical opinion given her history.
Past Medical History
Past Medical History: Other (Colovaginal Fistula, Diverticular Disease, ASCVD, Hypertension, CKD III, GERD, Dementia, Essential Tremor Anxiety / Depression)
Past Surgical History: Other (12/02/24: Cysto with Bilateral Ureteral Stents, Robotic LAR, Repair of Colovaginal Fistula, Bilateral Oophorectomy, 12/08/24: Ex Lap with Loop Ileostomy Formation, Flex Sig, Spinal Stimulator Hysterectomy PTCA with
Stent Cholecystectomy Cataracts)
Social History
Tobacco: Non-Smoker
Alcohol: None
Drug: None
Family History
Family History: Reviewed & Not Pertinent
Allergies / Home Medications
Allergy/AdvReac Type Severity Reaction Status Date / Time
fluticasone (From Flovent Allergy Anaphylaxis Verified 12/02/24 06:22
HFA)
oxycodone (From Percocet) Allergy Vomiting Verified 12/02/24 06:22
tramadol Allergy Vomiting Verified 12/02/24 06:22
�Medication �Instructions �Recorded �Confirmed �Type
Centrum 1 dose PO DAILY Supplement 11/25/24 01/13/25 History
acetaminophen 500 mg tablet 1,000 mg PO QID PRN pain 11/25/24 01/13/25 History
albuterol sulfate 90 mcg/actuation 1 puff inhalation DAILY PRN sob 11/25/24 01/13/25 History
aerosol inhaler
allopurinol 100 mg tablet 100 mg PO DAILY Gout 11/25/24 01/13/25 History
atorvastatin 80 mg tablet 80 mg PO DAILY High Cholesterol 11/25/24 01/13/25 History
azelastine 137 mcg (0.1 %) nasal 2 spray intranasal BID Congestion 11/25/24 01/13/25 History
spray
carvedilol 12.5 mg tablet 12.5 mg PO BID Blood Pressure 11/25/24 01/13/25 History
cetirizine 5 mg tablet 5 mg PO DAILY PRN Allergies 11/25/24 01/13/25 History
duloxetine 30 mg capsule,delayed 30 mg PO DAILY Mental 11/25/24 01/13/25 History
release Health/Anxiety
furosemide 20 mg tablet 20 mg PO DAILY Fluid 11/25/24 01/13/25 History
Retention/Swelling
gabapentin 300 mg capsule 300 mg PO BID Pain 11/25/24 01/13/25 History
memantine 7 mg capsule 7 mg PO DAILY Neurological 11/25/24 01/13/25 History
sprinkle,extended release 24hr Condition
(Namenda XR)
omeprazole 40 mg capsule,delayed 40 mg PO DAILY Gastrointestinal 11/25/24 01/13/25 History
release Issue
aspirin 81 mg chewable tablet 81 mg PO DAILY #0 tabs 12/21/24 01/13/25 Rx
calcium carbonate (Calcium Antacid) 400 mg (2 x 200 mg calcium (500 12/21/24 01/13/25 Rx
mg)) PO Q4HPRN PRN dyspepsia #30
tabs
spironolactone 25 mg tablet 12.5 mg (1/2 x 25 mg) PO DAILY 30 12/21/24 01/13/25 Rx
days #15 tabs
tramadol 50 mg tablet 50 mg PO Q6HPRN PRN moderate pain 12/21/24 01/13/25 Rx
#20 tabs
losartan 25 mg tablet 25 mg PO BID 01/13/25 01/13/25 History
Review of Systems
-
History Source: Patient
Abdomen/GI: Other (ileostomy leakage)
A 10 point review of systems was completed, and was negative except as per HPI.
Physical Exam
Vital Signs
Temp 97.6 F 01/13/25 15:01
Pulse 79 01/13/25 15:01
Resp Rate 16 01/13/25 15:01
Blood pressure 115/78 01/13/25 11:03
SaO2 98 01/13/25 15:01
01/12/25 01/13/25 01/14/25
06:59 06:59 06:59
Actual Weight 60.413 kg
Body Mass Index (BMI) 22.9
Lab Results / Allergies
01/13/25 08:53
01/13/25 08:53
WBC 10.0 10^3/uL (4.8-10.8) 01/13/25 08:53
Hgb 12.7 g/dL (12.0-16.0) 01/13/25 08:53
Hct 38.0 % (37.0-47.0) 01/13/25 08:53
Plt Count 441 10^3/uL (130-400) H 01/13/25 08:53
Allergy/AdvReac Type Severity Reaction Status Date / Time
fluticasone (From Flovent Allergy Anaphylaxis Verified 12/02/24 06:22
HFA)
oxycodone (From Percocet) Allergy Vomiting Verified 12/02/24 06:22
tramadol Allergy Vomiting Verified 12/02/24 06:22
Physical Exam
General: Well Developed, Well Nourished and No Apparent Distress
GI: Soft, Non Tender, Non Distended and Other (ileostomy warm and pink with output, no leakage)
Skin: Warm and Dry
Neuro: AO x 3
Data Reviewed
-
Labs: Labs Reviewed by me, Discussed with Physician and Discussed with Patient
Old Records: Reviewed
Assessment / Plan
-
Assessment: 79-year-old female with recent LAR due to a colovaginal fistula complicated by a pelvic leak and recently discharged about 3 weeks ago, presents as a transfer from [facility] from her intermediate due to abdominal pain and
headache and found to have bilateral hydronephrosis on CT scan and a leaking ileostomy
- stem mounter for ileostomy pouching
- Hydronephrosis per primary team
- No plans for surgery at this time. Ileostomy to be reversed at a future date.
--- NOTE | 2025-01-13 16:25 | CM ---
Addendum entered by Chloe Deleon 01/13/25 16:44:
Monitoring outputs and labs. Pt on IV fluids
Original Note:
IA completed with assistance of Dtr Leonarda Reyes. Reviewed IMM over the phone with Leonarda. Blank form left in room and signed form on chart.
Lives with dtr who is physically handicapped but is high functioning and assists pt when she feels fatigued to walk up stairs. Niece is also living there temporarily. Lives in a 2 story home with 10 steps to the entrance and 13 steps inside to BR on
2nd floor. Has been independent with ADLs but fatigues easliy. Hx of VN (? [place]). No hx of home O2. Confirmed PCP, RX , insurance and drug coverage. No insecurities identified
[facility], family is not happy with the care pt was receiving there. PT rec SNF care at discharge. CM provided SNF resources in the [facility] and placed in pt room for Dtalexander Brower when she comes in
today.
Pt has ileostomy. Has been seen by wound care nurse today. Message passed to wound care nurse (Krystal) that dtalexander Brower would like to speak with her about the ileostomy care.
Dtalexander Brower would like the dr to explain why the patient has 'so much output' from her ostomy
JONNY spoke with Philipp Brower and provided Advance Directives resource (left in pt room). She did not have any questions at this time
PCP: Dr. Temple
Rx: Atiya/Deepak Sánchez.
Plan: D/C to SNF.
[2025-01-13 16:49] LABS: Urine Character Clear (Clear)
[2025-01-13 17:32] LABS: Urine Red Blood Cell 0-2 /HPF (0-2); Urine Squamous Cell 0-2 /LPF (Few)
--- NOTE | 2025-01-13 17:37 | WOUNDNOTE ---
[facility] RN NOTE: Received TT from CHRISTIANO Jewell saying pouch was leaking a bit medially. Returned to see patient and emptied pouch for 250 cc and replaced appliance, adding stoma paste medially to a crease. A high output pouch was placed to drainage at this
time. Also spoke to daughter Leonarda who said patient has had a lot of output and staff and NH not always emptying and leaking is occurring daily. TT Fanta with update. Another high output pouch was left at bedside. Will continue to follow during
in-patient stay.
[2025-01-13 18:37] LABS: Blood Urea Nitrogen 56 mg/dl (7-17); Calcium 9.8 mg/dl (8.4-10.2); Carbon Dioxide 20 mmol/L (22-30); Chloride 105 mmol/L (98-107); Estimated Creatinine Clearance 22 ml/min; Glucose 117 mg/dl (70-99); Potassium 4.7 mmol/L (3.5-5.1); Sodium 135 mmol/L (135-145); eGFR 29.94
[2025-01-14] VITALS (7 sets, daily range): BP systolic 127–150; BP diastolic 70–93; BMI 23.0
[2025-01-14] MEDS: LOKELMA 10 GRAM PO (05:48)
[2025-01-14] MEDS: NSS 1000 IV ×2 (05:48→17:52)
[2025-01-14] MEDS: NEURONTIN 300 MG PO ×2 (08:01→20:35)
[2025-01-14] MEDS: CYMBALTA DELAYED RELEASE 30 MG PO (08:01)
[2025-01-14] MEDS: NAMENDA 5 MG PO ×2 (08:01→20:35)
[2025-01-14] MEDS: ZYLOPRIM 100 MG PO (08:02)
[2025-01-14] MEDS: HEPARIN 5000 UNITS SC ×2 (08:02→20:40)
[2025-01-14] MEDS: COREG 12.5 MG PO ×2 (08:02→20:41)
[2025-01-14] MEDS: HYDROPHOR 1 APPLIC TOPICAL (08:04)
--- NOTE | 2025-01-14 08:28 | W.PN.HOSP.TC ---
Today's Communication/Plan
-
K/Bicarb improved
IV fluid for MANINDER, improving
regular diet
Assessment / Plan
Assessment / Plan
79F w/HTN, CKD and recent colovaginal fistula repair / loop ileostomy formation p/w MANINDER, hypokalemia.
MANINDER on CKD III
Hyperkalemia
Non anion gap metabolic acidosis
- SCr at NH = 2.3 / at [facility] = 2.17. Baseline around 1.0.
- K at NH = 6.4 / at [facility] = 5.5. Baseline normal.
- Seems most likely that MANINDER / hyperkalemia are a result of diarrhea/new volume losses from ostomy as well as continued medications including diuretics, Aldactone, ARB, etc.
- CT report reviewed and shows mild bilateral hydro with no clear stone / obstruction. Unclear significance.
- For now will give IVFs and hold Lasix, Aldactone, losartan.
- checked ABG, pH 7.3, LA is wnl. 1 amp bicarb given. Lokelma given.
K improved, Bicarb improving 15-->20
Creatinine also improving from 1.7-1.4, continue IVF
Dysuria
Checked UA, 1+LE/(-) nit, 3-5 WBC, few bact. Not strongly positive for UTI. Hold off abx pending UCx
Ileostomy Status
s/p Colovaginal Fistula Repair
Intra-Abdominal Abscess / Anastomotic Leak s/p Treatment
- Wound Care eval for ostomy care given local excoriation appreciated at site.
- Colorectal Surgery consulted, appreciate rec. Regular diet
- Follow ostomy output and may need to permanently adjust diuretic / med regimen to maintain euvolemia.
- No evidence on CT of recurrent collection or other significant intra-abdominal findings.
ASCVD
- Stable. s/p prior LAD stenting.
- Continue ASA uninterrupted.
Chronic HFrEF
Aortic Stenosis
- Stable. Patient appears hypovolemic if anything as discussed above.
- Hold Lasix and Aldactone acutely. BP is controlled and can likley d/c these meds entirely.
- Follow I/Os, daily weights and resume some meds if necessary.
Benign Hypertension
- As noted above - holding Aldactone and ARB. BP is controlled.
- Continue carvedilol.
Anxiety / Depression
Senile Dementia
- Stable. Continue duloxetine. Continue Namenda ER.
- Follow for acute delirium / agitation during hospital stay.
DVT Prophylaxis: Subcut Heparin
Code Status: Full
Anticipated Discharge: Within 24 hours
Subjective/Interval History
-
Date of Service: January 14, 2025
Patient states she is feeling well, denies any acute issues overnight
Objective Data
-
Labs:
Laboratory Results
01/14/25
07:23
WBC Pending
Hgb Pending
Hct Pending
Plt Count Pending
Sodium Pending
Potassium Pending
Chloride Pending
Carbon Dioxide Pending
BUN Pending
Creatinine Pending
Glucose Pending
Calcium Pending
Vital Signs:
Vital Signs
Temp Pulse Resp BP Pulse Ox
97.9 F 86 16 150/86 98
01/14/25 04:00 01/14/25 08:02 01/14/25 04:00 01/14/25 08:02 01/14/25 04:00
I&O
01/13/25 01/14/25 01/15/25
06:59 06:59 06:59
Intake Total 240 / 240
Output Total 1450 / 1450
Balance -1210 / -1210
Review of Systems
-
All other systems: Reviewed and negative
Physical Exam
-
General: No Apparent Distress
HEENT: Moist Mucous Membranes, Anicteric and PERRLA
Respiratory: Clear to Auscultation; Negative Wheezes, Rales or Rhonchi
Cardiac: Regular Rhythm and S1/S2; Negative Murmur, Rub or Gallop
GI: Soft, Nontender, Nondistended, Normal Bowel Sounds and Ostomy (brown stool)
Musculoskeletal: No Edema
Skin: Warm and Dry; Negative Rash, Ulcers or Lesions
Neuro: Awake and AO x 3
Hematologic / Lymphatic: No Lymphadenopathy
Psych: Calm
Data Reviewed
-
Labs: Labs Reviewed by me, Discussed with Patient and Discussed with Family
[2025-01-14 08:39] LABS: Blood Urea Nitrogen 46 mg/dl (7-17); Calcium 9.4 mg/dl (8.4-10.2); Carbon Dioxide 18 mmol/L (22-30); Chloride 111 mmol/L (98-107); Estimated Creatinine Clearance 27 ml/min; Glucose 84 mg/dl (70-99); Potassium 5.0 mmol/L (3.5-5.1); Sodium 138 mmol/L (135-145); eGFR 37.80
[2025-01-14] MEDS: TYLENOL 650 MG PO (09:24)
[2025-01-14 10:07] LABS: Hematocrit 38.7 % (37.0-47.0); Hemoglobin 11.6 g/dL (12.0-16.0); Mean Corp Hgb Conc. 30.0 g/dL (33.0-37.0); Mean Corpuscular Volume 95.6 fL (81.0-99.0); Platelet Count 338 10^3/uL (130-400); Red Cell Dist. Width 18.3 % (11.5-14.5)
--- NOTE | 2025-01-14 13:06 | W.PN.CRS1 ---
Today's Communication / Plan
-
Follow stoma outputs
Regular diet
Assessment/Plan
-
79 yo female post robotic LAR with takedown of colovaginal fistula by Dr. Cristobal on 12/02/2024 and later exploratory laparotomy with creation of diverting loop ileostomy by Dr. Cruz on 12/08/2024 for pelvic anastomotic leak who is admitted to the
hospital for acute renal insufficiency with hyperkalemia as well as apparent recent outpatient CT which purportedly showed mild bilateral hydronephrosis.
Suspect high stoma outputs contributing to dehydration
Cr improving with IVF
AFVSS
Plan:
Continue IVF
Ok for regular diet
Local wound care to healing midline incision
Will need Strict I&O's (including stoma output volumes); may need antidiarrheals
Trend labs
Subjective Data
Subjective Data
Date of Service: January 14, 2025
Pt seen and examined at bedside with Dr. Cruz. Denies pain, feels a little better today. Denies n/v. Tolerating diet.
Objective Data
-
Vital Signs
Temp Pulse Resp BP Pulse Ox
97.2 F 86 16 150/86 99
01/14/25 08:58 01/14/25 08:58 01/14/25 08:58 01/14/25 08:58 01/14/25 08:58
Intake & Output
01/13/25 01/14/25 01/15/25
06:59 06:59 06:59
Intake Total 240 / 240
Output Total 1450 / 1450
Balance -1210 / -1210
Intake:
Oral fluids 240 / 240
Output:
Liquid stool amount 100 / 100
Ileostomy 100 / 100
Urine, Voided 1350 / 1350
Other:
Number of approximated MODERATE 2
amounts of urine
Number of unmeasured liquid
stools
Ileostomy 2 2
Lab Results
01/14/25 07:23
01/14/25 07:23
Physical Exam
-
General: No Acute Distress
HEENT: Grossly Normal
Abdomen: Soft, Non Distended, Non Tender and Other (right abd stoma pink/productive of loose stool/flatus)
Skin: Warm
Incision: Other (small, healing opening x2 along midline incision)
--- NOTE | 2025-01-14 23:50 | PTCARENOTE ---
Patient complained of sore throat and congestion. BATCH WEIGHER made aware and added orders for Covid and Flu swab. Both swabs resulted negative. Order also added for a lozenge PRN.
[2025-01-15 00:21] LABS: COVID-19 Antigen Negative (Negative)
--- NOTE | 2025-01-15 02:44 | W.PN.UPDATE ---
Update Note
Progress Note Update
2330 RN reports pt with c/o of sore throat and congestion. Will check flu and covid
update: flu and covid neg
[2025-01-15 03:15] VITALS: BP 152/88
[2025-01-15] MEDS: ANESTHETIC LOZENGE 1 LOZENGE PO (03:53)
[2025-01-15] MEDS: TYLENOL 650 MG PO (04:56)
[2025-01-15 05:26] VITALS: BMI 23.5
[2025-01-15] MEDS: NSS 1000 IV ×2 (06:34→18:16)
[2025-01-15 07:25] VITALS: BP 153/88
[2025-01-15 07:54] LABS: Hematocrit 33.3 % (37.0-47.0); Hemoglobin 10.8 g/dL (12.0-16.0); Mean Corp Hgb Conc. 32.4 g/dL (33.0-37.0); Mean Corpuscular Volume 89.5 fL (81.0-99.0); Platelet Count 350 10^3/uL (130-400); Red Cell Dist. Width 18.2 % (11.5-14.5)
[2025-01-15 08:09] LABS: Blood Urea Nitrogen 30 mg/dl (7-17); Calcium 9.2 mg/dl (8.4-10.2); Carbon Dioxide 18 mmol/L (22-30); Chloride 115 mmol/L (98-107); Estimated Creatinine Clearance 29 ml/min; Glucose 94 mg/dl (70-99); Potassium 4.9 mmol/L (3.5-5.1); Sodium 139 mmol/L (135-145); eGFR 41.31
[2025-01-15] MEDS: COREG 12.5 MG PO ×2 (09:32→20:23)
[2025-01-15] MEDS: NAMENDA 5 MG PO ×2 (09:32→20:24)
[2025-01-15] MEDS: CYMBALTA DELAYED RELEASE 30 MG PO (09:32)
[2025-01-15] MEDS: HEPARIN 5000 UNITS SC ×2 (09:32→20:25)
[2025-01-15] MEDS: HYDROPHOR 1 APPLIC TOPICAL (09:33)
[2025-01-15] MEDS: ZYLOPRIM 100 MG PO (09:33)
[2025-01-15] MEDS: NEURONTIN 300 MG PO ×2 (09:33→20:25)
[2025-01-15] MEDS: IMODIUM 2 MG PO ×2 (10:34→20:24)
[2025-01-15 11:29] VITALS: BP 135/71
--- NOTE | 2025-01-15 12:25 | W.PN.CRS1 ---
Today's Communication / Plan
-
follow stoma outputs closely, loperamide started today
Assessment/Plan
-
79 yo female post robotic LAR with takedown of colovaginal fistula by Dr. Cristobal on 12/02/2024 and later exploratory laparotomy with creation of diverting loop ileostomy by Dr. Cruz on 12/08/2024 for pelvic anastomotic leak who is admitted to the
hospital for acute renal insufficiency with hyperkalemia as well as apparent recent outpatient CT which purportedly showed mild bilateral hydronephrosis.
Suspect high stoma outputs contributing to dehydration
900ml documented from stoma in 24h; however, leaking of appliance saturating linens overnight; therefore, all volume is not accounted for in outputs
Cr improving with IVF
AFVSS
Plan:
Continue IVF
Ok for regular diet
Start loperamide 2mg BID
Local wound care to healing midline incision
Strict I&O's (including stoma output volumes)
Trend labs
Subjective Data
Subjective Data
Date of Service: January 15, 2025
Pt seen and examined at bedside with Dr. Cruz. Denies n/v. tolerating diet. liquid stoma outputs with leaking ostomy overnight
Objective Data
-
Vital Signs
Temp Pulse Resp BP Pulse Ox
98.1 F 89 18 135/71 98
01/15/25 11:29 01/15/25 11:29 01/15/25 11:29 01/15/25 11:29 01/15/25 11:29
Intake & Output
01/14/25 01/15/25 01/16/25
06:59 06:59 06:59
Intake Total 240 / 240 2039 / 2039
Output Total 1450 / 1450 2900 / 2900
Balance -1210 / -1210 -860 / -860
Intake:
Oral fluids 240 / 240 1080 / 1080
IV fluids (Total) 960 / 960
Output:
Liquid stool amount 100 / 100 900 / 900
Ileostomy 100 / 100 900 / 900
Urine, Voided 1350 / 1350 1999 / 1999
Other:
Number of approximated MODERATE 2
amounts of urine
Number of unmeasured liquid
stools
Ileostomy 2
Lab Results
01/15/25 06:57
01/15/25 06:57
Physical Exam
-
General: No Acute Distress
HEENT: Grossly Normal
Abdomen: Soft, Non Distended, Non Tender and Other (right abd stoma pink/productive of loose/watery stool/flatus)
Skin: Warm
Incision: Other (Healing midline incision)
--- NOTE | 2025-01-15 13:48 | W.PN.HOSP.TC ---
Today's Communication/Plan
-
MANINDER/K/Bicarb improved
poss dc tomorrow to SNF
regular diet
Assessment / Plan
Assessment / Plan
79F w/HTN, CKD and recent colovaginal fistula repair / loop ileostomy formation p/w MANINDER, hyperkalemia.
MANINDER on CKD III - resolved
Hyperkalemia - resolved
Non anion gap metabolic acidosis
- SCr at NH = 2.3 / at [facility] = 2.17. Baseline around 1.0.
- K at NH = 6.4 / at [facility] = 5.5. Baseline normal.
- Seems most likely that MANINDER / hyperkalemia are a result of diarrhea/new volume losses from ostomy as well as continued medications including diuretics, Aldactone, ARB, etc.
- CT report reviewed and shows mild bilateral hydro with no clear stone / obstruction. Unclear significance.
- For now will give IVFs and hold Lasix, Aldactone, losartan.
- checked ABG, pH 7.3, LA is wnl. 1 amp bicarb given. Lokelma given.
K improved, Bicarb improving 15-->20
Creatinine also improving from 1.7-1.4, continue IVF
Dysuria
Checked UA, 1+LE/(-) nit, 3-5 WBC, few bact. Not strongly positive for UTI. Hold off abx pending UCx
Ileostomy Status
s/p Colovaginal Fistula Repair
Intra-Abdominal Abscess / Anastomotic Leak s/p Treatment
- Wound Care eval for ostomy care given local excoriation appreciated at site.
- Colorectal Surgery consulted, appreciate rec. Regular diet/loperamide
- Follow ostomy output and may need to permanently adjust diuretic / med regimen to maintain euvolemia.
- No evidence on CT of recurrent collection or other significant intra-abdominal findings.
ASCVD
- Stable. s/p prior LAD stenting.
- Continue ASA uninterrupted.
Chronic HFrEF
Aortic Stenosis
- Stable. Patient appears hypovolemic if anything as discussed above.
- Hold Lasix and Aldactone acutely. BP is controlled and can likely d/c these meds entirely.
- Follow I/Os, daily weights and resume some meds if necessary.
Benign Hypertension
- As noted above - holding Aldactone and ARB. BP is controlled.
- Continue carvedilol.
Anxiety / Depression
Senile Dementia
- Stable. Continue duloxetine. Continue Namenda ER.
- Follow for acute delirium / agitation during hospital stay.
DVT Prophylaxis: Subcut Heparin
Code Status: Full
Anticipated Discharge: Within 24 hours
Subjective/Interval History
-
Date of Service: January 15, 2025
Patient feeling well no issues with eating.
Objective Data
-
Labs:
Laboratory Results
01/15/25
06:57
WBC 6.2
Hgb 10.8 L
Hct 33.3 L
Plt Count 350
Sodium 139
Potassium 4.9
Chloride 115 H
Carbon Dioxide 18 L
BUN 30 H
Creatinine 1.3 H
Glucose 94
Calcium 9.2
Vital Signs:
Vital Signs
Temp Pulse Resp BP Pulse Ox
98.1 F 89 18 135/71 98
01/15/25 11:29 01/15/25 11:29 01/15/25 11:29 01/15/25 11:29 01/15/25 11:29
I&O
01/14/25 01/15/25 01/16/25
06:59 06:59 06:59
Intake Total 240 / 240 2040 / 2040
Output Total 1450 / 1450 2900 / 2900
Balance -1210 / -1210 -860 / -860
Review of Systems
-
All other systems: Reviewed and negative
Physical Exam
-
General: No Apparent Distress
HEENT: Moist Mucous Membranes, Anicteric and PERRLA
Respiratory: Clear to Auscultation; Negative Wheezes, Rales or Rhonchi
Cardiac: Regular Rhythm and S1/S2; Negative Murmur, Rub or Gallop
GI: Soft, Nontender, Nondistended, Normal Bowel Sounds and Ostomy (brown stool)
Musculoskeletal: No Edema
Skin: Warm and Dry; Negative Rash, Ulcers or Lesions
Neuro: Awake and AO x 3
Hematologic / Lymphatic: No Lymphadenopathy
Psych: Calm
Data Reviewed
-
Labs: Labs Reviewed by me, Discussed with Patient and Discussed with Family
[2025-01-15 15:20] VITALS: BP 128/77
[2025-01-15] MEDS: ULTRAM 50 MG PO (18:14)
[2025-01-15 19:44] VITALS: BP 149/83
[2025-01-15 23:53] VITALS: BP 136/76
[2025-01-16] VITALS (7 sets, daily range): BP systolic 134–170; BP diastolic 71–96; PULSE 82; O2SAT 97; BMI 24.1
--- NOTE | 2025-01-16 04:09 | PTCARENOTE ---
ileostomy bag changed d/t leaking from left side. 3 small open areas midline with pink wound bed noted, cleaned with saline and 4x4 placed over open areas and secured with tape. 150ccs of loose brown stool emptied
[2025-01-16] MEDS: NSS 1000 IV (06:44)
[2025-01-16] MEDS: NEURONTIN 300 MG PO ×2 (08:15→19:47)
[2025-01-16] MEDS: CYMBALTA DELAYED RELEASE 30 MG PO (08:15)
[2025-01-16] MEDS: IMODIUM 2 MG PO ×2 (08:15→19:48)
[2025-01-16] MEDS: NAMENDA 5 MG PO ×2 (08:16→19:47)
[2025-01-16] MEDS: HEPARIN 5000 UNITS SC ×2 (08:16→19:46)
[2025-01-16] MEDS: ZYLOPRIM 100 MG PO (08:16)
[2025-01-16] MEDS: COREG 12.5 MG PO ×2 (08:19→19:48)
[2025-01-16] MEDS: ULTRAM 50 MG PO ×3 (08:44→21:58)
--- NOTE | 2025-01-16 08:54 | W.PN.HOSP.TC ---
Addendum entered and electronically signed by Carmelo Ortiz MD 01/16/25 16:56:
Updated daughter over the phone. Daughter would like to speak with colorectal surgery at some point during this hospital stay.
Addendum entered and electronically signed by Carmelo Ortiz MD 01/16/25 15:35:
Moderate protein calorie malnutrition
Stage 1 buttock pressure injury, POA
Original Note:
Today's Communication/Plan
-
Bicarb infusion
Assessment / Plan
Assessment / Plan
Physical exam:
General: Well Developed, Well Nourished and No Apparent Distress
HEENT: Normocephalic, Atraumatic and Moist Mucous Membranes
Respiratory: Clear to Auscultation; Negative Wheezes, Rales or Rhonchi
Cardiac: Regular Rhythm and S1/S2
GI: Soft, Nontender and Nondistended; ostomy in place with good functioning
Musculoskeletal: No Clubbing, No Cyanosis and No Edema
Neuro: Awake, Alert and Oriented, cognitive deficits present, no neurological deficit
Psych: Calm
A/P:
MANINDER:
Due to ostomy output
Improving
Started on Imodium
Continue IV fluid
PT OT eval
Metabolic acidosis:
Start bicarb infusion
Monitor acidosis
Cardiac monitoring
Colovaginal fistula status post robotic LAR with takedown of fistula and later exploratory laparotomy with creation of diverting loop ileostomy for pelvic anastomotic leak:
Colorectal surgery on board
On regular diet
Chronic HFrEF:
Monitor ins and outs and daily weight
Appears hypovolemic so continue to hold diuretics
Hypertension:
Continue home antihypertensives
CAD:
Chest pain-free
Continue antiplatelets beta-blockers
Aortic stenosis:
Serial echocardiogram as outpatient
Cognitive deficits/Dementia:
Continue Namenda
Other medical problems:
CKD stage IIIa
Chronic anemia
Mild hyperkalemia, resolved
Bacteriuria
DVT prophylaxis:
Heparin SQ
CODE STATUS:
Full code
Total time spent on today's encounter was 35 minutes which included time spent in counseling the patient/family regarding diagnosis and treatment plan as listed above, goals of care, and symptom management. Case was discussed with nursing staff,
specialists, and care coordinators/case management. All labs and imaging personally reviewed by me. Remainder the time spent in detailed review of previous records, lab data, imaging, and other medical provider documentation.
Anticipated Discharge: 24 - 48 hours
Subjective/Interval History
-
Date of Service: January 16, 2025
Patient had issues with ostomy leakage this morning. Denies nausea vomiting. Afebrile
Objective Data
-
Labs:
Laboratory Results
01/16/25
08:36
WBC Pending
Hgb Pending
Hct Pending
Plt Count Pending
Sodium Pending
Potassium Pending
Chloride Pending
Carbon Dioxide Pending
BUN Pending
Creatinine Pending
Glucose Pending
Calcium Pending
Vital Signs:
Vital Signs
Temp Pulse Resp BP Pulse Ox
97.8 F 87 18 154/88 100
01/16/25 08:32 01/16/25 08:32 01/16/25 08:32 01/16/25 08:32 01/16/25 08:32
I&O
01/15/25 01/16/25 01/17/25
06:59 06:59 06:59
Intake Total 0 / 0 1640 / 1640
Output Total 2900 / 2900 1800 / 1950 150 / 150
Balance -860 / -860 -160 / -310 -150 / -150
[2025-01-16 09:20] LABS: Hematocrit 36.1 % (37.0-47.0); Hemoglobin 11.1 g/dL (12.0-16.0); Mean Corp Hgb Conc. 30.7 g/dL (33.0-37.0); Mean Corpuscular Volume 93.8 fL (81.0-99.0); Platelet Count 262 10^3/uL (130-400); Red Cell Dist. Width 18.7 % (11.5-14.5)
--- NOTE | 2025-01-16 09:20 | WOUNDNOTE ---
WON RN NOTE: Changed appliance for leaking stool under wafer. Stoma pink and budded within abdominal crease causing leakage. Peristomal skin with mild pink irritated skin. Patient reports appliance changed over weekend for leakage. Today after
cleaning applied dusting of stoma powder and advanced 3m skin prep to pink denuded areas. While patient sitting up all the way in bed applied SenSura Mario deep convex click wafer, cut to fit # [id number], with high output Coloplast click pouch # [id number].
Brava strip paste placed in creases at 3 and 9 O clock, then thinned out Camila seal around stoma with extended piece over 3 O clock crease. Applied and fit patient with a Coloplast belt # [id number] while sitting in chair. Patient able to ambulate self to
chair. Soiled gown and sheets changed. Some teaching done with patient and aware that if this system works will do further teaching with family. Goal is 3 day wear time, placed end date on wafer. Additional supplies brought to , will update
discharge instructions and care plan. Call Wound ostomy nurses if need additional supplies, (*Coloplast appliance not carried in [facility]) Will follow.
--- NOTE | 2025-01-16 09:30 | WOUNDNOTE ---
WON RN NOTE: Changed appliance for leaking stool under wafer. Today used SenSura Mario deep convex click wafer cut to fit # [id number], with high output Coloplast click pouch # [id number]. Brava strip paste placed in creases at 3 and 9 O clock, then thinned out
Camila seal around stoma and extended piece over 3 O clock crease. Applied with patient sitting up in bed, then fit patient with a Coloplast belt # 2700 while sitting in chair. Patient able to ambulate self to chair. Soiled gown and sheets changed.
Some teaching done with patient and aware that if this system works will do further teaching with family. Goal is 3 day wear time, placed end date on wafer. Additional supplies brought to , will update discharge instructions and care plan. Call
Wound ostomy nurses if need additional supplies, (*Coloplast appliance not carried in [facility]) Will follow.
[2025-01-16 10:32] LABS: Blood Urea Nitrogen 21 mg/dl (7-17); Calcium 9.4 mg/dl (8.4-10.2); Carbon Dioxide 13 mmol/L (22-30); Chloride 117 mmol/L (98-107); Estimated Creatinine Clearance 32 ml/min; Glucose 78 mg/dl (70-99); Potassium 4.4 mmol/L (3.5-5.1); Sodium 140 mmol/L (135-145); eGFR 45.48
--- NOTE | 2025-01-16 10:34 | W.PN.CRS1 ---
Today's Communication / Plan
-
Continue imodium.
Assessment/Plan
-
Patient with dehydration/KAILEY likely due to high ileostomy output.
1. creatinine down to 1.2.
2. stoma output ?375cc/24 hrs per nursing record. Continue imodium.
3. will continue to follow.
Subjective Data
Subjective Data
Date of Service: January 16, 2025
No complaints.
Objective Data
-
Vital Signs
Temp Pulse Resp BP Pulse Ox
97.8 F 87 18 154/88 100
01/16/25 08:32 01/16/25 08:32 01/16/25 08:32 01/16/25 08:32 01/16/25 08:32
Intake & Output
01/15/25 01/16/25 01/17/25
06:59 06:59 06:59
Intake Total 2040 / 2040 1640 / 1640
Output Total 2900 / 2900 1800 / 1950 150 / 150
Balance -860 / -860 -160 / -310 -150 / -150
Intake:
Oral fluids 1080 / 1080 720 / 720
IV fluids (Total) 960 / 960 920 / 920
Output:
Liquid stool amount 900 / 900 225 / 375 150 / 150
Ileostomy 900 / 900 225 / 375 150 / 150
Urine, Voided 1999 / 1999 1425 / 1425
Urostomy output 150 / 150
Other:
How many times incontinent 1
SATURATED amount urine
Lab Results
01/16/25 08:36
01/16/25 08:36
Physical Exam
-
General: No Acute Distress
Chest: Clear
Cardiovascular: Regular Rate & Rhythm
Abdomen: Soft, Non Distended, Non Tender and Other (stoma viable with output)
[2025-01-16] MEDS: HYDROPHOR 1 APPLIC TOPICAL (11:21)
[2025-01-16] MEDS: SODIUM BICARBONATE 1075 MEQ IV (11:21)
--- NOTE | 2025-01-16 14:30 | PN.CDI ---
CDI
- -
CDI:
Physician Documentation Request
Admit Date: 01/13/25 03:18
Dear Doctor Diana,
Please review the following and provide your response in the progress notes.
Clinical Indicators:
- Bridges Supervisor note indicates moderate protein calorie malnutrition
- Unintentional weight loss >7.5% in 3 months
- Mild subcutaneous loss over orbital with dark circles somewhat hollow
Based on the above information and your assessment, which of the following most accurately represents the patient's nutritional status?
Moderate protein calorie malnutrition
Other (please specify)
Parmelee Criteria ([facility] Hospitalist 2017)
2 or more criteria must be present for either
non severe or severe malnutrition
Note that the criteria differs related to the
presence of an acute or chronic illness
Acute Illness Chronic Illness
Energy Intake Non Severe: <75% for >7 days Non Severe: <75% for >1 month
Severe: <50% for >5 days Severe: <75% for >1 month
Weight Loss Non Severe: 1-2% over 1 week Non Severe: 5% over 1 month
5% over 1 month 7.5% over 3 months
7.5% over 3 months 10% over 6 months
1 year N/A 20% over 1 year
Severe: >2% over 1 week Severe: >5% over 1 month
>5% over 1 month >7.5% over 3 months
>7.5% over 3 months >10% over 6 months
1 year N/A >20% over 1 year
Body Fat Non Severe: Mild Decrease Non Severe: Mild Loss
Severe: Moderate Decrease Severe: Severe Loss
Muscle Mass Non Severe: Mild Decrease Non Severe: Mild Loss
Severe: Moderate Decrease Severe: Severe Loss
Fluid Accumulation Non Severe: Mild Accumulation Non Severe: Mild Accumulation
Severe: Moderate to severe Severe: Moderate to severe
accumulation accumulation
Reduced Large Engine Assembler Strength Non Severe: N/A Non Severe: N/A
Severe: Measurably reduced Severe: Measurably reduced
Additional criteria that can be used to Determine if Mild or Moderate Malnutrition (Merck Manual 2018)
Mild Moderate Severe
Albumin gm/dl <3.0 gm/dl <2.5 gm/dl <2.0 gm/dl
Pre Albumin mg/dl <15 gm/dl <10 mg/dl <5.0 mg/dl
BMI <18.5 <17 <16
Use of terms such as suspected, likely, concern for, or probable (associated with a specific diagnosis that is being evaluated, monitored, or treated as if it exists) are acceptable and can be coded in the inpatient setting, when documented at the
time of discharge.
Thank you,
Judith Whitaker RN
CDI Specialist
Please use your independent medical judgment in providing your response.
--- NOTE | 2025-01-16 14:34 | PN.CDI ---
CDI
- -
CDI:
Physician Documentation Request
Admit Date: 01/13/25 03:18
Dear Doctor Ortiz,
Please review the following and provide your response in the progress notes.
Clinical Indicators:
- RN skin assessments indicate Stage 1 buttock pressure injury, POA
Physician documentation of the type and location of wounds is required for compliant documentation. Based on the above clinical findings and your assessment, please provide the following in your progress note:
1. Location of the ulcer/wound, including laterality.
2. Type (etiology) of ulcer/wound:
- Diabetic ulcer
- Arterial (ischemic) ulcer
- Traumatic wound
- Venous stasis ulcer
- Pressure (decubitus) ulcer
- Other
Use of terms such as suspected, likely, concern for, or probable (associated with a specific diagnosis that is being evaluated, monitored, or treated as if it exists) are acceptable and can be coded in the inpatient setting, when documented at the
time of discharge.
Thank you,
Judith Whitaker RN
CDI Specialist
Please use your independent medical judgment in providing your response.
*Source: National Pressure Ulcer Advisory Panel (NPUAP)
--- NOTE | 2025-01-16 18:15 | CM ---
Spoke to PT recommendation of SNF. CM provided list of facilities in the [facility] [facility]. Stated she will communicate with her siblings to make SNF choices and get back to CM Archier Sandra about PT recommendation of SNF. CM provided list of facilities
in the [facility]. Stated she will communicate with her siblings to make SNF choices and get back to CM. Reached out to Sandra this afternoon, no selections had been made yet; she is researching each facility on the list and will call CM
tomorrow with choices.
CM consult completed
Plan: DC to SNF when bed available auth obtained
[2025-01-16] MEDS: TYLENOL 650 MG PO (19:48)
[2025-01-17] MEDS: SODIUM BICARBONATE 1075 MEQ IV ×2 (00:35→14:41)
[2025-01-17 03:41] VITALS: BP 131/79
[2025-01-17] MEDS: ULTRAM 50 MG PO ×2 (05:47→19:31)
[2025-01-17 06:00] VITALS: BMI 24.7
[2025-01-17 07:16] VITALS: BP 131/69
[2025-01-17] MEDS: HEPARIN 5000 UNITS SC ×2 (07:48→19:31)
[2025-01-17] MEDS: CYMBALTA DELAYED RELEASE 30 MG PO (07:49)
[2025-01-17] MEDS: NEURONTIN 300 MG PO ×2 (07:49→19:31)
[2025-01-17] MEDS: ZYLOPRIM 100 MG PO (07:50)
[2025-01-17] MEDS: IMODIUM 2 MG PO (07:50)
[2025-01-17] MEDS: NAMENDA 5 MG PO ×2 (07:50→19:32)
[2025-01-17] MEDS: COREG 12.5 MG PO ×2 (07:50→19:35)
[2025-01-17] MEDS: HYDROPHOR 1 APPLIC TOPICAL (07:56)
[2025-01-17 08:40] LABS: Hematocrit 35.0 % (37.0-47.0); Hemoglobin 10.7 g/dL (12.0-16.0); Mean Corp Hgb Conc. 30.6 g/dL (33.0-37.0); Mean Corpuscular Volume 92.6 fL (81.0-99.0); Platelet Count 320 10^3/uL (130-400); Red Cell Dist. Width 19.2 % (11.5-14.5)
--- NOTE | 2025-01-17 10:10 | W.PN.CRS1 ---
Today's Communication / Plan
-
as below
Assessment/Plan
-
79-year-old female s/p robotic colovaginal fistula takedown with low anterior resection complicated by leak with ex lap and DLI on 12/08 who presents with abdominal pain and headache, found to have MANINDER, possibly related to increased ostomy output
AFVSS
WBC 6.5 from 6.2, Hb stable, CR 1.1; ostomy output 300 for 24 hours
�MANINDER, improving
�Strict I's and O's
�Continue regular diet
�Ostomy function less than 300 mL in 24 hours, recommend discontinuing the Imodium
�Continue DVT PPx with subQ heparin
� Pain control with Tylenol as needed
� Continue home medications
� Appreciate hospitalist; hopefully DC in the next 1 to 2 days; discussed with daughter
Subjective Data
Subjective Data
Date of Service: January 17, 2025
No overnight events.
Denies any N/V and tolerating regular diet. Having ostomy function. Still having some vague abdominal pains and the sensation of swelling in her abdomen. Pain controlled with medication.
Objective Data
-
Vital Signs
Temp Pulse Resp BP Pulse Ox
97.8 F 84 16 131/69 100
01/17/25 07:16 01/17/25 07:50 01/17/25 07:16 01/17/25 07:50 01/17/25 07:16
Intake & Output
01/16/25 01/17/25 01/18/25
06:59 06:59 06:59
Intake Total 1640 / 1640 480 / 480
Output Total 1800 / 1950 1400 / 1400
Balance -160 / -310 -920 / -920
Intake:
Oral fluids 720 / 720 480 / 480
IV fluids (Total) 920 / 920
Output:
Liquid stool amount 225 / 375 450 / 450
Colostomy 200 / 200
Ileostomy 225 / 375 250 / 250
Urine, Voided 1425 / 1425 950 / 950
Urostomy output 150 / 150
Other:
How many times incontinent 1
SATURATED amount urine
Number of approximated MODERATE 1
amounts of urine
Lab Results
01/17/25 08:25
Physical Exam
-
General: No Acute Distress and AOx3
HEENT: Grossly Normal
Abdomen: Soft, Non Distended, Non Tender, No Guarding, No Rebound and Other (Ostomy pink and productive of semisolid stool)
Skin: Warm and Dry
Wound: No Signs of Infection, No Skin Erythema and Other (Midline incision healing well without erythema or purulent drainage)
[2025-01-17 10:58] LABS: Blood Urea Nitrogen 19 mg/dl (7-17); Calcium 9.0 mg/dl (8.4-10.2); Carbon Dioxide 20 mmol/L (22-30); Chloride 113 mmol/L (98-107); Estimated Creatinine Clearance 35 ml/min; Glucose 74 mg/dl (70-99); Potassium 4.2 mmol/L (3.5-5.1); Sodium 135 mmol/L (135-145); eGFR 50.48
[2025-01-17 11:32] VITALS: BP 118/59
--- NOTE | 2025-01-17 11:37 | W.PN.HOSP.TC ---
Today's Communication/Plan
-
Bicarb infusion
Assessment / Plan
Assessment / Plan
Physical exam:
General: Well Developed, Well Nourished and No Apparent Distress
HEENT: Normocephalic, Atraumatic and Moist Mucous Membranes
Respiratory: Clear to Auscultation; Negative Wheezes, Rales or Rhonchi
Cardiac: Regular Rhythm and S1/S2
GI: Soft, Nontender and Nondistended; ostomy in place with good functioning
Musculoskeletal: No Clubbing, No Cyanosis and No Edema
Neuro: Awake, Alert and Oriented, cognitive deficits present, no neurological deficit
Psych: Calm
A/P:
MANINDER:
Due to ostomy output
Improving
Started on Imodium
Continue IV fluid
PT OT eval
Metabolic acidosis:
Continue bicarb infusion
Bicarb from 13 went up to 20
Continue monitor acidosis
Cardiac monitoring
Colovaginal fistula status post robotic LAR with takedown of fistula and later exploratory laparotomy with creation of diverting loop ileostomy for pelvic anastomotic leak:
Colorectal surgery on board
On regular diet
Chronic HFrEF:
Monitor ins and outs and daily weight
Appears hypovolemic so continue to hold diuretics
Hypertension:
Continue home antihypertensives
CAD:
Chest pain-free
Continue antiplatelets beta-blockers
Aortic stenosis:
Serial echocardiogram as outpatient
Cognitive deficits/Dementia:
Continue Namenda
Other medical problems:
CKD stage IIIa
Chronic anemia
Mild hyperkalemia, resolved
Bacteriuria
DVT prophylaxis:
Heparin SQ
CODE STATUS:
Full code
Total time spent on today's encounter was 36 minutes which included time spent in counseling the patient/family regarding diagnosis and treatment plan as listed above, goals of care, and symptom management. Case was discussed with nursing staff,
specialists, and care coordinators/case management. All labs and imaging personally reviewed by me. Remainder the time spent in detailed review of previous records, lab data, imaging, and other medical provider documentation.
Anticipated Discharge: Within 24 hours
Subjective/Interval History
-
Date of Service: January 17, 2025
Patient states less stool output of ostomy. No nausea or vomiting. No shortness of breath
Objective Data
-
Labs:
Laboratory Results
01/17/25
08:25
WBC 6.5
Hgb 10.7 L
Hct 35.0 L
Plt Count 320 D
Sodium 135
Potassium 4.2
Chloride 113 H
Carbon Dioxide 20 L
BUN 19 H
Creatinine 1.1 H
Glucose 74
Calcium 9.0
Vital Signs:
Vital Signs
Temp Pulse Resp BP Pulse Ox
97.8 F 84 16 131/69 100
01/17/25 07:16 01/17/25 07:50 01/17/25 07:16 01/17/25 07:50 01/17/25 07:16
I&O
01/16/25 01/17/25 01/18/25
06:59 06:59 06:59
Intake Total 1640 / 1640 480 / 480
Output Total 1800 / 1950 1400 / 1400
Balance -160 / -310 -920 / -920
--- NOTE | 2025-01-17 12:45 | W.PN.UPDATE ---
Update Note
Progress Note Update
Progressing well. I have ordered a gastrograffin enema tomorrow for preoperative planning prior to her stoma closure, which might need to be moved up if her renal function/electrolytes worsen. I reviewed this with Leonarda, her daughter. All questions
answered.
--- NOTE | 2025-01-17 14:36 | WOUNDNOTE ---
WON RN NOTE: Followed up today with patient, emptied high output Coloplast pouch, stool much thicker today,(pudding consistency) No leaks today from system applied yesterday. Additional supplies brought to bedside. Spoke with patient's daughter
Leonarda earlier today and set up time to do teaching tomorrow when she arrives. Will bring additional drainable pouches that fit with current wafer incase unable to use high output pouch. JONNY Elder aware that patient will need an ostomy nurse when
home and if possible at SNF. Detailed step by step instructions left with supplies at bedside with codes of all supplies used with current Coloplast system. Will confirm with daughter address and send some samples from [employer]. Will have 2 wk
supply for patient to take upon discharge to use at SNF. Will follow tomorrow.
[2025-01-17 15:35] VITALS: BP 139/87
--- NOTE | 2025-01-17 16:21 | CM ---
Pt is currently on IVF for metabolic acidosis. Also may be having GI surgery to reverse the ileostomy
PT rec SNF at discharge. Assisting family to try and locate a SNF that meets the following criteria:
[employer]
Within [address] of [facility]
Private Room
Ostomy care is provided
Not a 1 or 2 star facility
Spoke with dtrs Serafin about potenital barriers i.e. Private room and mileage from [place]. Messages left for following facilities:
[facility] in [facility] - no private rooms available
[facility] in [place]- no response
[facility] in [place]- no response
[facility] in [place]- no response
Will continue to look for additional facilities
Plan: DC to SNF
[2025-01-17 20:08] VITALS: BP 149/87
[2025-01-17 23:10] VITALS: BP 139/79
[2025-01-18] MEDS: SODIUM BICARBONATE 1075 MEQ IV (00:34)
--- NOTE | 2025-01-18 02:23 | DOWNTIME ---
There was a [employer] Client Special Makeup Fx Artist Instructor Downtime on 01/18/2025 from 0100 to 01/18/2025 at 0215. Downtime documentation of patient's care, including medication administrations, has been reconciled in the electronic record per guidelines. Refer to the
patient's paper chart under the miscellaneous tab to see printed paper medication records and downtime forms.
[2025-01-18 03:32] VITALS: BMI 25.6
[2025-01-18 03:33] VITALS: BP 138/40
[2025-01-18 07:48] VITALS: BP 155/82
[2025-01-18] MEDS: NAMENDA 5 MG PO ×2 (08:10→20:07)
[2025-01-18] MEDS: COREG 12.5 MG PO ×2 (08:10→20:07)
[2025-01-18] MEDS: NEURONTIN 300 MG PO ×2 (08:10→20:07)
[2025-01-18] MEDS: ZYLOPRIM 100 MG PO (08:10)
[2025-01-18] MEDS: CYMBALTA DELAYED RELEASE 30 MG PO (08:10)
[2025-01-18] MEDS: HEPARIN 5000 UNITS SC ×2 (08:11→20:07)
[2025-01-18] MEDS: HYDROPHOR 1 APPLIC TOPICAL (08:12)
--- NOTE | 2025-01-18 08:34 | W.PN.HOSP.TC ---
Today's Communication/Plan
-
Discharge planning
Assessment / Plan
Assessment / Plan
Physical exam:
General: Well Developed, Well Nourished and No Apparent Distress
HEENT: Normocephalic, Atraumatic and Moist Mucous Membranes
Respiratory: Clear to Auscultation; Negative Wheezes, Rales or Rhonchi
Cardiac: Regular Rhythm and S1/S2
GI: Soft, Nontender and Nondistended; ostomy in place with good functioning
Musculoskeletal: No Clubbing, No Cyanosis and No Edema
Neuro: Awake, Alert and Oriented, cognitive deficits present, no neurological deficit
Psych: Calm
A/P:
MANINDER:
Back to normal
Due to ostomy output
Started on Imodium by CRS
Stop IV fluid
PT OT eval
Medically clear for discharge--> case management for discharge disposition
Metabolic acidosis:
Stop bicarb infusion
Bicarb from 13 went up to 24
DC telemetry
Colovaginal fistula status post robotic LAR with takedown of fistula and later exploratory laparotomy with creation of diverting loop ileostomy for pelvic anastomotic leak:
Colorectal surgery on board
Preop studies per CRS
Plan for stoma closure down the road
On regular diet
Chronic HFrEF:
Monitor ins and outs and daily weight
Appears euvolemic so restart diuretics tomorrow
Hypertension:
Continue home antihypertensives
CAD:
Chest pain-free
Continue antiplatelets beta-blockers
Aortic stenosis:
Serial echocardiogram as outpatient
Cognitive deficits/Dementia:
Continue Namenda
Other medical problems:
CKD stage IIIa
Chronic anemia
Mild hyperkalemia, resolved
Bacteriuria
DVT prophylaxis:
Heparin SQ
CODE STATUS:
Full code
Total time spent on today's encounter was 35 minutes which included time spent in counseling the patient/family regarding diagnosis and treatment plan as listed above, goals of care, and symptom management. Case was discussed with nursing staff,
specialists, and care coordinators/case management. All labs and imaging personally reviewed by me. Remainder the time spent in detailed review of previous records, lab data, imaging, and other medical provider documentation.
Anticipated Discharge: Today
Subjective/Interval History
-
Date of Service: January 18, 2025
Patient feels well today. No nausea or vomiting.
Objective Data
-
Labs:
Laboratory Results
01/18/25
08:23
Sodium Pending
Potassium Pending
Chloride Pending
Carbon Dioxide Pending
BUN Pending
Creatinine Pending
Glucose Pending
Calcium Pending
Vital Signs:
Vital Signs
Temp Pulse Resp BP Pulse Ox
98 F 97 18 155/82 98
01/18/25 03:33 01/18/25 08:10 01/18/25 03:33 01/18/25 08:10 01/18/25 03:33
I&O
01/17/25 01/18/25 01/19/25
06:59 06:59 06:59
Intake Total 480 / 480 920 / 920
Output Total 1400 / 1400 1400 / 1400
Balance -920 / -920 -480 / -480
[2025-01-18 09:38] LABS: Blood Urea Nitrogen 16 mg/dl (7-17); Calcium 9.0 mg/dl (8.4-10.2); Carbon Dioxide 24 mmol/L (22-30); Chloride 107 mmol/L (98-107); Estimated Creatinine Clearance 38 ml/min; Glucose 83 mg/dl (70-99); Potassium 4.3 mmol/L (3.5-5.1); Sodium 135 mmol/L (135-145); eGFR 56.60
--- NOTE | 2025-01-18 12:00 | WOUNDNOTE ---
WO RN Note: Instructed patient's daughter and caregiver and another family member how to change patient's ostomy appliance using [employer]oplast deep convex wafer # [id number] with Convatec 2 inch Camila seal #[id number] around stoma and Coloplast brave strip
paste ref#[id number] in deep skin crease and Coloplast high output pouch # [id number] with Coloplast romelia ostomy belt #8076. Peristomal skin with minimal irritated skin along proximal wafer edge which was treated with light dusting of stoma powder followed by
no sting barrier wipe. Ostomy supplies in room. Daughter has written ostomy care instructions including product order numbers. Instructed daughter she can substitute another Camila seal in place of Coloplast strip paste if unable to obtain the strip
paste. Patient's sacral/buttocks skin dry and slightly chafed, not open. Protective silicone border foam dressing applied. Patient can turn self in bed. She is on a static air overlay and has an air chair cushion. Patient turned to L semi side lying
position. Skin on heels intact. Heels off bed with pillow. Will follow as needed.
--- NOTE | 2025-01-18 12:00 | WOUNDNOTE ---
STOMA (ABDOMEN)(chest toward the R side of photo).
[2025-01-18] MEDS: SODIUM BICARBONATE IV (12:20)
--- NOTE | 2025-01-18 13:18 | CM ---
Addendum entered by Chloe Deleon 01/18/25 17:11:
Met with 3 of pt's children and updated them on the process to be accepted and discharged to SNF. All questions answered
Original Note:
spoke with deepika Flores and placed SNF referrals to [facility] rehab and [facility], both in the [facility].
Continues on Bicarb IV fluids
Plan: DC to SNF
[2025-01-18] MEDS: ALDACTONE 12.5 MG PO (13:21)
[2025-01-18] MEDS: LOW STRENGTH ASPIRIN 81 MG PO (13:21)
[2025-01-18] MEDS: LIPITOR 80 MG PO (13:21)
--- NOTE | 2025-01-18 13:34 | WOUNDNOTE ---
WOC RN note: t/c Spoke with Warren at [employer] and ordered an ostomy sample kit for patient. Confirmed with patient's daughter Leonarda to have sent to patient's home.
[2025-01-18 15:22] VITALS: BP 150/92; PULSE 99; O2SAT 99
[2025-01-18 15:42] VITALS: BP 166/86
[2025-01-18 16:29] VITALS: BP 134/84
[2025-01-18] MEDS: ULTRAM 50 MG PO (18:11)
[2025-01-18] MEDS: ZOFRAN 4 MG IV (18:11)
[2025-01-18 23:44] VITALS: BP 139/77
[2025-01-19 06:00] VITALS: BMI 25.6
[2025-01-19 06:39] LABS: Blood Urea Nitrogen 15 mg/dl (7-17); Calcium 8.7 mg/dl (8.4-10.2); Carbon Dioxide 26 mmol/L (22-30); Chloride 109 mmol/L (98-107); Estimated Creatinine Clearance 35 ml/min; Glucose 86 mg/dl (70-99); Potassium 4.1 mmol/L (3.5-5.1); Sodium 139 mmol/L (135-145); eGFR 50.48
[2025-01-19 07:00] VITALS: BP 151/97
[2025-01-19] MEDS: ZYLOPRIM 100 MG PO (08:16)
[2025-01-19] MEDS: CYMBALTA DELAYED RELEASE 30 MG PO (08:16)
[2025-01-19] MEDS: PROTONIX 40 MG PO (08:16)
[2025-01-19] MEDS: LIPITOR 80 MG PO (08:16)
[2025-01-19] MEDS: LOW STRENGTH ASPIRIN 81 MG PO (08:16)
[2025-01-19] MEDS: ALDACTONE 12.5 MG PO (08:17)
[2025-01-19] MEDS: LASIX 20 MG PO (08:17)
[2025-01-19] MEDS: COZAAR 25 MG PO ×2 (08:17→20:53)
[2025-01-19] MEDS: NEURONTIN 300 MG PO ×2 (08:17→20:59)
[2025-01-19] MEDS: NAMENDA 5 MG PO ×2 (08:18→20:52)
[2025-01-19] MEDS: COREG 12.5 MG PO ×2 (08:18→20:59)
[2025-01-19] MEDS: HEPARIN 5000 UNITS SC ×2 (08:19→20:52)
[2025-01-19] MEDS: HYDROPHOR 1 APPLIC TOPICAL (08:24)
--- NOTE | 2025-01-19 10:53 | CM ---
Addendum entered by Chloe Deleon 01/19/25 13:49:
[facility]
Report number: [phone] ask for first floor

Addendum entered by Chloe Deleon 01/19/25 13:39:
[facility]
Report number: [phone] ask for first floor
Addendum entered by Chloe Deleon 01/19/25 12:34:
Provided IMM to deepika Brower over the phone, no questions at this time. Still waiting on auth determination
Original Note:
[facility] has accepted this pt for snf and has a bed available today. Dtalexander Flores informed and will contact siblings
Clinicals faxed: [phone]
Auth is pendin
Attending Physician: Riley Gtz MD
Plan: DC to [facility] if auth approved.
--- NOTE | 2025-01-19 11:00 | W.PN.CRS1 ---
Today's Communication / Plan
-
no plans for surgery this admission
d/c per primary team
Assessment/Plan
-
79-year-old female s/p robotic colovaginal fistula takedown with low anterior resection complicated by leak with ex lap and DLI on 12/08 who presents with abdominal pain and headache, found to have MANINDER, possibly related to increased ostomy output
AFVSS
CR 1.1 (1.1); ostomy output 525ml in 24 hours
�MANINDER, improving
�Strict I's and O's
�Continue regular diet
�Ostomy function less than 300 mL in 24 hours, recommend discontinuing the Imodium
�Continue DVT PPx with subQ heparin
-Gastrogaffin performed yesterday shows 'Short segment area of narrowing and small volume contrast extravasation/leak likely at the level of distal colorectal anastomosis.'
� Pain control with Tylenol as needed
� Continue home medications
� Appreciate hospitalist; okay to DC from our perspective
Subjective Data
Subjective Data
Date of Service: January 19, 2025
Patient states her pain is mild. She has an appetitive. Denies nausea or vomiting. She has no complaints.
Objective Data
-
Vital Signs
Temp Pulse Resp BP Pulse Ox
97.9 F 95 12 159/95 99
01/19/25 07:00 01/19/25 08:17 01/19/25 07:00 01/19/25 08:17 01/19/25 07:00
Intake & Output
01/18/25 01/19/25 01/20/25
06:59 06:59 06:59
Intake Total 920 / 920 780 / 780
Output Total 1400 / 1400 2100 / 2100
Balance -480 / -480 -1320 / -1320
Intake:
Oral fluids 920 / 920 480 / 480
IV fluids (Total) 300 / 300
Output:
Liquid stool amount 350 / 350 525 / 525
Ileostomy 350 / 350 525 / 525
Urine, Voided 1050 / 1050 1575 / 1575
Lab Results
01/17/25 08:25
01/19/25 05:42
Physical Exam
-
General: No Acute Distress and AOx3
Abdomen: Soft, Non Distended and Non Tender
Skin: Warm and Dry
--- NOTE | 2025-01-19 11:08 | W.PN.HOSP.TC ---
Today's Communication/Plan
-
Medically clear for discharge. Discharge planning
Assessment / Plan
Assessment / Plan
Physical exam:
General: Well Developed, Well Nourished and No Apparent Distress
HEENT: Normocephalic, Atraumatic and Moist Mucous Membranes
Respiratory: Clear to Auscultation; Negative Wheezes, Rales or Rhonchi
Cardiac: Regular Rhythm and S1/S2
GI: Soft, Nontender and Nondistended; ostomy in place with good functioning
Musculoskeletal: No Clubbing, No Cyanosis and No Edema
Neuro: Awake, Alert and Oriented, cognitive deficits present, no neurological deficit
Psych: Calm
A/P:
MANINDER:
Back to normal
Due to ostomy output
Started on Imodium by CRS
Off IV fluid
PT OT eval
Medically clear for discharge--> case management for discharge disposition
Metabolic acidosis:
Off bicarb infusion
Bicarb from 13 went up to 24 and then 26
Off telemetry
Colovaginal fistula status post robotic LAR with takedown of fistula and later exploratory laparotomy with creation of diverting loop ileostomy for pelvic anastomotic leak:
Colorectal surgery on board
Preop studies per CRS
Plan for stoma closure down the road
On regular diet
Chronic HFrEF:
Monitor ins and outs and daily weight
Appears euvolemic so restart diuretics tomorrow
Hypertension:
Continue home antihypertensives
CAD:
Chest pain-free
Continue antiplatelets beta-blockers
Aortic stenosis:
Serial echocardiogram as outpatient
Cognitive deficits/Dementia:
Continue Namenda
Other medical problems:
CKD stage IIIa
Chronic anemia
Mild hyperkalemia, resolved
Bacteriuria
DVT prophylaxis:
Heparin SQ
CODE STATUS:
Full code
Total time spent on today's encounter was 35 minutes which included time spent in counseling the patient/family regarding diagnosis and treatment plan as listed above, goals of care, and symptom management. Case was discussed with nursing staff,
specialists, and care coordinators/case management. All labs and imaging personally reviewed by me. Remainder the time spent in detailed review of previous records, lab data, imaging, and other medical provider documentation.
Anticipated Discharge: Today
Subjective/Interval History
-
Date of Service: January 19, 2025
No nausea or vomiting. Normal stool output from her ostomy
Objective Data
-
Labs:
Laboratory Results
01/19/25
05:42
Sodium 139
Potassium 4.1
Chloride 109 H
Carbon Dioxide 26
BUN 15
Creatinine 1.1 H
Glucose 86
Calcium 8.7
Vital Signs:
Vital Signs
Temp Pulse Resp BP Pulse Ox
97.9 F 95 12 159/95 99
01/19/25 07:00 01/19/25 08:17 01/19/25 07:00 01/19/25 08:17 01/19/25 07:00
I&O
01/18/25 01/19/25 01/20/25
06:59 06:59 06:59
Intake Total 920 / 920 780 / 780
Output Total 1400 / 1400 2100 / 2100
Balance -480 / -480 -1320 / -1320
[2025-01-19 11:18] VITALS: BP 113/65
[2025-01-19] MEDS: ULTRAM 50 MG PO (14:35)
--- NOTE | 2025-01-19 14:40 | CM ---
Addendum entered by Lin Mancilla 01/19/25 15:13:
Spoke with Jennifer from [facility].
Original Note:
Family now interested in [facility], tara clinicals sent via [employer].
left for [facility] at [phone].
[2025-01-19 15:25] VITALS: BP 145/80
--- NOTE | 2025-01-19 15:25 | CM ---
Addendum entered by Chloe Deleon 01/19/25 16:59:
Winter from [facility] updated
Addendum entered by Chloe Deleon 01/19/25 15:52:
Plan; DC to [facility] once auth is received. updated
Addendum entered by Chloe Deleon 01/19/25 15:43:
Discussed the situation with the dtr Leonarda again. Explained that the auth probably will not come through until tomorrow. Explained the appeal process to her again. Dtr said that she would be open to [facility] rather than go through the appeal
process. We agreed to touch base again tomorrow morning to discuss options.
Original Note:
Dtr Leonarda made aware that [facility] will accept this pt. Auth started this morning. Spoke to Dtr Leonarda this afternoon and she has now stated that she does not want to sent her mother to [facility], they would prefer [facility]. Called
[facility] and they do not have any female beds at this time; Leonarda made aware. offered [facility] again and they declined; also offered [facility], declined by family. No other facility options provided by family. They wish to wait for a bed
to open at [facility].
Plan: DC to [facility]
[2025-01-19 16:00] VITALS: BP 127/69
[2025-01-19] MEDS: TYLENOL 650 MG PO (21:03)
[2025-01-19 23:33] VITALS: BP 140/86
[2025-01-20 05:08] LABS: Blood Urea Nitrogen 16 mg/dl (7-17); Calcium 8.8 mg/dl (8.4-10.2); Carbon Dioxide 27 mmol/L (22-30); Chloride 109 mmol/L (98-107); Estimated Creatinine Clearance 32 ml/min; Glucose 91 mg/dl (70-99); Potassium 4.0 mmol/L (3.5-5.1); Sodium 140 mmol/L (135-145); eGFR 45.48
[2025-01-20 06:00] VITALS: BMI 25.0
[2025-01-20 07:27] VITALS: BP 165/103
--- NOTE | 2025-01-20 08:23 | CM ---
Authorization for [facility]
Auth# [id number]
Ref# [id number]
Start 01/19/25
Review 01/23
Social Work Supervisor Amanda Billingsley
Representative Evelina Wild
Fax for updated clinicals
[phone]
[2025-01-20] MEDS: HEPARIN 5000 UNITS SC (09:56)
[2025-01-20] MEDS: ALDACTONE 12.5 MG PO (09:57)
[2025-01-20] MEDS: ZYLOPRIM 100 MG PO (09:57)
[2025-01-20] MEDS: NEURONTIN 300 MG PO (09:58)
[2025-01-20] MEDS: LASIX 20 MG PO (09:59)
[2025-01-20] MEDS: CYMBALTA DELAYED RELEASE 30 MG PO (09:59)
[2025-01-20] MEDS: PROTONIX 40 MG PO (09:59)
[2025-01-20] MEDS: COREG 12.5 MG PO (09:59)
[2025-01-20] MEDS: NAMENDA 5 MG PO (09:59)
[2025-01-20] MEDS: LOW STRENGTH ASPIRIN 81 MG PO (09:59)
[2025-01-20] MEDS: LIPITOR 80 MG PO (10:00)
[2025-01-20] MEDS: COZAAR 25 MG PO (10:00)
[2025-01-20] MEDS: HYDROPHOR 1 APPLIC TOPICAL (10:00)
--- NOTE | 2025-01-20 10:26 | CM ---
TC to [facility], no beds available at [facility] skilled rehab for today.
--- NOTE | 2025-01-20 10:48 | W.PN.HOSP.TC ---
Today's Communication/Plan
-
Discharge planning
Assessment / Plan
Assessment / Plan
Physical exam:
General: Well Developed, Well Nourished and No Apparent Distress
HEENT: Normocephalic, Atraumatic and Moist Mucous Membranes
Respiratory: Clear to Auscultation; Negative Wheezes, Rales or Rhonchi
Cardiac: Regular Rhythm and S1/S2
GI: Soft, Nontender and Nondistended; ostomy in place with good functioning
Musculoskeletal: No Clubbing, No Cyanosis and No Edema
Neuro: Awake, Alert and Oriented, cognitive deficits present, no neurological deficit
Psych: Calm
A/P:
MANINDER:
Back to normal
Due to ostomy output
Off Imodium
Off IV fluid
PT OT eval
Medically clear for discharge--> case management for discharge disposition
Metabolic acidosis:
Off bicarb infusion
Bicarb from 13 went up to 24 and then 27
Off telemetry
Colovaginal fistula status post robotic LAR with takedown of fistula and later exploratory laparotomy with creation of diverting loop ileostomy for pelvic anastomotic leak:
Colorectal surgery on board
Preop studies per CRS--> barium enema shows leak at the anastomosis and colorectal surgery aware and will restudy the anastomosis in the future as outpatient.
Plan for stoma closure down the road
On regular diet
Chronic HFrEF:
Monitor ins and outs and daily weight
Hold diuretics again and restart upon discharge
Hypertension:
Continue home antihypertensives
CAD:
Chest pain-free
Continue antiplatelets beta-blockers
Aortic stenosis:
Serial echocardiogram as outpatient
Cognitive deficits/Dementia:
Continue Namenda
Other medical problems:
CKD stage IIIa
Chronic anemia
Mild hyperkalemia, resolved
Bacteriuria
DVT prophylaxis:
Heparin SQ
CODE STATUS:
Full code
Total time spent on today's encounter was 35 minutes which included time spent in counseling the patient/family regarding diagnosis and treatment plan as listed above, goals of care, and symptom management. Case was discussed with nursing staff,
specialists, and care coordinators/case management. All labs and imaging personally reviewed by me. Remainder the time spent in detailed review of previous records, lab data, imaging, and other medical provider documentation.
Anticipated Discharge: Today
Subjective/Interval History
-
Date of Service: January 20, 2025
No new complaints. No nausea vomit
Objective Data
-
Labs:
Laboratory Results
01/20/25
04:26
Sodium 140
Potassium 4.0
Chloride 109 H
Carbon Dioxide 27
BUN 16
Creatinine 1.2 H
Glucose 91
Calcium 8.8
Vital Signs:
Vital Signs
Temp Pulse Resp BP Pulse Ox
97.5 F 97 18 165/103 100
01/20/25 07:27 01/20/25 07:27 01/20/25 07:27 01/20/25 07:27 01/20/25 07:27
I&O
01/19/25 01/20/25 01/21/25
06:59 06:59 06:59
Intake Total 780 / 780
Output Total 2099 / 2099
Balance -1320 / -1319 -1949 / -1949
--- NOTE | 2025-01-20 10:48 | W.DCSUMMARY ---
Discharge Summary
Discharge Data
Date of Admission: 01/13/25
Date of Discharge: 01/20/25
Total time spent discharging patient (in min): 35
-
Pending Results: No
Hospital Course
Patient 79 years old female with history of status post robotic LAR with takedown of colovaginal fistula on 12/02 and later exploratory laparotomy with creation of diverting loop ileostomy on 12/08 for pelvic anastomotic leak came into the hospital
with dehydration found to have MANINDER and hyperkalemia and abdominal discomfort. Patient was treated with aggressive IV fluid hydration. Colorectal surgery was consulted. Her creatinine was as high as 1.8 and after aggressive hydration it went down
to 1.2 upon discharge. We recommend to hold diuretics for 2 more days and after follow-up renal function can restart as outpatient. Colorectal surgery gave her some Imodium at some point but then discontinued and ostomy output improved. She also
had a barium enema that showed no evidence of small leak at the anastomosis and colorectal surgery recommend to maintain ileostomy for now and they will reevaluate her as outpatient to restudy the anastomosis in the future and they are clearing her
for discharge today. She has been eating and drinking well. PT recommends skilled rehab. Otherwise, patient hemodynamically stable and asymptomatic. She is being discharged to rehab today in relatively stable condition.
Discharge management: 35 minutes
Discharge Plan
-
Patient Disposition: Group Home/SNF
Discharge Diagnosis/Procedures: Acute kidney injury. Ostoma leak.
Diet: Low Cholesterol
Activity: As tolerated
Blood Work: Please PCP to order CBC, BMP within 1 week
Activity Restrictions/Additional Instructions:
To be used for ileostomy
Change q 3 days
After cleaning peristomal skin with warm water, pat dry then apply dusting of stoma powder (if skin is denuded) and blot with no-sting barrier wipe.
*BEFORE APPLYING WAFER AND POUCH DO THE FOLLOWING WHILE PATIENT SITTING UP:
Place Coloplast Brava strip paste (half on each side) in creases at 3 and 9 O' clock, #69829-22 in box
then Coloplast thin 2mm ring #[id number] in box or Camila seal around stoma ([facility] #[id number]).
place extended piece(flat strip Coloplast )-#003872-57 in box over 3 O' clock area over filled in crease.
SenSura [place] deep convex click wafer cut to fit # 23591, (Cut wafer slightly bigger than stoma.)-5 in box
high output Coloplast click pouch # [id number]. (Can snap on pouch before applying if easier.)- 10 in box
Then use Coloplast belt # 5817, can adjust belt to fit snug but able to get finger underneath strap.
Can use drainable pouch if not having large output. #87823-56 in box
CAN ALSO TRY ONE PIECE DEEP CONVEX APPLIANCE
Coloplast 1 piece (cut to fit)SenSura [place] deep Maxi drainable pouch #98832 (transparent) or #[id number](opaque)- 10 in box
Coloplast Assura Ileo Night Bag #41797-(2 L) to use with high output pouch only- 6 in box rinse with 1/2 white vinegar and 1/2 water to clean weekly.
Take supplies upon discharge to use at [facility]
[employer] dry gauze dressing if drainage noted otherwise leave open to air, change daily and prn
Air mattress
Elevate heels off bed with pillow.
Pressure redistributing chair cushion (i.e. Air, gel).
Note to case management: [facility](has Ostomy nurse) recommended for continued ostomy teaching.
Referrals:
primary care provider [Other] - in less than 1 week
George Cruz MD [Active, ColoRectal] - in one to two weeks
Prescriptions:
Continued
atorvastatin 80 mg Tablet
80 mg PO DAILY
carvedilol 12.5 mg Tablet
12.5 mg PO BID
cetirizine 5 mg Tablet
5 mg PO DAILY PRN (Reason: Allergies)
allopurinol 100 mg Tablet
100 mg PO DAILY
omeprazole 40 mg Capsule,Delayed Release(Dr/Ec)
40 mg PO DAILY
acetaminophen 500 mg Tablet
1,000 mg PO QID PRN (Reason: pain)
gabapentin 300 mg Capsule
300 mg PO BID
azelastine 137 mcg (0.1 %) [place],Non-Aerosol
2 spray INTRANASAL BID
albuterol sulfate 90 mcg/actuation Hfa Aerosol Inhaler
1 puff INHALATION DAILY PRN (Reason: sob)
duloxetine 30 mg Capsule,Delayed Release(Dr/Ec)
30 mg PO DAILY
memantine [Namenda XR] 7 mg Capsule,Sprinkle,Er 24hr
7 mg PO DAILY
Centrum
1 dose PO DAILY
aspirin 81 mg Tablet,Chewable
81 mg PO DAILY Qty: 0 0RF
spironolactone 25 mg Tablet
12.5 mg PO DAILY 30 Days Qty: 15 0RF
calcium carbonate [Calcium Antacid] 200 mg calcium (500 mg) Tablet,Chewable
400 mg PO Q4HPRN PRN (Reason: dyspepsia) Qty: 30 0RF
losartan 25 mg Tablet
25 mg PO BID
tramadol 50 mg Tablet
50 mg PO Q6HPRN PRN (Reason: moderate pain) Qty: 4 0RF
Held
furosemide 20 mg Tablet
20 mg PO DAILY
Hold Instructions: Resume on 01/23/25.
Discharge Orders:
Discharge Patient (As Directed); Ordered 01/20/25
Ordered By: Carmelo Ortiz
Discharge Date and Time
Discharge Date/Time: 01/20/25 17:00
Print Language: ESTONIAN
[2025-01-20 11:15] VITALS: BP 164/93; PULSE 87; O2SAT 98
--- NOTE | 2025-01-20 11:27 | CM ---
Addendum entered by Chloe Deleon 01/20/25 15:51:
Updated clinical sent to [facility]
Addendum entered by Chloe Deleon 01/20/25 11:49:
Auth# [id number]
Ref# [id number]
Start 01/19/25
Review 01/23
Seed Buyer Amanda Billingsley
Guide Dog Trainer Evelina Wild
Fax for updated clinicals [phone]

Original Note:
Family agreeable to [facility]. Discharged today
Report: [phone]
--- NOTE | 2025-01-20 12:34 | WOUNDNOTE ---
[facility] RN NOTE: Patient visited for pouch change. Current pouch intact, no leaking noted and peristomal skin intact. Pouch changed, Coloplast Brava strip paste (half on each side) in creases at 3 and 9 O' clock, [place] Seal and Sensura [place] deep convex
click wafer #[id number] and high output pouch #[id number]. Patient requested that I not replace the belt at this time b/c she finds it uncomfortable, even when loosened. Plan is for discharge today to SNF. All supplies at beside and discharge orders have been
updated.
[2025-01-20 14:54] VITALS: BP 149/81
--- NOTE | 2025-01-20 16:16 | WOUNDNOTE ---
WOC RN note: t/c Spoke with nurse Melo at [facility] and reviewed ostomy appliance change instruction including product order numbers: Coloplast deep convex wafer # [id number] with Convatec 2 inch Camila seal #[id number] around stoma and Coloplast
brave strip paste ref#[id number] in deep skin crease and Coloplast high output pouch # [id number] with Coloplast romelia ostomy belt #2745. Also suggested an air mattress or evaluate patient for an air mattress.
== END 2025-01-20 17:00 | DRG 683 ==
LOC: 4 EAST ACU 03:18
PROVIDERS: Internal Medicine; Nurse Practitioner Family; ADMITTING PHYSICIAN Hospitalist; ATTENDING PHYSICIAN Hospitalist; OTHER PHYSICIAN Surgery
DX: N17.9 Acute kidney failure, unspecified (principal); E44.0 Moderate protein-calorie malnutrition; E87.20 Acidosis, unspecified; F03.93 Unspecified dementia, unspecified severity, with mood disturbance; I13.0 Hypertensive heart and chronic kidney disease with heart failure and stage 1 through stage 4 chronic kidney disease, or unspecified chronic kidney disease; I50.22 Chronic systolic (congestive) heart failure; F03.94 Unspecified dementia, unspecified severity, with anxiety; Z93.2 Ileostomy status; E87.5 Hyperkalemia; E86.0 Dehydration; N18.31 Chronic kidney disease, stage 3a; I25.10 Atherosclerotic heart disease of native coronary artery without angina pectoris; I35.0 Nonrheumatic aortic (valve) stenosis; F32.A Depression, unspecified; N13.30 Unspecified hydronephrosis; Z90.710 Acquired absence of both cervix and uterus; Z95.5 Presence of coronary angioplasty implant and graft; Z87.891 Personal history of nicotine dependence; Z88.5 Allergy status to narcotic agent; Z11.52 Encounter for screening for COVID-19; K21.9 Gastro-esophageal reflux disease without esophagitis; Z79.82 Long term (current) use of aspirin; Z79.899 Other long term (current) drug therapy; L89.301 Pressure ulcer of unspecified buttock, stage 1; Z68.25 Body mass index [BMI] 25.0-25.9, adult
CPT/HCPCS: 36600; 74270; 80048; 81003; 81015; 82805; 83605; 85027; 87086; 87502; 87811; 93005; 97110; 97116; 97163; 97166; 97530; J7030

== ENCOUNTER → 2025-02-17 08:37 | Outpatient (REF) | payer OTHER, SELFPAY | LOC: RAD 08:37 | PROVIDERS: ATTENDING PHYSICIAN Surgery; FAMILY PHYSICIAN Family Medicine | DX: Z90.49 Acquired absence of other specified parts of digestive tract (principal) | CPT/HCPCS: 74270 ==

== ENCOUNTER 2025-03-14 18:25 | Inpatient (IN) | payer OTHER, SELFPAY ==
[2025-03-14] VITALS (9 sets, daily range): BP systolic 124–182; BP diastolic 68–94; BMI 25.6
--- NOTE | 2025-03-14 17:51 | CON.HOSP ---
Consultation
-
Date/Time Consultation Requested: 03/14/2025
Date/Time Consultation Performed: 03/14/2025
Requesting Provider: Dr. Cristobal
Performing Provider: Dr. Solorio
Reason for Consultation: MANINDER, Acidosis, medical management
Family Physician
-
Family Physician: NOT KNOW UNKNOWN - PT DOES
Chief Complaint
-
I am fine
History of Present Illness
79-year-old female with extensive past medical history who is presented for elective procedure flexible sigmoidoscopy with plan for possible close of the sinus tract. Patient underwent flex sig earlier today and by the colorectal team there is no
evidence of leak but was collection of contrast before the procedure started. Plan will be to admit patient and hydrate and obtain CT pelvis to better assess the anastomosis. Prior to arrival to the hospital patient denied any abdominal pain,
nausea, vomiting, dysuria, hematuria. Denied any lightheadedness or dizziness. States appetite is appropriate. Denies any decreased in p.o. intake. Denied any diarrhea. Denies any abdominal cramping.
Medical History
Past Medical History
Past Medical History: Reports Other
Additional Past Medical History:
Colovaginal fistula status post robotic LAR with takedown of fistula and later exploratory laparotomy with creation of diverting loop ileostomy for pelvic anastomotic leak
Chronic HFrEF
Primary hypertension
CAD
Aortic stenosis
Cognitive deficit
CKD stage IIIa
Chronic anemia
Diverticular disease
Past Surgical History: Reports Other
Additional Past Surgical History:
12/02/24: Cysto with Bilateral Ureteral Stents, Robotic LAR, Repair of Colovaginal Fistula, Bilateral Oophorectomy
12/08/24: Ex Lap with Loop Ileostomy Formation, Flex Sig
Spinal Stimulator
Hysterectomy
Cholecystectomy
Cataracts
Social History
Tobacco: Former Smoker
Alcohol: None
Drug: None
Living: Usp
Family History
Family History: Reviewed & Not Pertinent
Allergies / Home Medications
Allergies reflects when Allergies were last updated in [facility].
Home Medications with original date entered in [facility]
Allergy/Medication List:
Allergies
Allergy/AdvReac Type Severity Reaction Status Date / Time
fluticasone (From Flovent Allergy Anaphylaxis Verified 03/14/25 14:03
HFA)
oxycodone (From Percocet) Allergy Vomiting Verified 03/14/25 14:03
tramadol Allergy Vomiting Verified 03/14/25 14:03
Home Medications
Centrum 1 dose PO DAILY Supplement 11/25/24
acetaminophen 500 mg tablet 1,000 mg PO QID PRN pain 11/25/24
albuterol sulfate 90 mcg/actuation aerosol inhaler 1 puff inhalation DAILY PRN sob 11/25/24
allopurinol 100 mg tablet 100 mg PO DAILY Gout 11/25/24
atorvastatin 80 mg tablet 80 mg PO DAILY High Cholesterol 11/25/24
azelastine 137 mcg (0.1 %) nasal spray 2 spray intranasal BID Congestion 11/25/24
carvedilol 12.5 mg tablet 12.5 mg PO BID Blood Pressure 11/25/24
cetirizine 5 mg tablet 5 mg PO DAILY PRN Allergies 11/25/24
duloxetine 30 mg capsule,delayed release 30 mg PO DAILY Mental Health/Anxiety 11/25/24
furosemide 20 mg tablet 20 mg PO DAILY Fluid Retention/Swelling 11/25/24
Held on 01/20/25. Instructions: Resume on 01/23/25.
gabapentin 300 mg capsule 300 mg PO BID Pain 11/25/24
memantine 7 mg capsule sprinkle,extended release 24hr (Namenda XR) 7 mg PO DAILY Neurological Condition 11/25/24
omeprazole 40 mg capsule,delayed release 40 mg PO DAILY Gastrointestinal Issue 11/25/24
aspirin 81 mg chewable tablet 81 mg PO DAILY #0 tabs 12/21/24
calcium carbonate (Calcium Antacid) 400 mg (2 x 200 mg calcium (500 mg)) PO Q4HPRN PRN dyspepsia #30 tabs 12/21/24
spironolactone 25 mg tablet 12.5 mg (1/2 x 25 mg) PO DAILY 30 days #15 tabs 12/21/24
losartan 25 mg tablet 25 mg PO BID 01/13/25
tramadol 50 mg tablet 50 mg PO Q6HPRN PRN moderate pain #4 tabs 01/20/25
Review of Systems
-
History Source: Patient
A 12 point Review of Systems was completed except as noted: Yes
Physical Exam
Vital Signs
Vital Signs
Temp Pulse Resp BP Pulse Ox
97.3 F 100 23 165/86 92
03/14/25 17:16 03/14/25 17:31 03/14/25 17:31 03/14/25 17:31 03/14/25 17:31
Physical Exam
General: Well Developed, Well Nourished and No Apparent Distress
HEENT: Normocephalic, Moist Mucous Membranes, Atraumatic and Oxygen
Respiratory: Clear
Cardiac: S1/S2, Regular Rhythm and Murmur; Negative Rub
GI: Soft, Non Tender, Non Distended and Normal Bowel Sounds
Rectal: Deferred by Provider
Musculoskeletal: No Clubbing, No Cyanosis and No Edema
Skin: Negative Rash
Neuro: Awake, No Motor Deficits and Nonfocal/Grossly Intact
Psych: Calm
Data Reviewed
-
Total Time Spent with Patient (in minutes): 80
Impression / Plan
-
#Elevated creatinine on CKD3a
Likely secondary to dehydration
Monitor ostomy output
Check urine osmolality and creatinine
Monitor urinary output
Avoid nephrotoxic medication
Trend BMP daily
Check labs and can adjust IV fluids as needed
#Colovaginal fistula status post robotic LAR with takedown of fistula and later exploratory laparotomy with creation of diverting loop ileostomy for pelvic anastomotic leak:
Plan for eventual pelvic CT to better assess anastomotic site
Plan for stoma closure down the road
On regular diet
#Chronic HFrEF:
Monitor ins and outs and daily weight
Hold diuretics for now
#Hypertension:
Monitor blood pressure.
Continue carvedilol. Holding losartan and Aldactone for now
#CAD:
Chest pain-free
Continue antiplatelets beta-blockers
#Aortic stenosis:
Serial echocardiogram as outpatient
#Cognitive deficits/Dementia:
Continue Namenda
#Chronic anemia
Monitor hemoglobin for now
DVT prophylaxis:-Lovenox
CODE STATUS: Full code
Discussed with Dr. Cristobal
[2025-03-14 18:24] LABS: Hematocrit 35.3 % (37.0-47.0); Hemoglobin 11.7 g/dL (12.0-16.0); Mean Corp Hgb Conc. 33.1 g/dL (33.0-37.0); Mean Corpuscular Volume 94.9 fL (81.0-99.0); Nucleated Red Blood Cells % 0 %; Platelet Count 343 10^3/uL (130-400); Red Cell Dist. Width 18.1 % (11.5-14.5)
--- NOTE | 2025-03-14 18:30 | PTCARENOTE ---
Pt received from the PACU via bed. Transport was w/o incident. Pt is AAOx3, HR irreg, lung sounds very decreased w/ insp./Exp. wheezing noted. Pulse ox is 99%2Lvia nc. VS: 97.1-543-49-182/88. Will administer Coreg as ordered. Pt denies pain or
nausea at this time. Pt instructed on plan of care. Pt verbalized understanding of instructions. Call linn is within reach.
[2025-03-14 18:37] LABS: Blood Urea Nitrogen 32 mg/dl (7-17); Calcium 9.1 mg/dl (8.4-10.2); Carbon Dioxide 18 mmol/L (22-30); Chloride 108 mmol/L (98-107); Estimated Creatinine Clearance 24 ml/min; Glucose 73 mg/dl (70-99); Potassium 4.2 mmol/L (3.5-5.1); Sodium 133 mmol/L (135-145); eGFR 32.20
[2025-03-14] MEDS: NSS 1000 IV (19:24)
[2025-03-14] MEDS: LOVENOX 30 MG SC (19:32)
[2025-03-14] MEDS: TYLENOL 650 MG PO (19:33)
[2025-03-14] MEDS: NEURONTIN 300 MG PO (19:33)
[2025-03-14] MEDS: COREG 12.5 MG PO (19:33)
[2025-03-14] MEDS: ROXICODONE 5 MG PO (21:39)
[2025-03-15] MEDS: TYLENOL 650 MG PO ×5 (00:36→20:17)
[2025-03-15 03:05] VITALS: BP 125/66
[2025-03-15] MEDS: TYLENOL PO (04:16)
[2025-03-15 06:25] VITALS: BMI 23.7
[2025-03-15 07:35] VITALS: BP 128/79
[2025-03-15] MEDS: COREG 12.5 MG PO ×2 (08:39→20:19)
[2025-03-15] MEDS: NSS 1000 IV (08:39)
[2025-03-15] MEDS: NEURONTIN 300 MG PO ×2 (08:40→20:18)
[2025-03-15] MEDS: CYMBALTA DELAYED RELEASE 30 MG PO (08:40)
[2025-03-15] MEDS: LOW STRENGTH ASPIRIN 81 MG PO (08:40)
[2025-03-15] MEDS: NAMENDA 5 MG PO ×2 (08:40→20:19)
[2025-03-15] MEDS: PROTONIX 40 MG PO (08:40)
[2025-03-15] MEDS: LIPITOR 80 MG PO (08:40)
--- NOTE | 2025-03-15 10:23 | W.PN.CRS1 ---
Today's Communication / Plan
-
CT pelvis
Assessment/Plan
-
Assessment: MANINDER most likely secondary to dehydration. Will admit for hydration and I's and O's. Hospilalist consult requested. I will also arrange for pelvic CT due to ? retained pelvic contrast on the the flexible sigmoidoscopy performed.
Creatinine: 1.6 (1.2)
Hgb: 11.7 (10.7)
WBC: 7.9
- Continue regular diet
- Continue IV hydration
- CT pelvis pending for this morning and then plans to follow
- Appreciate hospitalist consult
- Trend labs
Subjective Data
Subjective Data
Date of Service: March 15, 2025
Patient states she has no overall complaints. Her only concern is that she is 'cold'. She denies any pain. Denies nausea or vomiting.
Objective Data
-
Vital Signs
Temp Pulse Resp BP Pulse Ox
97.8 F 100 18 128/79 95
03/15/25 07:35 03/15/25 08:39 03/15/25 07:35 03/15/25 08:39 03/15/25 07:35
Intake & Output
03/14/25 03/15/25 03/16/25
06:59 06:59 06:59
Intake Total 200 / 200 960 / 960
Output Total 125 / 125 150 / 150
Balance 75 / 75 810 / 810
Intake:
IV fluids (Total) 200 / 200 960 / 960
normal saline 200 / 200
Output:
Liquid stool amount 125 / 125 150 / 150
Ileostomy 125 / 125 150 / 150
Other:
Number of approximated MODERATE 1 1
amounts of urine
Lab Results
03/14/25 18:11
03/14/25 18:11
Physical Exam
-
General: No Acute Distress and AOx3
Abdomen: Soft, Non Distended and Non Tender
Skin: Warm and Dry
--- NOTE | 2025-03-15 10:28 | CM ---
Initial assessment completed with patient whose daughter lives with her in a 2 story plus basement home, B/B on 2nd, with 6 steps to enter. [employer]IM[employer]INARIAN patient was independent in ADL's and ambulation. She uses a RW or rollator when out of the home. No
other DME. No in-home services. No HC-POA. No VA benefits. No psychiatric hospitalizations. PCP is Dr. Felipe Temple. Pharmacy is [facility]. Discharge POC: Patient requesting Geo OSORIO RN. Referral placed.
[2025-03-15 11:22] VITALS: BP 124/64
--- NOTE | 2025-03-15 11:34 | W.PN.HOSP.TC ---
Today's Communication/Plan
-
Awaiting labs from today
Start p.o. bicarbonate
If improvement in creatinine consider stopping IV fluids with history of heart failure
PT eval
Assessment / Plan
Assessment / Plan
General: Well Developed, Well Nourished and No Apparent Distress
HEENT: Normocephalic, Moist Mucous Membranes, Atraumatic and Oxygen
Respiratory: Clear
Cardiac: S1/S2, Regular Rhythm and Murmur; Negative Rub
GI: Soft, Non Tender, Non Distended and Normal Bowel Sounds, +ostomy
Rectal: Deferred by Provider
Musculoskeletal: No Clubbing, No Cyanosis and No Edema
Skin: Negative Rash
Neuro: Awake, No Motor Deficits and Nonfocal/Grossly Intact
Psych: Calm
#Elevated creatinine on CKD3a
#Metabolic acidosis
Likely secondary to dehydration
Monitor ostomy output
Monitor urinary output
Avoid nephrotoxic medication
Trend BMP daily
Start p.o. bicarbonate
Continue to hold Lasix, Aldactone and losartan for now
Awaiting labs from today
#Colovaginal fistula status post robotic LAR with takedown of fistula and later exploratory laparotomy with creation of diverting loop ileostomy for pelvic anastomotic leak:
CT pelvis Residual intestinal contrast most prominent in the cecum and appendix. Limited evaluation of distal sigmoid-rectal anastomosis without oral or intravenous contrast, without significant true pelvis free fluid or gross abnormal focal fluid
collection.
Plan for stoma closure down the road
On regular diet
#Chronic HFrEF:
Monitor ins and outs and daily weight
Hold diuretics for now
#Hypertension:
Monitor blood pressure.
Continue carvedilol. Holding losartan and Aldactone for now
Blood pressure well-controlled
#CAD:
Chest pain-free
Continue antiplatelets beta-blockers
#Aortic stenosis:
Serial echocardiogram as outpatient
#Cognitive deficits/Dementia:
Continue Namenda
#Chronic anemia
Monitor hemoglobin for now
DVT prophylaxis:-Lovenox
CODE STATUS: Full code
Anticipated Discharge: > 48 hours
Subjective/Interval History
-
Date of Service: March 15, 2025
Denies any abdominal pain or nausea or vomiting
Objective Data
-
Vital Signs:
Vital Signs
Temp Pulse Resp BP Pulse Ox
97.9 F 103 16 124/64 97
03/15/25 11:22 03/15/25 11:22 03/15/25 11:22 03/15/25 11:22 03/15/25 11:22
I&O
03/14/25 03/15/25 03/16/25
06:59 06:59 06:59
Intake Total 200 / 200 960 / 960
Output Total 125 / 125 150 / 150
Balance 75 / 75 810 / 810
Data Reviewed
-
Total Time Spent with Patient (in minutes): 55
[2025-03-15] MEDS: SODIUM BICARBONATE 650 MG PO ×3 (12:19→22:01)
[2025-03-15 14:30] VITALS: BMI 25.6
[2025-03-15] MEDS: LOVENOX 30 MG SC (17:30)
[2025-03-15 18:03] LABS: Blood Urea Nitrogen 25 mg/dl (7-17); Calcium 8.9 mg/dl (8.4-10.2); Carbon Dioxide 19 mmol/L (22-30); Chloride 110 mmol/L (98-107); Estimated Creatinine Clearance 24 ml/min; Glucose 103 mg/dl (70-99); Potassium 5.0 mmol/L (3.5-5.1); Sodium 134 mmol/L (135-145); eGFR 32.20
[2025-03-15] MEDS: ROBITUSSIN 200 MG PO (20:37)
[2025-03-15 23:08] VITALS: BP 128/70
[2025-03-16] MEDS: NSS 1000 IV (00:22)
[2025-03-16] MEDS: TYLENOL 650 MG PO ×7 (00:23→23:51)
[2025-03-16 06:00] VITALS: BMI 24.0
[2025-03-16 07:35] VITALS: BP 146/88
[2025-03-16 07:51] LABS: Hematocrit 33.5 % (37.0-47.0); Hemoglobin 11.3 g/dL (12.0-16.0); Mean Corp Hgb Conc. 33.7 g/dL (33.0-37.0); Mean Corpuscular Volume 92.8 fL (81.0-99.0); Nucleated Red Blood Cells % 0 %; Platelet Count 306 10^3/uL (130-400); Red Cell Dist. Width 18.2 % (11.5-14.5)
[2025-03-16 07:54] LABS: APTT 32.3 Sec (23.4-35.0); INR 1.15; PT 14.5 Sec (11.4-14.6)
[2025-03-16 08:04] LABS: Blood Urea Nitrogen 21 mg/dl (7-17); Calcium 8.9 mg/dl (8.4-10.2); Carbon Dioxide 19 mmol/L (22-30); Chloride 113 mmol/L (98-107); Estimated Creatinine Clearance 29 ml/min; Glucose 101 mg/dl (70-99); Potassium 4.4 mmol/L (3.5-5.1); Sodium 137 mmol/L (135-145); eGFR 41.31
--- NOTE | 2025-03-16 08:33 | W.PN.CRS1 ---
Today's Communication / Plan
-
As below
Assessment/Plan
-
79-year-old female with PMH of HFrEF, HTN, CAD, , CKD stage III, s/p LAR complicated by anastomotic leak s/p DLI who presented for sigmoidoscopy 03/[address] Tinajero, no obvious anastomotic defect visualized, pending ileostomy reversal tomorrow
CT pelvis yesterday showed no evidence of anastomotic leak, but no contrast was in the rectum; contrast was seen in the cecum and the sigmoid
WBC 5.6, Hb 11.3 from 11.7, Cr 1.3 from 1.6
� Plan for diverting loop ileostomy reversal tomorrow
� Clears today, n.p.o. at midnight; no bowel prep necessary
� Continue home meds
� Continue DVT PPx with Lovenox
� Encourage IS/OOB
�Appreciate hospitalist
Subjective Data
Subjective Data
Date of Service: March 16, 2025
No overnight events.
Denies any pain
Denies nausea/vomiting. Tolerating diet.
+ostomy function +voiding
Pt is OOB.
Objective Data
-
Vital Signs
Temp Pulse Resp BP Pulse Ox
97.9 F 93 16 146/88 100
03/16/25 07:35 03/16/25 07:35 03/16/25 07:35 03/16/25 07:35 03/16/25 07:35
Intake & Output
03/15/25 03/16/25 03/17/25
06:59 06:59 06:59
Intake Total 200 / 200 2400 / 3360 960 / 960
Output Total 125 / 125 600 / 600
Balance 75 / 75 1800 / 2760 960 / 960
Intake:
Oral fluids 480 / 480
IV fluids (Total) 200 / 200 1920 / 2880 960 / 960
normal saline 200 / 200
Output:
Liquid stool amount 125 / 125 600 / 600
Ileostomy 125 / 125 600 / 600
Other:
Number of approximated SMALL 4
amounts of urine
Number of approximated MODERATE 1 1
amounts of urine
Lab Results
03/16/25 07:17
03/16/25 07:17
Physical Exam
-
General: No Acute Distress and AOx3
HEENT: Grossly Normal
Abdomen: Soft, Non Distended, Non Tender and Other (Ostomy pink and productive of liquid stool)
Skin: Warm and Dry
[2025-03-16] MEDS: PROTONIX 40 MG PO (09:19)
[2025-03-16] MEDS: SODIUM BICARBONATE 650 MG PO ×3 (09:19→21:29)
[2025-03-16] MEDS: NEURONTIN 300 MG PO ×2 (09:19→20:19)
[2025-03-16] MEDS: CYMBALTA DELAYED RELEASE 30 MG PO (09:19)
[2025-03-16] MEDS: LIPITOR 80 MG PO (09:19)
[2025-03-16] MEDS: COREG 12.5 MG PO ×2 (09:20→20:19)
[2025-03-16] MEDS: LOW STRENGTH ASPIRIN 81 MG PO (09:20)
[2025-03-16] MEDS: NAMENDA 5 MG PO ×2 (09:20→20:19)
--- NOTE | 2025-03-16 10:54 | W.PN.HOSP.TC ---
Today's Communication/Plan
-
clears. OR tomm
DC IVF
Trend cr
check CXR
Assessment / Plan
Assessment / Plan
General: Well Developed, Well Nourished and No Apparent Distress
HEENT: Normocephalic, Moist Mucous Membranes, Atraumatic and Oxygen
Respiratory: Clear
Cardiac: S1/S2, Regular Rhythm and Murmur; Negative Rub
GI: Soft, Non Tender, Non Distended and Normal Bowel Sounds, +ostomy
Rectal: Deferred by Provider
Musculoskeletal: No Clubbing, No Cyanosis and No Edema
Skin: Negative Rash
Neuro: Awake, No Motor Deficits and Nonfocal/Grossly Intact
Psych: Calm
#Elevated creatinine on CKD3a
#Metabolic acidosis
Likely secondary to dehydration
Monitor ostomy output
Monitor urinary output
Avoid nephrotoxic medication
Trend BMP daily
Start p.o. bicarbonate
Continue to hold Lasix, Aldactone and losartan for now
Improvement in creatinine. DC further fluids and observe.
#Colovaginal fistula status post robotic LAR with takedown of fistula and later exploratory laparotomy with creation of diverting loop ileostomy for pelvic anastomotic leak:
CT pelvis Residual intestinal contrast most prominent in the cecum and appendix. Limited evaluation of distal sigmoid-rectal anastomosis without oral or intravenous contrast, without significant true pelvis free fluid or gross abnormal focal fluid
collection.
Clear liquid diet with plan for n.p.o. past midnight plan for tomorrow for diverting loop ileostomy with reversal
#Chronic HFrEF:
Monitor ins and outs and daily weight
Hold diuretics for now
Coughing. Check chest x-ray.
#Hypertension:
Monitor blood pressure.
Continue carvedilol. Holding losartan and Aldactone for now
Blood pressure well-controlled
#CAD:
Chest pain-free
Continue antiplatelets beta-blockers
#Aortic stenosis:
Serial echocardiogram as outpatient
#Cognitive deficits/Dementia:
Continue Namenda
#Chronic anemia
Monitor hemoglobin for now
DVT prophylaxis:-Lovenox
CODE STATUS: Full code
Anticipated Discharge: > 48 hours
Subjective/Interval History
-
Date of Service: March 16, 2025
Denies any abdominal pain, nausea or vomiting
States of cough.
Objective Data
-
Labs:
Laboratory Results
03/16/25
07:17
WBC 5.6
Hgb 11.3 L
Hct 33.5 L
Plt Count 306
PT 14.5
INR 1.15
APTT 32.3
Sodium 137
Potassium 4.4
Chloride 113 H
Carbon Dioxide 19 L
BUN 21 H
Creatinine 1.3 H
Glucose 101 H
Calcium 8.9
Vital Signs:
Vital Signs
Temp Pulse Resp BP Pulse Ox
97.9 F 93 16 146/88 100
03/16/25 07:35 03/16/25 07:35 03/16/25 07:35 03/16/25 07:35 03/16/25 07:35
I&O
03/15/25 03/16/25 03/17/25
06:59 06:59 06:59
Intake Total 200 / 200 2400 / 3360 960 / 960
Output Total 125 / 125 600 / 600 50 / 50
Balance 75 / 75 1800 / 2760 910 / 910
[2025-03-16] MEDS: NEOMYCIN 1000 MG PO ×3 (14:13→23:51)
[2025-03-16] MEDS: FLAGYL 1000 MG PO ×3 (14:13→23:51)
[2025-03-16] MEDS: LASIX 20 MG PO (14:14)
--- NOTE | 2025-03-16 15:15 | CM ---
Pt for OR tomorrow for new ileostomy. At the very least would expect that she will have VN for ostomy care and education.
Plan: TBD post surgery.
[2025-03-16 15:50] VITALS: BP 150/84
[2025-03-16 23:12] VITALS: BP 137/79
[2025-03-17] VITALS (11 sets, daily range): BP systolic 104–163; BP diastolic 66–105; BMI 23.9
[2025-03-17] MEDS: TYLENOL PO ×2 (03:02→10:03)
[2025-03-17 08:20] LABS: Hematocrit 35.8 % (37.0-47.0); Hemoglobin 12.1 g/dL (12.0-16.0); Mean Corp Hgb Conc. 33.8 g/dL (33.0-37.0); Mean Corpuscular Volume 94.0 fL (81.0-99.0); Nucleated Red Blood Cells % 0 %; Platelet Count 357 10^3/uL (130-400); Red Cell Dist. Width 18.2 % (11.5-14.5)
[2025-03-17] MEDS: HEPARIN 5000 UNITS SC (08:20)
[2025-03-17 08:56] LABS: Blood Urea Nitrogen 14 mg/dl (7-17); Calcium 9.4 mg/dl (8.4-10.2); Carbon Dioxide 19 mmol/L (22-30); Chloride 106 mmol/L (98-107); Estimated Creatinine Clearance 29 ml/min; Glucose 92 mg/dl (70-99); Potassium 4.2 mmol/L (3.5-5.1); Sodium 137 mmol/L (135-145); eGFR 41.31
[2025-03-17] MEDS: COREG PO (10:01)
[2025-03-17] MEDS: NAMENDA PO (10:02)
[2025-03-17] MEDS: NEURONTIN PO (10:02)
[2025-03-17] MEDS: SODIUM BICARBONATE PO (10:03)
--- NOTE | 2025-03-17 10:37 | W.IMMPOSTOP ---
Surgical Immed Post Op Note
-
Primary Surgeon: Allen Cristobal MD
Assisting Surgeon: VANNESA Ruffin
Pre-op Diagnosis: Loop ileostomy
Post-op Diagnosis: Same
Procedure Performed: Resection and closure of loop ileostomy
Anesthesia Type: GET
Specimen / Cultures: Ileostomy
Estimated Blood Loss: 6cc
Complications: None
Operative Findings: Stapled functional end-to-end anastomosis
[2025-03-17] MEDS: DUONEB 3 ML INH (10:45)
[2025-03-17] MEDS: DILAUDID 0.25 MG IV ×4 (10:53→23:32)
[2025-03-17] MEDS: NSS 1000 IV (11:41)
--- NOTE | 2025-03-17 11:43 | CM ---
Met with nurse and pt bedside. Just returned from OR. Pain management in progress. Pt is concurrent with Geo VN.
Plan: Dc home with Geo resumption of care
[2025-03-17] MEDS: CYMBALTA DELAYED RELEASE 30 MG PO (11:44)
[2025-03-17] MEDS: LOW STRENGTH ASPIRIN 81 MG PO (11:44)
[2025-03-17] MEDS: LIPITOR 80 MG PO (11:44)
[2025-03-17] MEDS: PROTONIX 40 MG PO (11:44)
--- NOTE | 2025-03-17 11:51 | PTCARENOTE ---
Pt returned from PACU in bed. Abdominal DSG C/D/I. IVF initiated. Ang catheter clean and intact draining urine. CLD reviewed with pt, pt verbalized understanding.Pt instructed to ring for assistance with ambulation, verbalized understanding. Bed
locked and in the lowest position, safety maintained. Oriented to room, call linn within reach.
[2025-03-17] MEDS: TYLENOL 650 MG PO ×3 (12:19→20:07)
--- NOTE | 2025-03-17 13:46 | W.PN.HOSP.TC ---
Today's Communication/Plan
-
dec IVF rate with HF
Trend cr
clears for now
pain control
Assessment / Plan
Assessment / Plan
General: Well Developed, Well Nourished and No Apparent Distress
HEENT: Normocephalic, Moist Mucous Membranes, Atraumatic
Respiratory: Clear
Cardiac: S1/S2, Regular Rhythm and Murmur; Negative Rub
GI: surgical dressing noted, TTP
Rectal: Deferred by Provider
Musculoskeletal: No Clubbing, No Cyanosis and No Edema
Skin: Negative Rash
Neuro: Awake, No Motor Deficits and Nonfocal/Grossly Intact
Psych: Calm
#Elevated creatinine on CKD3a
#Metabolic acidosis
Likely secondary to dehydration
Monitor ostomy output
Monitor urinary output
Avoid nephrotoxic medication
Trend BMP daily
Start p.o. bicarbonate
Continue to hold Lasix, Aldactone and losartan for now
#Colovaginal fistula status post robotic LAR with takedown of fistula and later exploratory laparotomy with creation of diverting loop ileostomy for pelvic anastomotic leak:
CT pelvis Residual intestinal contrast most prominent in the cecum and appendix. Limited evaluation of distal sigmoid-rectal anastomosis without oral or intravenous contrast, without significant true pelvis free fluid or gross abnormal focal fluid
collection.
s/p Resection and closure of loop ileostomy
on clears for now
IVF restarted surgery. decrease rate with heart failure
#Chronic HFrEF:
Monitor ins and outs and daily weight
Hold diuretics for today
#Hypertension:
Monitor blood pressure.
Continue carvedilol. Holding losartan and Aldactone for now
Blood pressure well-controlled
#CAD:
Chest pain-free
Continue antiplatelets beta-blockers
#Aortic stenosis:
Serial echocardiogram as outpatient
#Cognitive deficits/Dementia:
Continue Namenda
#Chronic anemia
Monitor hemoglobin for now
DVT prophylaxis:-Lovenox
CODE STATUS: Full code
Anticipated Discharge: > 48 hours
Subjective/Interval History
-
Date of Service: March 17, 2025
states of mild abd pain
Objective Data
-
Labs:
Laboratory Results
03/17/25
07:31
WBC 6.1
Hgb 12.1
Hct 35.8 L
Plt Count 357
Sodium 137
Potassium 4.2
Chloride 106
Carbon Dioxide 19 L
BUN 14
Creatinine 1.3 H
Glucose 92
Calcium 9.4
Vital Signs:
Vital Signs
Temp Pulse Resp BP Pulse Ox
97.8 F 105 18 157/95 96
03/17/25 13:29 03/17/25 13:29 03/17/25 13:29 03/17/25 13:29 03/17/25 13:29
I&O
03/16/25 03/17/25 03/18/25
06:59 06:59 06:59
Intake Total 2400 / 3360 1920 / 1920
Output Total 600 / 600 375 / 375 300 / 300
Balance 1800 / 2760 1545 / 1545 -300 / -300
Data Reviewed
-
Total Time Spent with Patient (in minutes): 55
--- NOTE | 2025-03-17 14:12 | PTCARENOTE ---
Pt hypertensive. Dr Solorio aware. Care ongoing.
--- NOTE | 2025-03-17 14:25 | PN.CDI ---
CDI
- -
CDI:
Physician Documentation Request
Admit Date: 03/14/25 18:25
Dear Doctor Levar,
H&P states 'MANINDER most likely secondary to dehydration'
creatinine results:
Laboratory Tests
03/14/25 03/15/25 03/16/25
18:11 17:28 07:17
Creatinine 1.6 H 1.6 H 1.3 H
03/17/25
07:31
Creatinine 1.3 H
Criteria for MANINDER*
1 Increase in serum creatinine by > or = to 0.3 mg/dL (> or = to 26.5 micromol/L) within 48 hours, OR
2 Increase in serum creatinine to > or = to 1.5 times baseline, which is known or presumed to have occurred within 7 days, OR
3 Urine volume < 0.5 nL/kg/hour for six hours
Based on the above information and the recognized standard for MANINDER could you please verify this diagnoses is still accurate and reflective of the patient�s condition to ensure quality of the medical record.
Please clarify in the Progress Notes:
�MANINDER is/was present and is a clinical diagnosis based on (please include this additional support in the medical record)
�After study MANINDER has been ruled out
�Other
Use of terms such as suspected, likely, concern for, or probable (associated with a specific diagnosis that is being evaluated, monitored, or treated as if it exists) are acceptable and can be coded in the inpatient setting, when documented at the
time of discharge.
Thank you,
Cecelia Garcia RN, BSN
CDI Specialist
tiger text
Please use your independent medical judgment in providing your response.
[2025-03-17] MEDS: ULTRAM 50 MG PO (17:06)
[2025-03-17] MEDS: SODIUM BICARBONATE 650 MG PO ×2 (17:06→22:08)
[2025-03-17] MEDS: NEURONTIN 300 MG PO (20:07)
[2025-03-17] MEDS: COREG 12.5 MG PO (20:07)
[2025-03-17] MEDS: NAMENDA 5 MG PO (20:08)
[2025-03-18] MEDS: TYLENOL PO ×2 (00:22→05:21)
[2025-03-18 03:22] VITALS: BP 120/77
[2025-03-18 05:48] VITALS: BMI 24.9
[2025-03-18] MEDS: DILAUDID 0.25 MG IV (06:09)
[2025-03-18] MEDS: NSS 1000 IV (06:13)
[2025-03-18] MEDS: TESSALON PERLES 200 MG PO (06:25)
[2025-03-18 07:33] LABS: Hematocrit 29.4 % (37.0-47.0); Hemoglobin 9.6 g/dL (12.0-16.0); Mean Corp Hgb Conc. 32.7 g/dL (33.0-37.0); Mean Corpuscular Volume 93.9 fL (81.0-99.0); Platelet Count 316 10^3/uL (130-400); Red Cell Dist. Width 18.9 % (11.5-14.5)
[2025-03-18 08:01] VITALS: BP 152/94
[2025-03-18] MEDS: TYLENOL 650 MG PO ×4 (08:55→20:10)
[2025-03-18] MEDS: SODIUM BICARBONATE 650 MG PO ×3 (08:55→21:09)
[2025-03-18] MEDS: NAMENDA 5 MG PO ×2 (08:55→20:11)
[2025-03-18] MEDS: LIPITOR 80 MG PO (08:56)
[2025-03-18] MEDS: PROTONIX 40 MG PO (08:56)
[2025-03-18] MEDS: NEURONTIN 300 MG PO ×2 (08:56→20:10)
[2025-03-18] MEDS: COREG 12.5 MG PO ×2 (08:57→20:12)
[2025-03-18] MEDS: CYMBALTA DELAYED RELEASE 30 MG PO (08:58)
[2025-03-18] MEDS: LOW STRENGTH ASPIRIN 81 MG PO (08:58)
[2025-03-18 09:00] LABS: Blood Urea Nitrogen 17 mg/dl (7-17); Calcium 8.8 mg/dl (8.4-10.2); Carbon Dioxide 20 mmol/L (22-30); Chloride 108 mmol/L (98-107); Estimated Creatinine Clearance 27 ml/min; Glucose 105 mg/dl (70-99); Potassium 4.7 mmol/L (3.5-5.1); Sodium 134 mmol/L (135-145); eGFR 37.80
--- NOTE | 2025-03-18 10:46 | W.PN.GS2 ---
Today's Communication / Plan
-
fulls
follow h/h
Assessment / Plan
-
Assessment: 79-year-old female with prior RAL LAR and repair of colovaginal fistula with bilateral oophorectomy with takeback laparotomy and creation of loop ileostomy
POD #1 loop ileostomy closure
MANINDER preop secondary to hypovolemia, Cr remains elevated at 1.4
No leukocytosis
Acute anemia noted, suspect secondary to intraoperative losses and some post op bleeding at incision (resolved) as well as hemodilution given volume resuscitation over the last few days
Tolerating clears with +flatus
Plan:
Repeat h/h at noon. CBC/BMP in am
Ok for FLD
Void trial in AM
IVF as per primary
Tylenol scheduled with tramadol and dilaudid prn
SCDs for VTE ppx, hold lovenox pending repeat h/h
Subjective Data
-
Date of Service: March 18, 2025
Pt seen and examined at bedside. Denies n/v. Passing some flatus and maybe a little liquid rectally. Some discomfort but not much pain.
Objective Data
-
Intake and Output
03/17/25 03/18/25 03/19/25
06:59 06:59 06:59
Intake Total 1919 / 1919 1979 / 1979
Output Total 375 / 375 730 / 730
Balance 1545 / 1545 1250 / 1250
Intake:
Oral fluids 960 / 960 880 / 880
IV fluids (Total) 960 / 960 1100 / 1100
Output:
Liquid stool amount 375 / 375
Ileostomy 375 / 375
Urine, Briceno 730 / 730
Other:
How many times incontinent 4
MODERATE amount urine
Number of approximated SMALL 1
amounts of urine
Number of approximated MODERATE 2 1
amounts of urine
Vital Signs
Temp Pulse Resp BP Pulse Ox
97.9 F 103 16 152/94 99
03/18/25 08:01 03/18/25 08:57 03/18/25 08:01 03/18/25 08:57 03/18/25 08:01
Lab Results
03/18/25 07:06
Calcium 8.8 mg/dl (8.4-10.2) 03/18/25 07:06
Physical Exam
-
NAD AAO x 3
ABD: soft, nondistended, mild expected tenderness
Prior stoma site with BRB on dressing; changed. Hector and Edgardo intact with some clotted blood near site but no active bleeding
Patient has a briceno catheter: Yes
Patient has a central line: No
[2025-03-18 11:32] VITALS: BP 122/70
[2025-03-18 12:59] LABS: Hematocrit 27.1 % (37.0-47.0); Hemoglobin 9.2 g/dL (12.0-16.0)
--- NOTE | 2025-03-18 13:20 | W.PN.HOSP.TC ---
Today's Communication/Plan
-
diet per primary
dc IVF
Monitor creatinine
repeat urine studies in am
Assessment / Plan
Assessment / Plan
General: Well Developed, Well Nourished and No Apparent Distress
HEENT: Normocephalic, Moist Mucous Membranes, Atraumatic
Respiratory: Clear
Cardiac: S1/S2, Regular Rhythm and Murmur; Negative Rub
GI: surgical dressing noted, TTP
Rectal: Deferred by Provider
Musculoskeletal: No Clubbing, No Cyanosis and No Edema
Skin: Negative Rash
Neuro: Awake, No Motor Deficits and Nonfocal/Grossly Intact
Psych: Calm
#Colovaginal fistula status post robotic LAR with takedown of fistula and later exploratory laparotomy with creation of diverting loop ileostomy for pelvic anastomotic leak:
CT pelvis Residual intestinal contrast most prominent in the cecum and appendix. Limited evaluation of distal sigmoid-rectal anastomosis without oral or intravenous contrast, without significant true pelvis free fluid or gross abnormal focal fluid
collection.
s/p Resection and closure of loop ileostomy
diet has been advanced to fulls
DC further IVF in setting of cardiomyopathy
#Anemia likely 2/2 some dilutional component vs.surgery
Trend hgb for now
transfuse <7.
#Elevated creatinine on CKD3a
#Metabolic acidosis
Monitor ostomy output
Monitor urinary output
Avoid nephrotoxic medication
Trend BMP daily
Started p.o. bicarbonate
Recheck urinary studies
Continue to hold Lasix, Aldactone and losartan for now
#Chronic HFrEF:
Monitor ins and outs and daily weight
Hold diuretics for
#Hypertension:
Monitor blood pressure.
Continue carvedilol. Holding losartan and Aldactone for now
Blood pressure well-controlled 122/70
#CAD:
Chest pain-free
Continue antiplatelets beta-blockers
#Aortic stenosis:
Serial echocardiogram as outpatient
#Cognitive deficits/Dementia:
Continue Namenda
#Chronic anemia
Monitor hemoglobin for now
DVT prophylaxis:-Lovenox
CODE STATUS: Full code
Anticipated Discharge: > 48 hours
Subjective/Interval History
-
Date of Service: March 18, 2025
states of abd pain at surgical site
Objective Data
-
Labs:
Laboratory Results
03/18/25 03/18/25
07:06 12:30
WBC 10.3
Hgb 9.6 L D 9.2 L
Hct 29.4 L 27.1 L
Plt Count 316
Sodium 134 L
Potassium 4.7
Chloride 108 H
Carbon Dioxide 20 L
BUN 17
Creatinine 1.4 H
Glucose 105 H
Calcium 8.8
Vital Signs:
Vital Signs
Temp Pulse Resp BP Pulse Ox
99.1 F 90 16 122/70 100
03/18/25 11:32 03/18/25 11:32 03/18/25 11:32 03/18/25 11:32 03/18/25 11:32
I&O
03/17/25 03/18/25 03/19/25
06:59 06:59 06:59
Intake Total 1919 / 1919 1979 / 1979
Output Total 375 / 375 730 / 730
Balance 1545 / 1545 1250 / 1250
Data Reviewed
-
Total Time Spent with Patient (in minutes): 55
[2025-03-18 15:42] VITALS: BP 107/63
[2025-03-18] MEDS: LOVENOX 30 MG SC (17:40)
[2025-03-18] MEDS: ULTRAM 50 MG PO (20:16)
[2025-03-18 23:16] VITALS: BP 137/63
[2025-03-19] MEDS: TYLENOL PO ×3 (00:20→12:00)
[2025-03-19 06:00] VITALS: BMI 24.9
[2025-03-19] MEDS: ULTRAM 50 MG PO (06:36)
[2025-03-19 07:08] LABS: Hematocrit 26.7 % (37.0-47.0); Hemoglobin 8.9 g/dL (12.0-16.0); Mean Corp Hgb Conc. 33.3 g/dL (33.0-37.0); Mean Corpuscular Volume 94.0 fL (81.0-99.0); Platelet Count 288 10^3/uL (130-400); Red Cell Dist. Width 18.6 % (11.5-14.5)
[2025-03-19 07:34] LABS: Blood Urea Nitrogen 17 mg/dl (7-17); Calcium 8.8 mg/dl (8.4-10.2); Carbon Dioxide 24 mmol/L (22-30); Chloride 106 mmol/L (98-107); Estimated Creatinine Clearance 32 ml/min; Glucose 102 mg/dl (70-99); Potassium 4.1 mmol/L (3.5-5.1); Sodium 134 mmol/L (135-145); eGFR 45.48
[2025-03-19 08:10] VITALS: BP 160/87
[2025-03-19] MEDS: NAMENDA 5 MG PO ×2 (09:23→20:30)
[2025-03-19] MEDS: COREG 12.5 MG PO ×2 (09:24→20:30)
[2025-03-19] MEDS: LIPITOR 80 MG PO (09:24)
[2025-03-19] MEDS: TYLENOL 650 MG PO ×4 (09:24→23:14)
[2025-03-19] MEDS: LOW STRENGTH ASPIRIN 81 MG PO (09:25)
[2025-03-19] MEDS: NEURONTIN 300 MG PO ×2 (09:25→20:30)
[2025-03-19] MEDS: CYMBALTA DELAYED RELEASE 30 MG PO (09:25)
[2025-03-19] MEDS: PROTONIX 40 MG PO (09:25)
[2025-03-19] MEDS: SODIUM BICARBONATE PO (09:27)
[2025-03-19] MEDS: DILAUDID 0.25 MG IV (09:31)
--- NOTE | 2025-03-19 10:31 | W.PN.GS2 ---
Addendum entered and electronically signed by Ebenezer Hinds MD 03/19/25 15:35:
Patient seen and examined in follow-up this afternoon with surgical RESIDENT CARE PROVIDER. Reports adequate postoperative pain control. Passing flatus and loose bowel movements.
Tolerating full liquid diet and feels as though ready to try solid food
AFVSS
NAD AAO x 3
ABD: Soft, no significant distention, minimal incisional tenderness.
Old ileostomy site dressing clean, Edgardo drain in place, no active bleeding
A/P: POD #2 status post reversal of loop ileostomy
Dietary advancement
Supportive care
Original Note:
Today's Communication / Plan
-
slow diet advancement
pain control
Assessment / Plan
-
Assessment: 79-year-old female with prior RAL LAR and repair of colovaginal fistula with bilateral oophorectomy with takeback laparotomy and creation of loop ileostomy
POD #2 loop ileostomy closure
MANINDER preop secondary to hypovolemia, Cr remains trending down to 1.2
No leukocytosis
H/H stable after initial drop
Tolerating fulls with +flatus/loose stools
Plan:
C/W FLD, advance to LRD tentatively today vs tomorrow
OOB to chair. PT/OT following
c/w home meds
Tylenol scheduled with tramadol and dilaudid prn
SCDs for VTE ppx, renally dosed lovenox sq
updated daughter Leonarda via telephone
Subjective Data
-
Date of Service: March 19, 2025
Pt seen and examined at bedside. Denies n/v. Tolerating diet. Some aching across abdomen. Passing gas/stools. Some fecal incontinence. Voiding well.
Objective Data
-
Intake and Output
03/18/25 03/19/25 03/20/25
06:59 06:59 06:59
Intake Total 1979 / 1979 940 / 940
Output Total 730 / 730 160 / 160
Balance 1250 / 1250 780 / 780
Intake:
Oral fluids 880 / 880 940 / 940
IV fluids (Total) 1100 / 1100
Output:
Urine, Briceno 730 / 730 160 / 160
Other:
Number of approximated MODERATE 1 1
amounts of urine
Vital Signs
Temp Pulse Resp BP Pulse Ox
98.2 F 120 17 160/87 93
03/19/25 08:10 03/19/25 08:10 03/19/25 08:10 03/19/25 08:10 03/19/25 08:10
Lab Results
03/19/25 06:20
03/19/25 06:20
Calcium 8.8 mg/dl (8.4-10.2) 03/19/25 06:20
Physical Exam
-
NAD AAO x 3
ABD: soft, nondistended, mild expected tenderness
Prior stoma site with georges and Edgardo intact no active bleeding
Patient has a briceno catheter: No
Patient has a central line: No
--- NOTE | 2025-03-19 11:33 | W.PN.HOSP.TC ---
Addendum entered and electronically signed by Masood Solorio MD 03/19/25 14:23:
correction takes losartan 25mg daily.
Original Note:
Today's Communication/Plan
-
abd pain-slowly advanced diet
urine studies pending post IVF
restart losartan
Assessment / Plan
Assessment / Plan
General: Well Developed, Well Nourished and No Apparent Distress
HEENT: Normocephalic, Moist Mucous Membranes, Atraumatic
Respiratory: Clear
Cardiac: S1/S2, Regular Rhythm and Murmur; Negative Rub
GI: surgical dressing noted, TTP
Rectal: Deferred by Provider
Musculoskeletal: No Clubbing, No Cyanosis and No Edema
Skin: Negative Rash
Neuro: Awake, No Motor Deficits and Nonfocal/Grossly Intact
Psych: Calm
#Colovaginal fistula status post robotic LAR with takedown of fistula and later exploratory laparotomy with creation of diverting loop ileostomy for pelvic anastomotic leak:
CT pelvis Residual intestinal contrast most prominent in the cecum and appendix. Limited evaluation of distal sigmoid-rectal anastomosis without oral or intravenous contrast, without significant true pelvis free fluid or gross abnormal focal fluid
collection.
s/p Resection and closure of loop ileostomy
diet has been advanced to fulls
had bm earlier today.
DC further IVF in setting of cardiomyopathy
#Anemia likely 2/2 some dilutional component vs.surgery
Trend hgb for now
transfuse <7.
#Elevated creatinine on CKD3a
#Metabolic acidosis
Monitor ostomy output
Monitor urinary output
Avoid nephrotoxic medication
Trend BMP daily
DC further p.o. bicarbonate
Recheck urinary studies
Cr improved. If cr continues to improve can start diuretics in am
#Chronic HFrEF:
Monitor ins and outs and daily weight
IVF stopped.
If cr continues to improve can start diuretics in am
#Hypertension:
Monitor blood pressure.
Continue carvedilol. Restart losartan
Blood pressure creeping up
#CAD:
Chest pain-free
Continue antiplatelets beta-blockers
#Aortic stenosis:
Serial echocardiogram as outpatient
#Cognitive deficits/Dementia:
Continue Namenda
#Chronic anemia
Monitor hemoglobin for now
DVT prophylaxis:-Lovenox
CODE STATUS: Full code
Anticipated Discharge: > 48 hours
Subjective/Interval History
-
Date of Service: March 19, 2025
states of some abd pain
had bm earlier today
Objective Data
-
Labs:
Laboratory Results
03/19/25
06:20
WBC 10.2
Hgb 8.9 L
Hct 26.7 L
Plt Count 288
Sodium 134 L
Potassium 4.1
Chloride 106
Carbon Dioxide 24
BUN 17
Creatinine 1.2 H
Glucose 102 H
Calcium 8.8
Vital Signs:
Vital Signs
Temp Pulse Resp BP Pulse Ox
98.2 F 120 17 160/87 93
03/19/25 08:10 03/19/25 08:10 03/19/25 08:10 03/19/25 08:10 03/19/25 08:10
I&O
03/18/25 03/19/25 03/20/25
06:59 06:59 06:59
Intake Total 1979 / 1979 940 / 940
Output Total 730 / 730 160 / 160
Balance 1250 / 1250 780 / 780
Data Reviewed
-
Total Time Spent with Patient (in minutes): 55
[2025-03-19] MEDS: COZAAR 25 MG PO (14:09)
[2025-03-19 15:25] VITALS: BP 105/60
[2025-03-19] MEDS: LOVENOX 30 MG SC (18:04)
[2025-03-19 23:00] VITALS: BP 109/54
[2025-03-20] MEDS: TYLENOL 650 MG PO ×6 (03:40→23:40)
[2025-03-20 08:00] VITALS: BP 176/93
--- NOTE | 2025-03-20 09:00 | W.PN.CRS1 ---
Today's Communication / Plan
-
await labs
trend hemoglobin
continue low residue
Assessment/Plan
-
Assessment: 79-year-old female with prior RAL LAR and repair of colovaginal fistula with bilateral oophorectomy with takeback laparotomy and creation of loop ileostomy
POD #3 loop ileostomy closure
Labs pending
vitals normal
Plan:
-Low residue diet
-OOB to chair. PT/OT following
-c/w home meds
-Tylenol scheduled with tramadol and dilaudid prn
-SCDs for VTE ppx, renally dosed lovenox sq
-updated daughter Leonarda via telephone at the bedside
-Await labwork. Trend hemoglobin. Keep another day due to rectal bleeding.
Subjective Data
Subjective Data
Date of Service: March 20, 2025
Patient states she feels well. She has mild abdominal pain that is controlled with pain medications. Denies nausea or vomiting. She has loose stools and some bloody bowel movements.
Objective Data
-
Vital Signs
Temp Pulse Resp BP Pulse Ox
98 F 88 16 176/93 95
03/20/25 08:00 03/20/25 08:00 03/20/25 08:00 03/20/25 08:00 03/20/25 08:00
Intake & Output
03/19/25 03/20/25 03/21/25
06:59 06:59 06:59
Intake Total 940 / 940 1050 / 1050
Output Total 160 / 160
Balance 780 / 780 1050 / 1050
Intake:
Oral fluids 940 / 940 1050 / 1050
Output:
Urine, Ang 160 / 160
Other:
Number of approximated SMALL 2
amounts of urine
Number of approximated MODERATE 1 2 1
amounts of urine
Number of unmeasured liquid
stools
Ileostomy 3
Physical Exam
-
General: No Acute Distress and AOx3
Abdomen: Soft, Non Distended, Tender (mild around incisions) and Other
Skin: Warm and Dry
Wound: Other (jevon drain in place)
[2025-03-20 09:37] LABS: Hematocrit 24.9 % (37.0-47.0); Hemoglobin 8.1 g/dL (12.0-16.0); Mean Corp Hgb Conc. 32.5 g/dL (33.0-37.0); Mean Corpuscular Volume 96.1 fL (81.0-99.0); Platelet Count 283 10^3/uL (130-400); Red Cell Dist. Width 18.6 % (11.5-14.5)
[2025-03-20] MEDS: NAMENDA 5 MG PO ×2 (09:39→20:37)
[2025-03-20] MEDS: PROTONIX 40 MG PO (09:39)
[2025-03-20] MEDS: CYMBALTA DELAYED RELEASE 30 MG PO (09:40)
[2025-03-20] MEDS: NEURONTIN 300 MG PO ×2 (09:41→20:25)
[2025-03-20] MEDS: COZAAR 25 MG PO (09:41)
[2025-03-20] MEDS: LOW STRENGTH ASPIRIN 81 MG PO (09:41)
[2025-03-20] MEDS: LIPITOR 80 MG PO (09:42)
[2025-03-20] MEDS: ZYLOPRIM 100 MG PO (09:42)
[2025-03-20] MEDS: COREG 12.5 MG PO ×2 (09:42→20:20)
[2025-03-20 10:23] LABS: Blood Urea Nitrogen 21 mg/dl (7-17); Calcium 8.9 mg/dl (8.4-10.2); Carbon Dioxide 24 mmol/L (22-30); Chloride 102 mmol/L (98-107); Estimated Creatinine Clearance 29 ml/min; Glucose 97 mg/dl (70-99); Potassium 4.1 mmol/L (3.5-5.1); Sodium 132 mmol/L (135-145); eGFR 41.31
--- NOTE | 2025-03-20 10:26 | PN.CDI ---
CDI
- -
CDI:
Physician Documentation Request
Admit Date: 03/14/25 18:25
Dear Doctor Martha Calix,
H&P states 'MANINDER most likely secondary to dehydration'
creatinine results:
Laboratory Tests
03/14/25 03/15/25 03/16/25
18:11 17:28 07:17
Creatinine 1.6 H 1.6 H 1.3 H
03/17/25
07:31
Creatinine 1.3 H
03/18/25 03/19/25 03/20/25
07:06 06:20 08:37
Creatinine 1.4 H 1.2 H 1.3 H
Criteria for MANINDER*
1 Increase in serum creatinine by > or = to 0.3 mg/dL (> or = to 26.5 micromol/L) within 48 hours, OR
2 Increase in serum creatinine to > or = to 1.5 times baseline, which is known or presumed to have occurred within 7 days, OR
3 Urine volume < 0.5 nL/kg/hour for six hours
Based on the above information and the recognized standard for MANINDER could you please verify this diagnoses is still accurate and reflective of the patient�s condition to ensure quality of the medical record.
Please clarify in the Progress Notes:
�MANINDER is/was present and is a clinical diagnosis based on (please include this additional support in the medical record)
�After study MANINDER has been ruled out
�Other
Use of terms such as suspected, likely, concern for, or probable (associated with a specific diagnosis that is being evaluated, monitored, or treated as if it exists) are acceptable and can be coded in the inpatient setting, when documented at the
time of discharge.
Thank you,
Cecelia Garcia RN, BSN
CDI Specialist
tiger text
Please use your independent medical judgment in providing your response.
*Source: Kidney Disease: Improving Global Outcomes (KDIGO) 2012
[2025-03-20 10:56] VITALS: BP 115/65; PULSE 94
--- NOTE | 2025-03-20 13:12 | W.PN.HOSP.TC ---
Today's Communication/Plan
-
Low residue diet
Monitor volume status closely off diuretic
BMP in a.m.
Assessment / Plan
Assessment / Plan
#Colovaginal fistula status post robotic LAR with takedown of fistula and later exploratory laparotomy with creation of diverting loop ileostomy for pelvic anastomotic leak:
CT pelvis Residual intestinal contrast most prominent in the cecum and appendix. Limited evaluation of distal sigmoid-rectal anastomosis without oral or intravenous contrast, without significant true pelvis free fluid or gross abnormal focal fluid
collection.
s/p Resection and closure of loop ileostomy
diet has been advanced to low residue
had bm earlier today.
#Anemia likely 2/2 some dilutional component vs.surgery
Trend hgb for now
transfuse <7.
#Elevated creatinine on CKD3a
#Metabolic acidosis
Monitor ostomy output
Monitor urinary output
Avoid nephrotoxic medication
Trend BMP daily
DC further p.o. bicarbonate
Recheck urinary studies
Cr improved. If cr continues to improve can start diuretics in am
#Chronic HFrEF:
Monitor ins and outs and daily weight
IVF stopped.
If cr continues to improve can start diuretics in am
#Hypertension:
Monitor blood pressure.
Continue carvedilol. Restart losartan
Blood pressure creeping up
#CAD:
Chest pain-free
Continue antiplatelets beta-blockers
#Aortic stenosis:
Serial echocardiogram as outpatient
#Cognitive deficits/Dementia:
Continue Namenda
#Chronic anemia
Monitor hemoglobin for now
DVT prophylaxis:-Lovenox
CODE STATUS: Full code
Anticipated Discharge: 24 - 48 hours
Subjective/Interval History
-
Date of Service: March 20, 2025
Objective Data
-
Labs:
Laboratory Results
03/20/25
08:37
WBC 9.0
Hgb 8.1 L
Hct 24.9 L
Plt Count 283
Sodium 132 L
Potassium 4.1
Chloride 102
Carbon Dioxide 24
BUN 21 H
Creatinine 1.3 H
Glucose 97
Calcium 8.9
Vital Signs:
Vital Signs
Temp Pulse Resp BP Pulse Ox
98 F 88 16 176/93 95
03/20/25 08:00 03/20/25 08:00 03/20/25 08:00 03/20/25 08:00 03/20/25 08:00
I&O
03/19/25 03/20/25 03/21/25
06:59 06:59 06:59
Intake Total 940 / 940 1050 / 1050
Output Total 160 / 160
Balance 780 / 780 1050 / 1050
Physical Exam
-
General: Well Developed and No Apparent Distress
HEENT: Normocephalic, Atraumatic and Moist Mucous Membranes
Respiratory: Clear to Auscultation
Cardiac: Regular Rhythm and S1/S2; Negative Murmur, Rub or Gallop
GI: Soft, Nontender, Nondistended and Normal Bowel Sounds; Negative Organomegaly
Rectal: Deferred by Provider
Musculoskeletal: No Clubbing, No Cyanosis and No Edema
Skin: Negative Rash
Neuro: Nonfocal/Grossly Intact
[2025-03-20 15:46] VITALS: BP 152/78
--- NOTE | 2025-03-20 16:14 | CM ---
CM reviewed chart
Pt is POD#7 sigmoidoscopy and POD#3 ileostomy closure
PT/OT continues to follow with VN vs no needs
[facility] referral for [facility] sent previously and referral accepted
Discharge Disposition- home with [facility]
Fax- [phone]
[2025-03-20] MEDS: ULTRAM 50 MG PO (17:20)
[2025-03-20] MEDS: DILAUDID 0.25 MG IV (20:45)
[2025-03-20 23:00] VITALS: BP 123/63
[2025-03-21] MEDS: TYLENOL 650 MG PO ×4 (03:45→17:39)
[2025-03-21 06:51] LABS: Hematocrit 21.7 % (37.0-47.0); Hemoglobin 7.3 g/dL (12.0-16.0); Mean Corp Hgb Conc. 33.6 g/dL (33.0-37.0); Mean Corpuscular Volume 94.8 fL (81.0-99.0); Nucleated Red Blood Cells % 0 %; Platelet Count 246 10^3/uL (130-400); Red Cell Dist. Width 18.2 % (11.5-14.5)
[2025-03-21 07:08] LABS: Blood Urea Nitrogen 22 mg/dl (7-17); Calcium 8.7 mg/dl (8.4-10.2); Carbon Dioxide 23 mmol/L (22-30); Chloride 105 mmol/L (98-107); Estimated Creatinine Clearance 32 ml/min; Glucose 107 mg/dl (70-99); Potassium 4.4 mmol/L (3.5-5.1); Sodium 133 mmol/L (135-145); eGFR 45.48
[2025-03-21 07:50] VITALS: BP 97/55
[2025-03-21] MEDS: NEURONTIN 300 MG PO (08:58)
[2025-03-21] MEDS: CYMBALTA DELAYED RELEASE 30 MG PO (08:58)
[2025-03-21] MEDS: LIPITOR 80 MG PO (08:58)
[2025-03-21] MEDS: LOW STRENGTH ASPIRIN 81 MG PO (08:58)
[2025-03-21] MEDS: COREG PO (08:59)
[2025-03-21] MEDS: PROTONIX 40 MG PO (09:00)
[2025-03-21] MEDS: NAMENDA 5 MG PO (09:00)
[2025-03-21] MEDS: ZYLOPRIM 100 MG PO (09:00)
[2025-03-21] MEDS: COZAAR PO (09:05)
[2025-03-21] MEDS: COREG 12.5 MG PO (09:07)
--- NOTE | 2025-03-21 12:32 | W.PN.CRS1 ---
Addendum entered and electronically signed by Martha Calix PA-C 03/27/25 14:03:
Please note, in H+P it said 'MANINDER likely to dehydration'. Her creatinine at baseline is usually 1.2 to 1.3. She came in with an admission creatinine of 1.6.
Original Note:
Today's Communication / Plan
-
As below
Assessment/Plan
-
POD 4 ileostomy reversal
AFVSS
WBC 8.5, Hb 7.3 from 8.1, CR 1.2
�Hematochezia resolved; Hb trended down; due to cardiac history, will transfuse PRBC x 1, but no concern for active bleeding at this point
� Continue low residue
� Continue pain control with Tylenol and tramadol as needed
� Continue DVT PPx with Lovenox
� Encourage I-S/OOB
� Appreciate hospitalist
Dispo�Will repeat Hb after transfusion and plan for DC this evening
Subjective Data
Subjective Data
Date of Service: March 21, 2025
No overnight events. Had a BM this morning without any blood.
Denies any N/V and tolerating low residue.
Passing flatus and BMs. Voiding.
Pain controlled
Objective Data
-
Vital Signs
Temp Pulse Resp BP Pulse Ox
98.9 F 89 15 97/55 94
03/21/25 07:50 03/21/25 07:50 03/21/25 07:50 03/21/25 09:07 03/21/25 08:57
Intake & Output
03/20/25 03/21/25 03/22/25
06:59 06:59 06:59
Intake Total 1050 / 1050 720 / 720 360 / 360
Balance 1050 / 1050 720 / 720 360 / 360
Intake:
Oral fluids 1050 / 1050 720 / 720 360 / 360
Other:
How many times incontinent 2
MODERATE amount urine
Number of approximated SMALL 2
amounts of urine
Number of approximated MODERATE 2 1 3
amounts of urine
Number of unmeasured liquid
stools
Ileostomy 3
Lab Results
03/21/25 12:00
03/21/25 06:02
Physical Exam
-
General: No Acute Distress and AOx3
Abdomen: Soft, Non Distended, Tender (Appropriately tender near ostomy incision), No Guarding and No Rebound
Skin: Warm and Dry
Wound: Other (Ostomy incision closed with georges around a Edgardo drain; no surrounding erythema or purulent drainage; [place] removed during exam)
--- NOTE | 2025-03-21 13:48 | W.PN.HOSP.TC ---
Today's Communication/Plan
-
Transfuse to keep hemoglobin above 8
If going home, hold Lasix, spironolactone and Cozaar 03/26. Check BMP prior to resume
Assessment / Plan
Assessment / Plan
#Colovaginal fistula status post robotic LAR with takedown of fistula and later exploratory laparotomy with creation of diverting loop ileostomy for pelvic anastomotic leak:
CT pelvis Residual intestinal contrast most prominent in the cecum and appendix. Limited evaluation of distal sigmoid-rectal anastomosis without oral or intravenous contrast, without significant true pelvis free fluid or gross abnormal focal fluid
collection.
s/p Resection and closure of loop ileostomy
diet has been advanced to low residue
had bm earlier today.
#Anemia likely 2/2 some dilutional component vs.surgery
Hemoglobin trending down to 7.3 with likely dilutional effect with no clinical evidence of acute blood loss
Transfuse to keep hemoglobin above 8
#Elevated creatinine on CKD3a
#Metabolic acidosis improved
Monitor ostomy output
Monitor urinary output
Avoid nephrotoxic medication
Trend BMP daily
DC further p.o. bicarbonate
Recheck urinary studies
Cr improved. If cr continues to improve can start diuretics in am
#Chronic HFrEF:
Monitor ins and outs and daily weight
Soft blood pressure
Has been off Lasix, spironolactone and Cozaar
Continue Coreg
If going home, hold Lasix, spironolactone and Cozaar 03/26. Check BMP.
#Hypertension:
Monitor blood pressure.
Continue carvedilol. Restart losartan
Blood pressure creeping up
#CAD:
Chest pain-free
Continue antiplatelets beta-blockers
#Aortic stenosis:
Serial echocardiogram as outpatient
#Cognitive deficits/Dementia:
Continue Namenda
#Chronic anemia
Monitor hemoglobin for now
DVT prophylaxis:-Lovenox
CODE STATUS: Full code
Anticipated Discharge: Within 24 hours
Subjective/Interval History
-
Date of Service: March 21, 2025
Objective Data
-
Labs:
Laboratory Results
03/21/25 03/21/25 03/21/25
06:02 10:54 12:00
WBC 8.5 Cancelled
Hgb 7.3 L Pending Cancelled
Hct 21.7 L Pending Cancelled
Plt Count 246 Cancelled
Sodium 133 L
Potassium 4.4
Chloride 105
Carbon Dioxide 23
BUN 22 H
Creatinine 1.2 H
Glucose 107 H
Calcium 8.7
Vital Signs:
Vital Signs
Temp Pulse Resp BP Pulse Ox
98.9 F 89 15 97/55 94
03/21/25 07:50 03/21/25 07:50 03/21/25 07:50 03/21/25 09:07 03/21/25 08:57
I&O
03/20/25 03/21/25 03/22/25
06:59 06:59 06:59
Intake Total 1050 / 1050 720 / 720 660 / 660
Balance 1050 / 1050 720 / 720 660 / 660
Physical Exam
-
General: Well Developed and No Apparent Distress
HEENT: Normocephalic, Atraumatic and Moist Mucous Membranes
Respiratory: Clear to Auscultation
Cardiac: Regular Rhythm and S1/S2; Negative Murmur, Rub or Gallop
GI: Soft, Nontender, Nondistended and Normal Bowel Sounds; Negative Organomegaly
Rectal: Deferred by Provider
Musculoskeletal: No Clubbing, No Cyanosis and No Edema
Skin: Negative Rash
Neuro: Nonfocal/Grossly Intact
[2025-03-21 15:20] VITALS: BP 124/68
[2025-03-21 15:40] VITALS: BP 124/68
--- NOTE | 2025-03-21 15:57 | CM ---
CM reviewed chart- possible dc later today pending H&H
IMM completed with pt bedside
Plan for home with [facility] JAVIER
Pt has contacted granddtr for ride home
VN order requested
Update to [facility] via [facility]
Discharge Disposition- home with [facility] FR[facility]ISCO JAVIER, dtr transport
Fax- [phone]
[2025-03-21 16:01] VITALS: BP 145/73
[2025-03-21 18:22] VITALS: BP 145/80
[2025-03-21 19:23] LABS: Hematocrit 29.7 % (37.0-47.0); Hemoglobin 9.8 g/dL (12.0-16.0)
== END 2025-03-21 20:12 | disposition home health service (06) | DRG 330 ==
LOC: 2 SOUTH 18:25
PROVIDERS: Internal Medicine Gastroenterology; Physician Assistant; Registered Nurse; ADMITTING PHYSICIAN Surgery; OTHER PHYSICIAN Hospitalist
PROC: 0DJD8ZZ Inspection of Lower Intestinal Tract, Via Natural or Artificial Opening Endoscopic (ICD-10-PCS; 2025-03-14)
PROC: 0DBB0ZZ Excision of Ileum, Open Approach (ICD-10-PCS; 2025-03-17)
PROC: 30233N1 Transfusion of Nonautologous Red Blood Cells into Peripheral Vein, Percutaneous Approach (ICD-10-PCS; 2025-03-21)
DX: Z43.2 Encounter for attention to ileostomy (principal); E87.1 Hypo-osmolality and hyponatremia; N17.9 Acute kidney failure, unspecified; I13.0 Hypertensive heart and chronic kidney disease with heart failure and stage 1 through stage 4 chronic kidney disease, or unspecified chronic kidney disease; N82.3 Fistula of vagina to large intestine; I50.22 Chronic systolic (congestive) heart failure; K63.2 Fistula of intestine; E87.20 Acidosis, unspecified; E86.0 Dehydration; N18.31 Chronic kidney disease, stage 3a; I25.10 Atherosclerotic heart disease of native coronary artery without angina pectoris; I35.0 Nonrheumatic aortic (valve) stenosis; E87.5 Hyperkalemia; K64.9 Unspecified hemorrhoids; Z74.09 Other reduced mobility; Z79.899 Other long term (current) drug therapy; Z87.891 Personal history of nicotine dependence; R93.3 Abnormal findings on diagnostic imaging of other parts of digestive tract
CPT/HCPCS: 71046; 72170; 72192; 76000; 80048; 82570; 84300; 85014; 85018; 85025; 85027; 85610; 85730; 86850; 86900; 86901; 86920; 88304; 94640; 97116; 97162; 97166; 97535; J1335; P9016